=== PATIENT | female | born 1985 | race Caucasian/White ===

== ENCOUNTER → 2017-01-02 | Outpatient (REF) | payer OTHER ==
[~2017-01-02] MED LIST: IMIT5SPR; ROXI1TAB2 PO; XANA0.25 PO; birth control pill PO
== END ==
LOC: M LAB REF 11:30
PROVIDERS: ATTEND Physician Assistant Medical
DX: R50.9 Fever, unspecified (principal)

== ENCOUNTER 2017-01-04 12:40 | Emergency (ER) | payer OTHER ==
[2017-01-04] MEDS ORDERED: ONDANSETRON 4MG/2ML VIAL (J2405) As Ordered ONE (14:18)
[2017-01-04] MEDS ORDERED: KETOROLAC 30 MG/ML VIAL (J1885) As Ordered ONE (14:19)
[2017-01-04 14:34] LABS: EOS % 0.6 % (0.0-3.0); LARGE UNSTAINED CELL # 0.1 K/mm3 (0.0-0.4); LARGE UNSTAINED CELL % 3.7 % (0.0-4.0); LYMPH # 0.5 K/mm3 (1.5-4.5); LYMPH % 14.7 % (24.0-44.0); MEAN CORPUSCULAR HEMOGLOBIN 30.6 pg (27.0-33.0); MEAN CORPUSCULAR HGB CONC 34.2 g/dl (32.0-36.5); MEAN CORPUSCULAR VOLUME 89.4 fl (80.0-96.0); MONO # 0.4 K/mm3 (0.0-0.8); MONO % 12.1 % (0.0-5.0); NEUTROPHILS # 2.2 K/mm3 (1.8-7.7); NEUTROPHILS % 67.9 % (36.0-66.0); PLATELET COUNT, AUTOMATED 161 k/mm3 (150-450); RED CELL DISTRIBUTION WIDTH 12.7 % (11.5-14.5); WHITE BLOOD COUNT 3.2 K/mm3 (4.0-10.0)
[2017-01-04 14:37] LABS: ANION GAP 6 MEQ/L (8-16); BLOOD UREA NITROGEN 11 MG/DL (7-18); CALCIUM LEVEL 9.2 MG/DL (8.5-10.1); CARBON DIOXIDE LEVEL 27 MEQ/L (21-32); CHLORIDE LEVEL 105 MEQ/L (98-107); CREATININE FOR GFR 0.89 MG/DL (0.55-1.02); GLOMERULAR FILTRATION RATE > 60.0 (>60); GLUCOSE, FASTING 94 MG/DL (70-105); POTASSIUM SERUM 3.6 MEQ/L (3.5-5.1); SODIUM LEVEL 138 MEQ/L (136-145)
--- NOTE | 2017-01-04 15:12 | EDDOCDS ---
Nurse's Notes [facility] Name: Yaritza Zuniga Age: 31 yrs Sex: Female : 1985 Arrival Date: 01/04/2017 Time: 12:40 Bed I5 / M5 Private MD: Jorge Shelton FPA Diagnosis: Nausea and vomiting;Abdominal and pelvic pain-LLQ Presentation: 01/04 12:45 Presenting complaint: Patient states: that she thinks she has a kidney stone on her L ms18 side. Pt states that she has had kidney stones since she was 13 yrs old. The pain started Monday and pt reports vomiting. Acute neurological deficits are not present. Mechanism of Injury: No Mechanism of Injury. Adult Sepsis Screening: The patient does not have new or worsening altered mentation. Patient's respiratory rate is less than 22. Systolic blood pressure is greater than 100. Patient has a qSOFA score of 0- Negative Sepsis Screen. Suicide/Homicide risk assessment- the patient denies having any suicidal and/or homicidal ideations and does not present with any other emotional, behavioral or mental health complaints. Status: Patient is not a service writer advisor or dependent. Transition of care: patient was not received from another setting of care. 12:45 Acuity: NIDA Level 3 ms18 12:45 Method Of Arrival: Walkin/Carried/Asstd ms18 Triage Assessment: 12:48 General: Appears in no apparent distress, uncomfortable, Behavior is appropriate for ms18 age, cooperative. Pain: Location: left flank Pain currently is 8 out of 10 on a pain scale. HIV screening NA for this visit Offered previously. Neurological: No deficits noted. Respiratory: No deficits noted. : Denies burning with urination. Musculoskeletal: No deficits noted. CONSTRUCTION GRIP: 12:48 LMP 12/17/2016 ms18 Historical: - Allergies: Ceclor; PENICILLINS; - Home Meds: 1. none - PMHx: Anxiety; Hepatitis C; Kidney stones; - PSHx: Lithotripsy; Kidney Stent- Left; Kidney Stent- Right; Kidney stent removal, L and R side; - Social history: Smoking status: Patient states was never smoker of tobacco. No barriers to communication noted. - Family history: Not pertinent. - : The pt / caregiver states he / she is not on anticoagulants. Home medication list is obtained from the patient. - Exposure Risk Screening:: None identified. Screenin:06 Infection Control. gr2 14:52 Screening information is obtained from the patient. Fall risk: No risks identified. jmk Assistance ADL's: requires no assistance with activities of daily living. Abuse/DV Screen: The patient / caregiver reports he/she is:. Nutritional screening: No deficits noted. Advance Directives: Currently, there is no health care proxy. There is no active DNR order. There is no living will. There is no Power of Financial Market Dealer. home support is adequate. Assessment: 14:30 General: Appears uncomfortable. Indicates discomfort to left flank area without abd jmk pain. + nausea but no vomiting. 14:52 GI: Abdomen is flat, non- distended Bowel sounds present X 4 quads. Abd is soft and non jmk tender X 4 quads. 14:55 General: Appears pain resolved. k Vital Signs: 12:42 BP 120 / 69; Pulse 94; Resp 18 S; Temp 99.4(O); Pulse Ox 99% on R/A; Weight 61.23 kg gr2 (R); Height 5 ft. 4 in. (162.56 cm) (R); Pain 9/10; 15:10 BP 121 / 79; Pulse 72; Resp 16; Temp 97.8; jmk 12:42 Body Mass Index 23.17 (61.23 kg, 162.56 cm) gr2 Vitals: 12:42 Log In Time: January 04, 2017 at 12:42. gr2 ED Course: 12:41 Patient visited by Oscar Dean. gr2 12:41 Jorge Shelton is Private Physician. gr2 12:41 Patient moved to Waiting gr2 12:43 Patient visited by Oscar Dean. gr2 12:43 Patient moved to Pre RCE gr2 12:47 Triage Initiated ms18 13:04 Urine Culture Sent. ms18 13:04 Urinalysis Sent. ms18 13:13 Patient moved to Triage 1 mlb1 13:30 [facility] cc10 13:30 Chuck Hunter MD is Attending Physician. cc10 13:40 Patient visited by James Lemus PA-C. cc10 13:40 Patient visited by James Lemus PA-C. cc10 13:57 Patient moved to I5 / mlb1 14:23 Inserted saline lock: 20 gauge in left antecubital area. jmk 14:52 The patient / caregiver is instructed regarding the plan of care and ED course. jmk 14:55 Patient visited by Antonio Charles RN. jmk 15:03 Jorge Shelton is Referral Physician. cc10 15:11 No procedures done that require assistance. [facility] Administered Medications: 14:23 Drug: Ondansetron 4 mg Route: IVP; Site: left antecubital; [facility] 14:23 Drug: ketorolac 30 mg [ketorolac 30 mg/mL (1 mL) injection solution (1 mL)] Route: IVP; [facility] Site: left antecubital; 14:23 Drug: NS 0.9% 1000 ml Route: IV; Rate: bolus; Site: left antecubital; елена Point of Care Testing: Urine : 13:04 hCG Reading: Negative; Control Reading: Positive; ms18 Ranges: Order Results: Lab Order: Urinalysis; SPEC'M 01/04/17 12:59 Test: APPEARANCE, URINE; Value: CLOUDY; Range: CLEAR; Abnormal: Above high normal; Status: F Test: COLOR, URINE; Value: YELLOW; Range: YELLOW; Status: F Test: PH,URINE; Value: 6.0; Range: 5.0-9.0; Units: UNITS; Status: F Test: SPECIFIC GRAVITY URINE AUTO; Value: 1.019; Range: 1.002-1.035; Status: F Test: PROTEIN, URINE AUTO; Value: 2+; Range: NEGATIVE; Abnormal: Above high normal; Units: mg/dL; Status: F Test: GLUCOSE, URINE (UA) AUTO; Value: NEGATIVE; Range: NEGATIVE; Units: mg/dL; Status: F Test: KETONE, URINE AUTO; Value: TRACE; Range: NEGATIVE; Abnormal: Above high normal; Units: mg/dL; Status: F Test: UROBILINOGEN, URINE AUTO; Value: 0.2; Range: 0.0-2.0; Units: mg/dL; Status: F Test: BILIRUBIN, URINE AUTO; Value: NEGATIVE; Range: NEGATIVE; Status: F Test: NITRITE, URINE AUTO; Value: NEGATIVE; Range: NEGATIVE; Status: F Test: LEUKOCYTE ESTERASE, URINE AUTO; Value: TRACE; Range: NEGATIVE; Abnormal: Above high normal; Status: F Test: BLOOD, URINE BLOOD; Value: 3+; Range: NEGATIVE; Abnormal: Above high normal; Status: F Test: WBC, URINE AUTO; Value: 42; Range: 0-3; Abnormal: Above high normal; Units: /HPF; Status: F Test: RBC, URINE AUTO; Value: TNTC; Range: 0-3; Abnormal: Above high normal; Units: /HPF; Status: F Test: BACTERIA, URINE AUTO; Value: 1+; Range: NEGATIVE; Abnormal: Above high normal; Status: F Test: SQUAMOUS EPITHELIAL CELL UR AU; Value: 3; Range: 0-6; Units: /HPF; Status: F Test: MUCUS, URINE; Value: SMALL; Range: NEGATIVE; Status: F Test: HYALINE CAST, URINE AUTO; Value: 0; Range: 0-1; Units: /LPF; Status: F Lab Order: Basic Metabolic Profile; [facility] 01/04/17 14:15 Test: GLUCOSE, FASTING; Value: 94; Range: 70-105; Units: MG/DL; Status: F Test: BLOOD UREA NITROGEN; Value: 11; Range: 7-18; Units: MG/DL; Status: F Test: CREATININE FOR GFR; Value: 0.89; Range: 0.55-1.02; Units: MG/DL; Status: F Test: GLOMERULAR FILTRATION RATE; Value: > 60.0; Range: >60; Status: F Test: SODIUM LEVEL; Value: 138; Range: 136-145; Units: MEQ/L; Status: F Test: POTASSIUM SERUM; Value: 3.6; Range: 3.5-5.1; Units: MEQ/L; Status: F Test: CHLORIDE LEVEL; Value: 105; Range: 98-107; Units: MEQ/L; Status: F Test: CARBON DIOXIDE LEVEL; Value: 27; Range: 21-32; Units: MEQ/L; Status: F Test: ANION GAP; Value: 6; Range: 8-16; Abnormal: Below low normal; Units: MEQ/L; Status: F Test: CALCIUM LEVEL; Value: 9.2; Range: 8.5-10.1; Units: MG/DL; Status: F Test Note: ; Units are mL/min/1.73 m2 Chronic Kidney Disease Staging per NKF: Stage I & II GFR >=60 Normal to Mildly Decreased Stage III GFR 30-59 Moderately Decreased Stage IV GFR 15-29 Severely Decreased Stage V GFR <15 Very Little GFR Left ESRD GFR <15 on STABLEHAND Lab Order: CBC with Diff; [facility] 01/04/17 14:15 Test: WHITE BLOOD COUNT; Value: 3.2; Range: 4.0-10.0; Abnormal: Below low normal; Units: K/mm3; Status: F Test: RED BLOOD COUNT; Value: 4.75; Range: 4.00-5.40; Units: M/mm3; Status: F Test: HEMOGLOBIN; Value: 14.5; Range: 12.0-16.0; Units: g/dl; Status: F Test: HEMATOCRIT; Value: 42.4; Range: 36.0-47.0; Units: %; Status: F Test: MEAN CORPUSCULAR VOLUME; Value: 89.4; Range: 80.0-96.0; Units: fl; Status: F Test: MEAN CORPUSCULAR HEMOGLOBIN; Value: 30.6; Range: 27.0-33.0; Units: pg; Status: F Test: MEAN CORPUSCULAR HGB CONC; Value: 34.2; Range: 32.0-36.5; Units: g/dl; Status: F Test: RED CELL DISTRIBUTION WIDTH; Value: 12.7; Range: 11.5-14.5; Units: %; Status: F Test: PLATELET COUNT, AUTOMATED; Value: 161; Range: 150-450; Units: k/mm3; Status: F Test: NEUTROPHILS %; Value: 67.9; Range: 36.0-66.0; Abnormal: Above high normal; Units: %; Status: F Test: LYMPH %; Value: 14.7; Range: 24.0-44.0; Abnormal: Below low normal; Units: %; Status: F Test: MONO %; Value: 12.1; Range: 0.0-5.0; Abnormal: Above high normal; Units: %; Status: F Test: EOS %; Value: 0.6; Range: 0.0-3.0; Units: %; Status: F Test: BASO %; Value: 1.0; Range: 0.0-1.0; Units: %; Status: F Test: LARGE UNSTAINED CELL %; Value: 3.7; Range: 0.0-4.0; Units: %; Status: F Test: NEUTROPHILS #; Value: 2.2; Range: 1.8-7.7; Units: K/mm3; Status: F Test: LYMPH #; Value: 0.5; Range: 1.5-4.5; Abnormal: Below low normal; Units: K/mm3; Status: F Test: MONO #; Value: 0.4; Range: 0.0-0.8; Units: K/mm3; Status: F Test: EOS #; Value: 0.0; Range: 0.0-0.50; Units: K/mm3; Status: F Test: BASO #; Value: 0.0; Range: 0.0-0.2; Units: K/mm3; Status: F Test: LARGE UNSTAINED CELL #; Value: 0.1; Range: 0.0-0.4; Units: K/mm3; Status: F Outcome: 15:03 Discharge ordered by Provider. cc10 15:10 Discharge Assessment: Patient awake, alert and oriented x 3. No cognitive and/or jmk functional deficits noted. Patient verbalized understanding of disposition instructions. patient administered narcotics - no. The following High Risk Discharge criteria are identified: None. Discharged to home ambulatory. Condition: good. Discharge instructions given to patient, Instructed on discharge instructions, follow up and referral plans. Demonstrated understanding of instructions, medications, Pt was receptive of discharge instructions/ teaching. Prescriptions given X 2. No special radiology studies were completed. Property :Personal belongings accompany Pt. 15:11 Patient left the ED. tenk Signatures: Antonio Charles,RN RN Jorge Bowman RN RN mlb1 Oscar Dean gr2 James Lemus PA-C PA-C cc10 Jaqueline Cui RN RN ms18 Corrections: (The following items were deleted from the chart) 14:55 14:52 General: Appears uncomfortable. Indicates discomfort to left flank area without jmk abd pain. + nausea but no vomiting. jmk MTDD
--- NOTE | 2017-01-04 15:12 | EDDOCDS ---
Physician Documentation [facility] Name: Yaritza Zuniga Age: 31 yrs Sex: Female : 1985 Arrival Date: 01/04/2017 Time: 12:40 Bed I5 / M5 Private MD: Jorge Shelton FPA Disposition: 01/04/17 15:03 Discharged to Home/Self Care. Impression: Nausea and vomiting, Abdominal and pelvic pain - LLQ. - Condition is Stable. - Discharge Instructions: Kidney Stones. - Prescriptions for Flomax 0.4 mg Oral Capsule, Sust. Release 24 hr - take 1 capsule by ORAL route once daily 1/2 hour following the same meal each day; 30 capsule. ketorolac 10 mg Oral Tablet - take 1 tablet by ORAL route every 6 hours As needed MDD- 40mg. Up to 5 days total use.; 20 tablet. - Medication Reconciliation, Work Release Form - 1 day form. - Follow up: Emergency Department; When: As needed; Reason: Worsening of conditions. Follow up: Jorge Shelton; When: Call to arrange an appointment; Reason: Wound/Symptom Recheck, Recheck today's complaints, Worsening of conditions, Continuance of care. - Problem is an ongoing problem. - Symptoms have improved. Historical: - Allergies: Ceclor; PENICILLINS; - Home Meds: 1. none - PMHx: Anxiety; Hepatitis C; Kidney stones; - PSHx: Lithotripsy; Kidney Stent- Left; Kidney Stent- Right; Kidney stent removal, L and R side; - Social history: Smoking status: Patient states was never smoker of tobacco. No barriers to communication noted. - Family history: Not pertinent. - : The pt / caregiver states he / she is not on anticoagulants. Home medication list is obtained from the patient. - Exposure Risk Screening:: None identified. 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 4 in. (162.56 cm) (R); Pain 9/10; 15:10 BP 121 / 79; Pulse 72; Resp 16; Temp 97.8; jmk 12:42 Body Mass Index 23.17 (61.23 kg, 162.56 cm) gr2 MDM: 12:52 UCG by Nursing ordered. dt4 12:53 Urinalysis Ordered. EDMS 12:53 Urine Culture Ordered. EDMS 13:40 Urinalysis Reviewed. cc10 13:46 Ondansetron 4 mg IVP once ordered. cc10 13:46 ketorolac 30 mg IVP once ordered. cc10 13:46 IV Saline Lock ordered. cc10 13:46 NS 0.9% 1000 ml IV at bolus once ordered. cc10 13:48 Basic Metabolic Profile Ordered. EDMS 13:48 CBC with Diff Ordered. EDMS 14:28 Financial registration complete. mm15 14:53 Basic Metabolic Profile Reviewed. cc10 14:53 CBC with Diff Reviewed. cc10 Point of Care Testing: Urine : 13:04 hCG Reading: Negative; Control Reading: Positive; ms18 Ranges: Administered Medications: 14:23 Drug: Ondansetron 4 mg Route: IVP; Site: left antecubital; елена 14:23 Drug: ketorolac 30 mg [ketorolac 30 mg/mL (1 mL) injection solution (1 mL)] Route: IVP; anastacia Site: left antecubital; 14:23 Drug: NS 0.9% 1000 ml Route: IV; Rate: bolus; Site: left antecubital; [facility] Signatures: Dispatcher [employer] Antonio Terry,NAOMIE RN tenk Jackson Colby mm15 James Lemus PA-C PA-C cc10 Evelia Dao PA-C PA-C dt4 Jaqueline Cui RN RN ms18 MTDD
[2017-01-05] MEDS ORDERED: CIPROFLOXACIN/D5W 400 MG/200 ML BAG (J0744) As Ordered ONE (04:13)
[2017-01-05] MEDS ORDERED: TAMSULOSIN 0.4 MG CAP As Ordered ONE (04:13)
[2017-01-05] MEDS ORDERED: HYDROmorphone HCL 1 MG/ML SYRINGE (J1170) As Ordered ONE (06:04)
[2017-01-05] MEDS ORDERED: NORCO 5/325MG TABLET (BULK) As Ordered ONE (06:24)
--- NOTE | 2017-01-06 16:12 | EDDOCDS ---
Physician Documentation [facility] Name: Yaritza Zuniga Age: 31 yrs Sex: Female : 1985 Arrival Date: 01/04/2017 Time: 12:40 Bed I5 / M5 Private MD: Jorge Shelton FPA Disposition: 01/04/17 15:03 Discharged to Home/Self Care. Impression: Nausea and vomiting, Abdominal and pelvic pain - LLQ. - Condition is Stable. - Discharge Instructions: Kidney Stones. - Prescriptions for Flomax 0.4 mg Oral Capsule, Sust. Release 24 hr - take 1 capsule by ORAL route once daily 1/2 hour following the same meal each day; 30 capsule. ketorolac 10 mg Oral Tablet - take 1 tablet by ORAL route every 6 hours As needed MDD- 40mg. Up to 5 days total use.; 20 tablet. - Medication Reconciliation, Work Release Form - 1 day form. - Follow up: Emergency Department; When: As needed; Reason: Worsening of conditions. Follow up: Jorge Shelton; When: Call to arrange an appointment; Reason: Wound/Symptom Recheck, Recheck today's complaints, Worsening of conditions, Continuance of care. - Problem is an ongoing problem. - Symptoms have improved. Historical: - Allergies: Ceclor; PENICILLINS; - Home Meds: 1. none - PMHx: Anxiety; Hepatitis C; Kidney stones; - PSHx: Lithotripsy; Kidney Stent- Left; Kidney Stent- Right; Kidney stent removal, L and R side; - Social history: Smoking status: Patient states was never smoker of tobacco. No barriers to communication noted. - Family history: Not pertinent. - : The pt / caregiver states he / she is not on anticoagulants. Home medication list is obtained from the patient. - Exposure Risk Screening:: None identified. 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 4 in. (162.56 cm) (R); Pain 9/10; 15:10 BP 121 / 79; Pulse 72; Resp 16; Temp 97.8; jmk 12:42 Body Mass Index 23.17 (61.23 kg, 162.56 cm) gr2 MDM: 12:52 UCG by Nursing ordered. dt4 12:53 Urinalysis Ordered. EDMS 12:53 Urine Culture Ordered. EDMS 13:40 Urinalysis Reviewed. cc10 13:46 Ondansetron 4 mg IVP once ordered. cc10 13:46 ketorolac 30 mg IVP once ordered. cc10 13:46 IV Saline Lock ordered. cc10 13:46 NS 0.9% 1000 ml IV at bolus once ordered. cc10 13:48 Basic Metabolic Profile Ordered. EDMS 13:48 CBC with Diff Ordered. EDMS 14:28 Financial registration complete. mm15 14:53 Basic Metabolic Profile Reviewed. cc10 14:53 CBC with Diff Reviewed. cc10 15:12 [facility] Payment Agreement was scanned into [employer] and attached to record. [facility] 01/05 13:20 T-Sheet-- Draft Copy was scanned into [employer] and attached to record. gb 13:20 Radiology Report was scanned into [employer] and attached to record. Point of Care Testing: Urine : 01/04 13:04 hCG Reading: Negative; Control Reading: Positive; ms18 Ranges: Administered Medications: 14:23 Drug: Ondansetron 4 mg Route: IVP; Site: left antecubital; k 14:23 Drug: ketorolac 30 mg [ketorolac 30 mg/mL (1 mL) injection solution (1 mL)] Route: IVP; [facility] Site: left antecubital; 14:23 Drug: NS 0.9% 1000 ml Route: IV; Rate: bolus; Site: left antecubital; k Signatures: Dispatcher [employer] EDMS Antonio Charles,RN RN jmk Sherlyn Smallwood, Reg Reg gb Jackson Colby mm15 James Lemus PA-C PA-C cc10 Evelia Dao PA-C PA-C dt4 Jaqueline Cui RN RN ms18 The chart was reviewed and I authenticate all verbal orders and agree with the evaluation and treatment provided.Attachments: 15:12 [facility] Payment Agreement [facility] 01/05 13:20 T-Sheet-- Draft Copy gb Chart Complete MTDD
--- NOTE | 2017-01-06 16:12 | EDDOCDS ---
Physician Documentation [facility] Name: Yaritza Zuniga Age: 31 yrs Sex: Female : 1985 Arrival Date: 01/04/2017 Time: 12:40 Bed I5 / M5 Private MD: Jorge Shelton FPA Disposition: 01/04/17 15:03 Discharged to Home/Self Care. Impression: Nausea and vomiting, Abdominal and pelvic pain - LLQ. - Condition is Stable. - Discharge Instructions: Kidney Stones. - Prescriptions for Flomax 0.4 mg Oral Capsule, Sust. Release 24 hr - take 1 capsule by ORAL route once daily 1/2 hour following the same meal each day; 30 capsule. ketorolac 10 mg Oral Tablet - take 1 tablet by ORAL route every 6 hours As needed MDD- 40mg. Up to 5 days total use.; 20 tablet. - Medication Reconciliation, Work Release Form - 1 day form. - Follow up: Emergency Department; When: As needed; Reason: Worsening of conditions. Follow up: Jorge Shelton; When: Call to arrange an appointment; Reason: Wound/Symptom Recheck, Recheck today's complaints, Worsening of conditions, Continuance of care. - Problem is an ongoing problem. - Symptoms have improved. Historical: - Allergies: Ceclor; PENICILLINS; - Home Meds: 1. none - PMHx: Anxiety; Hepatitis C; Kidney stones; - PSHx: Lithotripsy; Kidney Stent- Left; Kidney Stent- Right; Kidney stent removal, L and R side; - Social history: Smoking status: Patient states was never smoker of tobacco. No barriers to communication noted. - Family history: Not pertinent. - : The pt / caregiver states he / she is not on anticoagulants. Home medication list is obtained from the patient. - Exposure Risk Screening:: None identified. 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 4 in. (162.56 cm) (R); Pain 9/10; 15:10 BP 121 / 79; Pulse 72; Resp 16; Temp 97.8; jmk 12:42 Body Mass Index 23.17 (61.23 kg, 162.56 cm) gr2 MDM: 12:52 UCG by Nursing ordered. dt4 12:53 Urinalysis Ordered. EDMS 12:53 Urine Culture Ordered. EDMS 13:40 Urinalysis Reviewed. cc10 13:46 Ondansetron 4 mg IVP once ordered. cc10 13:46 ketorolac 30 mg IVP once ordered. cc10 13:46 IV Saline Lock ordered. cc10 13:46 NS 0.9% 1000 ml IV at bolus once ordered. cc10 13:48 Basic Metabolic Profile Ordered. EDMS 13:48 CBC with Diff Ordered. EDMS 14:28 Financial registration complete. mm15 14:53 Basic Metabolic Profile Reviewed. cc10 14:53 CBC with Diff Reviewed. cc10 15:12 [facility] Payment Agreement was scanned into [employer] and attached to record. [facility] 01/05 13:20 T-Sheet-- Draft Copy was scanned into [employer] and attached to record. gb 13:20 Radiology Report was scanned into [employer] and attached to record. Point of Care Testing: Urine : 01/04 13:04 hCG Reading: Negative; Control Reading: Positive; ms18 Ranges: Administered Medications: 14:23 Drug: Ondansetron 4 mg Route: IVP; Site: left antecubital; k 14:23 Drug: ketorolac 30 mg [ketorolac 30 mg/mL (1 mL) injection solution (1 mL)] Route: IVP; [facility] Site: left antecubital; 14:23 Drug: NS 0.9% 1000 ml Route: IV; Rate: bolus; Site: left antecubital; k Signatures: Dispatcher [employer] EDMS Antonio Charles,RN RN jmk Sherlyn Smallwood, Reg Reg gb Jackson Colby mm15 James Lemus PA-C PA-C cc10 Evelia Dao PA-C PA-C dt4 Jaqueline Cui RN RN ms18 The chart was reviewed and I authenticate all verbal orders and agree with the evaluation and treatment provided.Attachments: 15:12 [facility] Payment Agreement [facility] 01/05 13:20 T-Sheet-- Draft Copy gb Chart Complete MTDD
--- NOTE | 2017-01-06 16:12 | EDDOCDS ---
Nurse's Notes [facility] Name: Yaritza Zuniga Age: 31 yrs Sex: Female : 1985 Arrival Date: 01/04/2017 Time: 12:40 Bed I5 / M5 Private MD: Jorge Shelton FPA Diagnosis: Nausea and vomiting;Abdominal and pelvic pain-LLQ Presentation: 01/04 12:45 Presenting complaint: Patient states: that she thinks she has a kidney stone on her L ms18 side. Pt states that she has had kidney stones since she was 13 yrs old. The pain started Monday and pt reports vomiting. Acute neurological deficits are not present. Mechanism of Injury: No Mechanism of Injury. Adult Sepsis Screening: The patient does not have new or worsening altered mentation. Patient's respiratory rate is less than 22. Systolic blood pressure is greater than 100. Patient has a qSOFA score of 0- Negative Sepsis Screen. Suicide/Homicide risk assessment- the patient denies having any suicidal and/or homicidal ideations and does not present with any other emotional, behavioral or mental health complaints. Status: Patient is not a medical customer service representative or dependent. Transition of care: patient was not received from another setting of care. 12:45 Acuity: NIDA Level 3 ms18 12:45 Method Of Arrival: Walkin/Carried/Asstd ms18 Triage Assessment: 12:48 General: Appears in no apparent distress, uncomfortable, Behavior is appropriate for ms18 age, cooperative. Pain: Location: left flank Pain currently is 8 out of 10 on a pain scale. HIV screening NA for this visit Offered previously. Neurological: No deficits noted. Respiratory: No deficits noted. : Denies burning with urination. Musculoskeletal: No deficits noted. DATA SUPPORT SPECIALIST: 12:48 LMP 12/17/2016 ms18 Historical: - Allergies: Ceclor; PENICILLINS; - Home Meds: 1. none - PMHx: Anxiety; Hepatitis C; Kidney stones; - PSHx: Lithotripsy; Kidney Stent- Left; Kidney Stent- Right; Kidney stent removal, L and R side; - Social history: Smoking status: Patient states was never smoker of tobacco. No barriers to communication noted. - Family history: Not pertinent. - : The pt / caregiver states he / she is not on anticoagulants. Home medication list is obtained from the patient. - Exposure Risk Screening:: None identified. Screenin:06 Infection Control. gr2 14:52 Screening information is obtained from the patient. Fall risk: No risks identified. jmk Assistance ADL's: requires no assistance with activities of daily living. Abuse/DV Screen: The patient / caregiver reports he/she is:. Nutritional screening: No deficits noted. Advance Directives: Currently, there is no health care proxy. There is no active DNR order. There is no living will. There is no Power of Terminal Computer Operator. home support is adequate. Assessment: 14:30 General: Appears uncomfortable. Indicates discomfort to left flank area without abd jmk pain. + nausea but no vomiting. 14:52 GI: Abdomen is flat, non- distended Bowel sounds present X 4 quads. Abd is soft and non jmk tender X 4 quads. 14:55 General: Appears pain resolved. k Vital Signs: 12:42 BP 120 / 69; Pulse 94; Resp 18 S; Temp 99.4(O); Pulse Ox 99% on R/A; Weight 61.23 kg gr2 (R); Height 5 ft. 4 in. (162.56 cm) (R); Pain 9/10; 15:10 BP 121 / 79; Pulse 72; Resp 16; Temp 97.8; jmk 12:42 Body Mass Index 23.17 (61.23 kg, 162.56 cm) gr2 Vitals: 12:42 Log In Time: January 04, 2017 at 12:42. gr2 ED Course: 12:41 Patient visited by Oscar Dean. gr2 12:41 Jorge Shelton is Private Physician. gr2 12:41 Patient moved to Waiting gr2 12:43 Patient visited by Oscar Dean. gr2 12:43 Patient moved to Pre RCE gr2 12:47 Triage Initiated ms18 13:04 Urine Culture Sent. ms18 13:04 Urinalysis Sent. ms18 13:13 Patient moved to Triage 1 mlb1 13:30 James Lemus [facility]-C [facility]. cc10 13:30 Chuck Hunter MD is Attending Physician. cc10 13:40 Patient visited by James Lemus PA-C. cc10 13:40 Patient visited by James Lemus PA-C. cc10 13:57 Patient moved to I5 / mlb1 14:23 Inserted saline lock: 20 gauge in left antecubital area. jmk 14:52 The patient / caregiver is instructed regarding the plan of care and ED course. jmk 14:55 Patient visited by Antonio Charles RN. jmk 15:03 Jorge Shelton is Referral Physician. cc10 15:11 No procedures done that require assistance. jmk 15:12 [facility] [place] was scanned into Gogo and attached to record. mm15 01/05 09:32 Patient name changed from Yaritza\S\S\S\Zuniga\S\ to Yaritza\S\Mariela\S\Zuniga. EDMS 13:20 T-Sheet-- Draft Copy was scanned into Gogo and attached to record. gb 13:20 Radiology Report was scanned into Gogo and attached to record. gb Administered Medications: 01/04 14:23 Drug: Ondansetron 4 mg Route: IVP; Site: left antecubital; [facility] 14:23 Drug: ketorolac 30 mg [ketorolac 30 mg/mL (1 mL) injection solution (1 mL)] Route: IVP; [facility] Site: left antecubital; 14:23 Drug: NS 0.9% 1000 ml Route: IV; Rate: bolus; Site: left antecubital; [facility] Point of Care Testing: Urine : 13:04 hCG Reading: Negative; Control Reading: Positive; ms18 Ranges: Order Results: Lab Order: Urinalysis; SPEC'M 01/04/17 12:59 Test: APPEARANCE, URINE; Value: CLOUDY; Range: CLEAR; Abnormal: Above high normal; Status: F Test: COLOR, URINE; Value: YELLOW; Range: YELLOW; Status: F Test: PH,URINE; Value: 6.0; Range: 5.0-9.0; Units: UNITS; Status: F Test: SPECIFIC GRAVITY URINE AUTO; Value: 1.019; Range: 1.002-1.035; Status: F Test: PROTEIN, URINE AUTO; Value: 2+; Range: NEGATIVE; Abnormal: Above high normal; Units: mg/dL; Status: F Test: GLUCOSE, URINE (UA) AUTO; Value: NEGATIVE; Range: NEGATIVE; Units: mg/dL; Status: F Test: KETONE, URINE AUTO; Value: TRACE; Range: NEGATIVE; Abnormal: Above high normal; Units: mg/dL; Status: F Test: UROBILINOGEN, URINE AUTO; Value: 0.2; Range: 0.0-2.0; Units: mg/dL; Status: F Test: BILIRUBIN, URINE AUTO; Value: NEGATIVE; Range: NEGATIVE; Status: F Test: NITRITE, URINE AUTO; Value: NEGATIVE; Range: NEGATIVE; Status: F Test: LEUKOCYTE ESTERASE, URINE AUTO; Value: TRACE; Range: NEGATIVE; Abnormal: Above high normal; Status: F Test: BLOOD, URINE BLOOD; Value: 3+; Range: NEGATIVE; Abnormal: Above high normal; Status: F Test: WBC, URINE AUTO; Value: 42; Range: 0-3; Abnormal: Above high normal; Units: /HPF; Status: F Test: RBC, URINE AUTO; Value: TNTC; Range: 0-3; Abnormal: Above high normal; Units: /HPF; Status: F Test: BACTERIA, URINE AUTO; Value: 1+; Range: NEGATIVE; Abnormal: Above high normal; Status: F Test: SQUAMOUS EPITHELIAL CELL UR AU; Value: 3; Range: 0-6; Units: /HPF; Status: F Test: MUCUS, URINE; Value: SMALL; Range: NEGATIVE; Status: F Test: HYALINE CAST, URINE AUTO; Value: 0; Range: 0-1; Units: /LPF; Status: F Lab Order: Urine Culture; SPEC'M 01/04/17 12:59 Test: URINE CULTURE; Value: <EXTERNAL COMMENT eCWMed> FULL REPORT IN LAB NOTES (eCW and Medent).; Status: F Test: URINE CULTURE; Value: URINE CULTURE RESULT NO GROWTH; Status: F Lab Order: Basic Metabolic Profile; SPEC'M 01/04/17 14:15 Test: GLUCOSE, FASTING; Value: 94; Range: 70-105; Units: MG/DL; Status: F Test: BLOOD UREA NITROGEN; Value: 11; Range: 7-18; Units: MG/DL; Status: F Test: CREATININE FOR GFR; Value: 0.89; Range: 0.55-1.02; Units: MG/DL; Status: F Test: GLOMERULAR FILTRATION RATE; Value: > 60.0; Range: >60; Status: F Test: SODIUM LEVEL; Value: 138; Range: 136-145; Units: MEQ/L; Status: F Test: POTASSIUM SERUM; Value: 3.6; Range: 3.5-5.1; Units: MEQ/L; Status: F Test: CHLORIDE LEVEL; Value: 105; Range: 98-107; Units: MEQ/L; Status: F Test: CARBON DIOXIDE LEVEL; Value: 27; Range: 21-32; Units: MEQ/L; Status: F Test: ANION GAP; Value: 6; Range: 8-16; Abnormal: Below low normal; Units: MEQ/L; Status: F Test: CALCIUM LEVEL; Value: 9.2; Range: 8.5-10.1; Units: MG/DL; Status: F Test Note: ; Units are mL/min/1.73 m2 Chronic Kidney Disease Staging per NKF: Stage I & II GFR >=60 Normal to Mildly Decreased Stage III GFR 30-59 Moderately Decreased Stage IV GFR 15-29 Severely Decreased Stage V GFR <15 Very Little GFR Left ESRD GFR <15 on TIE LAYER Lab Order: CBC with Diff; SPEC'M 01/04/17 14:15 Test: WHITE BLOOD COUNT; Value: 3.2; Range: 4.0-10.0; Abnormal: Below low normal; Units: K/mm3; Status: F Test: RED BLOOD COUNT; Value: 4.75; Range: 4.00-5.40; Units: M/mm3; Status: F Test: HEMOGLOBIN; Value: 14.5; Range: 12.0-16.0; Units: g/dl; Status: F Test: HEMATOCRIT; Value: 42.4; Range: 36.0-47.0; Units: %; Status: F Test: MEAN CORPUSCULAR VOLUME; Value: 89.4; Range: 80.0-96.0; Units: fl; Status: F Test: MEAN CORPUSCULAR HEMOGLOBIN; Value: 30.6; Range: 27.0-33.0; Units: pg; Status: F Test: MEAN CORPUSCULAR HGB CONC; Value: 34.2; Range: 32.0-36.5; Units: g/dl; Status: F Test: RED CELL DISTRIBUTION WIDTH; Value: 12.7; Range: 11.5-14.5; Units: %; Status: F Test: PLATELET COUNT, AUTOMATED; Value: 161; Range: 150-450; Units: k/mm3; Status: F Test: NEUTROPHILS %; Value: 67.9; Range: 36.0-66.0; Abnormal: Above high normal; Units: %; Status: F Test: LYMPH %; Value: 14.7; Range: 24.0-44.0; Abnormal: Below low normal; Units: %; Status: F Test: MONO %; Value: 12.1; Range: 0.0-5.0; Abnormal: Above high normal; Units: %; Status: F Test: EOS %; Value: 0.6; Range: 0.0-3.0; Units: %; Status: F Test: BASO %; Value: 1.0; Range: 0.0-1.0; Units: %; Status: F Test: LARGE UNSTAINED CELL %; Value: 3.7; Range: 0.0-4.0; Units: %; Status: F Test: NEUTROPHILS #; Value: 2.2; Range: 1.8-7.7; Units: K/mm3; Status: F Test: LYMPH #; Value: 0.5; Range: 1.5-4.5; Abnormal: Below low normal; Units: K/mm3; Status: F Test: MONO #; Value: 0.4; Range: 0.0-0.8; Units: K/mm3; Status: F Test: EOS #; Value: 0.0; Range: 0.0-0.50; Units: K/mm3; Status: F Test: BASO #; Value: 0.0; Range: 0.0-0.2; Units: K/mm3; Status: F Test: LARGE UNSTAINED CELL #; Value: 0.1; Range: 0.0-0.4; Units: K/mm3; Status: F Outcome: 15:03 Discharge ordered by Provider. cc10 15:10 Discharge Assessment: Patient awake, alert and oriented x 3. No cognitive and/or jmk functional deficits noted. Patient verbalized understanding of disposition instructions. patient administered narcotics - no. The following High Risk Discharge criteria are identified: None. Discharged to home ambulatory. Condition: good. Discharge instructions given to patient, Instructed on discharge instructions, follow up and referral plans. Demonstrated understanding of instructions, medications, Pt was receptive of discharge instructions/ teaching. Prescriptions given X 2. No special radiology studies were completed. Property :Personal belongings accompany Pt. 15:11 Patient left the ED. anastacia Signatures: Dispatcher [employer] EDAntonio Howell,RN RN Sherlyn Sykes, Reg Reg gb Jorge Cagle RN RN mlb1 Oscar Dean gr2 Jackson Colby mm15 James Lemus, PA-C PA-Kevin cc10 Jaqueline CuiRN RN ms18 Corrections: (The following items were deleted from the chart) 14:55 14:52 General: Appears uncomfortable. Indicates discomfort to left flank area without anastacia abd pain. + nausea but no vomiting. anastacia Chart Complete MTDD
== END 2017-01-04 15:11 | disposition home or self-care (01) ==
LOC: M ED 12:40
DX: R10.32 Left lower quadrant pain (principal); F41.9 Anxiety disorder, unspecified; Z86.19 Personal history of other infectious and parasitic diseases; Z87.442 Personal history of urinary calculi; Z88.0 Allergy status to penicillin

== ENCOUNTER 2017-01-05 01:48 | Emergency (ER) | payer OTHER ==
[2017-01-05] MEDS ORDERED: KETOROLAC 30 MG/ML VIAL (J1885) As Ordered ONE (02:13)
[2017-01-05] MEDS ORDERED: HYDROmorphone HCL 1 MG/ML SYRINGE (J1170) As Ordered ONE (02:28)
[2017-01-05 02:43] LABS: DIFF SLIDE NUMBER 146; MEAN CORPUSCULAR HEMOGLOBIN 30.5 pg (27.0-33.0); MEAN CORPUSCULAR VOLUME 89.8 fl (80.0-96.0); PLATELET COUNT, AUTOMATED 176 k/mm3 (150-450); RED CELL DISTRIBUTION WIDTH 12.9 % (11.5-14.5)
[2017-01-05 02:54] LABS: CONTROL LINE HCG INT CTR LINE PRESENT
[2017-01-05 03:03] LABS: ALBUMIN/GLOBULIN RATIO 1.18 (1.00-1.93); ALKALINE PHOSPHATASE 62 U/L (45-117); ALT/SGPT 19 U/L (12-78); AMYLASE 54 U/L (25-115); ANION GAP 9 MEQ/L (8-16); AST/SGOT 19 U/L (15-37); BILIRUBIN,DIRECT 0.1 MG/DL (0.0-0.2); BILIRUBIN,TOTAL 0.3 MG/DL (0.2-1.0); BLOOD UREA NITROGEN 14 MG/DL (7-18); CARBON DIOXIDE LEVEL 26 MEQ/L (21-32); CHLORIDE LEVEL 107 MEQ/L (98-107); CREATININE FOR GFR 0.95 MG/DL (0.55-1.02); GLOMERULAR FILTRATION RATE > 60.0 (>60); GLUCOSE, FASTING 91 MG/DL (70-105); POTASSIUM SERUM 3.9 MEQ/L (3.5-5.1); SODIUM LEVEL 142 MEQ/L (136-145); TOTAL PROTEIN 7.4 GM/DL (6.4-8.2)
[2017-01-05 03:14] LABS: BASOPHILS 1 % (0-4)
--- NOTE | 2017-01-05 03:50 | REPUSA ---
CLINICAL HISTORY: TECHNIQUE: Multiple axial and coronal CT images were obtained through the abdomen and pelvis without administration of oral or IV contrast material. COMMENTS: The liver is of uniform attenuation without mass or defect. There is no intra or extrahepatic biliary ductal dilatation. The spleen is normal. The gallbladder is within normal limits. The pancreas is of normal contour and attenuation characteristics. There is no evidence of adrenal mass. Bilateral renal stones ranging in size between 3 and 7 mm. 4.2 mm obstructing calculous of the left u reter at L3. Mild left hydroureteronephrosis. There is no evidence for appendicitis. There is no bowel wall thickening. No evidence for small or la rge bowel obstruction. There is no evidence of abdominal ascites or lymphadenopathy. There is no evidence of intrinsic or extrinsic bladder mass. There is no pelvic ascites or lymphadeno park. Images of the lung bases show no evidence of pleural or parenchymal mass. There are no pleural effusi ons. The bony structures are free of lytic or blastic lesions. IMPRESSION: Bilateral nephrolithiasis. Obstructing stone of the proximal left ureter. Thank you for your kind referral of this patient.
[2017-01-05] MEDS ORDERED: KETOROLAC 30 MG/ML VIAL (J1885) ONE (06:04)
[2017-01-05] MEDS ORDERED: ONDANSETRON 4MG/2ML VIAL (J2405) ONE (06:04)
[2017-01-05] MEDS ORDERED: HYDROmorphone HCL 1 MG/ML SYRINGE (J1170) ONE (06:04)
[2017-01-05] MEDS ORDERED: TAMSULOSIN 0.4 MG CAP ONE (06:04)
[2017-01-05] MEDS ORDERED: NORCO 5/325MG TABLET (BULK) ONE (06:25)
[2017-01-05] MEDS ORDERED: CIPROFLOXACIN/D5W 400 MG/200 ML BAG (J0744) ONE (06:25)
--- NOTE | 2017-01-05 06:46 | EDDOCDS ---
Physician Documentation [facility] Name: Yaritza Zuniga Age: 31 yrs Sex: Female : 1985 Arrival Date: 01/05/2017 Time: 01:48 Bed 6 Private MD: Jorge Shelton WAT Disposition: 01/05/17 06:09 Discharged to Home/Self Care. Impression: Calculus of kidney with calculus of ureter. - Condition is Stable. - Medication Reconciliation, Local Pharmacy Hours form. - Follow up: [facility] [place]; When: Today; Reason: Recheck today's complaints, To establish care. - Problem is chronic. - Symptoms have improved. - Notes: call Dr Mitchell office today. Historical: - Allergies: Ceclor; PENICILLINS; - Home Meds: 1. Xanax 0.25 mg Oral tab 1 tab 3 times per day as needed - PMHx: Anxiety; Hepatitis C; Kidney stones; - PSHx: Lithotripsy; Kidney Stent- Left; Kidney Stent- Right; Kidney stent removal, L and R side; - Social history: Smoking status: Patient states was never smoker of tobacco. No barriers to communication noted, The patient speaks fluent [place], Speaks appropriately for age. - Family history: Not pertinent. - : The pt / caregiver states he / she is not on anticoagulants. Home medication list is obtained from the patient. - Exposure Risk Screening:: None identified. 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 4 in. (162.56 cm) (R); Pain 10/10; 06:27 BP 103 / 71; Pulse 59; Resp 18; Temp 98.8(TE); Pulse Ox 99% on R/A; Pain 3/10; mdr 02:00 Body Mass Index 24.03 (63.50 kg, 162.56 cm) b MDM: 02:08 IV Saline Lock ordered. cs11 02:08 NS 0.9% 1000 ml IV at bolus once ordered. cs11 02:08 ketorolac 30 mg IVP once ordered. cs11 02:09 CBC with Diff Ordered. EDMS 02:09 MED Profile Ordered. EDMS 02:09 Urinalysis Ordered. EDMS 02:09 HCG,Serum Qualitative Ordered. EDMS 02:09 Liver Profile Ordered. EDMS 02:09 Amylase Ordered. EDMS 02:09 Lipase Ordered. EDMS 02:09 Urine Culture Ordered. EDMS 02:09 CT ABD & PELVIS: No Contrast Ordered. EDMS 02:29 Dilaudid - HYDROmorphone 0.5 mg IVP once ordered. cs11 02:36 Financial registration complete. hs2 02:37 [facility] Payment Agreement was scanned into [employer] and attached to record. hs2 02:45 DIFFERENTIAL NO CHARGE Ordered. EDMS 03:04 CBC with Diff Reviewed. cs11 03:04 HCG,Serum Qualitative Reviewed. cs11 03:54 CBC with Diff Reviewed. cs11 03:54 Urinalysis Reviewed. cs11 03:54 MED Profile Reviewed. cs11 03:54 HCG,Serum Qualitative Reviewed. cs11 03:54 Liver Profile Reviewed. cs11 03:54 Amylase Reviewed. cs11 03:54 Lipase Reviewed. cs11 03:54 PLATELET ESTIMATE Reviewed. cs11 03:55 NS 0.9% 1000 ml IV at bolus once ordered. cs11 03:58 Dilaudid - HYDROmorphone 0.5 mg IVP once ordered. cs11 04:03 Ciprofloxacin 400 mg IVPB at 200 mL/hr once over 60 mins ordered. cs11 04:04 Tamsulosin Extended Release 24 hour Capsule 0.4 mg PO once ordered. cs11 06:04 Dilaudid - HYDROmorphone 0.5 mg IVP once ordered. cs11 06:06 CT ABD & PELVIS: No Contrast Reviewed. cs11 06:10 HYDROcodone-acetaminophen 4 pack- 5 mg-325 mg 1 packets PO Per package directions; cs11 Dispense with patient. 1 po q4h prn for pain ordered. Administered Medications: Discontinued: NS 0.9% 1000 ml IV at bolus once Discontinued: NS 0.9% 1000 ml IV at bolus once Discontinued: Ciprofloxacin 400 mg IVPB at 200 mL/hr once over 60 mins 02:10 Drug: NS 0.9% 1000 ml [sodium chloride 0.9 % intravenous solution] Route: IV; Rate: cf2 bolus; Site: left antecubital; 06:42 Follow up: Response: No significant change. cf2 02:10 Drug: ketorolac 30 mg [ketorolac 30 mg/mL (1 mL) injection solution (1 mL)] Route: IVP; cf2 Site: left antecubital; 06:42 Follow up: Response: Pain is decreased cf2 02:33 Drug: Dilaudid - HYDROmorphone 0.5 mg [hydromorphone 1 mg/mL injection syringe (0.5 cf2 mL)] Route: IVP; Site: left antecubital; 06:41 Follow up: Response: No significant change. cf2 04:00 Drug: Dilaudid - HYDROmorphone 0.5 mg [hydromorphone 1 mg/mL injection syringe (0.5 cf2 mL)] Route: IVP; Site: left antecubital; 06:41 Follow up: Response: Pain is decreased cf2 04:20 Drug: NS 0.9% 1000 ml [sodium chloride 0.9 % intravenous solution] Route: IV; Rate: cf2 bolus; Site: left antecubital; 06:41 Follow up: Response: No significant change. cf2 04:20 Drug: Ciprofloxacin 400 mg [ciprofloxacin 400 mg/200 mL in 5 % dextrose intravenous cf2 piggyback] Route: IVPB; Rate: 200 mL/hr; Infused Over: 60 mins; Site: left antecubital; 06:41 Follow up: Response: No Adverse Reaction; No significant change. cf2 04:20 Drug: Tamsulosin 0.4 mg [tamsulosin 0.4 mg capsule (1 caps)] Route: PO; cf2 06:41 Follow up: Response: Pain is decreased cf2 06:04 Drug: Dilaudid - HYDROmorphone 0.5 mg [hydromorphone 1 mg/mL injection syringe (0.5 cf2 mL)] Route: IVP; Site: left antecubital; 06:40 Follow up: Response: Pt left department before re-evaluation is appropriate cf2 06:39 Drug: HYDROcodone-acetaminophen 4 pack- 1 packets [hydrocodone 5 mg-acetaminophen 325 cf2 mg tablet (1 tabs)] {Co-Signature: tm5 (Emelyn Chisholm RN).} Route: PO; 06:39 Follow up: Response: Pt left department before re-evaluation is appropriate cf2 Signatures: Dispatcher [employer] Jassi Eddy, DO cs11 Steh Hoskins,RN RN jmb Melodie Bates, Reg Reg hs2 Charlotte Dixon,NAOMIE RN cf2 Emelyn Chisholm RN tm5 The chart was reviewed and I authenticate all verbal orders and agree with the evaluation and treatment provided.Attachments: 02:37 [place] [place] hs2 MTDD
--- NOTE | 2017-01-05 06:46 | EDDOCDS ---
Nurse's Notes [facility] Name: Yaritza Zuniga Age: 31 yrs Sex: Female : 1985 Arrival Date: 01/05/2017 Time: 01:48 Bed 6 Private MD: Jorge Shelton WAT Diagnosis: Calculus of kidney with calculus of ureter Presentation: 01/05 01:59 Presenting complaint: Patient states: Patient reports that she has a kidney stone, seen b earlier. Acute neurological deficits are not present. Mechanism of Injury: No Mechanism of Injury. Adult Sepsis Screening: The patient does not have new or worsening altered mentation. Patient's respiratory rate is less than 22. Systolic blood pressure is greater than 100. Patient has a qSOFA score of 0- Negative Sepsis Screen. Suicide/Homicide risk assessment- the patient denies having any suicidal and/or homicidal ideations and does not present with any other emotional, behavioral or mental health complaints. 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 Transition of care: patient was not received from another setting of care. 01:59 Acuity: NIDA Level 3 [facility] 01:59 Method Of Arrival: Walkin/Carried/Asstd [facility] Triage Assessment: 02:00 General: Appears uncomfortable, Behavior is restless. Pain: Location: abdomen Pain [facility] currently is 10 out of 10 on a pain scale. HIV screening NA for this visit Offered previously. Neurological: Level of Consciousness is awake, alert, obeys commands, Oriented to person, place, time, Speech is normal, Facial symmetry appears normal, Facial symmetry: tongue is midline. Respiratory: Airway is patent Respiratory effort is even, unlabored, Respiratory pattern is regular, symmetrical. Musculoskeletal: Range of motion intact in all extremities. 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 Xanax 0.25 mg Oral tab 1 tab 3 times per day as needed - PMHx: Anxiety; Hepatitis C; Kidney stones; - PSHx: Lithotripsy; Kidney Stent- Left; Kidney Stent- Right; Kidney stent removal, L and R side; - Social history: Smoking status: Patient states was never smoker of tobacco. No barriers to communication noted, The patient speaks fluent Belarusian, Speaks appropriately for age. - Family history: Not pertinent. - : The pt / caregiver states he / she is not on anticoagulants. Home medication list is obtained from the patient. - Exposure Risk Screening:: None identified. Screenin:37 Screening information is obtained from the patient. Fall risk: No risks identified. cf2 Assistance ADL's: requires no assistance with activities of daily living. Abuse/DV Screen: The patient / caregiver reports he/she is: not in a situation that causes fear, pain or injury. Nutritional screening: No deficits noted. Advance Directives: Further advance directive information is declined. home support is adequate. Assessment: 02:37 Adult Sepsis Screening: The patient does not have new or worsening altered mentation. cf2 Patient's respiratory rate is less than 22. Systolic blood pressure is greater than 100. Patient has a qSOFA score of 0- Negative Sepsis Screen. General: Appears distressed, ill, Behavior is restless. Pain: Location: back Pain currently is 10 out of 10 on a pain scale. At worst was 10 out of 10 on a pain scale. Neurological: No deficits noted. EENT: No deficits noted. Cardiovascular: No deficits noted. Respiratory: No deficits noted. GI: No deficits noted. : No deficits noted. Derm: No deficits noted. Musculoskeletal: No deficits noted. Injury Description: No known injury. 04:31 Reassessment: Patient appears in no apparent distress at this time. Patient states cf2 feeling better. Patient states symptoms have improved. Vital Signs: 02:00 BP 120 / 85; Pulse 83; Resp 18; Temp 96.3; Pulse Ox 99% on R/A; Weight 63.5 kg (R); [facility] Height 5 ft. 4 in. (162.56 cm) (R); Pain 10/10; 06:27 BP 103 / 71; Pulse 59; Resp 18; Temp 98.8(TE); Pulse Ox 99% on R/A; Pain 3/10; mdr 02:00 Body Mass Index 24.03 (63.50 kg, 162.56 cm) [facility] Vitals: 02:00 Log In Time: January 05, 2017 at 01:48. [facility] ED Course: 01:49 Patient visited by Camacho Mathews, Reg. pm4 01:49 Jorge Shelton is Private Physician. pm4 01:49 Patient moved to Waiting pm4 02:00 Triage Initiated b 02:03 Patient moved to 6 jmb 02:05 Jassi Juarez DO is Attending Physician. cs11 02:05 Patient visited by Jassi Juarez DO. cs11 02:10 Charlotte Dixon,NAOMIE is Primary Nurse. cf2 02:10 Patient visited by Charlotte Dixon RN. cf2 02:37 Patient visited by Charlotte Dixon RN. cf2 02:37 [facility] Payment Agreement was scanned into [employer] and attached to record. hs2 02:37 The patient / caregiver is instructed regarding the plan of care and ED course. Patient cf2 has correct armband on for positive identification. Placed in gown. Bed in low position. Call light in reach. Side rails up X 1. Side rails up X2. Property :Personal belongings accompany Pt. Door closed. Noise minimized. Visitors limited. Lights dimmed. Moved to private room. Verbal reassurance given. Warm blanket given. Pillow given. Head of bed elevated. Diet: Patient is NPO. 02:37 Inserted saline lock: 20 gauge in left antecubital area and blood collected. The cf2 patient tolerated the procedure well. No procedures done that require assistance. 02:40 Patient name changed from Yaritza\S\S\S\Zuniga\S\ to Yaritza\S\Mariela\S\Zuniga. EDMS 03:00 Patient visited by Charlotte Dixon RN. cf2 03:08 Urine Culture Sent. cf2 03:08 Urinalysis Sent. cf2 03:49 Patient visited by Charlotte Dixon RN. cf2 04:17 CT ABD & PELVIS: No Contrast Returned. EDMS 04:21 Patient visited by Charlotte Dixon RN. cf2 04:31 Patient visited by Charlotte Dixon RN. cf2 04:32 DIFFERENTIAL NO CHARGE Sent. cf2 05:12 Patient visited by Charlotte Dixon RN. cf2 05:44 Patient visited by Charlotte Dixon RN. cf2 06:03 Patient visited by Charlotte Dixon RN. cf2 06:09 Umesh Vegas is Referral Physician. cs11 06:28 Patient visited by Richard Gaitan PCA. mdr 06:39 Patient visited by Charlotte Dixon RN. cf2 Administered Medications: Discontinued: NS 0.9% 1000 ml IV at bolus once Discontinued: NS 0.9% 1000 ml IV at bolus once Discontinued: Ciprofloxacin 400 mg IVPB at 200 mL/hr once over 60 mins 02:10 Drug: NS 0.9% 1000 ml [sodium chloride 0.9 % intravenous solution] Route: IV; Rate: cf2 bolus; Site: left antecubital; 06:42 Follow up: Response: No significant change. cf2 02:10 Drug: ketorolac 30 mg [ketorolac 30 mg/mL (1 mL) injection solution (1 mL)] Route: IVP; cf2 Site: left antecubital; 06:42 Follow up: Response: Pain is decreased cf2 02:33 Drug: Dilaudid - HYDROmorphone 0.5 mg [hydromorphone 1 mg/mL injection syringe (0.5 cf2 mL)] Route: IVP; Site: left antecubital; 06:41 Follow up: Response: No significant change. cf2 04:00 Drug: Dilaudid - HYDROmorphone 0.5 mg [hydromorphone 1 mg/mL injection syringe (0.5 cf2 mL)] Route: IVP; Site: left antecubital; 06:41 Follow up: Response: Pain is decreased cf2 04:20 Drug: NS 0.9% 1000 ml [sodium chloride 0.9 % intravenous solution] Route: IV; Rate: cf2 bolus; Site: left antecubital; 06:41 Follow up: Response: No significant change. cf2 04:20 Drug: Ciprofloxacin 400 mg [ciprofloxacin 400 mg/200 mL in 5 % dextrose intravenous cf2 piggyback] Route: IVPB; Rate: 200 mL/hr; Infused Over: 60 mins; Site: left antecubital; 06:41 Follow up: Response: No Adverse Reaction; No significant change. cf2 04:20 Drug: Tamsulosin 0.4 mg [tamsulosin 0.4 mg capsule (1 caps)] Route: PO; cf2 06:41 Follow up: Response: Pain is decreased cf2 06:04 Drug: Dilaudid - HYDROmorphone 0.5 mg [hydromorphone 1 mg/mL injection syringe (0.5 cf2 mL)] Route: IVP; Site: left antecubital; 06:40 Follow up: Response: Pt left department before re-evaluation is appropriate cf2 06:39 Drug: HYDROcodone-acetaminophen 4 pack- 1 packets [hydrocodone 5 mg-acetaminophen 325 cf2 mg tablet (1 tabs)] {Co-Signature: tm5 (Emelyn Chisholm RN).} Route: PO; 06:39 Follow up: Response: Pt left department before re-evaluation is appropriate cf2 Order Results: Lab Order: CBC with Diff; SPEC'M 01/05/17 02:23 Test: WHITE BLOOD COUNT; Value: 3.0; Range: 4.0-10.0; Abnormal: Below low normal; Units: K/mm3; Status: F Test: RED BLOOD COUNT; Value: 4.76; Range: 4.00-5.40; Units: M/mm3; Status: F Test: HEMOGLOBIN; Value: 14.5; Range: 12.0-16.0; Units: g/dl; Status: F Test: HEMATOCRIT; Value: 42.7; Range: 36.0-47.0; Units: %; Status: F Test: MEAN CORPUSCULAR VOLUME; Value: 89.8; Range: 80.0-96.0; Units: fl; Status: F Test: MEAN CORPUSCULAR HEMOGLOBIN; Value: 30.5; Range: 27.0-33.0; Units: pg; Status: F Test: MEAN CORPUSCULAR HGB CONC; Value: 34.0; Range: 32.0-36.5; Units: g/dl; Status: F Test: RED CELL DISTRIBUTION WIDTH; Value: 12.9; Range: 11.5-14.5; Units: %; Status: F Test: PLATELET COUNT, AUTOMATED; Value: 176; Range: 150-450; Units: k/mm3; Status: F Test: NEUTROPHILS; Value: 25; Range: 35-75; Abnormal: Below low normal; Units: %; Status: F Test: LYMPHOCYTES; Value: 57; Range: 16-52; Abnormal: Above high normal; Units: %; Status: F Test: MONOCYTES; Value: 11; Range: 0-8; Abnormal: Above high normal; Units: %; Status: F Test: BASOPHILS; Value: 1; Range: 0-4; Units: %; Status: F Test: ATYPICAL LYMPH; Value: 6; Range: 0-5; Abnormal: Above high normal; Units: %; Status: F Test: RBC MORPHOLOGY; Value: NORMAL; Status: F Lab Order: MED Profile; WENDY 01/05/17 02:23 Test: GLUCOSE, FASTING; Value: 91; Range: 70-105; Units: MG/DL; Status: F Test: BLOOD UREA NITROGEN; Value: 14; Range: 7-18; Units: MG/DL; Status: F Test: CREATININE FOR GFR; Value: 0.95; Range: 0.55-1.02; Units: MG/DL; Status: F Test: SODIUM LEVEL; Range: 136-145; Units: MEQ/L; Status: I Test: POTASSIUM SERUM; Range: 3.5-5.1; Units: MEQ/L; Status: I Test: CHLORIDE LEVEL; Range: 98-107; Units: MEQ/L; Status: I Test: CARBON DIOXIDE LEVEL; Range: 21-32; Units: MEQ/L; Status: I Test: ANION GAP; Range: 8-16; Units: MEQ/L; Status: I Test: CALCIUM LEVEL; Range: 8.5-10.1; Units: MG/DL; Status: I Test: GLOMERULAR FILTRATION RATE; Value: > 60.0; Range: >60; Status: F Test: SODIUM LEVEL; Value: 142; Range: 136-145; Units: MEQ/L; Status: F Test: POTASSIUM SERUM; Value: 3.9; Range: 3.5-5.1; Units: MEQ/L; Status: F Test: CHLORIDE LEVEL; Value: 107; Range: 98-107; Units: MEQ/L; Status: F Test: CARBON DIOXIDE LEVEL; Value: 26; Range: 21-32; Units: MEQ/L; Status: F Test: ANION GAP; Value: 9; Range: 8-16; Units: MEQ/L; Status: F Test: CALCIUM LEVEL; Value: 9.0; Range: 8.5-10.1; Units: MG/DL; Status: F Test Note: ; Units are mL/min/1.73 m2 Chronic Kidney Disease Staging per NKF: Stage I & II GFR >=60 Normal to Mildly Decreased Stage III GFR 30-59 Moderately Decreased Stage IV GFR 15-29 Severely Decreased Stage V GFR <15 Very Little GFR Left ESRD GFR <15 on PARTNER CCO Lab Order: Urinalysis; SPEC'M 01/05/17 02:23 Test: APPEARANCE, URINE; Value: CLOUDY; Range: CLEAR; Abnormal: Above high normal; Status: F Test: COLOR, URINE; Value: RICHARD; Range: YELLOW; Status: F Test: PH,URINE; Value: 6.0; Range: 5.0-9.0; Units: UNITS; Status: F Test: SPECIFIC GRAVITY URINE AUTO; Value: 1.024; Range: 1.002-1.035; Status: F Test: PROTEIN, URINE AUTO; Value: 2+; Range: NEGATIVE; Abnormal: Above high normal; Units: mg/dL; Status: F Test: GLUCOSE, URINE (UA) AUTO; Value: NEGATIVE; Range: NEGATIVE; Units: mg/dL; Status: F Test: KETONE, URINE AUTO; Value: TRACE; Range: NEGATIVE; Abnormal: Above high normal; Units: mg/dL; Status: F Test: UROBILINOGEN, URINE AUTO; Value: 0.2; Range: 0.0-2.0; Units: mg/dL; Status: F Test: BILIRUBIN, URINE AUTO; Value: NEGATIVE; Range: NEGATIVE; Status: F Test: NITRITE, URINE AUTO; Value: NEGATIVE; Range: NEGATIVE; Status: F Test: LEUKOCYTE ESTERASE, URINE AUTO; Value: 1+; Range: NEGATIVE; Abnormal: Above high normal; Status: F Test: BLOOD, URINE BLOOD; Value: 3+; Range: NEGATIVE; Abnormal: Above high normal; Status: F Test: WBC, URINE AUTO; Value: 36; Range: 0-3; Abnormal: Above high normal; Units: /HPF; Status: F Test: RBC, URINE AUTO; Value: TNTC; Range: 0-3; Abnormal: Above high normal; Units: /HPF; Status: F Test: BACTERIA, URINE AUTO; Value: 1+; Range: NEGATIVE; Abnormal: Above high normal; Status: F Test: SQUAMOUS EPITHELIAL CELL UR AU; Value: 49; Range: 0-6; Units: /HPF; Status: F Test: MUCUS, URINE; Value: LARGE; Range: NEGATIVE; Status: F Test: HYALINE CAST, URINE AUTO; Value: 0; Range: 0-1; Units: /LPF; Status: F Lab Order: HCG,Serum Qualitative; SPEC01/05/17 Test: HCG, SERUM QUALITATIVE; Value: NEGATIVE; Range: NEGATIVE; Status: F Lab Order: Liver Profile; [facility] 01/05/17 Test: AST/SGOT; Value: 19; Range: 15-37; Units: U/L; Status: F Test: ALT/SGPT; Value: 19; Range: 12-78; Units: U/L; Status: F Test: ALKALINE PHOSPHATASE; Value: 62; Range: 45-117; Units: U/L; Status: F Test: BILIRUBIN,TOTAL; Value: 0.3; Range: 0.2-1.0; Units: MG/DL; Status: F Test: BILIRUBIN,DIRECT; Value: 0.1; Range: 0.0-0.2; Units: MG/DL; Status: F Test: TOTAL PROTEIN; Value: 7.4; Range: 6.4-8.2; Units: GM/DL; Status: F Test: ALBUMIN; Value: 4.0; Range: 3.2-5.2; Units: GM/DL; Status: F Test: ALBUMIN/GLOBULIN RATIO; Value: 1.18; Range: 1.00-1.93; Status: F Lab Order: Amylase; [facility] 01/05/17 Test: AMYLASE; Value: 54; Range: 25-115; Units: U/L; Status: F Lab Order: Lipase; [facility] 01/05/17 Test: LIPASE; Value: 222; Range: 73-393; Units: U/L; Status: F Lab Order: PLATELET ESTIMATE; [facility]01/05/17 Test: PLATELET ESTIMATE; Value: NORMAL; Range: NORMAL; Status: F Radiology Order: CT ABD & PELVIS: No Contrast Test: CT ABD & PELVIS: No Contrast REASON FOR EXAMINATION: Renal colic; ; CLINICAL HISTORY:; TECHNIQUE: Multiple axial and coronal CT images were obtained through the abdomen and pelvis without; administration of oral or IV contrast material.; COMMENTS:; The liver is of uniform attenuation without mass or defect. There is no intra or extrahepatic biliary; ductal dilatation. The spleen is normal. The gallbladder is within normal limits. The pancreas is of; normal contour and attenuation characteristics. There is no evidence of adrenal mass.; Bilateral renal stones ranging in size between 3 and 7 mm. 4.2 mm obstructing calculous of the left u; reter at L3. Mild left hydroureteronephrosis.; There is no evidence for appendicitis. There is no bowel wall thickening. No evidence for small or la; rge bowel obstruction. There is no evidence of abdominal ascites or lymphadenopathy.; There is no evidence of intrinsic or extrinsic bladder mass. There is no pelvic ascites or lymphadeno; park.; Images of the lung bases show no evidence of pleural or parenchymal mass. There are no pleural effusi; ons.; The bony structures are free of lytic or blastic lesions.; IMPRESSION:; Bilateral nephrolithiasis.; Obstructing stone of the proximal left ureter.; Thank you for your kind referral of this patient.; ; Outcome: 02:37 CT Study completed. cf2 06:09 Discharge ordered by Provider. cs11 06:43 Discharge Assessment: Patient awake, alert and oriented x 3. No cognitive and/or cf2 functional deficits noted. Patient verbalized understanding of disposition instructions. Patient awake and alert. Oriented to person, place and time. patient administered narcotics - yes. Pt provided with safe discharge. The following High Risk Discharge criteria are identified: None. 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 Condition: good Condition: stable Condition: improved. Discharge instructions given to patient, Instructed on discharge instructions, follow up and referral plans. medication usage, no driving heavy equipment, Demonstrated understanding of instructions, medications, Pt was receptive of discharge instructions/ teaching. Other leaving to follow up today with urology. 06:45 Patient left the ED. cf2 Signatures: Dispatcher [employer] EDMS Jassi Juarez, DO cs11 Seth Hoskins,RN RN tenb Richard Gaitan, SENIOR PROCUREMENT SPECIALIST SENIOR PROCUREMENT SPECIALIST mdr Melodie Bates, Reg Reg hs2 Charlotte Dixon RN RN cf2 Camacho Mathews, Reg Reg pm4 Emelyn Chisholm RN tm5 MTDD
--- NOTE | 2017-01-07 07:46 | EDDOCDS ---
Physician Documentation [facility] Name: Yaritza Zuniga Age: 31 yrs Sex: Female : 1985 Arrival Date: 01/05/2017 Time: 01:48 Bed 6 Private MD: Jorge Shelton WAT Disposition: 01/05/17 06:09 Discharged to Home/Self Care. Impression: Calculus of kidney with calculus of ureter. - Condition is Stable. - Medication Reconciliation, Local Pharmacy Hours form. - Follow up: Umesh [place]; When: Today; Reason: Recheck today's complaints, To establish care. - Problem is chronic. - Symptoms have improved. - Notes: call Dr Mitchell office today. Historical: - Allergies: Ceclor; PENICILLINS; - Home Meds: 1. Xanax 0.25 mg Oral tab 1 tab 3 times per day as needed - PMHx: Anxiety; Hepatitis C; Kidney stones; - PSHx: Lithotripsy; Kidney Stent- Left; Kidney Stent- Right; Kidney stent removal, L and R side; - Social history: Smoking status: Patient states was never smoker of tobacco. No barriers to communication noted, The patient speaks fluent [place], Speaks appropriately for age. - Family history: Not pertinent. - : The pt / caregiver states he / she is not on anticoagulants. Home medication list is obtained from the patient. - Exposure Risk Screening:: None identified. GARNETTER: 01/05 02:00 LMP 12/17/2016 [facility] Vital Signs: 02:00 BP 120 / 85; Pulse 83; Resp 18; Temp 96.3; Pulse Ox 99% on R/A; Weight 63.5 kg / 139.99 jmb lbs (R); Height 5 ft. 4 in. (162.56 cm) (R); Pain 10/10; 06:27 BP 103 / 71; Pulse 59; Resp 18; Temp 98.8(TE); Pulse Ox 99% on R/A; Pain 3/10; mdr 02:00 Body Mass Index 24.03 (63.50 kg, 162.56 cm) b MDM: 02:08 IV Saline Lock ordered. cs11 02:08 NS 0.9% 1000 ml IV at bolus once ordered. cs11 02:08 ketorolac 30 mg IVP once ordered. cs11 02:09 CBC with Diff Ordered. EDMS 02:09 MED Profile Ordered. EDMS 02:09 Urinalysis Ordered. EDMS 02:09 HCG,Serum Qualitative Ordered. EDMS 02:09 Liver Profile Ordered. EDMS 02:09 Amylase Ordered. EDMS 02:09 Lipase Ordered. EDMS 02:09 Urine Culture Ordered. EDMS 02:09 CT ABD & PELVIS: No Contrast Ordered. EDMS 02:29 Dilaudid - HYDROmorphone 0.5 mg IVP once ordered. cs11 02:36 Financial registration complete. hs2 02:37 [facility] Payment Agreement was scanned into WigW[employer] and attached to record. hs2 02:45 DIFFERENTIAL NO CHARGE Ordered. EDMS 03:04 CBC with Diff Reviewed. cs11 03:04 HCG,Serum Qualitative Reviewed. cs11 03:54 CBC with Diff Reviewed. cs11 03:54 Urinalysis Reviewed. cs11 03:54 MED Profile Reviewed. cs11 03:54 HCG,Serum Qualitative Reviewed. cs11 03:54 Liver Profile Reviewed. cs11 03:54 Amylase Reviewed. cs11 03:54 Lipase Reviewed. cs11 03:54 PLATELET ESTIMATE Reviewed. cs11 03:55 NS 0.9% 1000 ml IV at bolus once ordered. cs11 03:58 Dilaudid - HYDROmorphone 0.5 mg IVP once ordered. cs11 04:03 Ciprofloxacin 400 mg IVPB at 200 mL/hr once over 60 mins ordered. cs11 04:04 Tamsulosin Extended Release 24 hour Capsule 0.4 mg PO once ordered. cs11 06:04 Dilaudid - HYDROmorphone 0.5 mg IVP once ordered. cs11 06:06 CT ABD & PELVIS: No Contrast Reviewed. cs11 06:10 HYDROcodone-acetaminophen 4 pack- 5 mg-325 mg 1 packets PO Per package directions; cs11 Dispense with patient. 1 po q4h prn for pain ordered. 14:03 T-Sheet-- Draft Copy was scanned into WigWag and attached to record. gb Administered Medications: Discontinued: NS 0.9% 1000 ml IV at bolus once Discontinued: NS 0.9% 1000 ml IV at bolus once Discontinued: Ciprofloxacin 400 mg IVPB at 200 mL/hr once over 60 mins 02:10 Drug: NS 0.9% 1000 ml [sodium chloride 0.9 % intravenous solution] Route: IV; Rate: cf2 bolus; Site: left antecubital; 06:42 Follow up: Response: No significant change. cf2 02:10 Drug: ketorolac 30 mg [ketorolac 30 mg/mL (1 mL) injection solution (1 mL)] Route: IVP; cf2 Site: left antecubital; 06:42 Follow up: Response: Pain is decreased cf2 02:33 Drug: Dilaudid - HYDROmorphone 0.5 mg [hydromorphone 1 mg/mL injection syringe (0.5 cf2 mL)] Route: IVP; Site: left antecubital; 06:41 Follow up: Response: No significant change. cf2 04:00 Drug: Dilaudid - HYDROmorphone 0.5 mg [hydromorphone 1 mg/mL injection syringe (0.5 cf2 mL)] Route: IVP; Site: left antecubital; 06:41 Follow up: Response: Pain is decreased cf2 04:20 Drug: NS 0.9% 1000 ml [sodium chloride 0.9 % intravenous solution] Route: IV; Rate: cf2 bolus; Site: left antecubital; 06:41 Follow up: Response: No significant change. cf2 04:20 Drug: Ciprofloxacin 400 mg [ciprofloxacin 400 mg/200 mL in 5 % dextrose intravenous cf2 piggyback] Route: IVPB; Rate: 200 mL/hr; Infused Over: 60 mins; Site: left antecubital; 06:41 Follow up: Response: No Adverse Reaction; No significant change. cf2 04:20 Drug: Tamsulosin 0.4 mg [tamsulosin 0.4 mg capsule (1 caps)] Route: PO; cf2 06:41 Follow up: Response: Pain is decreased cf2 06:04 Drug: Dilaudid - HYDROmorphone 0.5 mg [hydromorphone 1 mg/mL injection syringe (0.5 cf2 mL)] Route: IVP; Site: left antecubital; 06:40 Follow up: Response: Pt left department before re-evaluation is appropriate cf2 06:39 Drug: HYDROcodone-acetaminophen 4 pack- 1 packets [hydrocodone 5 mg-acetaminophen 325 cf2 mg tablet (1 tabs)] {Co-Signature: tm5 (Emelyn Chisholm RN).} Route: PO; 06:39 Follow up: Response: Pt left department before re-evaluation is appropriate cf2 Signatures: Dispatcher [employer] Sherlyn John, Reg Reg gb Jassi Juarez, DO cs11 Seth Hoskins,RN RN jmb Melodie Bates, Reg Reg hs2 Charlotte Dixon RN RN cf2 Emelyn Chisholm RN tm5 The chart was reviewed and I authenticate all verbal orders and agree with the evaluation and treatment provided.Attachments: 02:37 [facility] Payment Agreement hs2 14:03 T-Sheet-- Draft Copy gb Chart Complete MTDD
--- NOTE | 2017-01-07 07:46 | EDDOCDS ---
Physician Documentation [facility] Name: Yaritza Zuniga Age: 31 yrs Sex: Female : 1985 Arrival Date: 01/05/2017 Time: 01:48 Bed 6 Private MD: Jorge Shelton WAT Disposition: 01/05/17 06:09 Discharged to Home/Self Care. Impression: Calculus of kidney with calculus of ureter. - Condition is Stable. - Medication Reconciliation, Local Pharmacy Hours form. - Follow up: Umesh [place]; When: Today; Reason: Recheck today's complaints, To establish care. - Problem is chronic. - Symptoms have improved. - Notes: call Dr Mitchell office today. Historical: - Allergies: Ceclor; PENICILLINS; - Home Meds: 1. Xanax 0.25 mg Oral tab 1 tab 3 times per day as needed - PMHx: Anxiety; Hepatitis C; Kidney stones; - PSHx: Lithotripsy; Kidney Stent- Left; Kidney Stent- Right; Kidney stent removal, L and R side; - Social history: Smoking status: Patient states was never smoker of tobacco. No barriers to communication noted, The patient speaks fluent [place], Speaks appropriately for age. - Family history: Not pertinent. - : The pt / caregiver states he / she is not on anticoagulants. Home medication list is obtained from the patient. - Exposure Risk Screening:: None identified. BUCKRAM SEWER: 01/05 02:00 LMP 12/17/2016 [facility] Vital Signs: 02:00 BP 120 / 85; Pulse 83; Resp 18; Temp 96.3; Pulse Ox 99% on R/A; Weight 63.5 kg / 139.99 jmb lbs (R); Height 5 ft. 4 in. (162.56 cm) (R); Pain 10/10; 06:27 BP 103 / 71; Pulse 59; Resp 18; Temp 98.8(TE); Pulse Ox 99% on R/A; Pain 3/10; mdr 02:00 Body Mass Index 24.03 (63.50 kg, 162.56 cm) b MDM: 02:08 IV Saline Lock ordered. cs11 02:08 NS 0.9% 1000 ml IV at bolus once ordered. cs11 02:08 ketorolac 30 mg IVP once ordered. cs11 02:09 CBC with Diff Ordered. EDMS 02:09 MED Profile Ordered. EDMS 02:09 Urinalysis Ordered. EDMS 02:09 HCG,Serum Qualitative Ordered. EDMS 02:09 Liver Profile Ordered. EDMS 02:09 Amylase Ordered. EDMS 02:09 Lipase Ordered. EDMS 02:09 Urine Culture Ordered. EDMS 02:09 CT ABD & PELVIS: No Contrast Ordered. EDMS 02:29 Dilaudid - HYDROmorphone 0.5 mg IVP once ordered. cs11 02:36 Financial registration complete. hs2 02:37 [facility] Payment Agreement was scanned into Bloxr and attached to record. hs2 02:45 DIFFERENTIAL NO CHARGE Ordered. EDMS 03:04 CBC with Diff Reviewed. cs11 03:04 HCG,Serum Qualitative Reviewed. cs11 03:54 CBC with Diff Reviewed. cs11 03:54 Urinalysis Reviewed. cs11 03:54 MED Profile Reviewed. cs11 03:54 HCG,Serum Qualitative Reviewed. cs11 03:54 Liver Profile Reviewed. cs11 03:54 Amylase Reviewed. cs11 03:54 Lipase Reviewed. cs11 03:54 PLATELET ESTIMATE Reviewed. cs11 03:55 NS 0.9% 1000 ml IV at bolus once ordered. cs11 03:58 Dilaudid - HYDROmorphone 0.5 mg IVP once ordered. cs11 04:03 Ciprofloxacin 400 mg IVPB at 200 mL/hr once over 60 mins ordered. cs11 04:04 Tamsulosin Extended Release 24 hour Capsule 0.4 mg PO once ordered. cs11 06:04 Dilaudid - HYDROmorphone 0.5 mg IVP once ordered. cs11 06:06 CT ABD & PELVIS: No Contrast Reviewed. cs11 06:10 HYDROcodone-acetaminophen 4 pack- 5 mg-325 mg 1 packets PO Per package directions; cs11 Dispense with patient. 1 po q4h prn for pain ordered. 14:03 T-Sheet-- Draft Copy was scanned into Bloxr and attached to record. gb Administered Medications: Discontinued: NS 0.9% 1000 ml IV at bolus once Discontinued: NS 0.9% 1000 ml IV at bolus once Discontinued: Ciprofloxacin 400 mg IVPB at 200 mL/hr once over 60 mins 02:10 Drug: NS 0.9% 1000 ml [sodium chloride 0.9 % intravenous solution] Route: IV; Rate: cf2 bolus; Site: left antecubital; 06:42 Follow up: Response: No significant change. cf2 02:10 Drug: ketorolac 30 mg [ketorolac 30 mg/mL (1 mL) injection solution (1 mL)] Route: IVP; cf2 Site: left antecubital; 06:42 Follow up: Response: Pain is decreased cf2 02:33 Drug: Dilaudid - HYDROmorphone 0.5 mg [hydromorphone 1 mg/mL injection syringe (0.5 cf2 mL)] Route: IVP; Site: left antecubital; 06:41 Follow up: Response: No significant change. cf2 04:00 Drug: Dilaudid - HYDROmorphone 0.5 mg [hydromorphone 1 mg/mL injection syringe (0.5 cf2 mL)] Route: IVP; Site: left antecubital; 06:41 Follow up: Response: Pain is decreased cf2 04:20 Drug: NS 0.9% 1000 ml [sodium chloride 0.9 % intravenous solution] Route: IV; Rate: cf2 bolus; Site: left antecubital; 06:41 Follow up: Response: No significant change. cf2 04:20 Drug: Ciprofloxacin 400 mg [ciprofloxacin 400 mg/200 mL in 5 % dextrose intravenous cf2 piggyback] Route: IVPB; Rate: 200 mL/hr; Infused Over: 60 mins; Site: left antecubital; 06:41 Follow up: Response: No Adverse Reaction; No significant change. cf2 04:20 Drug: Tamsulosin 0.4 mg [tamsulosin 0.4 mg capsule (1 caps)] Route: PO; cf2 06:41 Follow up: Response: Pain is decreased cf2 06:04 Drug: Dilaudid - HYDROmorphone 0.5 mg [hydromorphone 1 mg/mL injection syringe (0.5 cf2 mL)] Route: IVP; Site: left antecubital; 06:40 Follow up: Response: Pt left department before re-evaluation is appropriate cf2 06:39 Drug: HYDROcodone-acetaminophen 4 pack- 1 packets [hydrocodone 5 mg-acetaminophen 325 cf2 mg tablet (1 tabs)] {Co-Signature: tm5 (Emelyn Chisholm RN).} Route: PO; 06:39 Follow up: Response: Pt left department before re-evaluation is appropriate cf2 Signatures: Dispatcher [employer] Sherlyn John, Reg Reg gb Jassi Juarez, DO cs11 Seth Hoskins,RN RN jmb Melodie Bates, Reg Reg hs2 Charlotte Dixon RN RN cf2 Emelyn Chisholm RN tm5 The chart was reviewed and I authenticate all verbal orders and agree with the evaluation and treatment provided.Attachments: 02:37 [facility] Payment Agreement hs2 14:03 T-Sheet-- Draft Copy gb Chart Complete MTDD
--- NOTE | 2017-01-07 07:46 | EDDOCDS ---
Nurse's Notes [facility] Name: Yaritza Zuniga Age: 31 yrs Sex: Female : 1985 Arrival Date: 01/05/2017 Time: 01:48 Bed 6 Private MD: Jorge Shelton WAT Diagnosis: Calculus of kidney with calculus of ureter Presentation: 01/05 01:59 Presenting complaint: Patient states: Patient reports that she has a kidney stone, seen b earlier. Acute neurological deficits are not present. Mechanism of Injury: No Mechanism of Injury. Adult Sepsis Screening: The patient does not have new or worsening altered mentation. Patient's respiratory rate is less than 22. Systolic blood pressure is greater than 100. Patient has a qSOFA score of 0- Negative Sepsis Screen. Suicide/Homicide risk assessment- the patient denies having any suicidal and/or homicidal ideations and does not present with any other emotional, behavioral or mental health complaints. 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 Transition of care: patient was not received from another setting of care. 01:59 Acuity: NIDA Level 3 [facility] 01:59 Method Of Arrival: Walkin/Carried/Asstd [facility] Triage Assessment: 02:00 General: Appears uncomfortable, Behavior is restless. Pain: Location: abdomen Pain [facility] currently is 10 out of 10 on a pain scale. HIV screening NA for this visit Offered previously. Neurological: Level of Consciousness is awake, alert, obeys commands, Oriented to person, place, time, Speech is normal, Facial symmetry appears normal, Facial symmetry: tongue is midline. Respiratory: Airway is patent Respiratory effort is even, unlabored, Respiratory pattern is regular, symmetrical. Musculoskeletal: Range of motion intact in all extremities. WINTERIZER: 02:00 LMP 12/17/2016 [facility] Historical: - Allergies: Ceclor; PENICILLINS; - Home Meds: 1. Xanax 0.25 mg Oral tab 1 tab 3 times per day as needed - PMHx: Anxiety; Hepatitis C; Kidney stones; - PSHx: Lithotripsy; Kidney Stent- Left; Kidney Stent- Right; Kidney stent removal, L and R side; - Social history: Smoking status: Patient states was never smoker of tobacco. No barriers to communication noted, The patient speaks fluent Hungarian, Speaks appropriately for age. - Family history: Not pertinent. - : The pt / caregiver states he / she is not on anticoagulants. Home medication list is obtained from the patient. - Exposure Risk Screening:: None identified. Screenin:37 Screening information is obtained from the patient. Fall risk: No risks identified. cf2 Assistance ADL's: requires no assistance with activities of daily living. Abuse/DV Screen: The patient / caregiver reports he/she is: not in a situation that causes fear, pain or injury. Nutritional screening: No deficits noted. Advance Directives: Further advance directive information is declined. home support is adequate. Assessment: 02:37 Adult Sepsis Screening: The patient does not have new or worsening altered mentation. cf2 Patient's respiratory rate is less than 22. Systolic blood pressure is greater than 100. Patient has a qSOFA score of 0- Negative Sepsis Screen. General: Appears distressed, ill, Behavior is restless. Pain: Location: back Pain currently is 10 out of 10 on a pain scale. At worst was 10 out of 10 on a pain scale. Neurological: No deficits noted. EENT: No deficits noted. Cardiovascular: No deficits noted. Respiratory: No deficits noted. GI: No deficits noted. : No deficits noted. Derm: No deficits noted. Musculoskeletal: No deficits noted. Injury Description: No known injury. 04:31 Reassessment: Patient appears in no apparent distress at this time. Patient states cf2 feeling better. Patient states symptoms have improved. Vital Signs: 02:00 BP 120 / 85; Pulse 83; Resp 18; Temp 96.3; Pulse Ox 99% on R/A; Weight 63.5 kg (R); [facility] Height 5 ft. 4 in. (162.56 cm) (R); Pain 10/10; 06:27 BP 103 / 71; Pulse 59; Resp 18; Temp 98.8(TE); Pulse Ox 99% on R/A; Pain 3/10; mdr 02:00 Body Mass Index 24.03 (63.50 kg, 162.56 cm) [facility] Vitals: 02:00 Log In Time: January 05, 2017 at 01:48. [facility] ED Course: 01:49 Patient visited by Camacho Mathews, Reg. pm4 01:49 Jorge Shelton is Private Physician. pm4 01:49 Patient moved to Waiting pm4 02:00 Triage Initiated b 02:03 Patient moved to 6 jmb 02:05 Jassi Juarez DO is Attending Physician. cs11 02:05 Patient visited by Jassi Juarez DO. cs11 02:10 Charlotte Dixon,NAOMIE is Primary Nurse. cf2 02:10 Patient visited by Charlotte Dixon RN. cf2 02:37 Patient visited by Charlotte Dixon RN. cf2 02:37 [facility] Payment Agreement was scanned into [employer] and attached to record. hs2 02:37 The patient / caregiver is instructed regarding the plan of care and ED course. Patient cf2 has correct armband on for positive identification. Placed in gown. Bed in low position. Call light in reach. Side rails up X 1. Side rails up X2. Property :Personal belongings accompany Pt. Door closed. Noise minimized. Visitors limited. Lights dimmed. Moved to private room. Verbal reassurance given. Warm blanket given. Pillow given. Head of bed elevated. Diet: Patient is NPO. 02:37 Inserted saline lock: 20 gauge in left antecubital area and blood collected. The cf2 patient tolerated the procedure well. No procedures done that require assistance. 02:40 Patient name changed from Yaritza\S\S\S\Zuniga\S\ to Yaritza\S\Mariela\S\Zuniga. EDMS 03:00 Patient visited by Charlotte Dixon RN. cf2 03:08 Urine Culture Sent. cf2 03:08 Urinalysis Sent. cf2 03:49 Patient visited by Charlotte Dixon RN. cf2 04:17 CT ABD & PELVIS: No Contrast Returned. EDMS 04:21 Patient visited by Charlotte Dixon RN. cf2 04:31 Patient visited by Charlotte Dixon RN. cf2 04:32 DIFFERENTIAL NO CHARGE Sent. cf2 05:12 Patient visited by Charlotte Dixon RN. cf2 05:44 Patient visited by Charlotte Dixon RN. cf2 06:03 Patient visited by Charlotte Dixon RN. cf2 06:09 Umesh Vegas is Referral Physician. cs11 06:28 Patient visited by Richard Gaitan PCA. mdr 06:39 Patient visited by Charlotte Dixon RN. cf2 14:03 T-Sheet-- Draft Copy was scanned into [employer] and attached to record. gb Administered Medications: Discontinued: NS 0.9% 1000 ml IV at bolus once Discontinued: NS 0.9% 1000 ml IV at bolus once Discontinued: Ciprofloxacin 400 mg IVPB at 200 mL/hr once over 60 mins 02:10 Drug: NS 0.9% 1000 ml [sodium chloride 0.9 % intravenous solution] Route: IV; Rate: cf2 bolus; Site: left antecubital; 06:42 Follow up: Response: No significant change. cf2 02:10 Drug: ketorolac 30 mg [ketorolac 30 mg/mL (1 mL) injection solution (1 mL)] Route: IVP; cf2 Site: left antecubital; 06:42 Follow up: Response: Pain is decreased cf2 02:33 Drug: Dilaudid - HYDROmorphone 0.5 mg [hydromorphone 1 mg/mL injection syringe (0.5 cf2 mL)] Route: IVP; Site: left antecubital; 06:41 Follow up: Response: No significant change. cf2 04:00 Drug: Dilaudid - HYDROmorphone 0.5 mg [hydromorphone 1 mg/mL injection syringe (0.5 cf2 mL)] Route: IVP; Site: left antecubital; 06:41 Follow up: Response: Pain is decreased cf2 04:20 Drug: NS 0.9% 1000 ml [sodium chloride 0.9 % intravenous solution] Route: IV; Rate: cf2 bolus; Site: left antecubital; 06:41 Follow up: Response: No significant change. cf2 04:20 Drug: Ciprofloxacin 400 mg [ciprofloxacin 400 mg/200 mL in 5 % dextrose intravenous cf2 piggyback] Route: IVPB; Rate: 200 mL/hr; Infused Over: 60 mins; Site: left antecubital; 06:41 Follow up: Response: No Adverse Reaction; No significant change. cf2 04:20 Drug: Tamsulosin 0.4 mg [tamsulosin 0.4 mg capsule (1 caps)] Route: PO; cf2 06:41 Follow up: Response: Pain is decreased cf2 06:04 Drug: Dilaudid - HYDROmorphone 0.5 mg [hydromorphone 1 mg/mL injection syringe (0.5 cf2 mL)] Route: IVP; Site: left antecubital; 06:40 Follow up: Response: Pt left department before re-evaluation is appropriate cf2 06:39 Drug: HYDROcodone-acetaminophen 4 pack- 1 packets [hydrocodone 5 mg-acetaminophen 325 cf2 mg tablet (1 tabs)] {Co-Signature: tm5 (Emelyn Chisholm RN).} Route: PO; 06:39 Follow up: Response: Pt left department before re-evaluation is appropriate cf2 Order Results: Lab Order: CBC with Diff; SPEC'M 01/05/17 02:23 Test: WHITE BLOOD COUNT; Value: 3.0; Range: 4.0-10.0; Abnormal: Below low normal; Units: K/mm3; Status: F Test: RED BLOOD COUNT; Value: 4.76; Range: 4.00-5.40; Units: M/mm3; Status: F Test: HEMOGLOBIN; Value: 14.5; Range: 12.0-16.0; Units: g/dl; Status: F Test: HEMATOCRIT; Value: 42.7; Range: 36.0-47.0; Units: %; Status: F Test: MEAN CORPUSCULAR VOLUME; Value: 89.8; Range: 80.0-96.0; Units: fl; Status: F Test: MEAN CORPUSCULAR HEMOGLOBIN; Value: 30.5; Range: 27.0-33.0; Units: pg; Status: F Test: MEAN CORPUSCULAR HGB CONC; Value: 34.0; Range: 32.0-36.5; Units: g/dl; Status: F Test: RED CELL DISTRIBUTION WIDTH; Value: 12.9; Range: 11.5-14.5; Units: %; Status: F Test: PLATELET COUNT, AUTOMATED; Value: 176; Range: 150-450; Units: k/mm3; Status: F Test: NEUTROPHILS; Value: 25; Range: 35-75; Abnormal: Below low normal; Units: %; Status: F Test: LYMPHOCYTES; Value: 57; Range: 16-52; Abnormal: Above high normal; Units: %; Status: F Test: MONOCYTES; Value: 11; Range: 0-8; Abnormal: Above high normal; Units: %; Status: F Test: BASOPHILS; Value: 1; Range: 0-4; Units: %; Status: F Test: ATYPICAL LYMPH; Value: 6; Range: 0-5; Abnormal: Above high normal; Units: %; Status: F Test: RBC MORPHOLOGY; Value: NORMAL; Status: F Lab Order: MED Profile; SPEC01/05/17 02:23 Test: GLUCOSE, FASTING; Value: 91; Range: 70-105; Units: MG/DL; Status: F Test: BLOOD UREA NITROGEN; Value: 14; Range: 7-18; Units: MG/DL; Status: F Test: CREATININE FOR GFR; Value: 0.95; Range: 0.55-1.02; Units: MG/DL; Status: F Test: SODIUM LEVEL; Range: 136-145; Units: MEQ/L; Status: I Test: POTASSIUM SERUM; Range: 3.5-5.1; Units: MEQ/L; Status: I Test: CHLORIDE LEVEL; Range: 98-107; Units: MEQ/L; Status: I Test: CARBON DIOXIDE LEVEL; Range: 21-32; Units: MEQ/L; Status: I Test: ANION GAP; Range: 8-16; Units: MEQ/L; Status: I Test: CALCIUM LEVEL; Range: 8.5-10.1; Units: MG/DL; Status: I Test: GLOMERULAR FILTRATION RATE; Value: > 60.0; Range: >60; Status: F Test: SODIUM LEVEL; Value: 142; Range: 136-145; Units: MEQ/L; Status: F Test: POTASSIUM SERUM; Value: 3.9; Range: 3.5-5.1; Units: MEQ/L; Status: F Test: CHLORIDE LEVEL; Value: 107; Range: 98-107; Units: MEQ/L; Status: F Test: CARBON DIOXIDE LEVEL; Value: 26; Range: 21-32; Units: MEQ/L; Status: F Test: ANION GAP; Value: 9; Range: 8-16; Units: MEQ/L; Status: F Test: CALCIUM LEVEL; Value: 9.0; Range: 8.5-10.1; Units: MG/DL; Status: F Test Note: ; Units are mL/min/1.73 m2 Chronic Kidney Disease Staging per NKF: Stage I & II GFR >=60 Normal to Mildly Decreased Stage III GFR 30-59 Moderately Decreased Stage IV GFR 15-29 Severely Decreased Stage V GFR <15 Very Little GFR Left ESRD GFR <[address] Lab Order: Urinalysis; WENDY 01/05/17 02:23 Test: APPEARANCE, URINE; Value: CLOUDY; Range: CLEAR; Abnormal: Above high normal; Status: F Test: COLOR, URINE; Value: RICHARD; Range: YELLOW; Status: F Test: PH,URINE; Value: 6.0; Range: 5.0-9.0; Units: UNITS; Status: F Test: SPECIFIC GRAVITY URINE AUTO; Value: 1.024; Range: 1.002-1.035; Status: F Test: PROTEIN, URINE AUTO; Value: 2+; Range: NEGATIVE; Abnormal: Above high normal; Units: mg/dL; Status: F Test: GLUCOSE, URINE (UA) AUTO; Value: NEGATIVE; Range: NEGATIVE; Units: mg/dL; Status: F Test: KETONE, URINE AUTO; Value: TRACE; Range: NEGATIVE; Abnormal: Above high normal; Units: mg/dL; Status: F Test: UROBILINOGEN, URINE AUTO; Value: 0.2; Range: 0.0-2.0; Units: mg/dL; Status: F Test: BILIRUBIN, URINE AUTO; Value: NEGATIVE; Range: NEGATIVE; Status: F Test: NITRITE, URINE AUTO; Value: NEGATIVE; Range: NEGATIVE; Status: F Test: LEUKOCYTE ESTERASE, URINE AUTO; Value: 1+; Range: NEGATIVE; Abnormal: Above high normal; Status: F Test: BLOOD, URINE BLOOD; Value: 3+; Range: NEGATIVE; Abnormal: Above high normal; Status: F Test: WBC, URINE AUTO; Value: 36; Range: 0-3; Abnormal: Above high normal; Units: /HPF; Status: F Test: RBC, URINE AUTO; Value: TNTC; Range: 0-3; Abnormal: Above high normal; Units: /HPF; Status: F Test: BACTERIA, URINE AUTO; Value: 1+; Range: NEGATIVE; Abnormal: Above high normal; Status: F Test: SQUAMOUS EPITHELIAL CELL UR AU; Value: 49; Range: 0-6; Units: /HPF; Status: F Test: MUCUS, URINE; Value: LARGE; Range: NEGATIVE; Status: F Test: HYALINE CAST, URINE AUTO; Value: 0; Range: 0-1; Units: /LPF; Status: F Lab Order: Urine Culture; 01/05/17 Test: URINE CULTURE; Value: <EXTERNAL COMMENT eCWMed> FULL REPORT IN LAB NOTES (eCW and Medent).; Status: F Test: URINE CULTURE; Value: URINE CULTURE RESULT NO GROWTH CLINICAL SIGNIFICANCE 1 ORGANISM; Status: F Lab Order: HCG,Serum Qualitative; 01/05/17 Test: HCG, SERUM QUALITATIVE; Value: NEGATIVE; Range: NEGATIVE; Status: F Lab Order: Liver Profile; 01/05/17 Test: AST/SGOT; Value: 19; Range: 15-37; Units: U/L; Status: F Test: ALT/SGPT; Value: 19; Range: 12-78; Units: U/L; Status: F Test: ALKALINE PHOSPHATASE; Value: 62; Range: 45-117; Units: U/L; Status: F Test: BILIRUBIN,TOTAL; Value: 0.3; Range: 0.2-1.0; Units: MG/DL; Status: F Test: BILIRUBIN,DIRECT; Value: 0.1; Range: 0.0-0.2; Units: MG/DL; Status: F Test: TOTAL PROTEIN; Value: 7.4; Range: 6.4-8.2; Units: GM/DL; Status: F Test: ALBUMIN; Value: 4.0; Range: 3.2-5.2; Units: GM/DL; Status: F Test: ALBUMIN/GLOBULIN RATIO; Value: 1.18; Range: 1.00-1.93; Status: F Lab Order: Amylase; SPEC'M 01/05/17 Test: AMYLASE; Value: 54; Range: 25-115; Units: U/L; Status: F Lab Order: Lipase; 01/05/17 Test: LIPASE; Value: 222; Range: 73-393; Units: U/L; Status: F Lab Order: PLATELET ESTIMATE; 01/05/17 Test: PLATELET ESTIMATE; Value: NORMAL; Range: NORMAL; Status: F Radiology Order: CT ABD & PELVIS: No Contrast Test: CT ABD & PELVIS: No Contrast REASON FOR EXAMINATION: Renal colic; ; CLINICAL HISTORY:; TECHNIQUE: Multiple axial and coronal CT images were obtained through the abdomen and pelvis without; administration of oral or IV contrast material.; COMMENTS:; The liver is of uniform attenuation without mass or defect. There is no intra or extrahepatic biliary; ductal dilatation. The spleen is normal. The gallbladder is within normal limits. The pancreas is of; normal contour and attenuation characteristics. There is no evidence of adrenal mass.; Bilateral renal stones ranging in size between 3 and 7 mm. 4.2 mm obstructing calculous of the left u; reter at L3. Mild left hydroureteronephrosis.; There is no evidence for appendicitis. There is no bowel wall thickening. No evidence for small or la; rge bowel obstruction. There is no evidence of abdominal ascites or lymphadenopathy.; There is no evidence of intrinsic or extrinsic bladder mass. There is no pelvic ascites or lymphadeno; park.; Images of the lung bases show no evidence of pleural or parenchymal mass. There are no pleural effusi; ons.; The bony structures are free of lytic or blastic lesions.; IMPRESSION:; Bilateral nephrolithiasis.; Obstructing stone of the proximal left ureter.; Thank you for your kind referral of this patient.; ; Outcome: 02:37 CT Study completed. cf2 06:09 Discharge ordered by Provider. cs11 06:43 Discharge Assessment: Patient awake, alert and oriented x 3. No cognitive and/or cf2 functional deficits noted. Patient verbalized understanding of disposition instructions. Patient awake and alert. Oriented to person, place and time. patient administered narcotics - yes. Pt provided with safe discharge. The following High Risk Discharge criteria are identified: None. Discharged to home ambulatory, Mother coming to belt picker patient. Condition: good Condition: stable Condition: improved. Discharge instructions given to patient, Instructed on discharge instructions, follow up and referral plans. medication usage, no driving heavy equipment, Demonstrated understanding of instructions, medications, Pt was receptive of discharge instructions/ teaching. Other leaving to follow up today with urology. 06:45 Patient left the ED. cf2 Signatures: Dispatcher [employer] EDSherlyn Prasad, Jassi Young, DO DO cs11 Seth Hoskins,RN RN jmb Richard Gaitan, DINKEY MOTOR OPERATOR DINKEY MOTOR OPERATOR mdr Melodie Bates, Reg Reg hs2 Charlotte Dixon,RN RN cf2 Camacho Mathews, Reg Reg pm4 Emelyn Chisholm RN tm5 Chart Complete MTDD
== END 2017-01-05 06:45 | disposition home or self-care (01) ==
LOC: M ED 01:48
DX: N20.1 Calculus of ureter (principal); F41.9 Anxiety disorder, unspecified; B19.20 Unspecified viral hepatitis C without hepatic coma; Z87.442 Personal history of urinary calculi; Z79.899 Other long term (current) drug therapy; Z88.0 Allergy status to penicillin; Z88.1 Allergy status to other antibiotic agents
CPT/HCPCS: 36415; 74176; 80048; 80076; 81001; 82150; 83690; 84703; 85025; 87086; 96374; 96375; 96376; 99284; J0744; J1170; J1885; J2405

== ENCOUNTER 2017-01-10 18:14 | Emergency (ER) | payer OTHER ==
[2017-01-10] MEDS ORDERED: KETOROLAC 30 MG/ML VIAL (J1885) As Ordered ONE (18:59)
[2017-01-10] MEDS ORDERED: ONDANSETRON 4MG/2ML VIAL (J2405) As Ordered ONE (19:00)
[2017-01-10 19:06] LABS: BASO % 0.6 % (0.0-1.0); EOS # 0.1 K/mm3 (0.0-0.50); LARGE UNSTAINED CELL # 0.1 K/mm3 (0.0-0.4); LARGE UNSTAINED CELL % 1.8 % (0.0-4.0); LYMPH # 2.2 K/mm3 (1.5-4.5); LYMPH % 29.3 % (24.0-44.0); MEAN CORPUSCULAR HEMOGLOBIN 30.9 pg (27.0-33.0); MEAN CORPUSCULAR HGB CONC 34.6 g/dl (32.0-36.5); MEAN CORPUSCULAR VOLUME 89.3 fl (80.0-96.0); MONO # 0.5 K/mm3 (0.0-0.8); MONO % 7.2 % (0.0-5.0); NEUTROPHILS # 4.2 K/mm3 (1.8-7.7); NEUTROPHILS % 59.2 % (36.0-66.0); PLATELET COUNT, AUTOMATED 292 k/mm3 (150-450); RED CELL DISTRIBUTION WIDTH 12.8 % (11.5-14.5)
[2017-01-10] MEDS ORDERED: HYDROmorphone HCL 1 MG/ML SYRINGE (J1170) As Ordered ONE (19:24)
[2017-01-10 19:30] LABS: ALBUMIN/GLOBULIN RATIO 1.18 (1.00-1.93); ALKALINE PHOSPHATASE 67 U/L (45-117); ALT/SGPT 16 U/L (12-78); ANION GAP 11 MEQ/L (8-16); AST/SGOT 11 U/L (15-37); BILIRUBIN,DIRECT < 0.1 MG/DL (0.0-0.2); BILIRUBIN,TOTAL 0.4 MG/DL (0.2-1.0); BLOOD UREA NITROGEN 12 MG/DL (7-18); CARBON DIOXIDE LEVEL 25 MEQ/L (21-32); CHLORIDE LEVEL 107 MEQ/L (98-107); CREATININE FOR GFR 0.93 MG/DL (0.55-1.02); GLOMERULAR FILTRATION RATE > 60.0 (>60); GLUCOSE, FASTING 84 MG/DL (70-105); POTASSIUM SERUM 3.2 MEQ/L (3.5-5.1); SODIUM LEVEL 143 MEQ/L (136-145); TOTAL PROTEIN 7.4 GM/DL (6.4-8.2)
--- NOTE | 2017-01-10 20:19 | REP ---
Clinical: Left flank pain. Comparison: 01/05/2017. Findings: Mild left-sided obstructive uropathy is secondary to 4.5 mm calculus now identified at the left ureterovesical junction (images 108 - 109). Bilateral nephrolithiasis is again noted with calculi in the bilateral kidneys measuring up to 9 mm. Liver, spleen, pancreas, gallbladder, and bilateral adrenal glands are normal for noncontrast examination. The enteric system is without obstruction or acute inflammatory process. Pelvis demonstrates normal bladder and age-appropriate uterus/adnexa. No ascites. No free air. Musculoskeletal structures are intact. Impression: Mild left-sided obstructive uropathy with the previously noted 4.5 mm calculus now at the left ureterovesicle junction. Bilateral nonobstructing calculi up to 9 mm. Signed by Сергей Gilbert MD 01/10/2017 08:10 P
[2017-01-10] MEDS ORDERED: BACTRIM 160MG/800MG DS TAB As Ordered ONE (20:56)
[2017-01-10] MEDS ORDERED: TAMSULOSIN 0.4 MG CAP As Ordered ONE (20:56)
[2017-01-10] MEDS ORDERED: NORCO 5/325MG TABLET (BULK) As Ordered ONE (20:57)
--- NOTE | 2017-01-10 21:21 | EDDOCDS ---
Physician Documentation [facility] Name: Yaritza Zuniga Age: 31 yrs Sex: Female : 1985 Arrival Date: 01/10/2017 Time: 18:14 Bed I5 / M5 Private MD: Jorge Shelton FPA Disposition: 01/10/17 20:54 Discharged to Home/Self Care. Impression: Calculus of kidney with calculus of ureter - left UVJ, 4.5mm . - Condition is Stable. - Discharge Instructions: Kidney Stones, Kidney Stones, [id number]. - Prescriptions for [place] 5- 325 mg Oral Tablet - take 1 tablet by ORAL route every 6 hours As needed MDD: 4 tabs; 20 tablet. Flomax 0.4 mg Oral Capsule, Sust. Release 24 hr - take 1 capsule by ORAL route once daily 1/2 hour following the same meal each day; 30 capsule. Bactrim DS 800- 160 mg Oral Tablet - take 1 tablet by ORAL route every 12 hours for 10 days; 20 tablet. ZOFRAN ODT 4 mg - dissolve 1 tablet by ORAL route 4 times per day As needed do not chew, do not swallow whole; 10 tablet. - Medication Reconciliation, Local Pharmacy Hours, Work Release Form - 2 day form. - Follow up: Jorge Shelton; When: Call to arrange an appointment; Reason: Recheck today's complaints, Continuance of care. Follow up: Umesh Vegas; When: Call to arrange an appointment; Reason: Recheck today's complaints, Continuance of care. - Problem is new. - Symptoms are unchanged. Historical: - Allergies: Ceclor; PENICILLINS; - Home Meds: 1. Toradol 10 mg Oral tab 1 tab every 4-6 hours none today - PMHx: Anxiety; Hepatitis C; Kidney stones; - PSHx: Lithotripsy; Kidney Stent- Left; Kidney Stent- Right; - Social history: Smoking status: Patient states was never smoker of tobacco. No barriers to communication noted, The patient speaks fluent Niuean. - Family history: Not pertinent. - : The pt / caregiver states he / she is not on anticoagulants. Home medication list is obtained from the patient. - Exposure Risk Screening:: None identified. PROCESS EXPERT: 01/10 18:19 LMP 01/10/2017 kcs Vital Signs: 18:15 BP 158 / 101; Pulse 97; Resp 20 S; Temp 96.6(O); Pulse Ox 98% on R/A; Weight 63.5 kg / gr2 139.99 lbs (R); Height 5 ft. 4 in. (162.56 cm) (R); Pain 10/10; 19:49 BP 148 / 89; Pulse 89; Resp 18; Pulse Ox 99% on R/A; Pain 2/10; kas2 21:10 BP 127 / 81; Pulse 66; Resp 18; Temp 97.2(O); Pulse Ox 98% on R/A; Pain 4/10; kc3 18:15 Body Mass Index 24.03 (63.50 kg, 162.56 cm) gr2 MDM: 18:45 IV Saline Lock ordered. mo1 18:45 NS 0.9% 1000 ml IV at bolus once ordered. mo1 18:46 CBC with Diff Ordered. EDMS 18:46 BMP Ordered. EDMS 18:46 UA Ordered. EDMS 18:46 Liver Profile Ordered. EDMS 18:46 Urine Culture Ordered. EDMS 18:54 ketorolac 30 mg IVP once ordered. mo1 18:54 Ondansetron 4 mg IVP once ordered. mo1 18:55 CT ABD & PELVIS: No Contrast Ordered. EDMS 19:22 Dilaudid - HYDROmorphone 1 mg IVP once ordered. mo1 19:23 CBC with Diff Reviewed. mo1 19:57 Liver Profile Reviewed. mo1 19:57 BMP Reviewed. mo1 20:50 UA Reviewed. mo1 20:53 HYDROcodone-acetaminophen 4 pack- 5 mg-325 mg 1 packets PO Per package directions; mo1 Dispense with patient. 1 po q4h prn for pain ordered. 20:53 Tamsulosin Extended Release 24 hour Capsule 0.4 mg PO once ordered. mo1 20:55 Trimethoprim-Sulfamethoxazole 160 mg-800 mg (DS) 1 tabs PO once ordered. mo1 Administered Medications: 19:05 Drug: Ondansetron 4 mg Route: IVP; Site: right antecubital; kas2 19:06 Drug: NS 0.9% 1000 ml [sodium chloride 0.9 % intravenous solution] Route: IV; Rate: kas2 bolus; Site: right antecubital; 19:06 Drug: ketorolac 30 mg [ketorolac 30 mg/mL (1 mL) injection solution (1 mL)] Route: IVP; kas2 Site: right antecubital; 19:26 Drug: Dilaudid - HYDROmorphone 1 mg [hydromorphone 1 mg/mL injection syringe (1 mL)] kas2 Route: IVP; Site: right antecubital; 21:15 Drug: Trimethoprim-Sulfamethoxazole 1 tabs [sulfamethoxazole 800 mg-trimethoprim 160 mg kc3 tablet (1 tabs)] Route: PO; 21:16 Drug: HYDROcodone-acetaminophen 4 pack- 1 packets [hydrocodone 5 mg-acetaminophen 325 kc3 mg tablet (1 tabs)] {Co-Signature: kas2 (Blanca Cui RN).} Route: PO; 21:20 Drug: Tamsulosin 0.4 mg [tamsulosin 0.4 mg capsule (1 caps)] Route: PO; kc3 Signatures: Dispatcher [employer] Soraya Dickens RN RN kcs Jorge Temple PA PA mo1 Shaunna Kc RN RN mk4 Rachael Sykes RN RN kc3 Blanca Cui RN2 Blanca Cui RN kas2 MTDD
--- NOTE | 2017-01-10 21:21 | EDDOCDS ---
Nurse's Notes [facility] Name: Yaritza Zuniga Age: 31 yrs Sex: Female : 1985 Arrival Date: 01/10/2017 Time: 18:14 Bed I5 / M5 Private MD: Jorge Shelton FPA Diagnosis: Calculus of kidney with calculus of ureter-left UVJ, 4.5mm Presentation: 01/10 18:17 Presenting complaint: Patient states: she has had left flank pain for 1 week - history kcs of kidney stones. Mechanism of Injury: No Mechanism of Injury. Adult Sepsis Screening: The patient does not have new or worsening altered mentation. Patient's respiratory rate is less than 22. Systolic blood pressure is greater than 100. Patient has a qSOFA score of 0- Negative Sepsis Screen. Suicide/Homicide risk assessment- the patient denies having any suicidal and/or homicidal ideations and does not present with any other emotional, behavioral or mental health complaints. Status: Patient is not a customer service sales associate or dependent. Transition of care: patient was not received from another setting of care. 18:17 Acuity: NIDA Level 3 kcs 18:17 Method Of Arrival: Walkin/Carried/Asstd kcs 21:18 Acute neurological deficits are not present. kc3 Triage Assessment: 18:19 General: Appears distressed, uncomfortable, well developed, well nourished, Behavior is kcs agitated, anxious, restless. Pain: Location: right flank Pain currently is 10 out of 10 on a pain scale. HIV screening NA for this visit Offered previously. Neurological: Level of Consciousness is awake, alert. Respiratory: Airway is patent Respiratory effort is even, unlabored, Respiratory pattern is regular, symmetrical. Derm: Skin is intact, is healthy with good turgor, Skin is dry, Skin is normal. 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 Toradol 10 mg Oral tab 1 tab every 4-6 hours none today - PMHx: Anxiety; Hepatitis C; Kidney stones; - PSHx: Lithotripsy; Kidney Stent- Left; Kidney Stent- Right; - Social history: Smoking status: Patient states was never smoker of tobacco. No barriers to communication noted, The patient speaks fluent Yi. - Family history: Not pertinent. - : The pt / caregiver states he / she is not on anticoagulants. Home medication list is obtained from the patient. - Exposure Risk Screening:: None identified. Screenin:07 Screening information is obtained from the patient. Fall risk: No risks identified. mk4 Assistance ADL's: requires no assistance with activities of daily living. Abuse/DV Screen: The patient / caregiver reports he/she is: not in a situation that causes fear, pain or injury. Nutritional screening: No deficits noted. Advance Directives: There is no active DNR order. home support is adequate. 19:08 Infection Control. gr2 Assessment: 19:07 General: Appears distressed, uncomfortable, Behavior is restless. Pain: Location: left mk4 flank Pain currently is 10 out of 10 on a pain scale. Respiratory: Airway is patent Respiratory effort is even, unlabored. 19:26 General: Appears distressed, uncomfortable, Behavior is appropriate for age, kas2 cooperative, restless. Pain: Location: back pain Pain currently is 10 out of 10 on a pain scale. Cardiovascular: Rhythm is regular. Respiratory: Airway is patent Respiratory effort is even, unlabored, Respiratory pattern is regular, symmetrical. Derm: Skin is intact, Skin is clammy, Skin is pink, warm & dry. Skin temperature is warm. Musculoskeletal: No deficits noted. 20:18 General: Appears in no apparent distress, comfortable, Behavior is appropriate for age, kas2 cooperative. Pain: Denies pain. Cardiovascular: Rhythm is regular. Respiratory: Airway is patent Respiratory effort is even, unlabored, Respiratory pattern is regular, symmetrical. Derm: Skin is intact, Skin is dry, Skin is pink, warm & dry. Skin temperature is warm. 21:09 General: Appears in no apparent distress, comfortable, Behavior is appropriate for age, kc3 cooperative. Pain: Pain currently is 4 out of 10 on a pain scale. Neurological: Level of Consciousness is awake, alert, obeys commands. Respiratory: Respiratory effort is even, unlabored. Derm: Skin is pink, warm & dry. Vital Signs: 18:15 BP 158 / 101; Pulse 97; Resp 20 S; Temp 96.6(O); Pulse Ox 98% on R/A; Weight 63.5 kg gr2 (R); Height 5 ft. 4 in. (162.56 cm) (R); Pain 10/10; 19:49 BP 148 / 89; Pulse 89; Resp 18; Pulse Ox 99% on R/A; Pain 2/10; kas2 21:10 BP 127 / 81; Pulse 66; Resp 18; Temp 97.2(O); Pulse Ox 98% on R/A; Pain 4/10; kc3 18:15 Body Mass Index 24.03 (63.50 kg, 162.56 cm) gr2 Vitals: 18:15 Log In Time: January 10, 2017 at 18:15. gr2 ED Course: 18:15 Patient visited by Oscar Dean. gr2 18:15 Jorge Shelton is Private Physician. gr2 18:15 Patient moved to Waiting gr2 18:16 Patient visited by Oscar Dean. gr2 18:16 Patient moved to Pre RCE gr2 18:18 Triage Initiated kcs 18:40 Megan Greer RN is Primary Nurse. lr2 18:40 Patient moved to I5 / M5 lr2 18:42 Jorge Temple PA is PHCP. mo1 18:42 Marycarmen Olguin MD is Attending Physician. mo1 18:54 Patient visited by Jorge Temple PA. mo1 18:54 Patient visited by Shaunna Kc RN. mk4 18:54 Liver Profile Sent. mk4 18:54 BMP Sent. mk4 18:54 CBC with Diff Sent. mk4 19:03 Patient visited by Blanca Cui RN. kas2 19:07 The patient / caregiver is instructed regarding the plan of care and ED course. mk4 19:07 Inserted saline lock: 20 gauge in right antecubital area and blood collected. mk4 19:25 Primary Nurse role handed off by Megan Greer RN mcp 19:27 Patient visited by Blanca Cui RN. kas2 19:49 Patient visited by Blanca Cui RN. kas2 20:17 Urine Culture Sent. kas2 20:17 UA Sent. kas2 20:18 Patient visited by Blanca Cui RN. kas2 20:54 Jorge Shelton is Referral Physician. mo1 20:54 Umesh Vegas is Referral Physician. mo1 21:08 CT ABD & PELVIS: No Contrast Returned. EDMS 21:13 No procedures done that require assistance. kc3 Administered Medications: 19:05 Drug: Ondansetron 4 mg Route: IVP; Site: right antecubital; kas2 19:06 Drug: NS 0.9% 1000 ml [sodium chloride 0.9 % intravenous solution] Route: IV; Rate: kas2 bolus; Site: right antecubital; 19:06 Drug: ketorolac 30 mg [ketorolac 30 mg/mL (1 mL) injection solution (1 mL)] Route: IVP; kas2 Site: right antecubital; 19:26 Drug: Dilaudid - HYDROmorphone 1 mg [hydromorphone 1 mg/mL injection syringe (1 mL)] kas2 Route: IVP; Site: right antecubital; 21:15 Drug: Trimethoprim-Sulfamethoxazole 1 tabs [sulfamethoxazole 800 mg-trimethoprim 160 mg kc3 tablet (1 tabs)] Route: PO; 21:16 Drug: HYDROcodone-acetaminophen 4 pack- 1 packets [hydrocodone 5 mg-acetaminophen 325 kc3 mg tablet (1 tabs)] {Co-Signature: kas2 (Blanca Cui RN).} Route: PO; 21:20 Drug: Tamsulosin 0.4 mg [tamsulosin 0.4 mg capsule (1 caps)] Route: PO; kc3 Order Results: Lab Order: CBC with Diff; SPEC'M 01/10/17 18:52 Test: WHITE BLOOD COUNT; Value: 7.0; Range: 4.0-10.0; Units: K/mm3; Status: F Test: RED BLOOD COUNT; Value: 4.32; Range: 4.00-5.40; Units: M/mm3; Status: F Test: HEMOGLOBIN; Value: 13.3; Range: 12.0-16.0; Units: g/dl; Status: F Test: HEMATOCRIT; Value: 38.6; Range: 36.0-47.0; Units: %; Status: F Test: MEAN CORPUSCULAR VOLUME; Value: 89.3; Range: 80.0-96.0; Units: fl; Status: F Test: MEAN CORPUSCULAR HEMOGLOBIN; Value: 30.9; Range: 27.0-33.0; Units: pg; Status: F Test: MEAN CORPUSCULAR HGB CONC; Value: 34.6; Range: 32.0-36.5; Units: g/dl; Status: F Test: RED CELL DISTRIBUTION WIDTH; Value: 12.8; Range: 11.5-14.5; Units: %; Status: F Test: PLATELET COUNT, AUTOMATED; Value: 292; Range: 150-450; Units: k/mm3; Status: F Test: NEUTROPHILS %; Value: 59.2; Range: 36.0-66.0; Units: %; Status: F Test: LYMPH %; Value: 29.3; Range: 24.0-44.0; Units: %; Status: F Test: MONO %; Value: 7.2; Range: 0.0-5.0; Abnormal: Above high normal; Units: %; Status: F Test: EOS %; Value: 2.0; Range: 0.0-3.0; Units: %; Status: F Test: BASO %; Value: 0.6; Range: 0.0-1.0; Units: %; Status: F Test: LARGE UNSTAINED CELL %; Value: 1.8; Range: 0.0-4.0; Units: %; Status: F Test: NEUTROPHILS #; Value: 4.2; Range: 1.8-7.7; Units: K/mm3; Status: F Test: LYMPH #; Value: 2.2; Range: 1.5-4.5; Units: K/mm3; Status: F Test: MONO #; Value: 0.5; Range: 0.0-0.8; Units: K/mm3; Status: F Test: EOS #; Value: 0.1; Range: 0.0-0.50; Units: K/mm3; Status: F Test: BASO #; Value: 0.0; Range: 0.0-0.2; Units: K/mm3; Status: F Test: LARGE UNSTAINED CELL #; Value: 0.1; Range: 0.0-0.4; Units: K/mm3; Status: F Lab Order: [facility]; SPEC'M 01/10/17 18:52 Test: GLUCOSE, FASTING; Value: 84; Range: 70-105; Units: MG/DL; Status: F Test: BLOOD UREA NITROGEN; Value: 12; Range: 7-18; Units: MG/DL; Status: F Test: CREATININE FOR GFR; Value: 0.93; Range: 0.55-1.02; Units: MG/DL; Status: F Test: GLOMERULAR FILTRATION RATE; Value: > 60.0; Range: >60; Status: F Test: SODIUM LEVEL; Value: 143; Range: 136-145; Units: MEQ/L; Status: F Test: POTASSIUM SERUM; Value: 3.2; Range: 3.5-5.1; Abnormal: Below low normal; Units: MEQ/L; Status: F Test: CHLORIDE LEVEL; Value: 107; Range: 98-107; Units: MEQ/L; Status: F Test: CARBON DIOXIDE LEVEL; Value: 25; Range: 21-32; Units: MEQ/L; Status: F Test: ANION GAP; Value: 11; Range: 8-16; Units: MEQ/L; Status: F Test: CALCIUM LEVEL; Value: 9.0; Range: 8.5-10.1; Units: MG/DL; Status: F Test Note: ; Units are mL/min/1.73 m2 Chronic Kidney Disease Staging per NKF: Stage I & II GFR >=60 Normal to Mildly Decreased Stage III GFR 30-59 Moderately Decreased Stage IV GFR 15-29 Severely Decreased Stage V GFR <15 Very Little GFR Left ESRD GFR <15 on SOFTBALL WINDER Lab Order: UA; SPEC'M 01/10/17 20:15 Test: APPEARANCE, URINE; Value: HAZY; Range: CLEAR; Status: F Test: COLOR, URINE; Value: YELLOW; Range: YELLOW; Status: F Test: PH,URINE; Value: 7.0; Range: 5.0-9.0; Units: UNITS; Status: F Test: SPECIFIC GRAVITY URINE AUTO; Value: 1.016; Range: 1.002-1.035; Status: F Test: PROTEIN, URINE AUTO; Value: 1+; Range: NEGATIVE; Abnormal: Above high normal; Units: mg/dL; Status: F Test: GLUCOSE, URINE (UA) AUTO; Value: NEGATIVE; Range: NEGATIVE; Units: mg/dL; Status: F Test: KETONE, URINE AUTO; Value: TRACE; Range: NEGATIVE; Abnormal: Above high normal; Units: mg/dL; Status: F Test: UROBILINOGEN, URINE AUTO; Value: 0.2; Range: 0.0-2.0; Units: mg/dL; Status: F Test: BILIRUBIN, URINE AUTO; Value: NEGATIVE; Range: NEGATIVE; Status: F Test: NITRITE, URINE AUTO; Value: NEGATIVE; Range: NEGATIVE; Status: F Test: LEUKOCYTE ESTERASE, URINE AUTO; Value: TRACE; Range: NEGATIVE; Abnormal: Above high normal; Status: F Test: BLOOD, URINE BLOOD; Value: 3+; Range: NEGATIVE; Abnormal: Above high normal; Status: F Test: WBC, URINE AUTO; Value: 7; Range: 0-3; Abnormal: Above high normal; Units: /HPF; Status: F Test: RBC, URINE AUTO; Value: TNTC; Range: 0-3; Abnormal: Above high normal; Units: /HPF; Status: F Test: BACTERIA, URINE AUTO; Value: 1+; Range: NEGATIVE; Abnormal: Above high normal; Status: F Test: SQUAMOUS EPITHELIAL CELL UR AU; Value: 1; Range: 0-6; Units: /HPF; Status: F Test: MUCUS, URINE; Value: SMALL; Range: NEGATIVE; Status: F Test: HYALINE CAST, URINE AUTO; Value: 0; Range: 0-1; Units: /LPF; Status: F Lab Order: Liver Profile; SPEC'M 01/10/17 18:52 Test: AST/SGOT; Value: 11; Range: 15-37; Abnormal: Below low normal; Units: U/L; Status: F Test: ALT/SGPT; Value: 16; Range: 12-78; Units: U/L; Status: F Test: ALKALINE PHOSPHATASE; Value: 67; Range: 45-117; Units: U/L; Status: F Test: BILIRUBIN,TOTAL; Value: 0.4; Range: 0.2-1.0; Units: MG/DL; Status: F Test: BILIRUBIN,DIRECT; Value: < 0.1; Range: 0.0-0.2; Units: MG/DL; Status: F Test: TOTAL PROTEIN; Value: 7.4; Range: 6.4-8.2; Units: GM/DL; Status: F Test: ALBUMIN; Value: 4.0; Range: 3.2-5.2; Units: GM/DL; Status: F Test: ALBUMIN/GLOBULIN RATIO; Value: 1.18; Range: 1.00-1.93; Status: F Radiology Order: CT ABD & PELVIS: No Contrast Test: CT ABD & PELVIS: No Contrast REASON FOR EXAMINATION: left kidney stone; Clinical: Left flank pain.; ; Comparison: 01/05/2017.; ; Findings:; Mild left-sided obstructive uropathy is secondary to 4.5 mm calculus now; identified at the left ureterovesical junction (images 108 - 109). Bilateral; nephrolithiasis is again noted with calculi in the bilateral kidneys measuring up; to 9 mm.; ; Liver, spleen, pancreas, gallbladder, and bilateral adrenal glands are normal for; noncontrast examination. The enteric system is without obstruction or acute; inflammatory process. Pelvis demonstrates normal bladder and age-appropriate; uterus/adnexa. No ascites. No free air. Musculoskeletal structures are; intact.; ; Impression:; Mild left-sided obstructive uropathy with the previously noted 4.5 mm calculus; now at the left ureterovesicle junction. Bilateral nonobstructing calculi up to; 9 mm.; ; ; Signed by; Сергей Gilbert MD 01/10/2017 08:10 P; Outcome: 20:54 Discharge ordered by Provider. mo1 21:11 Discharge Assessment: Patient awake, alert and oriented x 3. No cognitive and/or kc3 functional deficits noted. Patient verbalized understanding of disposition instructions. patient administered narcotics - yes. Pt provided with safe discharge. The following High Risk Discharge criteria are identified: None. Discharged to home ambulatory. Condition: stable. Discharge instructions given to patient, Instructed on discharge instructions, follow up and referral plans. medication usage, Demonstrated understanding of instructions, medications, Pt was receptive of discharge instructions/ teaching. CT Study completed. Property :Personal belongings accompany Pt. 21:21 Patient left the ED. kc3 Signatures: Dispatcher [employer] EDMS Soraya Woodard RN RN Nga Porras RN Oscar Ponce mcp, Michael, PA PA mo1 Shaunna Kc RN RN mk4 Rachael Sykes RN RN kc3 Blanca Cui RN RN kas2 Lorna Camejo2 Blanca villaseñor2 MTDD
--- NOTE | 2017-01-12 22:21 | EDDOCDS ---
Physician Documentation [facility] Name: Yaritza Zuniga Age: 31 yrs Sex: Female : 1985 Arrival Date: 01/10/2017 Time: 18:14 Bed I5 / M5 Private MD: Jorge Shelton FPA Disposition: 01/10/17 20:54 Discharged to Home/Self Care. Impression: Calculus of kidney with calculus of ureter - left UVJ, 4.5mm . - Condition is Stable. - Discharge Instructions: Kidney Stones, Kidney Stones, [id number]. - Prescriptions for [place] 5- 325 mg Oral Tablet - take 1 tablet by ORAL route every 6 hours As needed MDD: 4 tabs; 20 tablet. Flomax 0.4 mg Oral Capsule, Sust. Release 24 hr - take 1 capsule by ORAL route once daily 1/2 hour following the same meal each day; 30 capsule. Bactrim DS 800- 160 mg Oral Tablet - take 1 tablet by ORAL route every 12 hours for 10 days; 20 tablet. ZOFRAN ODT 4 mg - dissolve 1 tablet by ORAL route 4 times per day As needed do not chew, do not swallow whole; 10 tablet. - Medication Reconciliation, Local Pharmacy Hours, Work Release Form - 2 day form. - Follow up: Jorge Shelton; When: Call to arrange an appointment; Reason: Recheck today's complaints, Continuance of care. Follow up: Umesh Vegas; When: Call to arrange an appointment; Reason: Recheck today's complaints, Continuance of care. - Problem is new. - Symptoms are unchanged. Historical: - Allergies: Ceclor; PENICILLINS; - Home Meds: 1. Toradol 10 mg Oral tab 1 tab every 4-6 hours none today - PMHx: Anxiety; Hepatitis C; Kidney stones; - PSHx: Lithotripsy; Kidney Stent- Left; Kidney Stent- Right; - Social history: Smoking status: Patient states was never smoker of tobacco. No barriers to communication noted, The patient speaks fluent [place]. - Family history: Not pertinent. - : The pt / caregiver states he / she is not on anticoagulants. Home medication list is obtained from the patient. - Exposure Risk Screening:: None identified. DELI CLERK: 01/10 18:19 LMP 01/10/2017 kcs Vital Signs: 18:15 BP 158 / 101; Pulse 97; Resp 20 S; Temp 96.6(O); Pulse Ox 98% on R/A; Weight 63.5 kg / gr2 139.99 lbs (R); Height 5 ft. 4 in. (162.56 cm) (R); Pain 10/10; 19:49 BP 148 / 89; Pulse 89; Resp 18; Pulse Ox 99% on R/A; Pain 2/10; kas2 21:10 BP 127 / 81; Pulse 66; Resp 18; Temp 97.2(O); Pulse Ox 98% on R/A; Pain 4/10; kc3 18:15 Body Mass Index 24.03 (63.50 kg, 162.56 cm) gr2 MDM: 18:45 IV Saline Lock ordered. mo1 18:45 NS 0.9% 1000 ml IV at bolus once ordered. mo1 18:46 CBC with Diff Ordered. EDMS 18:46 BMP Ordered. EDMS 18:46 UA Ordered. EDMS 18:46 Liver Profile Ordered. EDMS 18:46 Urine Culture Ordered. EDMS 18:54 ketorolac 30 mg IVP once ordered. mo1 18:54 Ondansetron 4 mg IVP once ordered. mo1 18:55 CT ABD & PELVIS: No Contrast Ordered. EDMS 19:22 Dilaudid - HYDROmorphone 1 mg IVP once ordered. mo1 19:23 CBC with Diff Reviewed. mo1 19:57 Liver Profile Reviewed. mo1 19:57 BMP Reviewed. mo1 20:50 UA Reviewed. mo1 20:53 HYDROcodone-acetaminophen 4 pack- 5 mg-325 mg 1 packets PO Per package directions; mo1 Dispense with patient. 1 po q4h prn for pain ordered. 20:53 Tamsulosin Extended Release 24 hour Capsule 0.4 mg PO once ordered. mo1 20:55 Trimethoprim-Sulfamethoxazole 160 mg-800 mg (DS) 1 tabs PO once ordered. mo1 01/11 13:57 T-Sheet-- Draft Copy was scanned into [employer] and attached to record. gb 13:57 Radiology Report was scanned into [employer] and attached to record. gb Administered Medications: 01/10 19:05 Drug: Ondansetron 4 mg Route: IVP; Site: right antecubital; kas2 19:06 Drug: NS 0.9% 1000 ml [sodium chloride 0.9 % intravenous solution] Route: IV; Rate: kas2 bolus; Site: right antecubital; 19:06 Drug: ketorolac 30 mg [ketorolac 30 mg/mL (1 mL) injection solution (1 mL)] Route: IVP; kas2 Site: right antecubital; 19:26 Drug: Dilaudid - HYDROmorphone 1 mg [hydromorphone 1 mg/mL injection syringe (1 mL)] kas2 Route: IVP; Site: right antecubital; 21:15 Drug: Trimethoprim-Sulfamethoxazole 1 tabs [sulfamethoxazole 800 mg-trimethoprim 160 mg kc3 tablet (1 tabs)] Route: PO; 21:16 Drug: HYDROcodone-acetaminophen 4 pack- 1 packets [hydrocodone 5 mg-acetaminophen 325 kc3 mg tablet (1 tabs)] {Co-Signature: kas2 (Blanca Cui RN).} Route: PO; 21:20 Drug: Tamsulosin 0.4 mg [tamsulosin 0.4 mg capsule (1 caps)] Route: PO; kc3 Signatures: Dispatcher [employer] EDSoraya Calderón RN RN kcs Sherlyn Smallwood, Reg Reg gb Jorge Temple PA PA mo1 Shaunna Kc RN RN mk4 Rachael Sykes RN RN kc3 Blanca Cui RN2 Blanca Cui RN kas2 The chart was reviewed and I authenticate all verbal orders and agree with the evaluation and treatment provided.Attachments: 01/11 13:57 T-Sheet-- Draft Copy gb Chart Complete MTDD
--- NOTE | 2017-01-12 22:21 | EDDOCDS ---
Nurse's Notes [facility] Name: Yaritza Zuniga Age: 31 yrs Sex: Female : 1985 Arrival Date: 01/10/2017 Time: 18:14 Bed I5 / M5 Private MD: Jorge Shelton FPA Diagnosis: Calculus of kidney with calculus of ureter-left UVJ, 4.5mm Presentation: 01/10 18:17 Presenting complaint: Patient states: she has had left flank pain for 1 week - history kcs of kidney stones. Mechanism of Injury: No Mechanism of Injury. Adult Sepsis Screening: The patient does not have new or worsening altered mentation. Patient's respiratory rate is less than 22. Systolic blood pressure is greater than 100. Patient has a qSOFA score of 0- Negative Sepsis Screen. Suicide/Homicide risk assessment- the patient denies having any suicidal and/or homicidal ideations and does not present with any other emotional, behavioral or mental health complaints. Status: Patient is not a servicer coin machines or dependent. Transition of care: patient was not received from another setting of care. 18:17 Acuity: NIDA Level 3 kcs 18:17 Method Of Arrival: Walkin/Carried/Asstd kcs 21:18 Acute neurological deficits are not present. kc3 Triage Assessment: 18:19 General: Appears distressed, uncomfortable, well developed, well nourished, Behavior is kcs agitated, anxious, restless. Pain: Location: right flank Pain currently is 10 out of 10 on a pain scale. HIV screening NA for this visit Offered previously. Neurological: Level of Consciousness is awake, alert. Respiratory: Airway is patent Respiratory effort is even, unlabored, Respiratory pattern is regular, symmetrical. Derm: Skin is intact, is healthy with good turgor, Skin is dry, Skin is normal. 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 Toradol 10 mg Oral tab 1 tab every 4-6 hours none today - PMHx: Anxiety; Hepatitis C; Kidney stones; - PSHx: Lithotripsy; Kidney Stent- Left; Kidney Stent- Right; - Social history: Smoking status: Patient states was never smoker of tobacco. No barriers to communication noted, The patient speaks fluent Maltese. - Family history: Not pertinent. - : The pt / caregiver states he / she is not on anticoagulants. Home medication list is obtained from the patient. - Exposure Risk Screening:: None identified. Screenin:07 Screening information is obtained from the patient. Fall risk: No risks identified. mk4 Assistance ADL's: requires no assistance with activities of daily living. Abuse/DV Screen: The patient / caregiver reports he/she is: not in a situation that causes fear, pain or injury. Nutritional screening: No deficits noted. Advance Directives: There is no active DNR order. home support is adequate. 19:08 Infection Control. gr2 Assessment: 19:07 General: Appears distressed, uncomfortable, Behavior is restless. Pain: Location: left mk4 flank Pain currently is 10 out of 10 on a pain scale. Respiratory: Airway is patent Respiratory effort is even, unlabored. 19:26 General: Appears distressed, uncomfortable, Behavior is appropriate for age, kas2 cooperative, restless. Pain: Location: back pain Pain currently is 10 out of 10 on a pain scale. Cardiovascular: Rhythm is regular. Respiratory: Airway is patent Respiratory effort is even, unlabored, Respiratory pattern is regular, symmetrical. Derm: Skin is intact, Skin is clammy, Skin is pink, warm & dry. Skin temperature is warm. Musculoskeletal: No deficits noted. 20:18 General: Appears in no apparent distress, comfortable, Behavior is appropriate for age, kas2 cooperative. Pain: Denies pain. Cardiovascular: Rhythm is regular. Respiratory: Airway is patent Respiratory effort is even, unlabored, Respiratory pattern is regular, symmetrical. Derm: Skin is intact, Skin is dry, Skin is pink, warm & dry. Skin temperature is warm. 21:09 General: Appears in no apparent distress, comfortable, Behavior is appropriate for age, kc3 cooperative. Pain: Pain currently is 4 out of 10 on a pain scale. Neurological: Level of Consciousness is awake, alert, obeys commands. Respiratory: Respiratory effort is even, unlabored. Derm: Skin is pink, warm & dry. Vital Signs: 18:15 BP 158 / 101; Pulse 97; Resp 20 S; Temp 96.6(O); Pulse Ox 98% on R/A; Weight 63.5 kg gr2 (R); Height 5 ft. 4 in. (162.56 cm) (R); Pain 10/10; 19:49 BP 148 / 89; Pulse 89; Resp 18; Pulse Ox 99% on R/A; Pain 2/10; kas2 21:10 BP 127 / 81; Pulse 66; Resp 18; Temp 97.2(O); Pulse Ox 98% on R/A; Pain 4/10; kc3 18:15 Body Mass Index 24.03 (63.50 kg, 162.56 cm) gr2 Vitals: 18:15 Log In Time: January 10, 2017 at 18:15. gr2 ED Course: 18:15 Patient visited by Oscar Dean. gr2 18:15 Jorge Shelton is Private Physician. gr2 18:15 Patient moved to Waiting gr2 18:16 Patient visited by Oscar Dean. gr2 18:16 Patient moved to Pre RCE gr2 18:18 Triage Initiated kcs 18:40 Megan Greer RN is Primary Nurse. lr2 18:40 Patient moved to I5 / M5 lr2 18:42 Jorge Temple PA is PHCP. mo1 18:42 Marycarmen Olguin MD is Attending Physician. mo1 18:54 Patient visited by Jorge Temple PA. mo1 18:54 Patient visited by Shaunna Kc RN. mk4 18:54 Liver Profile Sent. mk4 18:54 BMP Sent. mk4 18:54 CBC with Diff Sent. mk4 19:03 Patient visited by Blanca Cui RN. kas2 19:07 The patient / caregiver is instructed regarding the plan of care and ED course. mk4 19:07 Inserted saline lock: 20 gauge in right antecubital area and blood collected. mk4 19:25 Primary Nurse role handed off by Megan Greer RN mcp 19:27 Patient visited by Blanca Cui RN. kas2 19:49 Patient visited by Blanca Cui RN. kas2 20:17 Urine Culture Sent. kas2 20:17 UA Sent. kas2 20:18 Patient visited by Blanca Cui RN. kas2 20:54 Jorge Shelton is Referral Physician. mo1 20:54 Umesh Vegas is Referral Physician. mo1 21:08 CT ABD & PELVIS: No Contrast Returned. EDMS 21:13 No procedures done that require assistance. kc3 01/11 13:57 T-Sheet-- Draft Copy was scanned into [employer] and attached to record. gb 13:57 Radiology Report was scanned into [employer] and attached to record. gb Administered Medications: 01/10 19:05 Drug: Ondansetron 4 mg Route: IVP; Site: right antecubital; kas2 19:06 Drug: NS 0.9% 1000 ml [sodium chloride 0.9 % intravenous solution] Route: IV; Rate: kas2 bolus; Site: right antecubital; 19:06 Drug: ketorolac 30 mg [ketorolac 30 mg/mL (1 mL) injection solution (1 mL)] Route: IVP; kas2 Site: right antecubital; 19:26 Drug: Dilaudid - HYDROmorphone 1 mg [hydromorphone 1 mg/mL injection syringe (1 mL)] kas2 Route: IVP; Site: right antecubital; 21:15 Drug: Trimethoprim-Sulfamethoxazole 1 tabs [sulfamethoxazole 800 mg-trimethoprim 160 mg kc3 tablet (1 tabs)] Route: PO; 21:16 Drug: HYDROcodone-acetaminophen 4 pack- 1 packets [hydrocodone 5 mg-acetaminophen 325 kc3 mg tablet (1 tabs)] {Co-Signature: kas2 (Blanca Cui RN).} Route: PO; 21:20 Drug: Tamsulosin 0.4 mg [tamsulosin 0.4 mg capsule (1 caps)] Route: PO; kc3 Order Results: Lab Order: CBC with Diff; SPEC'M 01/10/17 18:52 Test: WHITE BLOOD COUNT; Value: 7.0; Range: 4.0-10.0; Units: K/mm3; Status: F Test: RED BLOOD COUNT; Value: 4.32; Range: 4.00-5.40; Units: M/mm3; Status: F Test: HEMOGLOBIN; Value: 13.3; Range: 12.0-16.0; Units: g/dl; Status: F Test: HEMATOCRIT; Value: 38.6; Range: 36.0-47.0; Units: %; Status: F Test: MEAN CORPUSCULAR VOLUME; Value: 89.3; Range: 80.0-96.0; Units: fl; Status: F Test: MEAN CORPUSCULAR HEMOGLOBIN; Value: 30.9; Range: 27.0-33.0; Units: pg; Status: F Test: MEAN CORPUSCULAR HGB CONC; Value: 34.6; Range: 32.0-36.5; Units: g/dl; Status: F Test: RED CELL DISTRIBUTION WIDTH; Value: 12.8; Range: 11.5-14.5; Units: %; Status: F Test: PLATELET COUNT, AUTOMATED; Value: 292; Range: 150-450; Units: k/mm3; Status: F Test: NEUTROPHILS %; Value: 59.2; Range: 36.0-66.0; Units: %; Status: F Test: LYMPH %; Value: 29.3; Range: 24.0-44.0; Units: %; Status: F Test: MONO %; Value: 7.2; Range: 0.0-5.0; Abnormal: Above high normal; Units: %; Status: F Test: EOS %; Value: 2.0; Range: 0.0-3.0; Units: %; Status: F Test: BASO %; Value: 0.6; Range: 0.0-1.0; Units: %; Status: F Test: LARGE UNSTAINED CELL %; Value: 1.8; Range: 0.0-4.0; Units: %; Status: F Test: NEUTROPHILS #; Value: 4.2; Range: 1.8-7.7; Units: K/mm3; Status: F Test: LYMPH #; Value: 2.2; Range: 1.5-4.5; Units: K/mm3; Status: F Test: MONO #; Value: 0.5; Range: 0.0-0.8; Units: K/mm3; Status: F Test: EOS #; Value: 0.1; Range: 0.0-0.50; Units: K/mm3; Status: F Test: BASO #; Value: 0.0; Range: 0.0-0.2; Units: K/mm3; Status: F Test: LARGE UNSTAINED CELL #; Value: 0.1; Range: 0.0-0.4; Units: K/mm3; Status: F Lab Order: [facility]; SPEC'M 01/10/17 18:52 Test: GLUCOSE, FASTING; Value: 84; Range: 70-105; Units: MG/DL; Status: F Test: BLOOD UREA NITROGEN; Value: 12; Range: 7-18; Units: MG/DL; Status: F Test: CREATININE FOR GFR; Value: 0.93; Range: 0.55-1.02; Units: MG/DL; Status: F Test: GLOMERULAR FILTRATION RATE; Value: > 60.0; Range: >60; Status: F Test: SODIUM LEVEL; Value: 143; Range: 136-145; Units: MEQ/L; Status: F Test: POTASSIUM SERUM; Value: 3.2; Range: 3.5-5.1; Abnormal: Below low normal; Units: MEQ/L; Status: F Test: CHLORIDE LEVEL; Value: 107; Range: 98-107; Units: MEQ/L; Status: F Test: CARBON DIOXIDE LEVEL; Value: 25; Range: 21-32; Units: MEQ/L; Status: F Test: ANION GAP; Value: 11; Range: 8-16; Units: MEQ/L; Status: F Test: CALCIUM LEVEL; Value: 9.0; Range: 8.5-10.1; Units: MG/DL; Status: F Test Note: ; Units are mL/min/1.73 m2 Chronic Kidney Disease Staging per NKF: Stage I & II GFR >=60 Normal to Mildly Decreased Stage III GFR 30-59 Moderately Decreased Stage IV GFR 15-29 Severely Decreased Stage V GFR <15 Very Little GFR Left ESRD GFR <15 on SUPPLIER QUALITY Lab Order: UA; SPEC'M 01/10/17 20:15 Test: APPEARANCE, URINE; Value: HAZY; Range: CLEAR; Status: F Test: COLOR, URINE; Value: YELLOW; Range: YELLOW; Status: F Test: PH,URINE; Value: 7.0; Range: 5.0-9.0; Units: UNITS; Status: F Test: SPECIFIC GRAVITY URINE AUTO; Value: 1.016; Range: 1.002-1.035; Status: F Test: PROTEIN, URINE AUTO; Value: 1+; Range: NEGATIVE; Abnormal: Above high normal; Units: mg/dL; Status: F Test: GLUCOSE, URINE (UA) AUTO; Value: NEGATIVE; Range: NEGATIVE; Units: mg/dL; Status: F Test: KETONE, URINE AUTO; Value: TRACE; Range: NEGATIVE; Abnormal: Above high normal; Units: mg/dL; Status: F Test: UROBILINOGEN, URINE AUTO; Value: 0.2; Range: 0.0-2.0; Units: mg/dL; Status: F Test: BILIRUBIN, URINE AUTO; Value: NEGATIVE; Range: NEGATIVE; Status: F Test: NITRITE, URINE AUTO; Value: NEGATIVE; Range: NEGATIVE; Status: F Test: LEUKOCYTE ESTERASE, URINE AUTO; Value: TRACE; Range: NEGATIVE; Abnormal: Above high normal; Status: F Test: BLOOD, URINE BLOOD; Value: 3+; Range: NEGATIVE; Abnormal: Above high normal; Status: F Test: WBC, URINE AUTO; Value: 7; Range: 0-3; Abnormal: Above high normal; Units: /HPF; Status: F Test: RBC, URINE AUTO; Value: TNTC; Range: 0-3; Abnormal: Above high normal; Units: /HPF; Status: F Test: BACTERIA, URINE AUTO; Value: 1+; Range: NEGATIVE; Abnormal: Above high normal; Status: F Test: SQUAMOUS EPITHELIAL CELL UR AU; Value: 1; Range: 0-6; Units: /HPF; Status: F Test: MUCUS, URINE; Value: SMALL; Range: NEGATIVE; Status: F Test: HYALINE CAST, URINE AUTO; Value: 0; Range: 0-1; Units: /LPF; Status: F Lab Order: Urine Culture; SPEC'M 01/10/17 20:15 Test: URINE CULTURE; Value: <EXTERNAL COMMENT eCWMed> FULL REPORT IN LAB NOTES (eCW and Medent).; Status: F Test: URINE CULTURE; Value: URINE CULTURE RESULT NO GROWTH; Status: F Lab Order: Liver Profile; SPEC'M 01/10/17 18:52 Test: AST/SGOT; Value: 11; Range: 15-37; Abnormal: Below low normal; Units: U/L; Status: F Test: ALT/SGPT; Value: 16; Range: 12-78; Units: U/L; Status: F Test: ALKALINE PHOSPHATASE; Value: 67; Range: 45-117; Units: U/L; Status: F Test: BILIRUBIN,TOTAL; Value: 0.4; Range: 0.2-1.0; Units: MG/DL; Status: F Test: BILIRUBIN,DIRECT; Value: < 0.1; Range: 0.0-0.2; Units: MG/DL; Status: F Test: TOTAL PROTEIN; Value: 7.4; Range: 6.4-8.2; Units: GM/DL; Status: F Test: ALBUMIN; Value: 4.0; Range: 3.2-5.2; Units: GM/DL; Status: F Test: ALBUMIN/GLOBULIN RATIO; Value: 1.18; Range: 1.00-1.93; Status: F Radiology Order: CT ABD & PELVIS: No Contrast Test: CT ABD & PELVIS: No Contrast REASON FOR EXAMINATION: left kidney stone; Clinical: Left flank pain.; ; Comparison: 01/05/2017.; ; Findings:; Mild left-sided obstructive uropathy is secondary to 4.5 mm calculus now; identified at the left ureterovesical junction (images 108 - 109). Bilateral; nephrolithiasis is again noted with calculi in the bilateral kidneys measuring up; to 9 mm.; ; Liver, spleen, pancreas, gallbladder, and bilateral adrenal glands are normal for; noncontrast examination. The enteric system is without obstruction or acute; inflammatory process. Pelvis demonstrates normal bladder and age-appropriate; uterus/adnexa. No ascites. No free air. Musculoskeletal structures are; intact.; ; Impression:; Mild left-sided obstructive uropathy with the previously noted 4.5 mm calculus; now at the left ureterovesicle junction. Bilateral nonobstructing calculi up to; 9 mm.; ; ; Signed by; Сергей Gilbert MD 01/10/2017 08:10 P; Outcome: 20:54 Discharge ordered by Provider. mo1 21:11 Discharge Assessment: Patient awake, alert and oriented x 3. No cognitive and/or kc3 functional deficits noted. Patient verbalized understanding of disposition instructions. patient administered narcotics - yes. Pt provided with safe discharge. The following High Risk Discharge criteria are identified: None. Discharged to home ambulatory. Condition: stable. Discharge instructions given to patient, Instructed on discharge instructions, follow up and referral plans. medication usage, Demonstrated understanding of instructions, medications, Pt was receptive of discharge instructions/ teaching. CT Study completed. Property :Personal belongings accompany Pt. 21:21 Patient left the ED. kc3 Signatures: Dispatcher [employer] Soraya Dickens, RN RN kcs Hardin, Nga, RN RN [facility] Sherlyn Smallwood, Reg Reg gb Oscar Dean gr2 Jorge Temple PA PA mo1 Shaunna Kc, RN RN mk4 Rachael SykesRN RN kc3 Blanca Cui RN RN kas2 Lorna Camejo2 Blanca Cui RN kas2 Chart Complete MTDD
--- NOTE | 2017-01-12 22:21 | EDDOCDS ---
Physician Documentation [facility] Name: Yaritza Zuniga Age: 31 yrs Sex: Female : 1985 Arrival Date: 01/10/2017 Time: 18:14 Bed I5 / M5 Private MD: Jorge Shelton FPA Disposition: 01/10/17 20:54 Discharged to Home/Self Care. Impression: Calculus of kidney with calculus of ureter - left UVJ, 4.5mm . - Condition is Stable. - Discharge Instructions: Kidney Stones, Kidney Stones, [id number]. - Prescriptions for Edgar 5- 325 mg Oral Tablet - take 1 tablet by ORAL route every 6 hours As needed MDD: 4 tabs; 20 tablet. Flomax 0.4 mg Oral Capsule, Sust. Release 24 hr - take 1 capsule by ORAL route once daily 1/2 hour following the same meal each day; 30 capsule. Bactrim DS 800- 160 mg Oral Tablet - take 1 tablet by ORAL route every 12 hours for 10 days; 20 tablet. ZOFRAN ODT 4 mg - dissolve 1 tablet by ORAL route 4 times per day As needed do not chew, do not swallow whole; 10 tablet. - Medication Reconciliation, Local Pharmacy Hours, Work Release Form - 2 day form. - Follow up: Jorge Shelton; When: Call to arrange an appointment; Reason: Recheck today's complaints, Continuance of care. Follow up: Umesh Vegas; When: Call to arrange an appointment; Reason: Recheck today's complaints, Continuance of care. - Problem is new. - Symptoms are unchanged. Historical: - Allergies: Ceclor; PENICILLINS; - Home Meds: 1. Toradol 10 mg Oral tab 1 tab every 4-6 hours none today - PMHx: Anxiety; Hepatitis C; Kidney stones; - PSHx: Lithotripsy; Kidney Stent- Left; Kidney Stent- Right; - Social history: Smoking status: Patient states was never smoker of tobacco. No barriers to communication noted, The patient speaks fluent Wallisian. - Family history: Not pertinent. - : The pt / caregiver states he / she is not on anticoagulants. Home medication list is obtained from the patient. - Exposure Risk Screening:: None identified. 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 4 in. (162.56 cm) (R); Pain 10/10; 19:49 BP 148 / 89; Pulse 89; Resp 18; Pulse Ox 99% on R/A; Pain 2/10; kas2 21:10 BP 127 / 81; Pulse 66; Resp 18; Temp 97.2(O); Pulse Ox 98% on R/A; Pain 4/10; kc3 18:15 Body Mass Index 24.03 (63.50 kg, 162.56 cm) gr2 MDM: 18:45 IV Saline Lock ordered. mo1 18:45 NS 0.9% 1000 ml IV at bolus once ordered. mo1 18:46 CBC with Diff Ordered. EDMS 18:46 BMP Ordered. EDMS 18:46 UA Ordered. EDMS 18:46 Liver Profile Ordered. EDMS 18:46 Urine Culture Ordered. EDMS 18:54 ketorolac 30 mg IVP once ordered. mo1 18:54 Ondansetron 4 mg IVP once ordered. mo1 18:55 CT ABD & PELVIS: No Contrast Ordered. EDMS 19:22 Dilaudid - HYDROmorphone 1 mg IVP once ordered. mo1 19:23 CBC with Diff Reviewed. mo1 19:57 Liver Profile Reviewed. mo1 19:57 BMP Reviewed. mo1 20:50 UA Reviewed. mo1 20:53 HYDROcodone-acetaminophen 4 pack- 5 mg-325 mg 1 packets PO Per package directions; mo1 Dispense with patient. 1 po q4h prn for pain ordered. 20:53 Tamsulosin Extended Release 24 hour Capsule 0.4 mg PO once ordered. mo1 20:55 Trimethoprim-Sulfamethoxazole 160 mg-800 mg (DS) 1 tabs PO once ordered. mo1 01/11 13:57 T-Sheet-- Draft Copy was scanned into [employer] and attached to record. gb 13:57 Radiology Report was scanned into [employer] and attached to record. gb Administered Medications: 01/10 19:05 Drug: Ondansetron 4 mg Route: IVP; Site: right antecubital; kas2 19:06 Drug: NS 0.9% 1000 ml [sodium chloride 0.9 % intravenous solution] Route: IV; Rate: kas2 bolus; Site: right antecubital; 19:06 Drug: ketorolac 30 mg [ketorolac 30 mg/mL (1 mL) injection solution (1 mL)] Route: IVP; kas2 Site: right antecubital; 19:26 Drug: Dilaudid - HYDROmorphone 1 mg [hydromorphone 1 mg/mL injection syringe (1 mL)] kas2 Route: IVP; Site: right antecubital; 21:15 Drug: Trimethoprim-Sulfamethoxazole 1 tabs [sulfamethoxazole 800 mg-trimethoprim 160 mg kc3 tablet (1 tabs)] Route: PO; 21:16 Drug: HYDROcodone-acetaminophen 4 pack- 1 packets [hydrocodone 5 mg-acetaminophen 325 kc3 mg tablet (1 tabs)] {Co-Signature: kas2 (Blanca Cui RN).} Route: PO; 21:20 Drug: Tamsulosin 0.4 mg [tamsulosin 0.4 mg capsule (1 caps)] Route: PO; kc3 Signatures: Dispatcher [employer] EDSoraya Calderón RN RN kcs Sherlyn Smallwood, Reg Reg gb Jorge Temple PA PA mo1 Shaunna Kc RN RN mk4 Rachael Sykes RN RN kc3 Blanca Cui RN2 Blanca Cui RN kas2 The chart was reviewed and I authenticate all verbal orders and agree with the evaluation and treatment provided.Attachments: 01/11 13:57 T-Sheet-- Draft Copy gb Chart Complete MTDD
== END 2017-01-10 21:21 | disposition home or self-care (01) ==
LOC: M ED 18:14
DX: N20.1 Calculus of ureter (principal); N13.9 Obstructive and reflux uropathy, unspecified; E86.0 Dehydration; R11.10 Vomiting, unspecified; F41.9 Anxiety disorder, unspecified; B19.20 Unspecified viral hepatitis C without hepatic coma; Z87.442 Personal history of urinary calculi; Z88.0 Allergy status to penicillin; Z88.1 Allergy status to other antibiotic agents
CPT/HCPCS: 36415; 74176; 80048; 80076; 81001; 85025; 87086; 96374; 96375; 99284; J1170; J1885; J2405

== ENCOUNTER 2017-01-11 06:13 | Emergency (ER) | payer OTHER | END 2017-01-11 06:37 | disposition left against medical advice (07) | LOC: M ED 06:13 | DX: N20.0 Calculus of kidney (principal); F41.9 Anxiety disorder, unspecified; B19.20 Unspecified viral hepatitis C without hepatic coma; Z79.899 Other long term (current) drug therapy; Z88.0 Allergy status to penicillin; Z53.29 Procedure and treatment not carried out because of patient's decision for other reasons ==

== ENCOUNTER → 2017-10-30 | Outpatient (REF) | payer OTHER | LOC: M LAB REF 14:41 | PROVIDERS: ATTEND Physician Assistant Medical | DX: R82.99 Other abnormal findings in urine (principal); Z32.01 Encounter for pregnancy test, result positive ==

== ENCOUNTER → 2017-11-03 | Outpatient (REF) | payer OTHER | LOC: M LAB REF 13:06 | PROVIDERS: ATTEND Physician Assistant Medical | DX: R30.0 Dysuria (principal) ==

== ENCOUNTER → 2017-11-27 | Outpatient (CLI) | payer OTHER ==
[2017-11-27 14:33] LABS: HCG, SERUM QUANTITATIVE 24813 MIU/ML
== END ==
LOC: M SMT 12:05
DX: R10.31 Right lower quadrant pain (principal)
CPT/HCPCS: 84702

== ENCOUNTER → 2017-11-29 | Outpatient (CLI) | payer OTHER ==
[2017-11-29 20:10] LABS: HCG, SERUM QUANTITATIVE 24379 MIU/ML
== END ==
LOC: M SMT 13:35
DX: R10.31 Right lower quadrant pain (principal)
CPT/HCPCS: 84702

== ENCOUNTER → 2017-12-01 | Outpatient (CLI) | payer OTHER | LOC: M RAD 12:56 | DX: N20.0 Calculus of kidney (principal) | CPT/HCPCS: 76775 ==

== ENCOUNTER 2017-12-06 07:28 | Day surgery (SDC) | payer OTHER ==
[~2017-12-06 07:28] MED LIST changes: -IMIT5SPR; +KETOROLAC 60 MG/2 ML VIAL (J1885) As Ordered; +LIDOCAINE 2% INJ 100 MG/5 ML SDV (FOR ANES.) As Ordered; +MIDAZOLAM INJ 2 MG/2 ML VIAL (J2250) As Ordered; +ONDANSETRON 4MG/2ML VIAL (J2405) As Ordered; +PROPOFOL 200 MG/20 ML VIAL As Ordered; -ROXI1TAB2 PO; -XANA0.25 PO; -birth control pill PO; +dexameTHASONE 4 MG/ML 1ML VIAL (J1100) As Ordered; +fentaNYL 250 MCG/5 ML INJECTION (J3010) As Ordered
[2017-12-06 09:39] LABS: HEMOGLOBIN 12.4 g/dl (12.0-16.0); MEAN CORPUSCULAR HEMOGLOBIN 30.1 pg (27.0-33.0); MEAN CORPUSCULAR HGB CONC 33.5 g/dl (32.0-36.5); MEAN CORPUSCULAR VOLUME 89.8 fl (80.0-96.0); PLATELET COUNT, AUTOMATED 211 10^3/uL (150-450); RED BLOOD COUNT 4.12 10^6/uL (4.00-5.40); RED CELL DISTRIBUTION WIDTH 13.2 % (11.5-14.5); WHITE BLOOD COUNT 6.2 10^3/uL (4.0-10.0)
[2017-12-06] MEDS: LIDOCAINE 1% SDV INJ 30 ML VIAL As Ordered (09:40)
[2017-12-06] MEDS ORDERED: MIDAZOLAM INJ 2 MG/2 ML VIAL (J2250) As Ordered (10:18)
[2017-12-06] MEDS ORDERED: fentaNYL 100 MCG/2 ML INJECTION (J3010) IV (10:45)
[2017-12-06] MEDS ORDERED: LR 1,000 ML IV (10:45)
[2017-12-06] MEDS ORDERED: PERCOCET 5MG/325MG TAB PO (10:45)
[2017-12-06] MEDS ORDERED: ONDANSETRON 4MG/2ML VIAL (J2405) IV (10:45)
[2017-12-06] MEDS ORDERED: PERCOCET 5MG/325MG TAB As Ordered (10:49)
[2017-12-06] MEDS: PERCOCET 5MG/325MG TAB PO (10:55)
[2017-12-06] MEDS ORDERED: KETOROLAC 30 MG/ML VIAL (J1885) IV (16:00)
== END 2017-12-06 11:55 | disposition home or self-care (01) ==
LOC: M SDC 07:28
DX: O02.1 Missed abortion (principal); Z88.0 Allergy status to penicillin; Z88.1 Allergy status to other antibiotic agents; Z87.442 Personal history of urinary calculi
CPT/HCPCS: 59820

== ENCOUNTER 2017-12-11 07:43 | Day surgery (SDC) | payer OTHER ==
[2017-12-11] MEDS: MORPHINE 4 MG/ML 1ML SYRINGE IV ×4 (08:15→11:15)
[2017-12-11] MEDS: NS 1,000 ML IV ×2 (08:15)
[2017-12-11] MEDS: ONDANSETRON 4MG/2ML VIAL (J2405) IV ×2 (08:15)
[2017-12-11 08:17] LABS: BASO # 0.1 10^3/uL (0.0-0.2); BASO % 1.1 % (0.0-1.0); EOS # 0.2 10^3/uL (0.0-0.50); EOS % 4.4 % (0.0-3.0); HEMATOCRIT 36.4 % (36.0-47.0); HEMOGLOBIN 12.4 g/dl (12.0-16.0); IMMATURE GRANULOCYTE % 0.2 % (0-0); LYMPH # 1.4 10^3/uL (1.5-4.5); LYMPH % 26.1 % (24.0-44.0); MEAN CORPUSCULAR HEMOGLOBIN 30.7 pg (27.0-33.0); MEAN CORPUSCULAR HGB CONC 34.1 g/dl (32.0-36.5); MEAN CORPUSCULAR VOLUME 90.1 fl (80.0-96.0); MONO # 0.5 10^3/uL (0.0-0.8); MONO % 9.2 % (0.0-5.0); NEUTROPHILS # 3.2 10^3/uL (1.8-7.7); PLATELET COUNT, AUTOMATED 246 10^3/uL (150-450); RED BLOOD COUNT 4.04 10^6/uL (4.00-5.40); RED CELL DISTRIBUTION WIDTH 13.2 % (11.5-14.5); WHITE BLOOD COUNT 5.5 10^3/uL (4.0-10.0)
[2017-12-11 08:54] LABS: ALBUMIN 4.1 GM/DL (3.2-5.2); ALBUMIN/GLOBULIN RATIO 1.24 (1.00-1.93); ALKALINE PHOSPHATASE 61 U/L (45-117); ALT/SGPT 18 U/L (12-78); ANION GAP 6 MEQ/L (8-16); AST/SGOT 14 U/L (7-37); BILIRUBIN,DIRECT 0.1 MG/DL (0.0-0.2); BILIRUBIN,TOTAL 0.3 MG/DL (0.2-1.0); BLOOD UREA NITROGEN 15 MG/DL (7-18); CARBON DIOXIDE LEVEL 28 MEQ/L (21-32); CHLORIDE LEVEL 108 MEQ/L (98-107); CREATININE FOR GFR 0.85 MG/DL (0.55-1.02); GLOMERULAR FILTRATION RATE > 60.0 (>60); GLUCOSE, FASTING 104 MG/DL (70-105); POTASSIUM SERUM 4.2 MEQ/L (3.5-5.1); SODIUM LEVEL 142 MEQ/L (136-145); TOTAL PROTEIN 7.4 GM/DL (6.4-8.2)
[2017-12-11 08:55] LABS: INR 0.91; PROTHROMBIN TIME 12.3 SECONDS (12.4-14.5)
[2017-12-11 08:56] LABS: PARTIAL THROMBOPLASTIN TIME 29.5 SECONDS (26.8-37.9)
[2017-12-11 09:04] LABS: LACTIC ACID SEPSIS PROTOCOL 0.6 MMOL/L (0.4-2.0)
[2017-12-11] MEDS: KETOROLAC 30 MG/ML VIAL (J1885) IV ×4 (10:18→19:04)
[2017-12-11 10:22] LABS: KETONE, URINE AUTO RFX NEGATIVE (NEGATIVE); MUCUS, URINE RFX SMALL (NEGATIVE); NITRITE, URINE AUTO RFX NEGATIVE (NEGATIVE); RBC, URINE AUTO RFX 50 /HPF (0-3); SPECIFIC GRAVITY UR AUTO RFX 1.013 (1.002-1.035); SQUAM EPITHELIAL CELL UR AURFX 3 /HPF (0-6)
[2017-12-11 10:44] LABS: LEUKOCYTE ESTERASE UR AUTO RFX TRACE (NEGATIVE); WBC, URINE AUTO RFX 17 /HPF (0-3)
[2017-12-11] MEDS ORDERED: MIDAZOLAM INJ 2 MG/2 ML VIAL (J2250) As Ordered ×2 (16:09)
[2017-12-11] MEDS: TRIMETHOPRIM/SULFAMETHOXAZOLE 80 MG in D5W 100 ML IV (16:30)
[2017-12-11] MEDS ORDERED: fentaNYL 100 MCG/2 ML INJECTION (J3010) As Ordered ×2 (16:41)
[2017-12-11] MEDS ORDERED: LIDOCAINE 2% INJ 100 MG/5 ML SDV (FOR ANES.) As Ordered ×2 (16:42)
[2017-12-11] MEDS ORDERED: PROPOFOL 200 MG/20 ML VIAL As Ordered ×4 (16:42)
[2017-12-11] MEDS ORDERED: DOPamine 400 MG/500 ML BAG IN D5W (800MCG/ML) (J1265) As Ordered (16:42)
[2017-12-11] MEDS ORDERED: PHENYLephrine HCL 500 MCG/5 ML (100MCG/ML) SYRINGE (J2370) As Ordered ×2 (16:43)
[2017-12-11] MEDS ORDERED: ONDANSETRON 4MG/2ML VIAL (J2405) As Ordered ×2 (16:49)
[2017-12-11] MEDS ORDERED: dexameTHASONE 4 MG/ML 1ML VIAL (J1100) As Ordered ×2 (16:49)
[2017-12-11] MEDS: CONRAY-60 60% 50ML VIAL (Q9961) As Ordered ×2 (16:51)
[2017-12-11] MEDS: fentaNYL 100 MCG/2 ML INJECTION (J3010) IV ×8 (17:35→17:50)
[2017-12-11] MEDS ORDERED: MORPHINE 10 MG/ML 1ML VIAL IV ×2 (17:45)
[2017-12-11] MEDS ORDERED: LR 1,000 ML IV ×2 (17:45)
[2017-12-11] MEDS ORDERED: ONDANSETRON 4MG/2ML VIAL (J2405) IV ×2 (17:45)
[2017-12-11] MEDS ORDERED: METOCLOPRAMIDE INJ 10MG/2ML VIAL (J2765) IV ×2 (17:45)
[2017-12-11] MEDS: PERCOCET 5MG/325MG TAB PO ×4 (18:00→19:12)
[2017-12-11] MEDS ORDERED: PERCOCET 5MG/325MG TAB As Ordered ×2 (18:48)
== END 2017-12-11 20:05 | disposition home or self-care (01) ==
LOC: M SDC 20:05 → M ED 07:43 → M SDC 16:24
DX: N13.2 Hydronephrosis with renal and ureteral calculous obstruction (principal); Z88.0 Allergy status to penicillin; Z88.1 Allergy status to other antibiotic agents; Z87.891 Personal history of nicotine dependence
CPT/HCPCS: 52332

== ENCOUNTER 2017-12-12 02:28 | Observation (INO) | payer OTHER ==
[2017-12-12] MEDS: NS 1,000 ML IV ×2 (03:30→22:45)
[2017-12-12] MEDS: ONDANSETRON 4MG/2ML VIAL (J2405) IV (03:30)
[2017-12-12] MEDS: MORPHINE 4 MG/ML 1ML SYRINGE IV ×2 (03:45→06:11)
[2017-12-12 03:52] LABS: BASO % 0.2 % (0.0-1.0); HEMATOCRIT 35.3 % (36.0-47.0); HEMOGLOBIN 12.3 g/dl (12.0-16.0); IMMATURE GRANULOCYTE % 0.4 % (0-0); LYMPH # 0.5 10^3/uL (1.5-4.5); LYMPH % 10.8 % (24.0-44.0); MEAN CORPUSCULAR HEMOGLOBIN 30.6 pg (27.0-33.0); MEAN CORPUSCULAR HGB CONC 34.8 g/dl (32.0-36.5); MEAN CORPUSCULAR VOLUME 87.8 fl (80.0-96.0); MONO # 0.2 10^3/uL (0.0-0.8); MONO % 4.9 % (0.0-5.0); NEUTROPHILS # 4.1 10^3/uL (1.8-7.7); NEUTROPHILS % 83.7 % (36.0-66.0); PLATELET COUNT, AUTOMATED 249 10^3/uL (150-450); RED BLOOD COUNT 4.02 10^6/uL (4.00-5.40); WHITE BLOOD COUNT 4.9 10^3/uL (4.0-10.0)
[2017-12-12 03:58] LABS: KETONE, URINE AUTO RFX TRACE mg/dL (NEGATIVE); LEUKOCYTE ESTERASE UR AUTO RFX 2+ (NEGATIVE); MUCUS, URINE RFX SMALL (NEGATIVE); NITRITE, URINE AUTO RFX NEGATIVE (NEGATIVE); RBC, URINE AUTO RFX TNTC /HPF (0-3); SPECIFIC GRAVITY UR AUTO RFX 1.008 (1.002-1.035); SQUAM EPITHELIAL CELL UR AURFX 5 /HPF (0-6); WBC, URINE AUTO RFX 63 /HPF (0-3)
[2017-12-12] MEDS ORDERED: HYDROmorphone HCL 1 MG/ML SYRINGE (J1170) As Ordered (04:04)
[2017-12-12] MEDS: HYDROmorphone HCL 1 MG/ML SYRINGE (J1170) IV ×3 (04:14→22:45)
[2017-12-12 04:16] LABS: ALBUMIN 4.1 GM/DL (3.2-5.2); ALBUMIN/GLOBULIN RATIO 1.14 (1.00-1.93); ALKALINE PHOSPHATASE 63 U/L (45-117); ALT/SGPT 21 U/L (12-78); ANION GAP 9 MEQ/L (8-16); AST/SGOT 13 U/L (7-37); BILIRUBIN,DIRECT < 0.1 MG/DL (0.0-0.2); BILIRUBIN,TOTAL 0.5 MG/DL (0.2-1.0); BLOOD UREA NITROGEN 11 MG/DL (7-18); CALCIUM LEVEL 9.4 MG/DL (8.5-10.1); CARBON DIOXIDE LEVEL 24 MEQ/L (21-32); CHLORIDE LEVEL 105 MEQ/L (98-107); CREATININE FOR GFR 0.98 MG/DL (0.55-1.02); GLOMERULAR FILTRATION RATE > 60.0 (>60); GLUCOSE, FASTING 122 MG/DL (70-100); LIPASE 227 U/L (73-393); POTASSIUM SERUM 4.2 MEQ/L (3.5-5.1); SODIUM LEVEL 138 MEQ/L (136-145); TOTAL PROTEIN 7.7 GM/DL (6.4-8.2)
[2017-12-12] MEDS: KETOROLAC 30 MG/ML VIAL (J1885) IV ×4 (04:51→21:16)
[2017-12-12] MEDS: D5W/0.45% SODIUM CHLORIDE 1,000 ML IV ×2 (06:20→15:34)
[2017-12-12] MEDS ORDERED: BISACODYL 5 MG TAB PO (07:45)
[2017-12-12] MEDS: MORPHINE 2 MG/ML 1ML SYRINGE IV ×3 (08:32→18:54)
[2017-12-12] MEDS: LORazepam 0.5 MG TAB PO ×3 (08:33→17:59)
[2017-12-12] MEDS: NITROFURANTOIN (MACROBID) 100 MG CAP PO ×2 (09:37→20:15)
[2017-12-12] MEDS: PHENAZOPYRIDINE 100 MG TAB PO ×3 (09:37→20:15)
[2017-12-12] MEDS: PERCOCET 5MG/325MG TAB PO ×2 (11:20→17:59)
[2017-12-12] MEDS: BELLADONNA ALKALOIDS/OPIUM SUPP PR ×2 (15:55→20:15)
[2017-12-12] MEDS ORDERED: ANEXSIA, NORCO 7.5MG/325MG TABLET(HYDROCODONE/APAP) PO (21:15)
[2017-12-12] MEDS: ANEXSIA, NORCO 7.5MG/325MG TABLET(HYDROCODONE/APAP) PO (21:17)
[2017-12-12] MEDS ORDERED: NALOXONE INJ 0.4 MG/1 ML VIAL (J2310) IV (22:00)
[2017-12-13] MEDS: LORazepam 0.5 MG TAB PO ×2 (00:25→07:11)
[2017-12-13] MEDS: oxyBUTYnin 5 MG TAB PO (00:25)
[2017-12-13] MEDS: HYDROmorphone HCL 1 MG/ML SYRINGE (J1170) IV ×2 (02:02→10:49)
[2017-12-13] MEDS: HYDROmorphone HCL 2 MG/ML 1ML VIAL (J1170) IV ×2 (02:16→06:17)
[2017-12-13] MEDS: KETOROLAC 30 MG/ML VIAL (J1885) IV ×3 (02:59→17:20)
[2017-12-13] MEDS ORDERED: KETOROLAC 30 MG/ML VIAL (J1885) IV (03:15)
[2017-12-13] MEDS ORDERED: HYDROmorphone HCL 1 MG/ML SYRINGE (J1170) IV (03:15)
[2017-12-13 03:34] LABS: BASO % 0.5 % (0.0-1.0); EOS # 0.2 10^3/uL (0.0-0.50); EOS % 2.6 % (0.0-3.0); HEMATOCRIT 31.8 % (36.0-47.0); HEMOGLOBIN 10.5 g/dl (12.0-16.0); IMMATURE GRANULOCYTE % 0.1 % (0-0); LYMPH # 2.3 10^3/uL (1.5-4.5); LYMPH % 29.1 % (24.0-44.0); MEAN CORPUSCULAR HEMOGLOBIN 30.6 pg (27.0-33.0); MEAN CORPUSCULAR VOLUME 92.7 fl (80.0-96.0); MONO # 0.6 10^3/uL (0.0-0.8); MONO % 7.3 % (0.0-5.0); NEUTROPHILS # 4.8 10^3/uL (1.8-7.7); NEUTROPHILS % 60.4 % (36.0-66.0); PLATELET COUNT, AUTOMATED 199 10^3/uL (150-450); RED BLOOD COUNT 3.43 10^6/uL (4.00-5.40); RED CELL DISTRIBUTION WIDTH 13.3 % (11.5-14.5); WHITE BLOOD COUNT 7.9 10^3/uL (4.0-10.0)
[2017-12-13] MEDS: NS 1,000 ML IV (03:40)
[2017-12-13] MEDS: CIPROFLOXACIN 500 MG TAB PO (03:40)
[2017-12-13 03:59] LABS: LACTIC ACID SEPSIS PROTOCOL 0.8 MMOL/L (0.4-2.0)
[2017-12-13 03:59] LABS: ALBUMIN 3.5 GM/DL (3.2-5.2); ALBUMIN/GLOBULIN RATIO 1.21 (1.00-1.93); ALKALINE PHOSPHATASE 49 U/L (45-117); ALT/SGPT 17 U/L (12-78); ANION GAP 5 MEQ/L (8-16); AST/SGOT 11 U/L (7-37); BILIRUBIN,TOTAL 0.3 MG/DL (0.2-1.0); BLOOD UREA NITROGEN 11 MG/DL (7-18); C REACTIVE PROTEIN QUANTITATIV < 0.30 MG/DL (0.00-0.30); CALCIUM LEVEL 8.2 MG/DL (8.5-10.1); CARBON DIOXIDE LEVEL 26 MEQ/L (21-32); CHLORIDE LEVEL 111 MEQ/L (98-107); CREATININE FOR GFR 1.08 MG/DL (0.55-1.02); GLOMERULAR FILTRATION RATE > 60.0 (>60); GLUCOSE, FASTING 98 MG/DL (70-100); SODIUM LEVEL 142 MEQ/L (136-145); TOTAL PROTEIN 6.4 GM/DL (6.4-8.2)
[2017-12-13] MEDS: ONDANSETRON 4MG/2ML VIAL (J2405) IV ×2 (04:00→06:16)
[2017-12-13 04:44] LABS: ERYTHROCYTE SEDIMENTATION RATE 11 mm/hr (0-20)
[2017-12-13] MEDS: BELLADONNA ALKALOIDS/OPIUM SUPP PR ×2 (08:17→14:52)
[2017-12-13] MEDS: NITROFURANTOIN (MACROBID) 100 MG CAP PO (08:17)
[2017-12-13] MEDS: PHENAZOPYRIDINE 100 MG TAB PO ×2 (08:17→16:00)
[2017-12-13] MEDS ORDERED: CIPROFLOXACIN/D5W 400 MG/200 ML BAG (J0744) As Ordered (12:00)
[2017-12-13] MEDS: CIPROFLOXACIN 400 MG in APPROPRIATE DILUENT 1 EA IV (12:20)
[2017-12-13] MEDS ORDERED: fentaNYL 100 MCG/2 ML INJECTION (J3010) As Ordered (12:24)
[2017-12-13] MEDS ORDERED: LIDOCAINE 2% INJ 100 MG/5 ML SDV (FOR ANES.) As Ordered (12:24)
[2017-12-13] MEDS ORDERED: MIDAZOLAM INJ 2 MG/2 ML VIAL (J2250) As Ordered (12:24)
[2017-12-13] MEDS ORDERED: PROPOFOL 200 MG/20 ML VIAL As Ordered (12:24)
[2017-12-13] MEDS ORDERED: dexameTHASONE 4 MG/ML 1ML VIAL (J1100) As Ordered ×2 (12:28)
[2017-12-13] MEDS ORDERED: ONDANSETRON 4MG/2ML VIAL (J2405) As Ordered (12:28)
[2017-12-13] MEDS ORDERED: ePHEDrine INJ 50 MG/ML VIAL As Ordered (12:31)
[2017-12-13] MEDS: CONRAY-60 60% 50ML VIAL (Q9961) As Ordered (12:34)
[2017-12-13] MEDS ORDERED: ONDANSETRON 4MG/2ML VIAL (J2405) IV (14:00)
[2017-12-13] MEDS: LR 1,000 ML IV (14:00)
[2017-12-13] MEDS ORDERED: fentaNYL 100 MCG/2 ML INJECTION (J3010) IV (14:00)
[2017-12-13] MEDS ORDERED: CIPROFLOXACIN 500 MG TAB PO (18:00)
== END 2017-12-13 17:40 | disposition home or self-care (01) ==
LOC: M ED 02:28 → M ED INP 02:29 → M PED 07:00 → M ED INP 14:28 → M PED 14:37 → M ED INP 14:56 → M PED 14:59
DX: N23 Unspecified renal colic (principal); N20.0 Calculus of kidney
CPT/HCPCS: 52332

== ENCOUNTER 2017-12-13 22:53 | Emergency (ER) | payer OTHER ==
[2017-12-13] MEDS: LORazepam 2 MG/ML VIAL (J2060) IV (23:34)
[2017-12-13 23:43] LABS: BASO % 0.3 % (0.0-1.0); HEMATOCRIT 35.7 % (36.0-47.0); HEMOGLOBIN 12.1 g/dl (12.0-16.0); IMMATURE GRANULOCYTE % 0.3 % (0-0); LYMPH # 0.4 10^3/uL (1.5-4.5); LYMPH % 9.7 % (24.0-44.0); MEAN CORPUSCULAR HEMOGLOBIN 30.3 pg (27.0-33.0); MEAN CORPUSCULAR HGB CONC 33.9 g/dl (32.0-36.5); MEAN CORPUSCULAR VOLUME 89.5 fl (80.0-96.0); MONO # 0.1 10^3/uL (0.0-0.8); MONO % 3.4 % (0.0-5.0); NEUTROPHILS # 3.3 10^3/uL (1.8-7.7); NEUTROPHILS % 86.3 % (36.0-66.0); PLATELET COUNT, AUTOMATED 275 10^3/uL (150-450); RED BLOOD COUNT 3.99 10^6/uL (4.00-5.40); RED CELL DISTRIBUTION WIDTH 13.1 % (11.5-14.5); WHITE BLOOD COUNT 3.8 10^3/uL (4.0-10.0)
[2017-12-13] MEDS: KETOROLAC 30 MG/ML VIAL (J1885) IV (23:45)
[2017-12-13 23:52] LABS: ANION GAP 6 MEQ/L (8-16); BLOOD UREA NITROGEN 11 MG/DL (7-18); CALCIUM LEVEL 9.6 MG/DL (8.5-10.1); CARBON DIOXIDE LEVEL 27 MEQ/L (21-32); CHLORIDE LEVEL 106 MEQ/L (98-107); CREATININE FOR GFR 0.99 MG/DL (0.55-1.02); GLOMERULAR FILTRATION RATE > 60.0 (>60); GLUCOSE, FASTING 140 MG/DL (70-100); POTASSIUM SERUM 4.2 MEQ/L (3.5-5.1); SODIUM LEVEL 139 MEQ/L (136-145)
[2017-12-14] MEDS: MORPHINE 4 MG/ML 1ML SYRINGE IV
[2017-12-14] MEDS: PERCOCET 5MG/325MG TAB PO (02:00)
[2017-12-14] MEDS ORDERED: MORPHINE 1MG/ML IN 0.9% NACL 100ML IV BAG IV (04:30)
[2017-12-14] MEDS ORDERED: oxyBUTYnin 5 MG TAB PO (04:30)
[2017-12-14] MEDS: NS 1,000 ML IV (04:30)
[2017-12-14] MEDS ORDERED: NALBUPHINE HCL 10 MG/ML AMP (J2300) IV (04:30)
[2017-12-14] MEDS ORDERED: NALOXONE INJ 0.4 MG/1 ML VIAL (J2310) IV (04:30)
[2017-12-14] MEDS ORDERED: EPIDURAL/PCA KEYS XX (04:30)
[2017-12-14] MEDS ORDERED: ONDANSETRON 4MG/2ML VIAL (J2405) IV (04:30)
[2017-12-14] MEDS ORDERED: ACETAMINOPHEN TAB 650MG DOSE (2X325MG) PO (04:30)
[2017-12-14] MEDS ORDERED: diphenhydrAMINE INJ 50MG/ML VIAL (J1200) IV (04:30)
[2017-12-14] MEDS: PHENAZOPYRIDINE 100 MG TAB PO (05:18)
[2017-12-14] MEDS: BELLADONNA ALKALOIDS/OPIUM SUPP PR (05:19)
[2017-12-14] MEDS: KETOROLAC 30 MG/ML VIAL (J1885) IV (05:19)
[2017-12-14] MEDS ORDERED: CIPROFLOXACIN 500 MG TAB PO (09:00)
[2017-12-14] MEDS ORDERED: DOCUSATE SODIUM 100 MG CAP PO (09:00)
== END 2017-12-14 05:40 | disposition home or self-care (01) ==
LOC: M ED 22:53 → M ED INP 22:54 → M ED 12-14 05:40
DX: T83.84XA Pain due to genitourinary prosthetic devices, implants and grafts, initial encounter (principal); Y92.9 Unspecified place or not applicable; Y93.9 Activity, unspecified; Z87.442 Personal history of urinary calculi; Z88.1 Allergy status to other antibiotic agents; Z88.0 Allergy status to penicillin
CPT/HCPCS: J1885

== ENCOUNTER → 2017-12-27 | Outpatient (CLI) | payer OTHER ==
[2017-12-27 09:21] LABS: HEMATOCRIT 39.2 % (36.0-47.0); HEMOGLOBIN 13.2 g/dl (12.0-16.0); MEAN CORPUSCULAR HEMOGLOBIN 30.6 pg (27.0-33.0); MEAN CORPUSCULAR HGB CONC 33.7 g/dl (32.0-36.5); MEAN CORPUSCULAR VOLUME 90.7 fl (80.0-96.0); PLATELET COUNT, AUTOMATED 270 10^3/uL (150-450); RED BLOOD COUNT 4.32 10^6/uL (4.00-5.40); RED CELL DISTRIBUTION WIDTH 12.7 % (11.5-14.5); WHITE BLOOD COUNT 5.6 10^3/uL (4.0-10.0)
[2017-12-27 09:36] LABS: INR 0.92; PROTHROMBIN TIME 12.5 SECONDS (12.4-14.5)
[2017-12-27 10:16] LABS: ANION GAP 7 MEQ/L (8-16); BLOOD UREA NITROGEN 14 MG/DL (7-18); CALCIUM LEVEL 9.1 MG/DL (8.5-10.1); CARBON DIOXIDE LEVEL 28 MEQ/L (21-32); CHLORIDE LEVEL 108 MEQ/L (98-107); CREATININE FOR GFR 0.79 MG/DL (0.55-1.30); GLOMERULAR FILTRATION RATE > 60.0 (>60); GLUCOSE, FASTING 107 MG/DL (70-100); HCG, SERUM QUANTITATIVE 4 MIU/ML; POTASSIUM SERUM 4.7 MEQ/L (3.5-5.1); SODIUM LEVEL 143 MEQ/L (136-145)
== END ==
LOC: M LAB 08:52
DX: Z01.812 Encounter for preprocedural laboratory examination (principal); N20.0 Calculus of kidney
CPT/HCPCS: 84702

== ENCOUNTER 2019-03-09 11:47 | Emergency (ER) | payer OTHER ==
[~2019-03-09] VITALS: Ht 162.6 cm; Wt 74.1 kg
[~2019-03-09 11:47] MED LIST changes: +CIPR500T3 PO; +CIPR5SUS PO; +DITR5TAB PO; +IBUP-1114 PO; +IBUPOTC PO; +IMIT5SPR; -KETOROLAC 60 MG/2 ML VIAL (J1885) As Ordered; -LIDOCAINE 2% INJ 100 MG/5 ML SDV (FOR ANES.) As Ordered; -MIDAZOLAM INJ 2 MG/2 ML VIAL (J2250) As Ordered; -ONDANSETRON 4MG/2ML VIAL (J2405) As Ordered; +OXYB5TAB10 PO; +OXYC1TAB23 PO; +PERC5TAB12 PO; -PROPOFOL 200 MG/20 ML VIAL As Ordered; +ROXI1TAB2 PO; +XANA0.25 PO; +birth control pill PO; -dexameTHASONE 4 MG/ML 1ML VIAL (J1100) As Ordered; -fentaNYL 250 MCG/5 ML INJECTION (J3010) As Ordered
[2019-03-09] MEDS ORDERED: NS 1,000 ML IV ONE (12:00)
[2019-03-09] MEDS ORDERED: KETOROLAC 30 MG/ML VIAL (J1885) IV ONE (12:00)
[2019-03-09 12:17] LABS: BASO # 0.1 10^3/uL (0.0-0.2); BASO % 0.5 % (0.0-1.0); EOS # 0.1 10^3/uL (0.0-0.50); EOS % 0.9 % (0.0-3.0); HEMATOCRIT 42.6 % (36.0-47.0); HEMOGLOBIN 14.4 g/dl (12.0-15.5); LYMPH # 2.1 10^3/uL (1.5-4.5); LYMPH % 18.8 % (24.0-44.0); MEAN CORPUSCULAR HEMOGLOBIN 30.9 pg (27.0-33.0); MEAN CORPUSCULAR HGB CONC 33.8 g/dl (32.0-36.5); MEAN CORPUSCULAR VOLUME 91.4 fl (80.0-96.0); MONO # 0.9 10^3/uL (0.0-0.8); MONO % 8.2 % (0.0-5.0); NEUTROPHILS # 7.8 10^3/uL (1.8-7.7); NEUTROPHILS % 71.1 % (36.0-66.0); PLATELET COUNT, AUTOMATED 296 10^3/uL (150-450); RED BLOOD COUNT 4.66 10^6/uL (4.00-5.40); WHITE BLOOD COUNT 10.9 10^3/uL (4.0-10.0)
[2019-03-09 12:40] LABS: ALBUMIN 4.5 GM/DL (3.2-5.2); ALT/SGPT 22 U/L (12-78); AMYLASE 40 U/L (25-115); BILIRUBIN,DIRECT 0.2 MG/DL (0.0-0.2); BILIRUBIN,TOTAL 0.5 MG/DL (0.2-1.0); BLOOD UREA NITROGEN 11 MG/DL (7-18); CALCIUM LEVEL 8.9 MG/DL (8.5-10.1); CARBON DIOXIDE LEVEL 27 MEQ/L (21-32); CHLORIDE LEVEL 108 MEQ/L (98-107); CREATININE FOR GFR 0.84 MG/DL (0.55-1.30); GLOMERULAR FILTRATION RATE > 60.0 (>60); GLUCOSE, FASTING 89 MG/DL (70-100); LIPASE 108 U/L (73-393); POTASSIUM SERUM 4.1 MEQ/L (3.5-5.1); SODIUM LEVEL 142 MEQ/L (136-145); TOTAL PROTEIN 7.9 GM/DL (6.4-8.2)
[2019-03-09 12:54] VITALS: BP 116/66
--- NOTE | 2019-03-10 09:14 | REP ---
CT abdomen pelvis without IV and oral contrast for left flank pain: Comparison is 12/12/2017. There are multiple left renal calculi and there are multiple right renal calculi. This is unchanged. The previous bilateral ureteral stents have been removed. There is no hydronephrosis or hydroureter on the right or the left. otherwise unremarkable. The visualized lung pearson are unremarkable. The unenhanced hepatic parenchyma, gallbladder, pancreas, spleen, adrenals, aorta, bowel and mesentery are unremarkable. Pelvis: There is a phlebolith in the pelvis on the right. This is unchanged. In addition, there is another calcification on the right, not present previously which I believe is in the bladder. The bladder is The pelvic bowel loops are unremarkable. There is no ascites or adenopathy. The uterus and adnexa are unremarkable. Impression: The previous bilateral ureteral stents have been removed. I suspect there is a bladder calculus on the right as an interval change. There are multiple bilateral renal calculi, unchanged. There is no hydronephrosis or hydroureter on the right on the left. Electronically Signed by Tj Abreu MD 03/09/2019 12:42 P
== END 2019-03-09 13:14 | disposition home or self-care (01) ==
LOC: M ED 11:47
DX: N20.0 Calculus of kidney (principal); Z86.59 Personal history of other mental and behavioral disorders; Z87.442 Personal history of urinary calculi; Z88.0 Allergy status to penicillin; Z88.1 Allergy status to other antibiotic agents
CPT/HCPCS: 74176; 80048; 80076; 81001; 81025; 82150; 83690; 85025; 96361; 96374; 99284; J1885

== ENCOUNTER 2019-10-11 06:21 | Emergency (ER) | payer OTHER ==
[~2019-10-11] VITALS: Ht 165.1 cm; Wt 64.5 kg
[2019-10-11 06:21] VITALS: BP 129/85
[2019-10-11] MEDS ORDERED: METOCLOPRAMIDE INJ 10MG/2ML VIAL (J2765) As Ordered ONE (06:42)
[2019-10-11] MEDS ORDERED: NS 1,000 ML IV ONE (07:00)
[2019-10-11] MEDS ORDERED: METOCLOPRAMIDE INJ 10MG/2ML VIAL (J2765) IV ONE (07:00)
[2019-10-11 07:12] LABS: BASO # 0.1 10^3/uL (0.0-0.2); BASO % 0.8 % (0.0-1.0); EOS # 0.3 10^3/uL (0.0-0.5); EOS % 2.7 % (0.0-3.0); HEMATOCRIT 41.8 % (36.0-47.0); HEMOGLOBIN 13.7 g/dl (12.0-15.5); LYMPH # 2.9 10^3/uL (1.5-5.0); LYMPH % 31.7 % (24.0-44.0); MEAN CORPUSCULAR HEMOGLOBIN 30.3 pg (27.0-33.0); MEAN CORPUSCULAR HGB CONC 32.8 g/dl (32.0-36.5); MEAN CORPUSCULAR VOLUME 92.5 fl (80.0-96.0); MONO # 0.9 10^3/uL (0.0-0.8); MONO % 9.4 % (0.0-5.0); NEUTROPHILS % 55.1 % (36.0-66.0); PLATELET COUNT, AUTOMATED 286 10^3/uL (150-450); RED BLOOD COUNT 4.52 10^6/uL (4.00-5.40); WHITE BLOOD COUNT 9.2 10^3/uL (4.0-10.0)
--- NOTE | 2019-10-11 07:15 | REPVR ---
PROCEDURE INFORMATION: Exam: CT Head Without Contrast Exam date and time: 10/11/2019 6:59 AM Age: 34 years old Clinical history: Pain; Headache; Migraine; Additional info: ODEN TECHNIQUE: Imaging protocol: Computed tomography of the head without contrast. Radiation optimization: All CT scans at this facility use at least one of these dose optimization techniques: automated exposure control; mA and/or kV adjustment per patient size (includes targeted exams where dose is matched to clinical indication); or iterative reconstruction. COMPARISON: CT Head without contrast 08/24/2014 10:49 AM FINDINGS: Brain: The cortical/white matter interfaces are preserved throughout the brain. There is no evidence of intracranial hemorrhage. Ventricles: The ventricular system is normal in size and configuration. Bones/joints: No acute fractures of the skull are identified. Sinuses: There is minimal mucoperiosteal thickening in the visualized paranasal sinuses. No fluid levels. Mastoid air cells: The visualized mastoid air cells are clear. Soft tissues: The soft tissues appear unremarkable. IMPRESSION: Normal appearance of the brain. Electronically signed by: Irasema Rios On 10/11/2019 07:15:12 AM
[2019-10-11 07:20] LABS: ALBUMIN 3.9 GM/DL (3.2-5.2); ALT/SGPT 24 U/L (12-78); BILIRUBIN,TOTAL 0.2 MG/DL (0.2-1.0); BLOOD UREA NITROGEN 14 MG/DL (7-18); CALCIUM LEVEL 9.8 MG/DL (8.5-10.1); CARBON DIOXIDE LEVEL 30 MEQ/L (21-32); CHLORIDE LEVEL 109 MEQ/L (98-107); CREATININE FOR GFR 1.01 MG/DL (0.55-1.30); GLOMERULAR FILTRATION RATE > 60.0 (>60); GLUCOSE, FASTING 98 MG/DL (70-100); POTASSIUM SERUM 3.2 MEQ/L (3.5-5.1); SODIUM LEVEL 145 MEQ/L (136-145); TOTAL PROTEIN 7.8 GM/DL (6.4-8.2)
[2019-10-11] MEDS ORDERED: KETOROLAC 30 MG/ML VIAL (J1885) IV ONE (07:45)
--- NOTE | 2019-10-11 07:45 | ED PDOC ---
Post-Departure Follow-Up Pt. had testing and medications ordered at triage and after CT results. Pt. left ED while I was evaluating a febrile infant and was never seen by this provider. She LWBS. Omar Vaz M.D. Oct 11, 2019 07:45
== END 2019-10-11 08:11 | disposition left against medical advice (07) ==
LOC: M ED 06:21
DX: Z53.21 Procedure and treatment not carried out due to patient leaving prior to being seen by health care provider (principal)

== ENCOUNTER 2020-02-07 21:40 | Emergency (ER) | payer OTHER ==
[~2020-02-07] VITALS: Ht 162.6 cm; Wt 72.9 kg
[2020-02-07] MEDS ORDERED: TAMSULOSIN 0.4 MG CAP PO ONE (22:00)
[2020-02-07] MEDS ORDERED: NS 1,000 ML IV ONE (22:00)
[2020-02-07] MEDS ORDERED: KETOROLAC 30 MG/ML VIAL (J1885) IV ONE (22:00)
[2020-02-07] MEDS ORDERED: ONDANSETRON 4MG/2ML VIAL (J2405) IV ONE (22:00)
[2020-02-07 22:16] LABS: BASO # 0.1 10^3/uL (0.0-0.2); BASO % 0.8 % (0.0-1.0); EOS # 0.4 10^3/uL (0.0-0.5); EOS % 3.7 % (0.0-3.0); HEMATOCRIT 43.4 % (36.0-47.0); HEMOGLOBIN 14.6 g/dl (12.0-15.5); LYMPH # 3.7 10^3/uL (1.5-5.0); LYMPH % 38.6 % (24.0-44.0); MEAN CORPUSCULAR HEMOGLOBIN 30.9 pg (27.0-33.0); MEAN CORPUSCULAR HGB CONC 33.6 g/dl (32.0-36.5); MEAN CORPUSCULAR VOLUME 91.9 fl (80.0-96.0); MONO # 0.9 10^3/uL (0.0-0.8); MONO % 9.2 % (0.0-5.0); NEUTROPHILS # 4.5 10^3/uL (1.5-8.5); NEUTROPHILS % 47.4 % (36.0-66.0); PLATELET COUNT, AUTOMATED 261 10^3/uL (150-450); RED BLOOD COUNT 4.72 10^6/uL (4.00-5.40); WHITE BLOOD COUNT 9.5 10^3/uL (4.0-10.0)
--- NOTE | 2020-02-07 22:44 | REPVR ---
PROCEDURE INFORMATION: Exam: CT Abdomen And Pelvis Without Contrast Exam date and time: 02/07/2020 10:23 PM Age: 34 years old Clinical indication: Abdominal pain; Flank; Left; Additional info: Left flank pain, HX stone TECHNIQUE: Imaging protocol: Computed tomography of the abdomen and pelvis without contrast. Radiation optimization: All CT scans at this facility use at least one of these dose optimization techniques: automated exposure control; mA and/or kV adjustment per patient size (includes targeted exams where dose is matched to clinical indication); or iterative reconstruction. COMPARISON: CT ABD PELVIS W/O CONTRAST 03/09/2019 12:01 PM FINDINGS: Limited evaluation without enteric or IV contrast. Lungs: No suspicious mass or airspace process in the visualized lung bases. Liver: Noncontrast liver shows no obvious lesion. Gallbladder and bile ducts: Gallbladder is present and shows no evidence of gallstone. Pancreas: Noncontrast pancreas shows no obvious mass or adjacent fluid. Spleen: Noncontrast spleen shows no obvious focal deformity. Adrenals: Adrenal glands are normal in appearance. Kidneys and ureters: Kidneys demonstrate nonobstructive calculi bilateral. In addition, there is mild to moderate left hydroureteronephrosis secondary to a 3 x 3 mm left UVJ stone, and an adjacent 1 x 1 mm stone (axial image [id number] and coronal image 54). Stomach and bowel: No evidence of small bowel obstruction. Moderate pattern of colonic stool is present. No evidence of acute diverticulitis. Appendix: Normal caliber appendix is identified, with no adjacent inflammation. Intraperitoneal space: No pneumoperitoneum. Vasculature: No aortic aneurysm. Lymph nodes: No enlarged lymph nodes. Bladder: Urinary bladder appears normal. Reproductive: No overt enlargement of the uterus or ovaries. Bones/joints: Bony structures show no acute fracture or destructive process. IMPRESSION: 1. Mild left hydroureteronephrosis secondary to 2 adjacent stones at the left UVJ level measuring 1 by 1 and 3 x 3 mm. 2. Nonobstructive bilateral renal calculi Electronically signed by: Ant Gates On 02/07/2020 22:44:01 PM
[2020-02-07 22:48] LABS: ALBUMIN 4.3 GM/DL (3.2-5.2); ALT/SGPT 36 U/L (12-78); BILIRUBIN,DIRECT < 0.1 MG/DL (0.0-0.2); BILIRUBIN,TOTAL 0.2 MG/DL (0.2-1.0); LIPASE 175 U/L (73-393)
[2020-02-07] MEDS ORDERED: FLOM0.4C39 PO (23:04)
[2020-02-07 23:08] VITALS: BP 109/77
== END 2020-02-07 23:15 | disposition home or self-care (01) ==
LOC: M ED 21:40
DX: N20.2 Calculus of kidney with calculus of ureter (principal); Z88.0 Allergy status to penicillin; Z88.1 Allergy status to other antibiotic agents
CPT/HCPCS: 74176; 80047; 80076; 81001; 83690; 84702; 85025; 87086; 96361; 96374; 96375; 99284; J1885; J2405

== ENCOUNTER 2020-07-04 07:45 | Emergency (ER) | payer OTHER ==
[~2020-07-04 07:45] MED LIST changes: +FLOM0.4C39 PO
== END 2020-07-04 09:21 | disposition home or self-care (01) ==
LOC: M ED 07:45
DX: T63.441A Toxic effect of venom of bees, accidental (unintentional), initial encounter (principal); R22.0 Localized swelling, mass and lump, head; Z88.0 Allergy status to penicillin; Z88.1 Allergy status to other antibiotic agents

== ENCOUNTER 2020-08-03 22:13 | Emergency (ER) | payer OTHER ==
[~2020-08-03] VITALS: Ht 162.6 cm; Wt 76.0 kg
[2020-08-03] MEDS ORDERED: KETOROLAC 30 MG/ML 1ML VIAL IV ONE (22:30)
[2020-08-03] MEDS ORDERED: MORPHINE 2 MG/ML 1ML VIAL (J2270) IV ONE (22:30)
[2020-08-03] MEDS ORDERED: ONDANSETRON 4MG/2ML VIAL IV ONE (22:30)
[2020-08-03 22:56] LABS: BASO # 0.1 10^3/uL (0.0-0.2); BASO % 0.9 % (0.0-1.0); EOS # 0.2 10^3/uL (0.0-0.5); EOS % 2.3 % (0.0-3.0); HEMATOCRIT 39.8 % (36.0-47.0); HEMOGLOBIN 13.6 g/dl (12.0-15.5); LYMPH # 3.1 10^3/uL (1.5-5.0); LYMPH % 33.9 % (24.0-44.0); MEAN CORPUSCULAR HEMOGLOBIN 31.1 pg (27.0-33.0); MEAN CORPUSCULAR HGB CONC 34.2 g/dl (32.0-36.5); MEAN CORPUSCULAR VOLUME 90.9 fl (80.0-96.0); MONO # 0.8 10^3/uL (0.0-0.8); MONO % 9.3 % (0.0-5.0); NEUTROPHILS # 4.8 10^3/uL (1.5-8.5); NEUTROPHILS % 53.2 % (36.0-66.0); PLATELET COUNT, AUTOMATED 292 10^3/uL (150-450); RED BLOOD COUNT 4.38 10^6/uL (4.00-5.40); WHITE BLOOD COUNT 9.1 10^3/uL (4.0-10.0)
[2020-08-03 23:28] LABS: ALT/SGPT 25 U/L (12-78); BILIRUBIN,DIRECT < 0.1 MG/DL (0.0-0.2); BILIRUBIN,TOTAL 0.3 MG/DL (0.2-1.0); BLOOD UREA NITROGEN 15 MG/DL (7-18); CALCIUM LEVEL 9.6 MG/DL (8.5-10.1); CARBON DIOXIDE LEVEL 26 MEQ/L (21-32); CHLORIDE LEVEL 109 MEQ/L (98-107); CREATININE FOR GFR 1.17 MG/DL (0.55-1.30); GLOMERULAR FILTRATION RATE 55.7 (>60); GLUCOSE, FASTING 102 MG/DL (70-100); LIPASE 176 U/L (73-393); POTASSIUM SERUM 4.1 MEQ/L (3.5-5.1); SODIUM LEVEL 144 MEQ/L (136-145); TOTAL PROTEIN 7.5 GM/DL (6.4-8.2)
--- NOTE | 2020-08-03 23:30 | REPVR ---
PROCEDURE INFORMATION: Exam: CT Abdomen And Pelvis Without Contrast Exam date and time: 08/03/2020 10:55 PM Age: 35 years old Clinical indication: Abdominal pain; Flank; Left; Additional info: Left renal colic TECHNIQUE: Imaging protocol: Computed tomography of the abdomen and pelvis without contrast. Axial, coronal and sagittal reformatted images were created and reviewed. Radiation optimization: All CT scans at this facility use at least one of these dose optimization techniques: automated exposure control; mA and/or kV adjustment per patient size (includes targeted exams where dose is matched to clinical indication); or iterative reconstruction. COMPARISON: CT ABD PELVIS W/O CONTRAST 02/07/2020 10:32 PM FINDINGS: Liver: Unremarkable. Gallbladder and bile ducts: No radiodense gallstones. No biliary ductal dilatation. Pancreas: Unremarkable. Spleen: Unremarkable. Adrenals: Unremarkable. Kidneys and ureters: Mild left-sided hydronephrosis, secondary to a 6 mm calculus in the region of the UPJ (axial image 44 and coronal image 47). Nonobstructing bilateral renal calculi. Stomach and bowel: No bowel wall thickening. No obstruction. No pneumatosis. Appendix: Normal. Intraperitoneal space: No free fluid. No organized fluid collection. No free air. Vasculature: Unremarkable. No aneurysm. Lymph nodes: No pathologically enlarged lymph nodes. Bladder: Unremarkable. Reproductive: Unremarkable. Bones/joints: No acute osseous abnormality. Soft tissues: Unremarkable. IMPRESSION: 1. Mild left-sided hydronephrosis, secondary to a 6 mm calculus in the region of the UPJ. 2. Additional findings, as above. Electronically signed by: Jorge Moe On 08/03/2020 23:30:02 PM
[2020-08-03] MEDS ORDERED: OXYCODONE/APAP 5MG/325MG(BULK FOR ED) 1 TABLET PO ONE (23:45)
[2020-08-03] MEDS ORDERED: PERC5TAB12 PO ×2 (23:46→23:51)
[2020-08-03] MEDS ORDERED: ZOFR4TAB16 PO (23:46)
[2020-08-04 00:39] VITALS: BP 121/71
== END 2020-08-04 00:39 | disposition home or self-care (01) ==
LOC: M ED 22:13
DX: N13.2 Hydronephrosis with renal and ureteral calculous obstruction (principal); Z88.0 Allergy status to penicillin; Z88.8 Allergy status to other drugs, medicaments and biological substances
CPT/HCPCS: 74176; 80048; 80076; 81001; 83690; 85025; 96374; 99284; J1885; J2270; J2405

== ENCOUNTER 2020-08-16 11:25 | Emergency (ER) | payer BC, MEDICAID, OTHER ==
[~2020-08-16] VITALS: Ht 162.6 cm; Wt 78.9 kg
[~2020-08-16 11:25] MED LIST changes: +ZOFR4TAB16 PO
[2020-08-16] MEDS ORDERED: NYST50SS PO (11:40)
[2020-08-16] MEDS ORDERED: KETO10TAB PO (11:40)
[2020-08-16] MEDS ORDERED: TAMS1CAP17 PO (11:40)
[2020-08-16] MEDS ORDERED: IBUP200T45 PO (11:40)
[2020-08-16 11:56] LABS: BASO # 0.1 10^3/uL (0.0-0.2); BASO % 0.9 % (0.0-1.0); EOS # 0.1 10^3/uL (0.0-0.5); EOS % 1.5 % (0.0-3.0); HEMATOCRIT 39.5 % (36.0-47.0); HEMOGLOBIN 13.2 g/dl (12.0-15.5); LYMPH % 24.8 % (24.0-44.0); MEAN CORPUSCULAR HGB CONC 33.4 g/dl (32.0-36.5); MEAN CORPUSCULAR VOLUME 92.7 fl (80.0-96.0); MONO # 0.8 10^3/uL (0.0-0.8); MONO % 9.2 % (0.0-5.0); NEUTROPHILS # 5.1 10^3/uL (1.5-8.5); NEUTROPHILS % 63.2 % (36.0-66.0); PLATELET COUNT, AUTOMATED 256 10^3/uL (150-450); RED BLOOD COUNT 4.26 10^6/uL (4.00-5.40); WHITE BLOOD COUNT 8.1 10^3/uL (4.0-10.0)
[2020-08-16] MEDS ORDERED: NS 1,000 ML IV ONE (12:00)
[2020-08-16] MEDS ORDERED: ONDANSETRON 4MG/2ML VIAL IV ONE (12:00)
[2020-08-16] MEDS ORDERED: MORPHINE 4 MG/ML 1ML VIAL/SYRINGE (J2270) IV ONE (12:00)
[2020-08-16 12:21] LABS: ALBUMIN 3.9 GM/DL (3.2-5.2); BILIRUBIN,DIRECT 0.1 MG/DL (0.0-0.2); BILIRUBIN,TOTAL 0.5 MG/DL (0.2-1.0)
--- NOTE | 2020-08-16 12:26 | REPVR ---
PROCEDURE INFORMATION: Exam: XR Abdomen, 1 View Exam date and time: 08/16/2020 12:11 PM Age: 35 years old Clinical indication: Other: Left flank pain, renal colic TECHNIQUE: Imaging protocol: XR of the abdomen. Views: Frontal supine view of the abdomen. 1 View. COMPARISON: CT ABD PELVIS W/O CONTRAST 08/03/2020 10:51 PM FINDINGS: Gastrointestinal tract: The small bowel is not significantly air-distended. Air and stool are present within large bowel. Vasculature: Some calcifications overlying the left renal shadow centrally appear to correspond to stones on the CT. Small calcific densities overlie the pelvis, and could represent phleboliths, although a 6 mm calcification over the left pelvis does not appear to have been present previously, and could represent a ureteral stone. Bones/joints: Unremarkable. Other findings: A tampon is noted in the vagina. IMPRESSION: Findings suggesting left nephrolithiasis, as on CT of 08/03/20. Question 6 mm left ureteral stone in the pelvis. CT would be more definitive. Electronically signed by: Jorge Mckoy On 08/16/2020 12:26:24 PM
--- NOTE | 2020-08-16 12:45 | REPVR ---
PROCEDURE INFORMATION: Exam: US Retroperitoneal Limited, Kidneys Exam date and time: 08/16/2020 12:11 PM Age: 35 years old Clinical indication: Abdominal pain; Flank; Left; Additional info: Left flank pain, renal colic TECHNIQUE: Imaging protocol: Real-time ultrasound of the retroperitoneum with image documentation. Examination was focused on the kidneys. COMPARISON: RENAL US 12/01/2017 1:07 PM FINDINGS: Right kidney: The right kidney measures 10.2 x 2.9 x 4.0 cm. It contains echogenic foci with shadowing compatible with stones measuring 8 x 5 x 5 mm in the interpolar region and 5 x 3 x 6 mm in the lower pole. No hydronephrosis or demonstrated cyst or mass. Left kidney: The left kidney measures 10.2 x 6.4 x 5.2 cm. The central sinus fat appears echogenic. It contains shadowing echogenic foci compatible with stones measuring 10 x 6 x 9 mm in the upper pole and 7 x 6 x 9 mm in the lower pole. The upper pole calices are dilated, without shruthi hydronephrosis. No demonstrated cyst or mass. Bladder: The urinary bladder measures 6.2 x 3.1 x 1.8 cm and appears unremarkable. IMPRESSION: 1. Nonobstructing bilateral nephrolithiasis. 2. Dilatation of the upper pole calyces of the left kidney without shruthi hydronephrosis. Electronically signed by: Jorge Mckoy On 08/16/2020 12:44:39 PM
[2020-08-16] MEDS ORDERED: KETOROLAC 30 MG/ML 1ML VIAL IV ONE (14:00)
[2020-08-16] MEDS ORDERED: PERCOCET 5MG/325MG TAB PO ONE (14:45)
[2020-08-16] MEDS ORDERED: METOCLOPRAMIDE INJ 10MG/2ML VIAL (J2765 PER 1) IV ONE (14:45)
[2020-08-16] MEDS ORDERED: OXYC1TAB23 PO (15:22)
[2020-08-16] MEDS ORDERED: MIRA3350 PO (15:22)
[2020-08-16 15:23] VITALS: BP 116/82
== END 2020-08-16 15:33 | disposition home or self-care (01) ==
LOC: M ED 11:25
DX: N20.1 Calculus of ureter (principal); N23 Unspecified renal colic; F17.200 Nicotine dependence, unspecified, uncomplicated; Z79.891 Long term (current) use of opiate analgesic; Z79.899 Other long term (current) drug therapy; Z88.0 Allergy status to penicillin; Z88.6 Allergy status to analgesic agent
CPT/HCPCS: 74018; 76775; 80047; 80076; 81001; 83690; 84702; 85025; 96361; 96374; 96375; 99284; J1885; J2270; J2405; J2765

== ENCOUNTER 2020-08-18 04:16 | Emergency (ER) | payer OTHER ==
[~2020-08-18] VITALS: Ht 162.6 cm; Wt 78.0 kg
[~2020-08-18 04:16] MED LIST changes: +IBUP200T45 PO; +KETO10TAB PO; +MIRA3350 PO; +NYST50SS PO; +TAMS1CAP17 PO
[2020-08-18 04:54] LABS: BASO # 0.1 10^3/uL (0.0-0.2); BASO % 0.8 % (0.0-1.0); EOS # 0.2 10^3/uL (0.0-0.5); HEMATOCRIT 34.3 % (36.0-47.0); HEMOGLOBIN 11.7 g/dl (12.0-15.5); LYMPH # 2.2 10^3/uL (1.5-5.0); LYMPH % 36.6 % (24.0-44.0); MEAN CORPUSCULAR HGB CONC 34.1 g/dl (32.0-36.5); MONO # 0.6 10^3/uL (0.0-0.8); MONO % 9.3 % (0.0-5.0); NEUTROPHILS # 2.9 10^3/uL (1.5-8.5); NEUTROPHILS % 49.3 % (36.0-66.0); PLATELET COUNT, AUTOMATED 228 10^3/uL (150-450); RED BLOOD COUNT 3.77 10^6/uL (4.00-5.40); WHITE BLOOD COUNT 5.9 10^3/uL (4.0-10.0)
[2020-08-18] MEDS ORDERED: ONDANSETRON 4MG/2ML VIAL IV ONE (05:00)
[2020-08-18] MEDS: HYDROMORPHONE HCL 0.5 MG/ 0.5 ML SYRINGE (J1170 PER 1) IV PRN ×4 (05:07→08:30)
[2020-08-18 05:09] LABS: HCG, SERUM QUALITATIVE NEGATIVE (NEGATIVE)
[2020-08-18 05:22] LABS: ALBUMIN 3.2 GM/DL (3.2-5.2); ALT/SGPT 16 U/L (12-78); BILIRUBIN,DIRECT < 0.1 MG/DL (0.0-0.2); BILIRUBIN,TOTAL 0.3 MG/DL (0.2-1.0); LIPASE 130 U/L (73-393); TOTAL PROTEIN 6.1 GM/DL (6.4-8.2)
[2020-08-18] MEDS ORDERED: TAMSULOSIN 0.4 MG CAP PO ONE (06:30)
[2020-08-18] MEDS ORDERED: NS 1,000 ML IV ONE (06:30)
--- NOTE | 2020-08-18 07:10 | REPVR ---
PROCEDURE INFORMATION: Exam: CT Abdomen And Pelvis Without Contrast Exam date and time: 08/18/2020 5:53 AM Age: 35 years old Clinical indication: Abdominal pain; Flank; Left; Additional info: Left flank pain TECHNIQUE: Imaging protocol: Computed tomography of the abdomen and pelvis without contrast. Radiation optimization: All CT scans at this facility use at least one of these dose optimization techniques: automated exposure control; mA and/or kV adjustment per patient size (includes targeted exams where dose is matched to clinical indication); or iterative reconstruction. COMPARISON: CT ABD PELVIS W/O CONTRAST 08/03/2020 10:51 PM FINDINGS: Detailed evaluation of the abdominal and pelvic viscera is somewhat limited in the absence of intravenous contrast. Lungs: Mild parenchymal stranding in the left lower lobe. Liver: No focal hepatic mass. New Gallbladder and bile ducts: No cholelithiasis or biliary ductal dilatation. Pancreas: No pancreatic mass or ductal dilatation. Spleen: No splenomegaly. Adrenals: Unremarkable adrenals. Kidneys and ureters: Nonobstructing bilateral renal calculi, including 15 mm left renal calculus . Moderate left hydronephrosis in association with a 6 mm left UVJ calculus. On the prior study, the 6 mm calculus was localized at the left UPJ. Stomach and bowel: Prominent stool. Diverticula, without pericolonic inflammation. Appendix: No acute appendicitis. Intraperitoneal space: No significant free fluid. Vasculature: Normal caliber of the abdominal aorta. Lymph nodes: Subcentimeter lymph nodes. Urinary bladder: Unremarkable bladder. Reproductive: Indwelling tampon. Bones/joints: No acute osseous pathology. IMPRESSION: 1. Moderate left hydronephrosis in association with a 6 mm left UVJ calculus. 2. Nonobstructing bilateral renal calculi, including 15 mm left renal calculus 3. Additional findings as described above. Electronically signed by: Daniel Caballero On 08/18/2020 07:09:59 AM
[2020-08-18] MEDS ORDERED: ONDA-83 PO (07:12)
[2020-08-18] MEDS ORDERED: PERC5TAB12 PO (07:12)
[2020-08-18] MEDS ORDERED: MIRA3350 PO (07:12)
[2020-08-18] MEDS ORDERED: IBUP200T45 PO (07:12)
[2020-08-18 09:52] VITALS: BP 132/91
== END 2020-08-18 09:54 | disposition home or self-care (01) ==
LOC: M ED 04:16
DX: N13.1 Hydronephrosis with ureteral stricture, not elsewhere classified (principal); N20.0 Calculus of kidney; F17.200 Nicotine dependence, unspecified, uncomplicated; Z88.0 Allergy status to penicillin; Z88.1 Allergy status to other antibiotic agents; Z79.899 Other long term (current) drug therapy

== ENCOUNTER 2020-10-15 05:21 | Emergency (ER) | payer OTHER ==
[~2020-10-15] VITALS: Ht 162.6 cm; Wt 75.0 kg
[~2020-10-15 05:21] MED LIST changes: +ONDA-83 PO
[2020-10-15 06:25] LABS: BASO # 0.1 10^3/uL (0.0-0.2); BASO % 0.8 % (0.0-1.0); EOS % 0.2 % (0.0-3.0); HEMATOCRIT 42.6 % (36.0-47.0); HEMOGLOBIN 14.2 g/dl (12.0-15.5); LYMPH # 1.7 10^3/uL (1.5-5.0); LYMPH % 24.9 % (24.0-44.0); MEAN CORPUSCULAR HGB CONC 33.3 g/dl (32.0-36.5); MEAN CORPUSCULAR VOLUME 89.9 fl (80.0-96.0); MONO # 0.5 10^3/uL (0.0-0.8); MONO % 6.9 % (0.0-5.0); NEUTROPHILS # 4.5 10^3/uL (1.5-8.5); NEUTROPHILS % 66.7 % (36.0-66.0); PLATELET COUNT, AUTOMATED 319 10^3/uL (150-450); RED BLOOD COUNT 4.74 10^6/uL (4.00-5.40); WHITE BLOOD COUNT 6.7 10^3/uL (4.0-10.0)
[2020-10-15] MEDS ORDERED: diphenhydrAMINE 50MG/ML VIAL (J1200) IV ONE (06:30)
[2020-10-15] MEDS ORDERED: METOCLOPRAMIDE INJ 10MG/2ML VIAL (J2765 PER 1) IV ONE (06:30)
[2020-10-15] MEDS ORDERED: ACETAMINOPHEN 500 MG TAB PO ONE (06:30)
[2020-10-15] MEDS ORDERED: NS 1,000 ML IV ONE (06:30)
[2020-10-15 06:39] LABS: BLOOD UREA NITROGEN 12 MG/DL (7-18); CARBON DIOXIDE LEVEL 23 MEQ/L (21-32); CHLORIDE LEVEL 110 MEQ/L (98-107); CK-MB VALUE MASS < 1.0 NG/ML (<3.6); CPK CREATINE PHOSPHOKINASE 108 U/L (26-192); CREATININE FOR GFR 0.92 MG/DL (0.55-1.30); GLOMERULAR FILTRATION RATE > 60.0 (>60); GLUCOSE, FASTING 113 MG/DL (70-100); MB/CK RELATIVE INDEX 0.93 (< OR =4); POTASSIUM SERUM 3.8 MEQ/L (3.5-5.1); SODIUM LEVEL 143 MEQ/L (136-145); TROPONIN I < 0.02 NG/ML (< 0.10)
[2020-10-15 07:09] LABS: HCG, SERUM QUALITATIVE NEGATIVE (NEGATIVE)
--- NOTE | 2020-10-15 07:41 | ECGEPIP ---
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
[2020-10-15] MEDS ORDERED: KETOROLAC 30 MG/ML 1ML VIAL IV ONE (07:45)
[2020-10-15 08:34] VITALS: BP 116/71
== END 2020-10-15 08:41 | disposition home or self-care (01) ==
LOC: M ED 05:21
DX: G44.209 Tension-type headache, unspecified, not intractable (principal); R94.31 Abnormal electrocardiogram [ECG] [EKG]; F17.200 Nicotine dependence, unspecified, uncomplicated; Z88.0 Allergy status to penicillin; Z88.1 Allergy status to other antibiotic agents; Z86.69 Personal history of other diseases of the nervous system and sense organs
CPT/HCPCS: 80048; 82550; 82553; 84703; 85025; 93005; 94760; 96374; 96375; 99284; J1200; J1885; J2765

== ENCOUNTER 2020-10-25 20:25 | Emergency (ER) | payer OTHER ==
[~2020-10-25] VITALS: Ht 162.6 cm; Wt 76.1 kg
[2020-10-25 20:26] VITALS: BP 140/85
[2020-10-25 21:13] LABS: BASO # 0.1 10^3/uL (0.0-0.2); EOS # 0.1 10^3/uL (0.0-0.5); EOS % 1.8 % (0.0-3.0); HEMATOCRIT 40.6 % (36.0-47.0); HEMOGLOBIN 13.3 g/dl (12.0-15.5); LYMPH # 2.1 10^3/uL (1.5-5.0); LYMPH % 29.3 % (24.0-44.0); MEAN CORPUSCULAR HEMOGLOBIN 30.2 pg (27.0-33.0); MEAN CORPUSCULAR HGB CONC 32.8 g/dl (32.0-36.5); MEAN CORPUSCULAR VOLUME 92.3 fl (80.0-96.0); MONO # 0.6 10^3/uL (0.0-0.8); MONO % 7.8 % (0.0-5.0); NEUTROPHILS # 4.2 10^3/uL (1.5-8.5); NEUTROPHILS % 59.8 % (36.0-66.0); PLATELET COUNT, AUTOMATED 281 10^3/uL (150-450); WHITE BLOOD COUNT 7.1 10^3/uL (4.0-10.0)
[2020-10-25 21:40] LABS: HCG, SERUM QUALITATIVE NEGATIVE (NEGATIVE)
[2020-10-25 21:41] LABS: ALBUMIN 3.9 GM/DL (3.2-5.2); ALT/SGPT 21 U/L (12-78); BILIRUBIN,DIRECT < 0.1 MG/DL (0.0-0.2); BILIRUBIN,TOTAL 0.1 MG/DL (0.2-1.0); BLOOD UREA NITROGEN 12 MG/DL (7-18); CARBON DIOXIDE LEVEL 27 MEQ/L (21-32); CHLORIDE LEVEL 109 MEQ/L (98-107); CREATININE FOR GFR 0.96 MG/DL (0.55-1.30); GLOMERULAR FILTRATION RATE > 60.0 (>60); GLUCOSE, FASTING 101 MG/DL (70-100); LIPASE 203 U/L (73-393); SODIUM LEVEL 141 MEQ/L (136-145); TOTAL PROTEIN 7.1 GM/DL (6.4-8.2)
== END 2020-10-25 22:53 | disposition left against medical advice (07) ==
LOC: M ED 20:25
DX: Z53.21 Procedure and treatment not carried out due to patient leaving prior to being seen by health care provider (principal)

== ENCOUNTER → 2021-01-31 | Outpatient (REF) | payer OTHER | LOC: M LAB REF 18:55 | PROVIDERS: ATTEND Physician Assistant | DX: J02.9 Acute pharyngitis, unspecified (principal) ==

== ENCOUNTER → 2021-04-12 | Outpatient (REF) | payer OTHER ==
[~2021-04-12] MED LIST changes: +LEVO750T13 PO; +ONDA8TAB8 PO
== END ==
LOC: M WUC 16:00
PROVIDERS: ATTEND Physician Assistant
DX: R11.2 Nausea with vomiting, unspecified (principal)

== ENCOUNTER 2021-04-13 07:31 | Emergency (ER) | payer OTHER ==
[~2021-04-13] VITALS: Ht 162.6 cm; Wt 77.3 kg
[~2021-04-13 07:31] MED LIST changes: -LEVO750T13 PO; -ONDA8TAB8 PO
[2021-04-13] MEDS ORDERED: ONDA8TAB8 PO (08:02)
[2021-04-13] MEDS ORDERED: LEVO750T13 PO (08:02)
[2021-04-13 08:42] LABS: HEMOGLOBIN 14.3 g/dl (12.0-15.5); MEAN CORPUSCULAR HEMOGLOBIN 30.2 pg (27.0-33.0); MEAN CORPUSCULAR HGB CONC 33.3 g/dl (32.0-36.5); MEAN CORPUSCULAR VOLUME 90.9 fl (80.0-96.0); PLATELET COUNT, AUTOMATED 175 10^3/uL (150-450); RED BLOOD COUNT 4.73 10^6/uL (4.00-5.40)
[2021-04-13 08:43] LABS: WHITE BLOOD COUNT 12.1 10^3/uL (4.0-10.0)
[2021-04-13 09:11] LABS: ATYPICAL LYMPH 1 % (0-5); LYMPHOCYTES 7 % (16-44); MONOCYTES 12 % (0-5); NEUTROPHILS 80 % (28-66); PLATELET ESTIMATE NORMAL (NORMAL)
[2021-04-13 09:12] LABS: ALBUMIN 3.3 GM/DL (3.2-5.2); ALT/SGPT 26 U/L (12-78); BILIRUBIN,DIRECT 0.2 MG/DL (0.0-0.2); BILIRUBIN,TOTAL 0.4 MG/DL (0.2-1.0); BLOOD UREA NITROGEN 13 MG/DL (7-18); CALCIUM LEVEL 9.6 MG/DL (8.5-10.1); CARBON DIOXIDE LEVEL 25 MEQ/L (21-32); CHLORIDE LEVEL 108 MEQ/L (98-107); CREATININE FOR GFR 0.96 MG/DL (0.55-1.30); GLOMERULAR FILTRATION RATE > 60.0 (>60); GLUCOSE, FASTING 102 MG/DL (70-100); POTASSIUM SERUM 3.6 MEQ/L (3.5-5.1); SODIUM LEVEL 141 MEQ/L (136-145); TOTAL PROTEIN 7.2 GM/DL (6.4-8.2)
[2021-04-13] MEDS ORDERED: KETOROLAC 30 MG/ML 1ML VIAL IV ONE (10:10)
--- NOTE | 2021-04-13 10:48 | REP ---
INDICATION: fever COMPARISON: 06/01/2016 TECHNIQUE: PA and lateral. FINDINGS: The mediastinum and cardiac silhouette are normal. The lung pearson are clear and without acute consolidation, effusion, or pneumothorax. The skeletal structures are intact and normal. IMPRESSION: No acute cardiopulmonary process. <Electronically signed by Сергей Gilbert > 04/13/21 1045
[2021-04-13 11:42] VITALS: BP 132/84
--- NOTE | 2021-04-13 21:34 | ECGEPIP ---
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
== END 2021-04-13 11:48 | disposition home or self-care (01) ==
LOC: M ED 07:31
DX: B34.9 Viral infection, unspecified (principal); Z88.0 Allergy status to penicillin; Z88.6 Allergy status to analgesic agent
CPT/HCPCS: 36415; 71046; 80048; 80076; 81001; 85025; 87086; 87798; 93005; 96374; 99284; J1885

== ENCOUNTER → 2021-05-20 | Outpatient (CLI) | payer OTHER ==
[~2021-05-20] MED LIST changes: +LEVO750T13 PO; +ONDA8TAB8 PO
--- NOTE | 2021-05-20 09:56 | REP ---
INDICATION: CALCULUS OF KIDNEY COMPARISON: 08/18/2020 TECHNIQUE: Axial noncontrast images from the lung bases to the pubic symphysis with coronal and sagittal reformations. This CT examination was performed using the following dose reduction techniques: Automated exposure control, adjustment of mA and/or kv according to the patient's size, and use of iterative reconstruction technique. FINDINGS: Right kidney includes 12 mm calculus in the renal pelvis and smaller scattered calculi in the calices up to roughly 3 mm. The left kidney includes a 2 cm calculus in the renal pelvis likely causing partial/intermittent obstruction with associated upper pole hydronephrosis as well as scattered intrarenal calculi including 10 mm calculus in a dependent portion of a dilated upper pole calyx. The bilateral ureters and bladder appear normal. Liver, spleen, pancreas, gallbladder, and bilateral adrenal glands are normal. The enteric system is without obstruction or acute inflammatory process. Normal appendix identified in the right lower quadrant. Scattered sigmoid diverticula noted without acute diverticulitis. Pelvis demonstrates normal bladder and age-appropriate uterus/adnexa. No pelvic fluid or ascites. No free air. No obvious adenopathy. Abdominal aorta without aneurysm. Musculoskeletal structures are intact. Lung bases clear. IMPRESSION: 1. Significant bilateral nephrolithiasis (left greater than right) including findings to suggest intermittent obstruction to the left kidney. <Electronically signed by Сергей Gilbert > 05/20/21 0986
== END ==
LOC: M RAD 09:18
PROVIDERS: ATTEND Nurse Practitioner Family
DX: N20.0 Calculus of kidney (principal)

== ENCOUNTER 2021-05-28 10:19 | Inpatient (IN) | payer OTHER ==
[~2021-05-28] VITALS: Ht 162.6 cm; Wt 74.5 kg
[2021-05-28] MEDS ORDERED: TAMS1CAP17 PO (10:25)
[2021-05-28] MEDS ORDERED: KETO10TAB PO (10:25)
[2021-05-28] MEDS ORDERED: ONDANSETRON 4MG/2ML VIAL IV ONE (11:05)
[2021-05-28] MEDS ORDERED: MORPHINE 4 MG/ML 1ML VIAL/SYRINGE (J2270) IV ONE (11:05)
[2021-05-28] MEDS ORDERED: NS 1,000 ML IV ONE (11:15)
[2021-05-28 11:33] LABS: BASO # 0.1 10^3/uL (0.0-0.2); EOS # 0.1 10^3/uL (0.0-0.5); EOS % 1.5 % (0.0-3.0); HEMATOCRIT 43.8 % (36.0-47.0); HEMOGLOBIN 14.7 g/dl (12.0-15.5); LYMPH # 2.5 10^3/uL (1.5-5.0); LYMPH % 26.7 % (24.0-44.0); MEAN CORPUSCULAR HEMOGLOBIN 30.5 pg (27.0-33.0); MEAN CORPUSCULAR HGB CONC 33.6 g/dl (32.0-36.5); MEAN CORPUSCULAR VOLUME 90.9 fl (80.0-96.0); MONO # 0.7 10^3/uL (0.0-0.8); MONO % 7.5 % (2.0-8.0); NEUTROPHILS % 62.9 % (36.0-66.0); PLATELET COUNT, AUTOMATED 312 10^3/uL (150-450); RED BLOOD COUNT 4.82 10^6/uL (4.00-5.40); WHITE BLOOD COUNT 9.5 10^3/uL (4.0-10.0)
[2021-05-28] MEDS ORDERED: HYDROMORPHONE HCL 0.5 MG/ 0.5 ML SYRINGE (J1170 PER 1) IV ONE ×2 (11:55→16:45)
[2021-05-28 12:03] LABS: ALBUMIN 4.2 GM/DL (3.2-5.2); BILIRUBIN,DIRECT 0.1 MG/DL (0.0-0.2); BILIRUBIN,TOTAL 0.5 MG/DL (0.2-1.0); TOTAL PROTEIN 7.6 GM/DL (6.4-8.2)
--- NOTE | 2021-05-28 12:24 | REP ---
INDICATION: flank pain/hx kideny stones COMPARISON: 05/20/2021 TECHNIQUE: Axial noncontrast images from the lung bases to the pubic symphysis with coronal and sagittal reformations. This CT examination was performed using the following dose reduction techniques: Automated exposure control, adjustment of mA and/or kv according to the patient's size, and use of iterative reconstruction technique. FINDINGS: The current examination now demonstrates acute right-sided obstructive uropathy as the large 12 mm calculus has migrated to obstruct the ureteropelvic junction. Smaller nonobstructing right renal calculi measure up to approximately 3 mm. The left kidney again demonstrates multiple calculi measuring up to 20 mm along with cyst versus chronic dilated upper pole calyx, but without acute obstructive changes. Liver, spleen, pancreas, gallbladder, and bilateral adrenal glands are normal. The enteric system is without obstruction or acute inflammatory process. Normal terminal ileum and appendix identified in the right lower quadrant. Scattered sigmoid diverticula noted without acute diverticulitis. Pelvis demonstrates normal bladder and age-appropriate uterus/adnexa. No pelvic fluid or ascites. No free air. No adenopathy. Abdominal aorta without aneurysm. Musculoskeletal structures are intact and stable. IMPRESSION: Right-sided obstructive uropathy along with bilateral renal findings as described above. <Electronically signed by Сергей Gilbert > 05/28/21 2437
[2021-05-28] MEDS ORDERED: NS 1,000 ML IV SCH ×2 (12:45→17:05)
[2021-05-28] MEDS ORDERED: fentaNYL 100 MCG/2 ML INJECTION (J3010) IV ONE (12:45)
--- NOTE | 2021-05-28 12:56 | SMCUROLCON ---
Urology Consultation General Date of Consultation 05/28/21 Reason For Consultation asked to see re obstructing right upj stone History of Present Illness Pt known to [facility]. Was seen in the office recently for bl renal stones. Plan was eswl one kidney and then the other kidney at a later date. Unfortunately pt presented to er with right flank pain. Imaging shows large obstructing right upj stone and large stones in left renal pelvis. Pt has h/o stones since 13 years old. Past Medical History Medical History no belly surgeries other than csection stone surgeries in past stones since 13yo miscarriage denies htn, dm, heart disease Surgical Hstory see above Family History Family History questionable fh stones Social History Social History denies tob admits to marijuana Medications Current Medications Current Medications Medications (Trade) Dose Ordered Sig/Charu Route PRN Reason Start Time Stop Time Status Last Admin Dose Admin Home Med (Med Rec Complete!) ASDIRECTED XX 05/28/21 12:55 UNV Allergies Allergies: Coded Allergies: Penicillins (Verified Allergy, Intermediate, HIVES, 08/18/20) cefaclor (Verified Allergy, Intermediate, HIVES, 08/18/20) Review of Systems General: Reports: Malaise Constitutional: Denies: Fever Eyes: Denies: Vision change ENT: Denies: Ear Pain Skin: Denies: Lesions Pulmonary: Denies: Cough Cardiovascular: Denies Palpitations Gastrointestinal: Reports: Abdominal Pain Genitourinary: Denies: Dysuria Hematologic: Denies: Bruising Endocrine: Denies: Polydipsia Musculoskeletal: Denies: Neck Pain Neurological: Denies: Weakness Psych: Denies: Mood Normal Physical Examination General Exam: Cooperative EYE EXAM: Conjunctiva & lids normal ENT EXAM: Atraumatic Neck Exam: Supple Chest Exam: Clear to auscultation Heart Exam: Regular Rhythm Abdomen Exam: Soft Female Exam: Nl Ext Genitalia Extremity Exam: No: Cyanosis Skin Exam: Nl turgor and temperature Neuro Exam: Normal Speech Psych Exam: Mental status NL Vital Signs/I&O Vital Signs Date Time Temp Pulse Resp B/P (MAP) Pulse Ox O2 Delivery O2 Flow Rate FiO2 05/28/21 12:00 20 Room Air 05/28/21 11:01 05/28/21 10:19 97.4 85 99 Laboratory Data 24H Labs Laboratory Tests 2 05/28/21 11:07: Immature Granulocyte % (Auto) 0.4, Neutrophils (%) (Auto) 62.9, Lymphocytes (%) (Auto) 26.7, Monocytes (%) (Auto) 7.5, Eosinophils (%) (Auto) 1.5, Basophils (%) (Auto) 1.0, Neutrophils # (Auto) 6.0, Lymphocytes # (Auto) 2.5, Monocytes # (Auto) 0.7, Eosinophils # (Auto) 0.1, Basophils # (Auto) 0.1, Nucleated Red Blood Cells % (auto) 0.0, Lactic Acid Level 1.7, Total Bilirubin 0.5, Direct Bilirubin 0.1, Aspartate Amino Transf (AST/SGOT) 17, Alanine Aminotransferase (ALT/SGPT) 23, Alkaline Phosphatase 66, Total Protein 7.6, Albumin 4.2, Albumin/Globulin Ratio 1.2, Lipase 189 05/28/21 11:24: POC Glucose (Misc Panel) 101, POC Sodium (Misc Panel) 142, POC Potassium (Misc Panel) 3.5, POC Chloride (Misc Panel) 101, POC Total CO2 (Misc Panel) 26.0, POC Blood Urea Nitrogen (Misc Panel 14, POC Ionized Calcium (Misc Panel) 5.1, POC Creatinine (Misc Panel) 1.0, POC Hematocrit (Misc Panel) 45.0 05/28/21 11:29: POC Beta HCG, Quantitative < 5.0 05/28/21 12:08: Urine Color YELLOW, Urine Appearance CLOUDYH, Urine pH 8.0, Urine Specific [place] 1.009, Urine Protein 1+H, Urine Glucose (UA) NEGATIVE, Urine Ketones NEGATIVE, Urine Blood 3+H, Urine Nitrite NEGATIVE, Urine Bilirubin NEGATIVE, Urine Urobilinogen 0.2, Urine Leukocyte Esterase 2+H, Urine WBC (Auto) 23H, Urine RBC (Auto) TNTCH, Urine Hyaline Casts (Auto) 0, Urine Bacteria (Auto) 1+H, Urine Squamous Epithelial Cells 25, Urine Amorphous Sediment SMALLH, Urine Sperm (Auto) 05/28/21 12:43: CBC/BMP Laboratory Tests 05/28/21 11:07 Microbiology Microbiology 05/28/21 Urine Culture, Received Pending Assessment I reviewed ct. Large obstructing right upj stone. Stones in left kidney as well. Pt being admitted for pain control. As per ER provider, pt still in pain despite morphine and Dilaudid. No leukocytosis. Creatinine normal. Afebrile. I put pt on OR schedule for cysto with right stent placement for tomorrow morning. Npo post midnight. Covid testing. Thank you. [phone] KYLIE WATERS MD May 28, 2021 12:56
[2021-05-28] MEDS ORDERED: NALOXONE INJ 0.4MG/1ML VIAL (J2310 PER 1MG) IV PRN (13:00)
[2021-05-28] MEDS ORDERED: HYDROMORPHONE HCL 0.5 MG/ 0.5 ML SYRINGE (J1170 PER 1) IV PRN (13:00)
[2021-05-28] MEDS ORDERED: LevoFLOXacin IV 750 MG in IV 1 EA IV SCH (13:00)
[2021-05-28 13:31] LABS: RSV AMPLIFICATION NEGATIVE (NEGATIVE)
[2021-05-28 16:00] VITALS: BP 161/99
[2021-05-28] MEDS: PERCOCET 5MG/325MG TAB PO SCH ×3 (16:43→21:00)
[2021-05-28] MEDS ORDERED: atenoloL 25 MG TAB PO ONE (16:45)
[2021-05-28] MEDS ORDERED: cloNIDine 0.2 MG TAB PO ONE (16:45)
[2021-05-28] MEDS: KETOROLAC 30 MG/ML 1ML VIAL IV SCH ×2 (16:45→20:53)
[2021-05-28 18:14] VITALS: BP 113/80
[2021-05-28] MEDS: PROMETHAZINE INJ 25 MG/ML VIAL (J2550) IV SCH ×2 (18:15→22:33)
[2021-05-28 18:49] VITALS: O2SAT 95
[2021-05-28 22:00] VITALS: BP_SYST 108; BP_SYST 134; BP_DIAS 63; BP_DIAS 71
[2021-05-28] MEDS: D5W/0.45% SODIUM CHLORIDE 1,000 ML IV SCH (22:33)
[2021-05-29] VITALS (9 sets, daily range): BP systolic 113–133; BP diastolic 78–93; O2SAT 95
[2021-05-29] MEDS: PERCOCET 5MG/325MG TAB PO SCH ×5 (01:00→16:44)
[2021-05-29] MEDS: KETOROLAC 30 MG/ML 1ML VIAL IV SCH ×3 (02:00→14:13)
[2021-05-29] MEDS: PROMETHAZINE INJ 25 MG/ML VIAL (J2550) IV SCH ×2 (05:00→11:00)
[2021-05-29] MEDS: D5W/0.45% SODIUM CHLORIDE 1,000 ML IV SCH (06:13)
[2021-05-29] MEDS ORDERED: SEVOFLURANE INHAL SOLN 250 ML BTL As Ordered ONE (07:52)
[2021-05-29] MEDS ORDERED: PYRI1TAB5 PO (08:37)
[2021-05-29] MEDS ORDERED: BACI1CAP PO (08:37)
[2021-05-29] MEDS ORDERED: CIPR-249 PO (08:37)
[2021-05-29] MEDS ORDERED: PERCOCET PO (08:37)
[2021-05-29] MEDS ORDERED: dexameTHASONE 4 MG/ML 1ML VIAL (J1100 PER 1MG) As Ordered ONE (08:44)
[2021-05-29] MEDS ORDERED: LIDOCAINE 2% 100MG/5ML SDV (FOR ANES.) As Ordered ONE (08:44)
[2021-05-29] MEDS ORDERED: propofoL 200 MG/20 ML VIAL As Ordered ONE ×2 (08:44→09:07)
[2021-05-29] MEDS ORDERED: fentaNYL 100 MCG/2 ML INJECTION (J3010) As Ordered ONE (08:44)
[2021-05-29] MEDS ORDERED: MIDAZOLAM INJ 2MG/2ML VIAL (J2250 PER 1MG) As Ordered ONE (08:44)
[2021-05-29] MEDS ORDERED: ONDANSETRON 4MG/2ML VIAL As Ordered ONE (08:45)
[2021-05-29] MEDS ORDERED: oxyBUTYnin 5 MG TAB PO SCH (09:00)
[2021-05-29] MEDS ORDERED: PHENAZOPYRIDINE 100 MG TAB PO SCH (09:00)
[2021-05-29] MEDS ORDERED: CONRAY-60 60% 50ML VIAL (Q9961) As Ordered ONE (09:03)
[2021-05-29] MEDS ORDERED: LevoFLOXacin 500MG/100ML IV BAG (J1956 PER 250MG) As Ordered ONE (09:15)
[2021-05-29] MEDS ORDERED: ACETAMINOPHEN 1000MG 100ML IV BTL (OFIRMEV) (J0131 PER 10MG) As Ordered ONE (09:19)
[2021-05-29] MEDS ORDERED: KETOROLAC 60MG 2ML VIAL As Ordered ONE (09:19)
--- NOTE | 2021-05-29 09:41 | IPNPDOC ---
Date Seen The patient was seen on 05/29/21. Progress Note s/p cysto with right stent placement pt can be discharged from my standpoint home on oral antibiotic, Pyridium, oxybutynin and pain medication follow up is eswl in near future thank you [phone] VS, I&O, 24H, [place] Vital Signs/I&O Vital Signs Date Time Temp Pulse Resp B/P (MAP) Pulse Ox O2 Delivery O2 Flow Rate FiO2 05/29/21 06:00 97.3 92 20 133/79 (97) 96 Room Air I&O- Last 24 Hours up to 6 AM 05/29/21 06:00 Intake Total 2861 ml Output Total 1370 ml Balance 1491 ml Laboratory Data 24H LABS Laboratory Tests 2 05/28/21 11:07: Immature Granulocyte % (Auto) 0.4, Neutrophils (%) (Auto) 62.9, Lymphocytes (%) (Auto) 26.7, Monocytes (%) (Auto) 7.5, Eosinophils (%) (Auto) 1.5, Basophils (%) (Auto) 1.0, Neutrophils # (Auto) 6.0, Lymphocytes # (Auto) 2.5, Monocytes # (Auto) 0.7, Eosinophils # (Auto) 0.1, Basophils # (Auto) 0.1, Nucleated Red Blood Cells % (auto) 0.0, Lactic Acid Level 1.7, Total Bilirubin 0.5, Direct Bilirubin 0.1, Aspartate Amino Transf (AST/SGOT) 17, Alanine Aminotransferase (ALT/SGPT) 23, Alkaline Phosphatase 66, Total Protein 7.6, Albumin 4.2, Albumin/Globulin Ratio 1.2, Lipase 189 05/28/21 11:24: POC Glucose (Misc Panel) 101, POC Sodium (Misc Panel) 142, POC Potassium (Misc P fely) 3.5, POC Chloride (Misc Panel) 101, POC Total CO2 (Misc Panel) 26.0, POC Blood Urea Nitrogen (Misc Panel 14, POC Ionized Calcium (Misc Panel) 5.1, POC Creatinine (Misc Panel) 1.0, POC Hematocrit (Misc Panel) 45.0 05/28/21 11:29: POC Beta HCG, Quantitative < 5.0 05/28/21 12:08: Urine Color YELLOW, Urine Appearance CLOUDYH, Urine pH 8.0, Urine Specific [place] 1.009, Urine Protein 1+H, Urine Glucose (UA) NEGATIVE, Urine Ketones NEGATIVE, Urine Blood 3+H, Urine Nitrite NEGATIVE, Urine Bilirubin NEGATIVE, Urine Urobilinogen 0.2, Urine Leukocyte Esterase 2+H, Urine WBC (Auto) 23H, Urine RBC (Auto) TNTCH, Urine Hyaline Casts (Auto) 0, Urine Bacteria (Auto) 1+H, Urine Squamous Epithelial Cells 25, Urine Amorphous Sediment SMALLH, Urine Sperm (Auto) 05/28/21 12:43: Coronavirus (COVID-19)(PCR) NEGATIVE, Influenza Type A (RT-PCR) NEGATIVE, Influenza Type B (RT-PCR) NEGATIVE, Respiratory Syncytial Virus (PCR) NEGATIVE CBC/BMP Laboratory Tests 05/28/21 11:07 Microbiology Microbiology 05/28/21 Urine Culture - Final, Complete KYLIE WATERS MD May 29, 2021 09:41
[2021-05-29] MEDS ORDERED: OXYB5TAB10 PO (09:54)
[2021-05-29] MEDS ORDERED: ONDANSETRON 4MG/2ML VIAL IV PRN (09:55)
[2021-05-29] MEDS ORDERED: oxyCODONE 5MG TAB PO PRN (09:55)
[2021-05-29] MEDS ORDERED: LR 1,000 ML IV SCH (09:55)
[2021-05-29] MEDS ORDERED: fentaNYL 100 MCG/2 ML INJECTION (J3010) IV PRN (09:55)
[2021-05-29] MEDS ORDERED: HYDROMORPHONE HCL 0.5 MG/ 0.5 ML SYRINGE (J1170 PER 1) IV PRN (09:55)
--- NOTE | 2021-05-29 10:36 | REP ---
INDICATION: RIGHT STENT, RETROGRADE. COMPARISON: None. TECHNIQUE: Intraoperative fluoroscopic imaging. FINDINGS: Initial image demonstrates 10 mm lower pole right renal calculus and 12 mm left renal calculus. Smaller bilateral intrarenal calculi cannot be excluded. Final image demonstrates satisfactory right ureteral stent placement. Total fluoroscopic time 7 seconds. IMPRESSION: Bilateral nephrolithiasis. Satisfactory right stent placement. <Electronically signed by Сергей Gilbert > 05/29/21 103
--- NOTE | 2021-05-29 11:24 | HPE ---
HISTORY AND PHYSICAL DATE OF ADMISSION: 05/28/2021 CHIEF COMPLAINT: Back pain, left greater than right. HISTORY OF PRESENT ILLNESS: This is a 35-year-old female with past medical history significant for recurrent nephrolithiasis with prior history of right stent placement removal with chronic renal colic, history of hepatitis C, which is undetectable, intravenous (IV) drug use with heroin, prior lithotripsy, cystoscopy and urinary stent placement, was in her usual state of health about 1-1/2 months ago when she started to have renal cholic, worsened yesterday, unable to bear it and when seen at the urologist's office, plans were to put a stent and do a cystoscopy on the left side. 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 Patient was taking Toradol given by her urologist with no significant improvement, prompting her to come to the emergency room (ER) today. She otherwise denies any nausea, vomiting, diarrhea, abdominal pain, chest pain, pressure, tightness, shortness of breath, fever, chills, changes in weight, depression, anxiety, dysuria, polyuria or polydipsia. In the ER, she was found to be in distress with 10/10 pain with no improvement after intravenous morphine, Fentanyl and Dilaudid. CT abdomen and pelvis shows a large obstructive stone at the right ureteropelvic junction (UPJ). Urologist, Dr. Kelly was consulted and recommended inpatient admission with intravenous (IV) antibiotics and nothing by mouth (NPO) status, cystoscopy and right ureteral stent placement in the morning. PAST MEDICAL HISTORY: 1. Renal colic. 2. Bilateral nephrolithiasis. 3. History of hepatitis C, currently undetectable. 4. History of intravenous (IV) drug use with heroin. PAST SURGICAL HISTORY: 1. Multiple cystoscopies. 2. Right renal stent placement. 3. Lithotripsy treatment of her nephrolithiasis. ALLERGIES: PENICILLIN AND CEFACLOR, causing rash. SOCIAL HISTORY: No alcohol or recreational drug use currently, but has prior history of heroin use. Lives in [place]. No cigarette use. FULL CODE. No healthcare proxy. FAMILY HISTORY: Noncontributory. REVIEW OF SYSTEMS: Per history of present illness (HPI). A 12 point system otherwise negative. PHYSICAL EXAMINATION: Temperature 98.2, pulse 89, respiratory rate 20, blood pressure 138/91, 100% on room air. GENERAL: Awake, alert, oriented to person, place and time. HEENT: No icterus, pallor or jaundice. LUNGS: Clear to auscultation. No wheezing, rales or rhonchi. HEART: S1, S2. Sinus rhythm. ABDOMEN: Soft, nontender in the bilateral upper quadrants. Patient has costovertebral angle (CVA) tenderness laterally. No rebound or guarding. No hepatosplenomegaly. EXTREMITIES: No cyanosis or clubbing. LABORATORY DATA: White count 9.5, hemoglobin 14, hematocrit 48.3, platelet count 312. Sodium 142, potassium 3.5, chloride 101, bicarbonate 26, BUN 14, creatinine 1, ionized calcium 5. Total bilirubin 0.5, direct bilirubin 0.1, AST 17, ALT 23, alkaline phosphatase 66, total protein 7.6, albumin 4.2. Urine beta-HCG less than 5. Urine culture is pending. CT abdomen and pelvis: 12 mm calculus in the uteropelvic junction, right sided-obstructive uropathy with a nonobstructing right renal calculi measuring 3 mm, left kidney calculi up to 20 mm along with cyst versus chronic dilated upper pole of the calyx. ASSESSMENT: A 35-year-old with recurrent kidney stones, bilateral obstructive uropathy with prior stent placement to the right, presents with renal cholic, obstructive uropathy. IMPRESSION: Bilateral nephrolithiasis with large right renal obstructive stone in the ureteropelvic junction (UPJ). Patient is nothing by mouth (NPO) after midnight. Currently with IV fluids, hypoglycemic protocol, IV Levaquin due to history of penicillin and cefaclor allergies, IV Toradol, IV Dilaudid and Percocet, antiemetics. Urologist for cystoscopy and stent placement. BRYON
--- NOTE | 2021-05-29 12:21 | DSES ---
DISCHARGE SUMMARY DATE OF ADMISSION: 05/28/2021 DATE OF DISCHARGE: 05/29/2021 CONSULTANTS DURING ADMISSION: Urologist, Dr. Kelly. PROCEDURES DURING ADMISSION: Cystoscopic with right stent placement. DISCHARGE DIAGNOSES: 1. Obstructive uropathy. 2. Bilateral nephrolithiasis. DISCHARGE MEDICATIONS: 1. Oxybutynin 50 mg b.i.d. 2. Pyridium 100 mg b.i.d. 3. Ciprofloxacin 500 mg b.i.d. 4. Percocet one tablet q. 4 as needed for pain 5/325. 5. Bacid one cap with meals for 10 days. 6. Toradol 10 q.i.d. as needed. 7. SloMag 0.4 daily. HOSPITAL COURSE: This is a 35-year-old female admitted with history of bilateral nephrolithiasis with multiple admissions for obstructive uropathy status post stent placement who presents with complaints of abdominal pain without documented fever or chills. The patient was seen at her urologist office and was sent to the emergency room due to persistent pain. No fever or chills. Given intravenous Levaquin preoperatively, IV fluids, being controlled with Percocet and IV Dilaudid and for breakthrough pain with Toradol with hypoglycemic protocol while n.p.o. The patient underwent cystoscopy with right stent placement and started on Pyridium, Oxybutynin, continued on Flomax, and discharged home. DISCHARGE PHYSICAL EXAMINATION: VITAL SIGNS: Temperature 97.3, pulse 92, respiratory rate 20, blood pressure 133/79, 96% on room air. GENERAL: Awake, alert, and oriented to person, place, and time. Answering questions appropriately. LUNGS: Clear to auscultation. No wheezing, rales, or rhonchi. HEART: S1, S2. Sinus rhythm. ABDOMEN: Soft, nontender, and nondistended with positive CVA tenderness bilaterally, right greater than left. EXTREMITIES: No cyanosis or clubbing. DIAGNOSTIC STUDIES: Laboratory data, microbiology, and imaging studies please see the chart. Time spent on discharge 30 minutes.
[2021-05-30] MEDS ORDERED: LevoFLOXacin IV 750 MG in IV 1 EA IV SCH (08:00)
--- NOTE | 2021-05-31 14:56 | ROOPDOC ---
[facility] Report Of Operation Report of Operation DATE OF PROCEDURE: 05/29/21 PREPROCEDURE DIAGNOSES: [Right UPJ stone, left renal stones as well]. POSTPROCEDURE DIAGNOSES: [Same]. PROCEDURE PERFORMED: [Cystoscopy, fluoroscopy, retrograde pyelography, placement of ureteral stent - right side]. SURGEON: [MD Kristi COMMUNITY DEVELOPMENT SPECIALIST: [None], ANESTHESIA: [MAC]. ESTIMATED BLOOD LOSS: Approximately [minimal] mL. COMPLICATIONS: [None]. REMARKS: [35-year-old white female. Stones since 13 years old. Presented with right flank pain. Imaging showed a large obstructing right UPJ stone as well as large stones in the left renal pelvis. Right stent placement was arranged. Left stent placement was considered. After a discussion we decided not to place a left stent. Patient does not tolerate stents very well. Informed consent was obtained. Risks were discussed such as infection, bleeding, pain, scarring, injury to the urinary tract, failure of surgery, need for more surgery, risks of anesthesia and others. SPECIMENS REMOVED: [None] PROCEDURE NOTE: . DESCRIPTION OF PROCEDURE: [I talked with the patient before surgery. We decided to place a right stent. Informed consent was obtained. Patient was brought to the operating room. Surgery was done under antimicrobial coverage. MAC anesthesia was used. It worked well. Dorsolithotomy position. Well-padded. Prepped and draped in the usual sterile fashion. Time out performed. Cystoscopy was performed with a rigid cystoscope. A right retrograde pyelogram was obtained by injecting contrast through a 5 Slovak open-ended ureteral catheter. Fluoroscopy was used. The UPJ stone was obvious. A wire was passed up the ureter into the kidney. Using the Seldinger technique, a 6 Slovak multilength stent was placed. Proper positioning was confirmed. The bladder was emptied and the cystoscope was removed. This ended surgery. Patient tolerated everything well. The plan is ESWL on the right side. KYLIE WATERS MD May 31, 2021 14:56
== END 2021-05-29 17:09 | disposition home or self-care (01) | DRG 465 ==
LOC: M ED 10:19 → M ED INP 12:44 → M MSPAV 16:04
PROVIDERS: ADMIT General Practice; ATTEND General Practice
PROC: 0T764DZ Dilation of Right Ureter with Intraluminal Device, Percutaneous Endoscopic Approach (ICD-10-PCS; principal; 2021-05-29 09:30)
DX: N20.0 Calculus of kidney (principal); Z88.0 Allergy status to penicillin; Z79.899 Other long term (current) drug therapy; Z88.8 Allergy status to other drugs, medicaments and biological substances

== ENCOUNTER → 2021-06-02 | Outpatient (CLI) | payer OTHER ==
[~2021-06-02] MED LIST changes: +BACI1CAP PO; +CIPR-249 PO; +HYDR-3490 PO; +PERCOCET PO; +POTA10808 PO; +PYRI1TAB5 PO
[2021-06-02 09:13] LABS: HEMATOCRIT 39.9 % (36.0-47.0); HEMOGLOBIN 13.4 g/dl (12.0-15.5); MEAN CORPUSCULAR HEMOGLOBIN 30.7 pg (27.0-33.0); MEAN CORPUSCULAR HGB CONC 33.6 g/dl (32.0-36.5); MEAN CORPUSCULAR VOLUME 91.3 fl (80.0-96.0); PLATELET COUNT, AUTOMATED 233 10^3/uL (150-450); RED BLOOD COUNT 4.37 10^6/uL (4.00-5.40); WHITE BLOOD COUNT 6.9 10^3/uL (4.0-10.0)
[2021-06-02 09:23] LABS: INR 0.87
[2021-06-02 09:24] LABS: PARTIAL THROMBOPLASTIN TIME 27.1 SECONDS (24.2-38.5)
[2021-06-02 09:40] LABS: BLOOD UREA NITROGEN 15 MG/DL (7-18); CALCIUM LEVEL 9.1 MG/DL (8.5-10.1); CARBON DIOXIDE LEVEL 28 MEQ/L (21-32); CHLORIDE LEVEL 107 MEQ/L (98-107); CREATININE FOR GFR 0.95 MG/DL (0.55-1.30); GLOMERULAR FILTRATION RATE > 60.0 (>60); GLUCOSE, FASTING 98 MG/DL (70-100); POTASSIUM SERUM 4.3 MEQ/L (3.5-5.1); SODIUM LEVEL 142 MEQ/L (136-145)
== END ==
LOC: M LAB 08:36
PROVIDERS: ATTEND Nurse Practitioner Family
DX: N20.0 Calculus of kidney (principal)

== ENCOUNTER 2021-06-03 06:50 | Day surgery (SDC) | payer OTHER ==
[~2021-06-03] VITALS: Ht 162.6 cm; Wt 74.3 kg
[~2021-06-03 06:50] MED LIST changes: +CIPROFLOXACIN 400 MG in IV 1 EA IV ONE; +EMLA CREAM 5GM TUBE (LIDOCAINE/PRILOCAINE) TOP PRN; -HYDR-3490 PO; +LIDOCAINE 1% MDV 20ML VIAL SQ PRN; +LR 1,000 ML IV ONE; -POTA10808 PO
[2021-06-03] MEDS ORDERED: propofoL 500 MG/50 ML VIAL As Ordered ONE (07:16)
[2021-06-03] MEDS ORDERED: MIDAZOLAM INJ 2MG/2ML VIAL (J2250 PER 1MG) As Ordered ONE (07:17)
[2021-06-03] MEDS ORDERED: fentaNYL 100 MCG/2 ML INJECTION (J3010) As Ordered ONE (07:18)
[2021-06-03] MEDS ORDERED: ONDANSETRON 4MG/2ML VIAL As Ordered ONE (07:19)
[2021-06-03] MEDS ORDERED: GLYCOPYRROLATE INJ 0.2 MG/ML 2 ML VIAL As Ordered ONE (07:44)
--- NOTE | 2021-06-03 08:21 | REP ---
INDICATION: KIDNEY STONE KUB BEFORE SDC. COMPARISON: None. FINDINGS: KUB shows the intestinal gas pattern to be nonspecific. The organ silhouettes insofar as delineated are unremarkable. There is no evidence of free intraperitoneal air. There is a double pigtail stent seen on the right the proximal portion of which is in the region of the renal pelvis and the distal portion of which is in the region of the urinary bladder on the right. There is a calcification within the coiled portion of the proximal stent which measures approximately 1 cm. No calcifications are seen along the course of the stent. Multiple calcifications are seen superimposed over the region of the left nephric silhouette. These have increased from the prior exam. The calcifications seen previously in the left hemipelvis are no longer present. There is no change in the osseous structures. IMPRESSION: As above <Electronically signed by Leonel Leal > 06/03/21 [id number]
[2021-06-03] MEDS ORDERED: LIDOCAINE 2% 100MG/5ML SDV (FOR ANES.) As Ordered ONE (08:46)
--- NOTE | 2021-06-03 08:47 | ROOPDOC ---
[facility] Report Of Operation Report of Operation DATE OF PROCEDURE: 06/03/21 PREPROCEDURE DIAGNOSES: [right renal stone, s/p stent]. POSTPROCEDURE DIAGNOSES: [same]. PROCEDURE PERFORMED: [eswl]. SURGEON: [Josiah Waters], BLACKSMITH HELPER: [none], ANESTHESIA: [mac]. ESTIMATED BLOOD LOSS: Approximately [0] mL. COMPLICATIONS: [none]. REMARKS: [35yo wf with right renal stone. Stent placed. Eswl arranged. No guarantees given. Has had eswl before. Stones since 13yo. Also has large left renal stones. Will do left eswl in future. Informed consent obtained. Risks discussed including infection, pain, bleeding, scarring, failure of surgery, need for more surgery, injury to gu tract and others]. FINDINGS: SPECIMENS REMOVED: [none] PROCEDURE NOTE: . DESCRIPTION OF PROCEDURE: [Met with pt in preop area. Surgery discussed. Informed consent obtained. Questions answered. Pt brought to procedure room. Supine position on lithotripter. Well padded. Time out performed. Mac anesthesia secured. Surgery done under coverage of IV Cipro. Fluoroscopy demonstrated right renal stone. Fluoroscopy used intermittently. Stent in good position. Eswl performed. 2500 shocks given. Stone seemed to fragment well. Pt tolerated all well and left room in satisfactory condition. Home today. Pain medication, Pyridium and oxybutynin - has some of each already. Kub in near future. If stone fragmented well, cysto with stent removal. Will start hctz and potassium citrate. Stones since 13yo. Discussed stone medications before surgery]. KYLIE WATERS MD Jun 03, 2021 08:47
[2021-06-03] MEDS ORDERED: POTA10808 PO (08:50)
[2021-06-03] MEDS ORDERED: HYDR-3490 PO (08:50)
[2021-06-03] MEDS ORDERED: ePHEDrine SULFATE 25 MG/5 ML(5MG/ML) SYRINGE As Ordered ONE (08:54)
[2021-06-03] MEDS ORDERED: propofoL 200 MG/20 ML VIAL As Ordered ONE (09:05)
[2021-06-03] MEDS ORDERED: KETOROLAC 30 MG/ML 1ML VIAL As Ordered ONE (09:24)
[2021-06-03] MEDS ORDERED: LR 1,000 ML IV SCH (09:30)
[2021-06-03] MEDS ORDERED: ONDANSETRON 4MG/2ML VIAL IV PRN (09:30)
[2021-06-03] MEDS ORDERED: METOCLOPRAMIDE INJ 10MG/2ML VIAL (J2765 PER 1) IV PRN (09:30)
[2021-06-03] MEDS ORDERED: PERCOCET 5MG/325MG TAB PO PRN (09:30)
[2021-06-03] MEDS ORDERED: KETOROLAC 30 MG/ML 1ML VIAL IV PRN (10:00)
[2021-06-03 10:10] VITALS: BP 136/90
[2021-06-04] MEDS ORDERED: TAMS1CAP17 PO (07:04)
[2021-06-04] MEDS ORDERED: KETO10TAB PO (07:04)
[2021-06-04] MEDS ORDERED: OXYB5TAB10 PO (09:43)
[2021-06-04] MEDS ORDERED: PYRI1TAB5 PO (09:43)
[2021-06-04] MEDS ORDERED: BACITAB PO (09:43)
[2021-06-04] MEDS ORDERED: CIPR-249 PO (09:43)
[2021-06-04] MEDS ORDERED: OXYC1TAB23 PO (09:43)
[2021-06-04] MEDS ORDERED: UROCTAB2 PO (09:44)
[2021-06-04] MEDS ORDERED: HYDR-3490 PO (09:44)
== END 2021-06-03 10:10 | disposition home or self-care (01) ==
LOC: M RAD 06:50 → M SDC 06:50
PROVIDERS: ATTEND Urology
DX: N20.0 Calculus of kidney (principal); Z86.14 Personal history of Methicillin resistant Staphylococcus aureus infection; Z88.0 Allergy status to penicillin; Z88.1 Allergy status to other antibiotic agents
CPT/HCPCS: 50590; 74018; 81025; J0744; J1885; J2250; J2405; J3010; U0002

== ENCOUNTER 2021-06-04 06:49 | Observation (INO) | payer OTHER ==
[~2021-06-04] VITALS: Ht 162.6 cm; Wt 74.1 kg
[~2021-06-04 06:49] MED LIST changes: -CIPROFLOXACIN 400 MG in IV 1 EA IV ONE; -EMLA CREAM 5GM TUBE (LIDOCAINE/PRILOCAINE) TOP PRN; +HYDR-3490 PO; -LIDOCAINE 1% MDV 20ML VIAL SQ PRN; -LR 1,000 ML IV ONE; +POTA10808 PO
[2021-06-04] MEDS ORDERED: TAMS1CAP17 PO (07:04)
[2021-06-04] MEDS ORDERED: KETO10TAB PO (07:04)
[2021-06-04] MEDS ORDERED: MORPHINE 4 MG/ML 1ML VIAL/SYRINGE (J2270) IV ONE (07:10)
[2021-06-04] MEDS ORDERED: NS 1,000 ML IV ONE (07:10)
[2021-06-04] MEDS ORDERED: ONDANSETRON 4MG/2ML VIAL IV ONE (07:10)
[2021-06-04 07:48] LABS: BASO % 0.3 % (0.0-1.0); EOS # 0.1 10^3/uL (0.0-0.5); EOS % 0.4 % (0.0-3.0); HEMATOCRIT 40.9 % (36.0-47.0); HEMOGLOBIN 14.2 g/dl (12.0-15.5); LYMPH # 1.6 10^3/uL (1.5-5.0); LYMPH % 13.9 % (24.0-44.0); MEAN CORPUSCULAR HEMOGLOBIN 30.7 pg (27.0-33.0); MEAN CORPUSCULAR HGB CONC 34.7 g/dl (32.0-36.5); MEAN CORPUSCULAR VOLUME 88.5 fl (80.0-96.0); MONO % 8.5 % (2.0-8.0); NEUTROPHILS # 8.6 10^3/uL (1.5-8.5); NEUTROPHILS % 76.6 % (36.0-66.0); PLATELET COUNT, AUTOMATED 251 10^3/uL (150-450); RED BLOOD COUNT 4.62 10^6/uL (4.00-5.40); WHITE BLOOD COUNT 11.2 10^3/uL (4.0-10.0)
[2021-06-04 07:54] LABS: APPEARANCE, URINE HAZY (CLEAR); BACTERIA, URINE AUTO 1+ (NEGATIVE); BILIRUBIN, URINE AUTO NEGATIVE (NEGATIVE); BLOOD, URINE BLOOD 3+ (NEGATIVE); COLOR, URINE AMBER (YELLOW); GLUCOSE, URINE (UA) AUTO NEGATIVE (NEGATIVE); KETONE, URINE AUTO NEGATIVE (NEGATIVE); LEUKOCYTE ESTERASE, URINE AUTO 3+ (NEGATIVE); MUCUS, URINE SMALL (NEGATIVE); NITRITE, URINE AUTO POSITIVE (NEGATIVE); PROTEIN, URINE AUTO 2+ mg/dL (NEGATIVE); RBC, URINE AUTO 147 /HPF (0-3); SPECIFIC GRAVITY URINE AUTO 1.003 (1.002-1.035); SQUAMOUS EPITHELIAL CELL UR AU 5 /HPF (0-6); UROBILINOGEN, URINE AUTO 0.2 mg/dL (0.0-2.0); WBC, URINE AUTO 91 /HPF (0-3)
[2021-06-04 08:14] LABS: HCG, SERUM QUALITATIVE NEGATIVE (NEGATIVE)
[2021-06-04 08:22] LABS: ALBUMIN 3.9 GM/DL (3.2-5.2); ALT/SGPT 30 U/L (12-78); BILIRUBIN,DIRECT < 0.1 MG/DL (0.0-0.2); BILIRUBIN,TOTAL 0.5 MG/DL (0.2-1.0); BLOOD UREA NITROGEN 16 MG/DL (7-18); CALCIUM LEVEL 9.5 MG/DL (8.5-10.1); CARBON DIOXIDE LEVEL 24 MEQ/L (21-32); CHLORIDE LEVEL 106 MEQ/L (98-107); GLOMERULAR FILTRATION RATE > 60.0 (>60); GLUCOSE, FASTING 91 MG/DL (70-100); LIPASE 62 U/L (73-393); POTASSIUM SERUM 4.4 MEQ/L (3.5-5.1); SODIUM LEVEL 139 MEQ/L (136-145); TOTAL PROTEIN 7.4 GM/DL (6.4-8.2)
--- NOTE | 2021-06-04 08:39 | REP ---
INDICATION: R flank RLQ pain s/p stent lithotripsy COMPARISON: 05/28/2021 TECHNIQUE: Axial noncontrast images from the lung bases to the pubic symphysis with coronal and sagittal reformations. This CT examination was performed using the following dose reduction techniques: Automated exposure control, adjustment of mA and/or kv according to the patient's size, and use of iterative reconstruction technique. FINDINGS: Right ureteral stent is identified in satisfactory position. The previously identified large calculus obstructing the ureteropelvic junction is no longer present and multiple nonobstructing right intrarenal calculi are identified within the renal pelvis as well as a 2-3 mm calculus in the proximal right ureter adjacent to the stent. Left kidney demonstrates multiple large calculi measuring up to approximately 16 mm with apparent chronic obstruction and dilatation to upper pole calyx which is unchanged as compared to prior examination. No obvious acute hydronephrosis or acute perinephric stranding noted. Liver, spleen, pancreas, gallbladder, and bilateral adrenal glands are normal. The enteric system is without obstruction or acute inflammatory process. Pelvis demonstrates normal bladder and age-appropriate uterus/adnexa. No significant ascites. No free air. No significant adenopathy. Abdominal aorta without aneurysm. Skeletal structures are intact. Lung bases demonstrate very minimal new linear atelectasis. IMPRESSION: 1. Urinary tract findings as described above including newly placed right ureteral stent in satisfactory position and a small 3 mm calculus within the proximal right ureter adjacent to the stent. No acute hydronephrosis or acute perinephric stranding noted. 2. No further acute abdominopelvic pathology appreciated. <Electronically signed by Сергей Gilbert > 06/04/21 0801
[2021-06-04] MEDS ORDERED: HYDROMORPHONE HCL 0.5 MG/ 0.5 ML SYRINGE (J1170 PER 1) IV ONE (09:05)
[2021-06-04] MEDS ORDERED: LevoFLOXacin IV 750 MG in IV 1 EA IV ONE (09:15)
[2021-06-04] MEDS ORDERED: PROMETHAZINE INJ 25 MG/ML VIAL (J2550) IV ONE (09:15)
[2021-06-04] MEDS ORDERED: BELLADONNA 16.2mg/OPIUM 60mg 1 EA SUPP PR ONE (09:25)
[2021-06-04] MEDS ORDERED: BACITAB PO (09:43)
[2021-06-04] MEDS ORDERED: OXYC1TAB23 PO (09:43)
[2021-06-04] MEDS ORDERED: OXYB5TAB10 PO (09:43)
[2021-06-04] MEDS ORDERED: CIPR-249 PO (09:43)
[2021-06-04] MEDS ORDERED: PYRI1TAB5 PO (09:43)
[2021-06-04] MEDS ORDERED: HYDR-3490 PO (09:44)
[2021-06-04] MEDS ORDERED: UROCTAB2 PO (09:44)
[2021-06-04] MEDS ORDERED: PERCOCET 5MG/325MG TAB PO ONE (10:50)
[2021-06-04 11:25] LABS: RSV AMPLIFICATION NEGATIVE (NEGATIVE)
[2021-06-04] MEDS ORDERED: MAALOX 30 ML SUSP *UDC PO PRN (12:10)
[2021-06-04] MEDS ORDERED: MOM 30ML SUSPENSION UDC PO PRN (12:10)
[2021-06-04] MEDS ORDERED: ACETAMINOPHEN TAB 650MG DOSE (2X325MG) PO PRN (12:10)
--- NOTE | 2021-06-04 14:47 | CR.PDOC ---
General Date of Consultation: Jun 04, 2021 Referring Provider: ADITI HOLT MD Consultation REASON FOR CONSULTATION/CHIEF COMPLAINT: Right flank pain status post right ESWL and right ureteral stent placement by Dr. Kelly 06/03/20 HISTORY OF PRESENT ILLNESS: The patient came into the ER today with severe right flank pain after right ESWL and right ureteral stent placement by Dr. Kelly yesterday. A CT scan of the abdomen and pelvis was done in the emergency room and this showed that the right ureteral stent was in good position. The large calculus which had measured 12 mm in the right renal pelvis was no longer identified and there was a 2-3 mm calculus in the proximal right ureter next to the stent. There were nonobstructing stones on the right side that were seen on the original CT scan. Also the left kidney still has the multiple large calculi measuring up to 16 mm. She was afebrile and her white blood count was normal at 11. Only a dipstick was done. Her serum creatinine was normal. After reviewing all the data I felt that her pain was secondary to the stent itself so I wanted to have this removed. I attempted to have the patient brought to the office so we could do a cystoscopy and stent removal here but she was in too much pain so was decided to admit her. I will do the cystoscopy and stent removal at the bedside and we will see what happens with her pain. She complains of all normal stent pain which is worse with movement.she has a stabbing pain in the right lower quadrant and also up in the kidney and its worse when she urinates cShe has a stabbing pain in the right lower quadrant and also up in the kidney and its worse when she urinates. Complains of all normal stent pain which is worse with movement. ALLERGIES: Please see below. HOME MEDICATIONS: Please see below. PAST MEDICAL HISTORY: Anxiety Hepatitis C Kidney stones Herpes PAST SURGICAL HISTORY: Lithotripsy FAMILY HISTORY: Noncontributory SOCIAL HISTORY: She quit smoking cigarettes between 5-10 years ago. She drinks alcohol usually on the weekends at least 3-4 to time. She uses marijuana. She is and has a child. She was a heroine addict. REVIEW OF SYSTEMS: 12 system review is negative except for what is above12 system review is negative except for what is above PHYSICAL EXAMINATION: VITAL SIGNS: Please see below. GENERAL APPEARANCE: Well-developed well-nourished femaleWell-developed well-n ourished female HEENT: PERRLA EOMI RESPIRATORY: Lungs are clear CARDIOVASCULAR: Heart is regular ABDOMEN: Right lower quadrant tenderness, no rebound or guarding EXTREMITIES: No cyanosis, clubbing, edema NEUROLOGICAL: Non focal PSYCHIATRIC: A+O x 3 LABORATORY DATA: Please see below. ASSESSMENT/PLAN: -Right flank pain status post right ESWL and right stent placement 06/03/21 for a 12 mm proximal stone no longer seen except for 2-3 mm stone in the proximal ureter next to the stent without any evidence of hematomas or other significant abnormalities with the pain most likely secondary to the stent -Plan stent removal at the bedside and hopefully the pain will be removed leave. We discussed with the patient that if it is not that she may need a nephrostomy tube in the future depending if they're still any obstruction found -Give Pyridium for bladder discomfort Vital Signs/I&O Vital Signs Date Time Temp Pulse Resp B/P (MAP) Pulse Ox O2 Delivery O2 Flow Rate FiO2 06/04/21 12:34 103 99 06/04/21 12:18 22 06/04/21 09:59 136/81 (99) 06/04/21 06:50 98.4 Room Air Laboratory Data Labs 24H Laboratory Tests 2 06/04/21 07:25: Immature Granulocyte % (Auto) 0.3, Neutrophils (%) (Auto) 76.6H, Lymphocytes (%) (Auto) 13.9L, Monocytes (%) (Auto) 8.5H, Eosinophils (%) (Auto) 0.4, Basophils (%) (Auto) 0.3, Neutrophils # (Auto) 8.6H, Lymphocytes # (Auto) 1.6, Monocytes # (Auto) 1.0H, Eosinophils # (Auto) 0.1, Basophils # (Auto) 0.0, Nucleated Red Blood Cells % (auto) 0.0, Urine Color RICHARD, Urine Appearance HAZY, Urine pH 7.0, Urine Specific [place] 1.003, Urine Protein 2+H, Urine Glucose (Auto)(UA) NEGATIVE, Urine Ketones (Auto) NEGATIVE, Urine Blood 3+H, Urine Nitrite POSITIVE, Urine Bilirubin NEGATIVE, Urine Urobilinogen 0.2, Urine Leukocyte Esterase (Auto) 3+H, Urine WBC (Auto) 91H, Urine RBC (Auto) 147H, Urine Hyaline Casts (Auto) 0, Urine Bacteria (Auto) 1+H, Urine Squamous Epithelial Cells 5, Urine Mucus (Auto) SMALL, Urine Sperm (Auto) , Anion Gap 9, Glomerular Filtration Rate > 60.0, Calcium Level 9.5, Total Bilirubin 0.5, Direct Bilirubin < 0.1, Aspartate Amino Transf (AST/SGOT) 27, Alanine Aminotransferase (ALT/SGPT) 30, Alkaline Phosphatase 57, Total Protein 7.4, Albumin 3.9, Albumin/Globulin Ratio 1.1L, Lipase 62L, Human Chorionic Gonadotropin, Qual NEGATIVE 06/04/21 10:04: Coronavirus (COVID-19)(PCR) NEGATIVE, Influenza Type A (RT-PCR) NEGATIVE, Influenza Type B (RT-PCR) NEGATIVE, Respiratory Syncytial Virus (PCR) NEGATIVE CBC/BMP Laboratory Tests 06/04/21 07:25 Microbiology Microbiology 06/04/21 Urine Culture, Received Pending Allergies Coded Allergies: Penicillins (Verified Allergy, Intermediate, HIVES, 06/02/21) cefaclor (Verified Allergy, Intermediate, HIVES, 06/02/21) Home Medications Scheduled Hydrochlorothiazide (Hydrochlorothiazide) 25 Mg Tablet, 25 MG PO DAILY, (Reported) NEW MED, NOT STARTED YET L.acidoph/L.bulg/B.bif/S.therm (Bacid Caplet) 1 Each Tablet, 1 TAB PO WM, (Reported) Levofloxacin (Levofloxacin) 500 Mg Tablet, 1 TAB PO DAILY for 7 Days, #7 Oxybutynin Chloride (Oxybutynin Chloride) 5 Mg Tablet, 5 MG PO BID, (Reported) Phenazopyridine HCl (Pyridium) 200 Mg Tablet, 200 MG PO TID for 2 Days, #6 every 8 hours for 3 days Potassium Citrate (Urocit-K) 10 Meq Tablet.er, 1,080 MG PO BID, (Reported) NEW MED, NOT STARTED YET Tamsulosin Hcl (Tamsulosin HCl) 0.4 Mg Capsule, 0.4 MG PO DAILY, (Reported) Scheduled PRN Ketorolac Tromethamine (Ketorolac Tromethamine) 10 Mg Tablet, 10 MG PO QID PRN for PAIN LEVEL 1-6 for 7 Days, #20 Ondansetron (Ondansetron Odt) 4 Mg Tab.rapdis, 1 TAB PO Q6-8HP PRN for nausea/vomiting for 4 Days, #16 Oxycodone HCl/Acetaminophen (Oxycodone-Acetaminophen 5-325) 1 Each Tablet, 1 TAB PO Q4H PRN for PAIN LEVEL 6-10 for 5 Days, #30 KEIKO SEBASTIAN MD Jun 04, 2021 14:47
[2021-06-04] MEDS ORDERED: HYDROMORPHONE HCL 0.5 MG/ 0.5 ML SYRINGE (J1170 PER 1) IV PRN (15:25)
[2021-06-04] MEDS ORDERED: NS 0.45% 1,000 ML IV SCH (15:55)
[2021-06-04 16:00] VITALS: BP 148/98
[2021-06-04] MEDS: PERCOCET 5MG/325MG TAB PO PRN ×2 (17:28→23:27)
--- NOTE | 2021-06-04 18:08 | HPEPDOC ---
General Date of Admission Jun 04, 2021 at 12:07 Date of Service: Jun 04, [address] Meade Attending Physician: DIMAS RUSHING MD Chief Complaint The patient is a 35-year-old female admitted with a reason for visit of Bilateral Nephrolithiasis, Ureteropelvic Junction. Source: Patient Exam Limitations: No limitations History of Present Illness HPI: Mrs. Zuniga is a pleasant 35 year old female who presented to the ED today for 9/10 right upper/lower abdominal pain that radiates into her groin and right kidney. This pain started yesterday after she underwent extracorporeal shockwave lithotripsy with Dr. Kelly and continually got worse into the night. She has a right ureteral stent placed with Dr. Kelly on 05/29/21 for an acute right sided obstructive uropathy (12mm calculus). She states she feels this pain with any movement, while walking, and when she urinates. The pain is cramping and stabbing in character. She states that she took oxycodone and ketorolac this morning but noticed to improvement in her pain. The pain is slightly lessened when she lies still and uses a heating pad. She has been drinking fluids to stay hydrated and states she urinates about once an hour. She denies fevers, chills, syncope, dizziness, constipation, diarrhea, lower extremity swelling. She admits to vomiting (x3 in 12 hours), nausea, and hematuria. Her rates her pain as a 4/10 after receiving pain medications in the ED. She was admitted to the hospital for pain management and eventual stent removal. PMHX: Nephrolithiasis (bilateral) Renal colic History of hepatitis C History of IV drug use with heroin Surgical History: Lithotripsy Right ureteral stent placement Multiple cystoscopies Social history: Denies tobacco use, quit smoking 9 years ago Drinks alcohol socially with friends on weekend (4-5 drinks) Smokes marijuana daily and has a history of IV heroin use. 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 HEENT: denies blurry vision, headaches, difficulty swallowing, swollen lymph nodes. Cardiovascular: Denies any chest pain or palpitations Respiratory: Denies shortness of breath, cough, and wheezing Gastrointestinal: Denies constipation or diarrhea. Admits to abdominal pain, nausea, right flank pain, and vomiting x3 in last 12 hours Genitourinary: Admits painful urination, blood in urine. Denies blood in stool. Extremities: Denies lower extremity swelling and loss of sensation in extremities. Hematology/Oncology: Denies any easy bleeding or bruising. Physical examination: General: Patient is alert and oriented x3. She is in mild distress, lying very still. Eyes: Conjunctiva clear. PERRLA HEENT: Mucous membranes pink and moist. Normocephalic, atraumatic. Trachea midline, no lymphadenopathy Cardiovascular: Regular rate and rhythm. No murmurs appreciated Respiratory: Clear to auscultation, no wheezes, rhonchi, or rales noted Abdomen: Soft, non distended, bowel sounds positive, pain to light palpation of right upper and lower quadrant. Patient not able to tolerate deep palpation without guarding. No rebound tenderness. No organomegaly appreciated Back: CVA tenderness on the right. Extremities: No lower extremity edema, clubbing, or cyanosis noted Skin: Tattoos visualized, no ulcerations or rashes. Imaging: CT abdomen and pelvis 06/04/21: Urinary tract findings as described above including newly placed right ureteral stent in satisfactory position and a small 3 mm calculus within the proximal right ureter adjacent to the stent. No acute hydronephrosis or acute perinephric stranding noted. No further acute abdominopelvic pathology appreciated. Assessment: Mrs. Zuniga is a pleasant 35 year old female with past medical history of Nephrolithiasis (bilateral), Renal colic, History of hepatitis C, and History of IV drug use with heroin who presented to the ED with severe right flank pain s/p right ureteral stent placement and was admitted for pain management and stent removal. Plan: #Severe right flank pain -Patient is presenting with 9/10 right upper/lower abdominal and right flank pain that has increasingly gotten worse after the ECSL procedure on 06/03/21 -s/p Right ureteral stent placement with Dr. Kelly 05/29/21 -s/p Right extra corporeal shockwave lithotripsy 06/03/21 -Dr. Meade was consulted on this patient today and plans on removing stent at patient bedside -continue with pain management -continue levofloxacin -continue 0.45NS 110ml/hr as maintenance fluids -Patient NPO until after procedure -CT abdomen/pelvis impression: No acute hydronephrosis or acute perinephric stranding noted. No further acute abdominopelvic pathology appreciated. #Urinary tract infection -WBC elevated 11.2 -Urine culture pending -Urinalysis positive for 3+ leukocyte esterase, 91 RBC, 1+bacteria -continue levofloxacin, patient has an allergy to penicillins and cephalosporins DVT prophylaxis: yes continue heparin GME ATTESTATION My faculty preceptor for this patient encounter was physically present during the encounter and was fully available. All aspects of the patient interview, examination, medical decision making process, and medical care plan development were reviewed and approved by the faculty preceptor. The faculty preceptor is aware and concurs with the plan as stated in the body of this note and will attest to such by his/her cosignature. Home Medications Scheduled Hydrochlorothiazide (Hydrochlorothiazide) 25 Mg Tablet, 25 MG PO DAILY, (Reported) NEW MED, NOT STARTED YET L.acidoph/L.bulg/B.bif/S.therm (Bacid Caplet) 1 Each Tablet, 1 TAB PO WM, (Reported) Levofloxacin (Levofloxacin) 500 Mg Tablet, 1 TAB PO DAILY Oxybutynin Chloride (Oxybutynin Chloride) 5 Mg Tablet, 5 MG PO BID, (Reported) Phenazopyridine HCl (Pyridium) 200 Mg Tablet, 200 MG PO TID every 8 hours for 3 days Potassium Citrate (Urocit-K) 10 Meq Tablet.er, 1,080 MG PO BID, (Reported) NEW MED, NOT STARTED YET Tamsulosin Hcl (Tamsulosin HCl) 0.4 Mg Capsule, 0.4 MG PO DAILY, (Reported) Scheduled PRN Ketorolac Tromethamine (Ketorolac Tromethamine) 10 Mg Tablet, 10 MG PO QID PRN for PAIN LEVEL 1-6 Ondansetron (Ondansetron Odt) 4 Mg Tab.rapdis, 1 TAB PO Q6-8HP PRN for nausea/vomiting Oxycodone HCl/Acetaminophen (Oxycodone-Acetaminophen 5-325) 1 Each Tablet, 1 TAB PO Q4H PRN for PAIN LEVEL 6-10 Allergies Coded Allergies: Penicillins (Verified Allergy, Intermediate, HIVES, 06/02/21) cefaclor (Verified Allergy, Intermediate, HIVES, 06/02/21) A-FIB/CHADSVASC A-FIB History Current/History of A-Fib/PAF?: No Current PO Anticoag Therapy: No Vital Signs Vital Signs Date Time Temp Pulse Resp B/P (MAP) Pulse Ox O2 Delivery O2 Flow Rate FiO2 06/04/21 15:20 98.9 85 18 96/52 (67) 96 06/04/21 06:50 Room Air Laboratory Data Labs 24H Laboratory Tests 2 06/04/21 07:25: Immature Granulocyte % (Auto) 0.3, Neutrophils (%) (Auto) 76.6H, Lymphocytes (%) (Auto) 13.9L, Monocytes (%) (Auto) 8.5H, Eosinophils (%) (Auto) 0.4, Basophils (%) (Auto) 0.3, Neutrophils # (Auto) 8.6H, Lymphocytes # (Auto) 1.6, Monocytes # (Auto) 1.0H, Eosinophils # (Auto) 0.1, Basophils # (Auto) 0.0, Nucleated Red Blood Cells % (auto) 0.0, Urine Color RICHARD, Urine Appearance HAZY, Urine pH 7.0, Urine Specific [place] 1.003, Urine Protein 2+H, Urine Glucose (Auto)(UA) NEGATIVE, Urine Ketones (Auto) NEGATIVE, Urine Blood 3+H, Urine Nitrite POSITIVE, Urine Bilirubin NEGATIVE, Urine Urobilinogen 0.2, Urine Leukocyte Esterase (Auto) 3+H, Urine WBC (Auto) 91H, Urine RBC (Auto) 147H, Urine Hyaline Casts (Auto) 0, Urine Bacteria (Auto) 1+H, Urine Squamous Epithelial Cells 5, Urine Mucus (Auto) SMALL, Urine Sperm (Auto) , Anion Gap 9, Glomerular Filtration Rate > 60.0, Calcium Level 9.5, Total Bilirubin 0.5, Direct Bilirubin < 0.1, Aspartate Amino Transf (AST/SGOT) 27, Alanine Aminotransferase (ALT/SGPT) 30, Alkaline Phosphatase 57, Total Protein 7.4, Albumin 3.9, Albumin/Globulin Ratio 1.1L, Lipase 62L, Human Chorionic Gonadotropin, Qual NEGATIVE 06/04/21 10:04: Coronavirus (COVID-19)(PCR) NEGATIVE, Influenza Type A (RT-PCR) NEGATIVE, Influenza Type B (RT-PCR) NEGATIVE, Respiratory Syncytial Virus (PCR) NEGATIVE CBC/BMP Laboratory Tests 06/04/21 07:25 Microbiology Microbiology 06/04/21 Urine Culture, Received Pending Plan / VTE VTE Prophylaxis Ordered?: Yes GME ATTESTATION GME ATTESTATION My faculty preceptor for this patient encounter was physically present during the encounter and was fully available. All aspects of the patient interview, examination, medical decision making process, and medical care plan development were reviewed and approved by the faculty preceptor. The faculty preceptor is aware and concurs with the plan as stated in the body of this note and will attest to such by his/her cosignature. ATTENDING NOTE I, Dimas Rushing MD, have independently examined this patient and performed my own physical exam, as well as reviewed the documentation and edited where necessary. I have discussed in detail with the resident / student the findings and plan of treatment as documented by the resident / student and edited their note. I agree with their findings and treatment plan and have edited their documentation. [address]PA [address] DO Jun 04, 2021 18:08 DIMAS RUSHING MD Jun 08, 2021 14:48
[2021-06-04] MEDS ORDERED: cefTRIAXone SOD 1 GM in D5W MINI-BAG PLUS 50 ML IV SCH (20:00)
[2021-06-04] MEDS ORDERED: LIDOCAINE 2% 5ML JELLY UROJET As Ordered ONE (20:23)
[2021-06-04] MEDS ORDERED: ONDANSETRON 4MG/2ML VIAL As Ordered ONE (20:43)
[2021-06-04] MEDS ORDERED: propofoL 200 MG/20 ML VIAL As Ordered ONE (20:43)
[2021-06-04] MEDS ORDERED: fentaNYL 100 MCG/2 ML INJECTION (J3010) As Ordered ONE (20:43)
[2021-06-04] MEDS ORDERED: MIDAZOLAM INJ 2MG/2ML VIAL (J2250 PER 1MG) As Ordered ONE (20:43)
--- NOTE | 2021-06-04 20:43 | ROOPDOC ---
[facility] Report Of Operation Report of Operation DATE OF PROCEDURE: 06/04/21 PREPROCEDURE DIAGNOSES: Retained right ureteral stent with quite a lot of discomfort secondary to the stentRetained right ureteral stent with quite a lot of discomfort secondary to the stent POSTPROCEDURE DIAGNOSES: Same PROCEDURE PERFORMED: Cystoscopy and stent removal SURGEON: Nicole Sebastian MD WINDOWS SERVER ADMINISTRATOR: None ANESTHESIA: Local with 5cc of 1% Lidocaine Jelly ESTIMATED BLOOD LOSS: Approximately O mL. COMPLICATIONS: None SPECIMENS REMOVED: Rt Ureteral Stent DESCRIPTION OF PROCEDURE: The patient was prepped and draped in usual fashion and a rigid cystoscope was inserted. The stent was seen, grasped, and removed. NICOLE SEBASTIAN MD Jun 04, 2021 20:43
[2021-06-04] MEDS: HYDROMORPHONE HCL 0.5 MG/ 0.5 ML SYRINGE (J1170 PER 1) IV PRN ×4 (20:56→21:13)
[2021-06-04] MEDS ORDERED: oxyCODONE 5MG TAB PO PRN (21:05)
[2021-06-04] MEDS ORDERED: ONDANSETRON 4MG/2ML VIAL IV PRN (21:05)
[2021-06-04] MEDS ORDERED: LR 1,000 ML IV SCH (21:05)
[2021-06-04] MEDS ORDERED: fentaNYL 100 MCG/2 ML INJECTION (J3010) IV PRN (21:05)
[2021-06-04 21:30] VITALS: BP 146/96
[2021-06-04] MEDS: PHENAZOPYRIDINE 100 MG TAB PO SCH (21:57)
[2021-06-04] MEDS: DOCUSATE SODIUM 100MG CAPSULE PO SCH (21:57)
[2021-06-04] MEDS: HEPARIN SOD (PORCINE) 5000UNITS/ML 1ML VIAL/SYRINGE SC SCH (21:58)
[2021-06-04 22:00] VITALS: BP 137/92
[2021-06-04 23:00] VITALS: BP 111/67
[2021-06-05] VITALS: BP 148/98
[2021-06-05] MEDS ORDERED: oxyBUTYnin 5 MG TAB PO ONE (00:15)
[2021-06-05] MEDS: ONDANSETRON 4MG/2ML VIAL IV PRN ×2 (00:48→09:01)
[2021-06-05] MEDS: KETOROLAC 30 MG/ML 1ML VIAL IV PRN ×2 (00:49→09:01)
[2021-06-05 01:00] VITALS: BP 138/88
[2021-06-05] MEDS: PERCOCET 5MG/325MG TAB PO PRN (05:37)
[2021-06-05 06:00] VITALS: BP 109/68
[2021-06-05 08:44] LABS: BASO % 0.7 % (0.0-1.0); EOS # 0.1 10^3/uL (0.0-0.5); EOS % 1.9 % (0.0-3.0); HEMATOCRIT 36.6 % (36.0-47.0); LYMPH # 2.1 10^3/uL (1.5-5.0); LYMPH % 35.9 % (24.0-44.0); MEAN CORPUSCULAR HEMOGLOBIN 30.4 pg (27.0-33.0); MEAN CORPUSCULAR HGB CONC 33.1 g/dl (32.0-36.5); MONO # 0.7 10^3/uL (0.0-0.8); NEUTROPHILS # 2.9 10^3/uL (1.5-8.5); PLATELET COUNT, AUTOMATED 200 10^3/uL (150-450); RED BLOOD COUNT 3.98 10^6/uL (4.00-5.40); WHITE BLOOD COUNT 5.9 10^3/uL (4.0-10.0)
[2021-06-05 08:46] LABS: HEMOGLOBIN 12.1 g/dl (12.0-15.5)
[2021-06-05] MEDS ORDERED: LevoFLOXacin IV 750 MG in IV 1 EA IV SCH (09:00)
[2021-06-05] MEDS: DOCUSATE SODIUM 100MG CAPSULE PO SCH (09:02)
[2021-06-05] MEDS: HEPARIN SOD (PORCINE) 5000UNITS/ML 1ML VIAL/SYRINGE SC SCH (09:02)
[2021-06-05] MEDS: PHENAZOPYRIDINE 100 MG TAB PO SCH (09:02)
[2021-06-05 09:12] LABS: ALBUMIN 3.2 GM/DL (3.2-5.2); ALT/SGPT 26 U/L (12-78); BILIRUBIN,TOTAL 0.3 MG/DL (0.2-1.0); BLOOD UREA NITROGEN 17 MG/DL (7-18); CALCIUM LEVEL 8.8 MG/DL (8.5-10.1); CARBON DIOXIDE LEVEL 27 MEQ/L (21-32); CHLORIDE LEVEL 110 MEQ/L (98-107); CREATININE FOR GFR 1.02 MG/DL (0.55-1.30); GLOMERULAR FILTRATION RATE > 60.0 (>60); GLUCOSE, FASTING 86 MG/DL (70-100); POTASSIUM SERUM 4.3 MEQ/L (3.5-5.1); SODIUM LEVEL 143 MEQ/L (136-145); TOTAL PROTEIN 6.1 GM/DL (6.4-8.2)
[2021-06-05 10:00] VITALS: BP 129/83
[2021-06-05] MEDS ORDERED: ONDA4TAB6 PO (10:04)
[2021-06-05] MEDS ORDERED: PYRI1TAB5 PO (10:04)
[2021-06-05] MEDS ORDERED: KETO10TAB PO (10:04)
[2021-06-05] MEDS ORDERED: OXYC1TAB23 PO (10:04)
[2021-06-05] MEDS ORDERED: LEVO500T3 PO (10:04)
--- NOTE | 2021-06-05 13:40 | DS.PDOC ---
Discharge Summary General Date of Admission Jun 04, 2021 at 12:07 Date of Discharge 06/05/21 Discharge Summary PROCEDURES PERFORMED DURING STAY: Stent removal ADMITTING DIAGNOSES: UTI Nephrolithiasis DISCHARGE DIAGNOSES: UTI Nephrolithiasis COMPLICATIONS/CHIEF COMPLAINT: Bilateral Nephrolithiasis, Ureteropelvic Junction. HISTORY OF PRESENT ILLNESS:The patient came into the ER today with severe right flank pain after right ESWL and right ureteral stent placement by Dr. Kelly yesterday. A CT scan of the abdomen and pelvis was done in the emergency room and this showed that the right ureteral stent was in good position. The large calculus which had measured 12 mm in the right renal pelvis was no longer identified and there was a 2-3 mm calculus in the proximal right ureter next to the stent. There were nonobstructing stones on the right side that were seen on the original CT scan. Also the left kidney still has the multiple large calculi measuring up to 16 mm. She was afebrile and her white blood count was normal at 11. Only a dipstick was done. Her serum creatinine was normal. After reviewing all the data I felt that her pain was secondary to the stent itself so I wanted to have this removed. I attempted to have the patient brought to the office so we could do a cystoscopy and stent removal here but she was in too much pain so was decided to admit her. I will do the cystoscopy and stent removal at the bedside and we will see what happens with her pain. She complains of all normal stent pain which is worse with movement.she has a stabbing pain in the right lower quadrant and also up in the kidney and its worse when she urinates cShe has a stabbing pain in the right lower quadrant and also up in the kidney and its worse when she urinates. Complains of all normal stent pain which is worse with movement. HOSPITAL COURSE: During the hospital stay, stent was removed. Patient received IV fluid with antibiotic therapy DISCHARGE MEDICATIONS: Please see below. ALLERGIES: Please see below. PHYSICAL EXAMINATION ON DISCHARGE: VITAL SIGNS: Please see below. VITAL SIGNS: Please see below. GENERAL APPEARANCE: Well-developed well-nourished femaleWell-developed well-nourished female HEENT: PERRLA EOMI RESPIRATORY: Lungs are clear CARDIOVASCULAR: Heart is regular ABDOMEN: Right lower quadrant tenderness, no rebound or guarding EXTREMITIES: No cyanosis, clubbing, edema NEUROLOGICAL: Non focal PSYCHIATRIC: A+O x 3 LABORATORY DATA: Please see below. IMAGING: [facility] NAME: TALON HITCHCOCK DATE OF : 1985 AGE: 35 SEX: F REPORT #: [id number] ROOM: ED TECHNOLOGIST: [place] [id number] DOCTOR: ADITI HOLT MD Ordered for Date&Time: 06/04/21709 cc: [~ rep ct ivnm] Service Date&Time: 06/04/21818 This report is in Signed status. If this report is in a DRAFT status it has not yet been reviewed by the radiologist for accuracy. Thank you for having your radiology procedures performed at [facility] RADIOLOGY REPORT Date&Time printed: [~ rep prt dt last] [~ rep prt tm last] Page 2 of 2 [place] [address] RADIOLOGY REPORT This report is in Signed status. If this report is in a DRAFT status it has not yet been reviewed by the radiologist for accuracy. Thank you for having your radiology procedures performed at [facility] RADIOLOGY REPORT Date&Time printed: [~ rep prt dt last] [~ rep prt tm last] Page 1 of 2 R flank RLQ pain s/p stent lithotripsy COMPARISON: 05/28/2021 TECHNIQUE: Axial noncontrast images from the lung bases to the pubic symphysis with coronal and sagittal reformations. This CT examination was performed using the following dose reduction techniques: Automated exposure control, adjustment of mA and/or kv according to the patient's size, and use of iterative reconstruction technique. FINDINGS: Right ureteral stent is identified in satisfactory position. The previously identified large calculus obstructing the ureteropelvic junction is no longer present and multiple nonobstructing right intrarenal calculi are identified within the renal pelvis as well as a 2-3 mm calculus in the proximal right ureter adjacent to the stent. Left kidney demonstrates multiple large calculi measuring up to approximately 16 mm with apparent chronic obstruction and dilatation to upper pole calyx which is unchanged as compared to prior examination. No obvious acute hydronephrosis or acute perinephric stranding noted. Liver, spleen, pancreas, gallbladder, and bilateral adrenal glands are normal. The enteric system is without obstruction or acute inflammatory process. Pelvis demonstrates normal bladder and age-appropriate uterus/adnexa. No significant ascites. No free air. No significant adenopathy. Abdominal aorta without aneurysm. Skeletal structures are intact. Lung bases demonstrate very minimal new linear atelectasis. IMPRESSION: 1. Urinary tract findings as described above including newly placed right ureteral stent in satisfactory position and a small 3 mm calculus within the proximal right ureter adjacent to the stent. No acute hydronephrosis or acute perinephric stranding noted. 2. No further acute abdominopelvic pathology appreciated. <Electronically signed by Сергей Gilbert > 06/04/21834 DD: Сергей Gilbert MD 06/04/21828 DT: LEIGH 06/04/21834 DS: MARU 06/04/2182806/04/21828 [~ rep ct labl] PROGNOSIS: Fair ACTIVITY: [As tolerated]. DIET: Regular DISPOSITION: 01 Home, Self-Care. ITEMS TO FOLLOWUP ON ON OUTPATIENT: Follow-up with urologist DISCHARGE CONDITION: [Stable]. TIME SPENT ON DISCHARGE: 40 minutes. Vital Signs/I&Os Vital Signs Date Time Temp Pulse Resp B/P (MAP) Pulse Ox O2 Delivery O2 Flow Rate FiO2 06/05/21 10:00 98.1 80 16 129/83 (98) 95 Room Air I&O- Last 24 Hours up to 6 AM 06/05/21 06:00 Intake Total 2005 ml Output Total 1500 ml Balance 505 ml Laboratory Data Labs 24H Laboratory Tests 2 06/05/21 08:28: Immature Granulocyte % (Auto) 0.5, Neutrophils (%) (Auto) 49.0, Lymphocytes (%) (Auto) 35.9, Monocytes (%) (Auto) 12.0H, Eosinophils (%) (Auto) 1.9, Basophils (%) (Auto) 0.7, Neutrophils # (Auto) 2.9, Lymphocytes # (Auto) 2.1, Monocytes # (Auto) 0.7, Eosinophils # (Auto) 0.1, Basophils # (Auto) 0.0, Nucleated Red Blood Cells % (auto) 0.0, Anion Gap 6L, Glomerular Filtration Rate > 60.0, Calcium Level 8.8, Total Bilirubin 0.3, Aspartate Amino Transf (AST/SGOT) 9, Alanine Aminotransferase (ALT/SGPT) 26, Alkaline Phosphatase 45, Total Protein 6.1L, Albumin 3.2, Albumin/Globulin Ratio 1.1L CBC/BMP Laboratory Tests 06/05/21 08:28 Microbiology Microbiology 06/04/21 Urine Culture - Final, Complete Discharge Medications Scheduled Hydrochlorothiazide (Hydrochlorothiazide) 25 Mg Tablet, 25 MG PO DAILY, (Reported) NEW MED, NOT STARTED YET L.acidoph/L.bulg/B.bif/S.therm (Bacid Caplet) 1 Each Tablet, 1 TAB PO WM, (Repor shawn) Levofloxacin (Levofloxacin) 500 Mg Tablet, 1 TAB PO DAILY Oxybutynin Chloride (Oxybutynin Chloride) 5 Mg Tablet, 5 MG PO BID, (Reported) Phenazopyridine HCl (Pyridium) 200 Mg Tablet, 200 MG PO TID every 8 hours for 3 days Potassium Citrate (Urocit-K) 10 Meq Tablet.er, 1,080 MG PO BID, (Reported) NEW MED, NOT STARTED YET Tamsulosin Hcl (Tamsulosin HCl) 0.4 Mg Capsule, 0.4 MG PO DAILY, (Reported) Scheduled PRN Ketorolac Tromethamine (Ketorolac Tromethamine) 10 Mg Tablet, 10 MG PO QID PRN for PAIN LEVEL 1-6 Ondansetron (Ondansetron Odt) 4 Mg Tab.rapdis, 1 TAB PO Q6-8HP PRN for risa sea/vomiting Oxycodone HCl/Acetaminophen (Oxycodone-Acetaminophen 5-325) 1 Each Tablet, 1 TAB PO Q4H PRN for PAIN LEVEL 6-10 Allergies Coded Allergies: Penicillins (Verified Allergy, Intermediate, HIVES, 06/02/21) cefaclor (Verified Allergy, Intermediate, HIVES, 06/02/21) MADDIE MADRID DO Jun 05, 2021 13:40
== END 2021-06-05 11:00 | disposition home or self-care (01) ==
LOC: M ED 06:49 → M ED INP 12:07 → ENRESERV 13:55 → M MS5PR 15:30
PROVIDERS: ADMIT Internal Medicine; ATTEND Internal Medicine
DX: N39.0 Urinary tract infection, site not specified (principal); N20.0 Calculus of kidney; R10.31 Right lower quadrant pain; Z86.19 Personal history of other infectious and parasitic diseases; Z87.891 Personal history of nicotine dependence; Z79.899 Other long term (current) drug therapy; Z88.0 Allergy status to penicillin; Z88.1 Allergy status to other antibiotic agents; F12.10 Cannabis abuse, uncomplicated; F11.11 Opioid abuse, in remission
CPT/HCPCS: 36415; 52310; 74176; 80048; 80053; 80076; 81001; 83690; 84703; 85025; 87086; 87631; 93041; 96361; 96365; 96366; 96372; 96375; 96376; 99285; J1170; J1644; J1885; J1956; J2250; J2270; J2405; J3010

== ENCOUNTER → 2021-07-07 | Outpatient (CLI) | payer OTHER ==
[~2021-07-07] MED LIST changes: +BACITAB PO; +LEVO500T3 PO; +ONDA4TAB6 PO; +UROCTAB2 PO
== END ==
LOC: M LABSMTC 14:16
PROVIDERS: ATTEND Anesthesiology
DX: Z20.828 Contact with and (suspected) exposure to other viral communicable diseases (principal); Z11.59 Encounter for screening for other viral diseases

== ENCOUNTER → 2021-07-07 | Outpatient (CLI) | payer OTHER ==
[2021-07-07 13:21] LABS: HEMATOCRIT 41.1 % (36.0-47.0); HEMOGLOBIN 13.9 g/dl (12.0-15.5); MEAN CORPUSCULAR HEMOGLOBIN 30.4 pg (27.0-33.0); MEAN CORPUSCULAR HGB CONC 33.8 g/dl (32.0-36.5); MEAN CORPUSCULAR VOLUME 89.9 fl (80.0-96.0); PLATELET COUNT, AUTOMATED 241 10^3/uL (150-450); RED BLOOD COUNT 4.57 10^6/uL (4.00-5.40); WHITE BLOOD COUNT 8.6 10^3/uL (4.0-10.0)
[2021-07-07 13:52] LABS: ALBUMIN 4.2 GM/DL (3.2-5.2); ALT/SGPT 22 U/L (12-78); BILIRUBIN,TOTAL 0.4 MG/DL (0.2-1.0); BLOOD UREA NITROGEN 20 MG/DL (7-18); CARBON DIOXIDE LEVEL 30 MEQ/L (21-32); CHLORIDE LEVEL 105 MEQ/L (98-107); GLOMERULAR FILTRATION RATE > 60.0 (>60); GLUCOSE, FASTING 91 MG/DL (70-100); POTASSIUM SERUM 4.4 MEQ/L (3.5-5.1); SODIUM LEVEL 139 MEQ/L (136-145); TOTAL PROTEIN 7.5 GM/DL (6.4-8.2)
== END ==
LOC: M LAB 12:00
PROVIDERS: ATTEND Urology
DX: N20.0 Calculus of kidney (principal)

== ENCOUNTER → 2021-07-27 | Outpatient (POV) | payer OTHER ==
[~2021-07-27] VITALS: Ht 162.6 cm; Wt 72.7 kg
[2021-07-27 08:25] VITALS: BP 127/92
--- NOTE | 2021-07-30 10:06 | IRCOV ---
[facility] IR Consult Office Visit IR Consult Office Visit DATE: Jul 27, 2021 REASON FOR CONSULTATION/CHIEF COMPLAINT: Kidney stones. Needs PCNL access. HISTORY OF PRESENT ILLNESS: 36-year-old female, has suffered with kidney stones since age of 13. She's had at least 10 procedures bilaterally for stone removal. She also describes that has passed stones up to 8 mm by herself. She gets symptoms of renal colic and/or UTI or pyelonephritis every few months. Her last stone removal procedure was performed in May 2021 for a stone on the right side. She was then stented. Patient is unable to tolerate ureteral stents due to severe bladder spasms. Her ureteral stent was subsequently removed. She is referred today for left-sided nephrostomy placement for PCNL access. Patient describes her last left-sided procedure was 3 years ago. Patient denies fevers or chills. Patient denies hematuria. Patient complain of mild left flank pain. Patient is on potassium citrate and hydrochlorothiazide for stone prevention. ALLERGIES: Please see below. HOME MEDICATIONS: Please see below. PAST MEDICAL HISTORY: Kidney stones PAST SURGICAL HISTORY: Numerous bilateral stone removal procedures FAMILY HISTORY: Noncontributory. SOCIAL HISTORY: Patient does smoke marijuana. Denies alcohol or other drugs. REVIEW OF SYSTEMS: Otherwise negative. PHYSICAL EXAMINATION: VITAL SIGNS: Please see below. GENERAL APPEARANCE: Appears well. Comfortable at rest. HEENT: No scleral icterus. RESPIRATORY: Normal breathing at rest. CARDIOVASCULAR: Normal rate. ABDOMEN: Soft nontender. Flanks nontender. EXTREMITIES: Moving all 4 extremities. NEUROLOGICAL: Alert and oriented. PSYCHIATRIC: Appropriate to circumstance. LABORATORY DATA: 07/07/2021 hemoglobin 13.9 hematocrit 41.1 WBC 8.6 platelets 241 sodium 139 potassium 4.4 BUN 20 creatinine 1.0 GFR greater than 60. Imaging: I personally reviewed the CT abdomen and pelvis without contrast from 06/04/2021. There are stones within the left renal pelvis and ureteropelvic junction with hydronephrosis. No hydroureter. ASSESSMENT/PLAN: 36-year-old female with recurrent kidney stones, presents for left nephrostomy access for PCNL. We discussed the risks and benefits of the procedure. Patient has severe bladder spasms with nephroureteral stents. If patient's stone removal procedures is performed the same day as the PCNL access, I may be able to place a 6 Greek S[place]mon nephroureteral catheter for easier/ secure complete nephroureteral access for lithotripsy. Otherwise, I will have to put a nephrostomy catheter which does risk the possible loss of access in the OR during lithotripsy. I discussed these with the patient. If patient's stone removal is scheduled for the same day as PCNL access, I will put a Siedmon nephroureteral catheter down for easier access. This may be converted to nephrostomy in the OR after stone removal. I spent 30 minutes in consultation with the patient. Thank you for this referral. Cc Dr. Kelly Allergies Coded Allergies: Penicillins (Verified Allergy, Intermediate, HIVES, 06/02/21) cefaclor (Verified Allergy, Intermediate, HIVES, 06/02/21) Home Medications Scheduled Hydrochlorothiazide (Hydrochlorothiazide), 25 MG PO DAILY, (Reported) L.acidoph/L.bulg/B.bif/S.therm (Bacid Caplet), 1 TAB PO WM, (Reported) Levofloxacin (Levofloxacin), 1 TAB PO DAILY Oxybutynin Chloride (Oxybutynin Chloride), 5 MG PO BID, (Reported) Phenazopyridine HCl (Pyridium), 200 MG PO TID Potassium Citrate (Urocit-K), 1,080 MG PO BID, (Reported) Tamsulosin Hcl (Tamsulosin HCl), 0.4 MG PO DAILY, (Reported) Scheduled PRN Ketorolac Tromethamine (Ketorolac Tromethamine), 10 MG PO QID PRN for PAIN LEVEL 1-6 Ondansetron (Ondansetron Odt), 1 TAB PO Q6-8HP PRN for nausea/vomiting Oxycodone HCl/Acetaminophen (Oxycodone-Acetaminophen 5-325), 1 TAB PO Q4H PRN for PAIN LEVEL 6-10 VS, I&O, 24H, Fishbone Vital Signs/I&O Vital Signs Date Time Temp Pulse Resp B/P (MAP) Pulse Ox O2 Delivery O2 Flow Rate FiO2 07/27/21 08:25 97.0 58 20 127/92 (104) 98 Room Air TAMELA BALLARD MD Jul 30, 2021 10:06
== END ==
LOC: M IRPOV 08:20
PROVIDERS: ATTEND Radiology Diagnostic Radiology
DX: N20.0 Calculus of kidney (principal); Z79.890 Hormone replacement therapy; Z88.0 Allergy status to penicillin; Z88.1 Allergy status to other antibiotic agents; Z79.899 Other long term (current) drug therapy

== ENCOUNTER → 2021-08-11 | Outpatient (CLI) | payer OTHER ==
[~2021-08-11] MED LIST changes: +BACT800T5 PO
== END ==
LOC: M LABSMTC 10:36
PROVIDERS: ATTEND Anesthesiology
DX: Z01.812 Encounter for preprocedural laboratory examination (principal); Z20.822 Contact with and (suspected) exposure to COVID-19

== ENCOUNTER → 2021-08-11 | Outpatient (REF) | payer OTHER | LOC: M LAB REF 09:14 | PROVIDERS: ATTEND Urology | DX: N20.0 Calculus of kidney (principal) ==

== ENCOUNTER 2021-08-16 07:34 | Inpatient (IN) | payer OTHER ==
[2021-08-16] VITALS (7 sets, daily range): BP systolic 106–157; BP diastolic 66–100
[~2021-08-16] VITALS: Ht 162.6 cm; Wt 72.6 kg
[~2021-08-16 07:34] MED LIST changes: -CIPROFLOXACIN 400 MG in IV 1 EA IV ONE; -CIPROFLOXACIN 400 MG in IV 1 EA IV SCH; -CIPROFLOXACIN/D5W 400 MG/200 ML BAG (J0744) As Ordered ONE; -D5W/0.45% SODIUM CHLORIDE 1,000 ML IV SCH; -HYDR-3713 PO; -HYDROMORPHONE HCL 0.5 MG/ 0.5 ML SYRINGE (J1170 PER 1) IV ONE; -HYDROMORPHONE HCL 0.5 MG/ 0.5 ML SYRINGE (J1170 PER 1) IV PRN; -HYDROmorphone HCL 2 MG/ML 1ML VIAL As Ordered ONE; -ISOVUE-300 61% 50ML VIAL As Ordered ONE; -LIDOCAINE 1% MDV 20ML VIAL As Ordered ONE; -MIDAZOLAM INJ 2MG/2ML VIAL (J2250 PER 1MG) As Ordered ONE; -NORCO, ANEXSIA 5/325MG TABLET (HYDROcodone/ACETAMINOPHEN) PO PRN; -NS 1,000 ML IV SCH; -ONDANSETRON 4MG/2ML VIAL As Ordered ONE; -ONDANSETRON 4MG/2ML VIAL IV ONE; -PHENAZOPYRIDINE 100 MG TAB PO SCH; -POTASSIUM CITRATE 1080 MG (10MEQ) TAB PO SCH; -PROMETHAZINE INJ 25 MG/ML VIAL (J2550) As Ordered ONE; -UNRESOLVED CLARIFICATION ENTRY XX SCH; -diphenhydrAMINE 50MG/ML VIAL (J1200) As Ordered ONE; -fentaNYL 100 MCG/2 ML INJECTION (J3010) As Ordered ONE; -oxyBUTYnin 5 MG TAB PO SCH
[2021-08-16] MEDS ORDERED: CIPROFLOXACIN/D5W 400 MG/200 ML BAG (J0744) ONE (07:46)
[2021-08-16] MEDS ORDERED: diphenhydrAMINE 50MG/ML VIAL (J1200) ONE (07:52)
[2021-08-16] MEDS ORDERED: LIDOCAINE 1% MDV 20ML VIAL ONE (07:53)
[2021-08-16] MEDS ORDERED: MIDAZOLAM INJ 2MG/2ML VIAL (J2250 PER 1MG) ONE (07:53)
[2021-08-16] MEDS ORDERED: ISOVUE-300 61% 50ML VIAL ONE (07:53)
[2021-08-16] MEDS ORDERED: fentaNYL 100 MCG/2 ML INJECTION (J3010) ONE (07:53)
--- NOTE | 2021-08-16 08:28 | IRHP ---
[facility] IR Pre-Procedure H & P General Date of Service: Aug 16, 2021 Procedure: Same Day Surgery Interval History and Physical I have seen the patient and reviewed last H & P performed within 30 days. There is no significant interval change. History of Present Illness Chief Complaint The patient is a 36-year-old female admitted with a reason for visit of Lt Kidney Stone. PRE-PROCEDURE DIAGNOSIS: Left kidney stone HEART: Normal rate. LUNGS: Normal breathing at rest. ASA Classification ASA Classification: I-Healthy, II-Mild systemic disease, III-Severe systemic dis. Mallampati Score: II NPO: Yes Problems with prior sedation: No Obstructive Sleep Apnea: No Plan moderate sedation Allergies Coded Allergies: Penicillins (Verified Allergy, Intermediate, HIVES, 08/13/21) cefaclor (Verified Allergy, Intermediate, HIVES, 08/13/21) Home Medications Scheduled Hydrochlorothiazide (Hydrochlorothiazide), 25 MG PO DAILY, (Reported) Potassium Citrate (Urocit-K), 1,080 MG PO BID, (Reported) Sulfamethoxazole/Trimethoprim (Bactrim Ds Tablet), 1 TAB PO BID, (Reported) Discontinued Medications Ketorolac Tromethamine (Ketorolac Tromethamine), 10 MG PO QID PRN for PAIN LEVEL 1-6 Discontinued Reason: Pt states not taking L.acidoph/L.bulg/B.bif/S.therm (Bacid Caplet), 1 TAB PO WM, (Reported) Discontinued Reason: Pt states not taking Levofloxacin (Levofloxacin), 1 TAB PO DAILY Discontinued Reason: PCP discontinued med Ondansetron (Ondansetron Odt), 1 TAB PO Q6-8HP PRN for nausea/vomiting Discontinued Reason: Pt states not taking Oxybutynin Chloride (Oxybutynin Chloride), 5 MG PO BID, (Reported) Discontinued Reason: PCP discontinued med Oxycodone HCl/Acetaminophen (Oxycodone-Acetaminophen 5-325), 1 TAB PO Q4H PRN for PAIN LEVEL 6-10 Discontinued Reason: Pt states not taking Phenazopyridine HCl (Pyridium), 200 MG PO TID Discontinued Reason: PCP discontinued med Tamsulosin Hcl (Tamsulosin HCl), 0.4 MG PO DAILY, (Reported) Discontinued Reason: PCP discontinued med VS, I&O, 24H, Fishbone Vital Signs/I&O Vital Signs Date Time Temp Pulse Resp B/P (MAP) Pulse Ox O2 Delivery O2 Flow Rate FiO2 08/16/21 07:37 98.4 76 18 100 Room Air TAMELA BALLARD MD Aug 16, 2021 08:28
[2021-08-16] MEDS ORDERED: PROMETHAZINE INJ 25 MG/ML VIAL (J2550) ONE (08:46)
[2021-08-16] MEDS ORDERED: HYDROmorphone HCL 2 MG/ML 1ML VIAL ONE (09:02)
[2021-08-16] MEDS ORDERED: LIDOCAINE 1% MDV 20ML VIAL As Ordered ONE (09:17)
[2021-08-16] MEDS ORDERED: fentaNYL 100 MCG/2 ML INJECTION (J3010) As Ordered ONE ×3 (09:20→13:21)
[2021-08-16] MEDS ORDERED: MIDAZOLAM INJ 2MG/2ML VIAL (J2250 PER 1MG) As Ordered ONE (09:20)
[2021-08-16] MEDS ORDERED: LIDOCAINE 2% 100MG/5ML SDV (FOR ANES.) As Ordered ONE (09:22)
[2021-08-16] MEDS ORDERED: ONDANSETRON 4MG/2ML VIAL As Ordered ONE (09:22)
[2021-08-16] MEDS ORDERED: dexameTHASONE 4 MG/ML 1ML VIAL (J1100 PER 1MG) As Ordered ONE (09:22)
[2021-08-16] MEDS ORDERED: SUGAMMADEX SODIUM 500 MG/5 ML VIAL (BRIDION) As Ordered ONE (09:22)
[2021-08-16] MEDS ORDERED: propofoL 200 MG/20 ML VIAL As Ordered ONE (09:23)
[2021-08-16] MEDS ORDERED: ROCURONIUM BROMIDE 50 MG/5 ML VIAL As Ordered ONE ×2 (09:23→12:04)
[2021-08-16] MEDS ORDERED: CONRAY-60 60% 50ML VIAL (Q9961) As Ordered ONE (10:37)
[2021-08-16] MEDS ORDERED: CIPROFLOXACIN/D5W 400 MG/200 ML BAG (J0744) As Ordered ONE (11:43)
[2021-08-16] MEDS ORDERED: ACETAMINOPHEN 1000MG 100ML IV BTL (OFIRMEV) (J0131 PER 10MG) As Ordered ONE (11:46)
--- NOTE | 2021-08-16 13:04 | ROOPDOC ---
[facility] Report Of Operation Report of Operation DATE OF PROCEDURE: 08/16/21 PREPROCEDURE DIAGNOSES: [left renal stones]. POSTPROCEDURE DIAGNOSES: [same]. PROCEDURE PERFORMED: [left pcnl with u/s, fluoroscopy, nephrostogram, urethral catheter placement, nephrostomy tube change, rigid and flex nephroscopy, basket stone extraction]. SURGEON: [Junie Waters, RADIOLOGY DIRECTOR: [facility technician], ANESTHESIA: [General]. ESTIMATED BLOOD LOSS: Approximately [less than 10] mL. COMPLICATIONS: [None]. REMARKS: [36-year-old white female. Left renal stones. Significant stone burden. Options discussed. Percutaneous nephrolithotomy arranged. No guarantees given. Risks were discussed such as infection, bleeding, pain, scar ring, failure of surgery, need for more surgery, injury to the urinary tract, injury to other normal tissues such as lung and bowel, recurrence of stones and many others.]. FINDINGS: SPECIMENS REMOVED: [Stone fragments] PROCEDURE NOTE: . DESCRIPTION OF PROCEDURE: [A nephroureteral catheter was placed by interventional radiology earlier in the day. Left side. I met with the patient before surgery. Surgery again discussed. Questions answered. Informed consent obtained. Patient wished to proceed. Patient was brought to the operating room. General endotracheal anesthesia was secured while patient was on the gurney. A urethral catheter was placed using sterile technique. Patient was then positioned on the OR table in the prone position. Much care was taken. Well-padded. Chest rolls were used. Airway was carefully attended to. Prepping and draping were performed in the usual sterile fashion. As mentioned, a left nephroureteral catheter was in place. Surgery was done under antimicrobial coverage. A timeout was performed. Through the nephroureteral catheter a wire was passed into the bladder as seen using fluoroscopy. Fluoroscopy was used intermittently during the procedure. After the wire was advanced into the bladder the nephroureteral catheter was removed. Using a dual-lumen catheter a second wire was advanced into the bladder as well. A small incision was made where the wires entered to the flank. Stones in the left kidney were obvious using fluoroscopy. Using a balloon dilator a 30 Bel[place]ian sheath was advanced into the kidney as seen using fluoroscopy. At this point there were [address], 1 outside the sheath and 1 within the sheath. Rigid nephroscopy was performed. At first it was difficult to find stone. Flexible nephroscopy was performed using a flexible cystoscope. I was able to locate stone. Once better oriented, rigid nephroscopy was performed again. Stone was fragmented using ultrasound with suction. The ultrasound lithotripter worked well. Every now and then I would swap the rigid nephroscope with the flexible scope. I was able to follow the wires down to the UPJ. Some stones were basketed with a traditional stone basket passed through the flexible scope. As mentioned earlier, fluoroscopy was intermittently used. Ultimately I could find no more stone with the rigid nephroscope and the flexible scope. A few times I injected contrast through the flexible scope and through the sheath to obtain nephrograms. Ultimately I could see no more stone on fluoroscopy. Once satisfied a 20 [place] catheter was advanced into the kidney using the wire within the sheath. This was done under fluoroscopic guidance. Once satisfied the sheath was removed and the new nephrostomy tube was secured to the skin with suture. The wire through the nephrostomy tube was removed whereas I left the other wire in place. I injected contrast through the nephrostomy tube to confirm positioning. I did not place a stent as discussed with the patient preoperatively. She absolutely did not want a stent. Patient tolerated all well and left the room in satisfactory condition. KYLIE WATERS MD Aug 16, 2021 13:04
[2021-08-16] MEDS ORDERED: METOCLOPRAMIDE INJ 10MG/2ML VIAL (J2765 PER 1) IV PRN (13:25)
[2021-08-16] MEDS ORDERED: ONDANSETRON 4MG/2ML VIAL IV PRN (13:25)
[2021-08-16] MEDS ORDERED: LR 1,000 ML IV SCH (13:25)
[2021-08-16] MEDS ORDERED: oxyCODONE 5MG TAB PO PRN (13:25)
[2021-08-16] MEDS: fentaNYL 100 MCG/2 ML INJECTION (J3010) IV PRN ×4 (13:26→13:44)
[2021-08-16] MEDS ORDERED: HYDROMORPHONE HCL 0.5 MG/ 0.5 ML SYRINGE (J1170 PER 1) IV PRN (13:30)
[2021-08-16] MEDS ORDERED: NS 1,000 ML IV SCH (13:30)
[2021-08-16] MEDS: HYDROMORPHONE HCL 0.5 MG/ 0.5 ML SYRINGE (J1170 PER 1) IV PRN ×7 (13:50→23:08)
--- NOTE | 2021-08-16 14:33 | REP ---
INDICATION: LEFT NEPHROLITHOTOMY. COMPARISON: None. TECHNIQUE: Five views. 1 minute 9 seconds of fluoroscopy time is reported. FINDINGS: A sequence of 5 fluoroscopically obtained spot views of the abdomen document left nephrolithotomy procedure. IMPRESSION: Procedural imaging. <Electronically signed by Janes Mcneil > 08/16/21 [id number]
[2021-08-16] MEDS ORDERED: NORCO, ANEXSIA 5/325MG TABLET (HYDROcodone/ACETAMINOPHEN) PO PRN (14:45)
[2021-08-16] MEDS: D5W/0.45% SODIUM CHLORIDE 1,000 ML IV SCH ×2 (17:12→23:15)
[2021-08-16] MEDS: POTASSIUM CITRATE 1080 MG (10MEQ) TAB PO SCH (17:24)
[2021-08-16] MEDS: PERCOCET 5MG/325MG TAB PO PRN ×2 (17:25→21:50)
[2021-08-16] MEDS: ONDANSETRON 4MG/2ML VIAL IV PRN (18:12)
[2021-08-16] MEDS: PHENAZOPYRIDINE 100 MG TAB PO SCH (20:35)
[2021-08-16] MEDS: oxyBUTYnin 5 MG TAB PO SCH (20:35)
[2021-08-16] MEDS: CIPROFLOXACIN 400 MG in IV 1 EA IV SCH (23:15)
[2021-08-17] MEDS: METOCLOPRAMIDE INJ 10MG/2ML VIAL (J2765 PER 1) IV PRN ×2 (01:19→10:57)
[2021-08-17 02:00] VITALS: BP 109/69
[2021-08-17] MEDS: D5W/0.45% SODIUM CHLORIDE 1,000 ML IV SCH ×3 (04:10→20:50)
[2021-08-17 06:00] VITALS: BP 118/80
[2021-08-17] MEDS: HYDROMORPHONE HCL 0.5 MG/ 0.5 ML SYRINGE (J1170 PER 1) IV PRN ×2 (06:22→09:23)
[2021-08-17] MEDS: ONDANSETRON 4MG/2ML VIAL IV PRN (06:29)
--- NOTE | 2021-08-17 07:34 | IPNPDOC ---
Date Seen The patient was seen on 08/17/21. Progress Note pt seen and examined looks comfortable lying in bed urine via nephrostomy and catheter clear avss heart reg chest clear bl catheter removed nephrostomy removed wire removed home today if does ok without nephrostomy tube pt does not have a stent, she does poorly with a stent in place urine without blood this am should do ok VS, I&O, 24H, Fishbone Vital Signs/I&O Vital Signs Date Time Temp Pulse Resp B/P (MAP) Pulse Ox O2 Delivery O2 Flow Rate FiO2 08/17/21 06:32 64 96 Room Air 08/17/21 06:22 95 08/17/21 06:00 97.3 118/80 (93) 08/16/21 13:45 10.0 I&O- Last 24 Hours up to 6 AM 08/17/21 06:00 Intake Total 3560 ml Output Total 4040 ml Balance -480 ml Laboratory Data 24H LABS Laboratory Tests 2 08/16/21 13:14: KYLIE WATERS MD Aug 17, 2021 07:34
[2021-08-17] MEDS: oxyBUTYnin 5 MG TAB PO SCH ×2 (08:28→20:50)
[2021-08-17] MEDS: POTASSIUM CITRATE 1080 MG (10MEQ) TAB PO SCH ×2 (08:28→17:16)
[2021-08-17] MEDS: PHENAZOPYRIDINE 100 MG TAB PO SCH ×2 (08:28→20:50)
[2021-08-17] MEDS: PERCOCET 5MG/325MG TAB PO PRN ×3 (08:29→17:55)
[2021-08-17 08:36] LABS: HEMATOCRIT 37.2 % (36.0-47.0); HEMOGLOBIN 12.5 g/dl (12.0-15.5); MEAN CORPUSCULAR HEMOGLOBIN 30.5 pg (27.0-33.0); MEAN CORPUSCULAR HGB CONC 33.6 g/dl (32.0-36.5); MEAN CORPUSCULAR VOLUME 90.7 fl (80.0-96.0); PLATELET COUNT, AUTOMATED 272 10^3/uL (150-450)
[2021-08-17 09:01] LABS: ALBUMIN 3.4 GM/DL (3.2-5.2); ALT/SGPT 18 U/L (12-78); BILIRUBIN,TOTAL 0.5 MG/DL (0.2-1.0); BLOOD UREA NITROGEN 5 MG/DL (7-18); CALCIUM LEVEL 9.2 MG/DL (8.5-10.1); CARBON DIOXIDE LEVEL 27 MEQ/L (21-32); CHLORIDE LEVEL 106 MEQ/L (98-107); GLOMERULAR FILTRATION RATE > 60.0 (>60); GLUCOSE, FASTING 94 MG/DL (70-100); POTASSIUM SERUM 3.7 MEQ/L (3.5-5.1); SODIUM LEVEL 140 MEQ/L (136-145); TOTAL PROTEIN 6.6 GM/DL (6.4-8.2)
[2021-08-17 10:00] VITALS: BP 124/78
[2021-08-17] MEDS: CIPROFLOXACIN 400 MG in IV 1 EA IV SCH ×2 (11:47→23:55)
[2021-08-17] MEDS: TAMSULOSIN 0.4 MG CAP PO SCH (11:47)
[2021-08-17 14:00] VITALS: BP_SYST 112; BP_SYST 98; BP_DIAS 55; BP_DIAS 64
[2021-08-17 18:00] VITALS: BP 154/123
[2021-08-17 23:47] VITALS: BP 107/76
[2021-08-18] MEDS: HYDROMORPHONE HCL 0.5 MG/ 0.5 ML SYRINGE (J1170 PER 1) IV PRN ×2 (00:54→07:38)
[2021-08-18] MEDS: ONDANSETRON 4MG/2ML VIAL IV PRN (01:03)
[2021-08-18] MEDS: PERCOCET 5MG/325MG TAB PO PRN (04:03)
[2021-08-18 06:00] VITALS: BP 111/77
[2021-08-18] MEDS: PHENAZOPYRIDINE 100 MG TAB PO SCH (07:37)
[2021-08-18] MEDS: POTASSIUM CITRATE 1080 MG (10MEQ) TAB PO SCH (07:37)
[2021-08-18] MEDS: oxyBUTYnin 5 MG TAB PO SCH (07:37)
[2021-08-18] MEDS: TAMSULOSIN 0.4 MG CAP PO SCH (07:37)
[2021-08-18] MEDS: D5W/0.45% SODIUM CHLORIDE 1,000 ML IV SCH (07:38)
[2021-08-18] MEDS: METOCLOPRAMIDE INJ 10MG/2ML VIAL (J2765 PER 1) IV PRN (07:43)
[2021-08-18] MEDS ORDERED: HYDR-3713 PO (07:59)
--- NOTE | 2021-08-18 08:05 | DS.PDOC ---
Discharge Summary General Date of Admission Aug 16, 2021 at 07:34 Date of Discharge 08/18/21 Attending Physician: KYLIE WATERS MD Discharge Summary PROCEDURES PERFORMED DURING STAY: [LEFT PCNL]. ADMITTING DIAGNOSES: 1. [LEFT RENAL STONES]. DISCHARGE DIAGNOSES: 1. [SAME]. COMPLICATIONS/CHIEF COMPLAINT: Nephrolithiasis. LEFT RENAL STONES CAUSING PAIN. HISTORY OF PRESENT ILLNESS: . HOSPITAL COURSE: [PCNL WITHOUT EVENT. POSTOP COURSE WITHOUT EVENT. PT HAS LOW THRESHOLD FOR PAIN.]. DISCHARGE MEDICATIONS: Please see below. ALLERGIES: Please see below. AVSS ALERT APPROPRIATE CHEST CLEAR ABDO SOFT HEART REG LABORATORY DATA: Please see below. IMAGING: PROGNOSIS: ACTIVITY: [NOTHING STRENUOUS FOR 2WK]. DIET: [ BEFORE] DISCHARGE PLAN: DISPOSITION: HOME DISCHARGE INSTRUCTIONS: 1. [NOTHING STRENUOUS 2WK FLUIDS! MIGHT SEE BLOOD IN URINE PAIN MEDICATION NEEDED OFFICE APPT 08/30/21 AT 11:30AM RESUME HOME MEDS NO BLOOD THINNERS SUCH ASPIRIN OR IBUPROFEN FOR 1WK]. ITEMS TO FOLLOWUP ON ON OUTPATIENT: 1. . DISCHARGE CONDITION: [Stable]. TIME SPENT ON DISCHARGE: [30] minutes. Vital Signs/I&Os Vital Signs Date Time Temp Pulse Resp B/P (MAP) Pulse Ox O2 Delivery O2 Flow Rate FiO2 08/18/21 07:52 20 Room Air 08/18/21 06:00 97.8 75 111/77 (88) 94 08/16/21 13:45 10.0 I&O- Last 24 Hours up to 6 AM 08/18/21 06:00 Intake Total 3548 ml Output Total 2175 ml Balance 1373 ml Laboratory Data Labs 24H Laboratory Tests 2 08/17/21 08:05: Nucleated Red Blood Cells % (auto) 0.0, Anion Gap 7L, Glomerular Filtration Rate > 60.0, Calcium Level 9.2, Total Bilirubin 0.5, Aspartate Amino Transf (AST/S GOT) 13, Alanine Aminotransferase (ALT/SGPT) 18, Alkaline Phosphatase 54, Total Protein 6.6, Albumin 3.4, Albumin/Globulin Ratio 1.1L CBC/BMP Laboratory Tests 08/17/21 08:05 Discharge Medications Scheduled Hydrochlorothiazide (Hydrochlorothiazide) 25 Mg Tablet, 25 MG PO DAILY, (Reported) Potassium Citrate (Urocit-K) 10 Meq Tablet.er, 1,080 MG PO BID, (Reported) Scheduled PRN Hydrocodone/Acetaminophen (Hydrocodone-Acetamin 5-325 mg) 1 Each Tablet, 1 TAB PO Q6H PRN for pain Allergies Coded Allergies: Penicillins (Verified Allergy, Intermediate, HIVES, 08/13/21) cefaclor (Verified Allergy, Intermediate, HIVES, 08/13/21) KYLIE WATERS MD Aug 18, 2021 08:05
== END 2021-08-18 11:12 | disposition home or self-care (01) | DRG 443 ==
LOC: M OR 07:34 → M MSPAV 16:03
PROVIDERS: ADMIT Urology; ATTEND Urology
PROC: 0TC03ZZ Extirpation of Matter from Right Kidney, Percutaneous Approach (ICD-10-PCS; principal; 2021-08-16 08:30)
DX: N20.0 Calculus of kidney (principal); Z88.0 Allergy status to penicillin; Z88.8 Allergy status to other drugs, medicaments and biological substances; Z79.899 Other long term (current) drug therapy

== ENCOUNTER → 2021-08-16 | Outpatient (CLI) | payer OTHER ==
[~2021-08-16] MED LIST changes: +CIPROFLOXACIN 400 MG in IV 1 EA IV ONE; +CIPROFLOXACIN 400 MG in IV 1 EA IV SCH; +CIPROFLOXACIN/D5W 400 MG/200 ML BAG (J0744) As Ordered ONE; +D5W/0.45% SODIUM CHLORIDE 1,000 ML IV SCH; +HYDR-3713 PO; +HYDROMORPHONE HCL 0.5 MG/ 0.5 ML SYRINGE (J1170 PER 1) IV ONE; +HYDROMORPHONE HCL 0.5 MG/ 0.5 ML SYRINGE (J1170 PER 1) IV PRN; +HYDROmorphone HCL 2 MG/ML 1ML VIAL As Ordered ONE; -IBUP200T45 PO; +IBUP200T46 PO; +ISOVUE-300 61% 50ML VIAL As Ordered ONE; +LIDOCAINE 1% MDV 20ML VIAL As Ordered ONE; +MIDAZOLAM INJ 2MG/2ML VIAL (J2250 PER 1MG) As Ordered ONE; +NORCO, ANEXSIA 5/325MG TABLET (HYDROcodone/ACETAMINOPHEN) PO PRN; +NS 1,000 ML IV SCH; +ONDANSETRON 4MG/2ML VIAL As Ordered ONE; +ONDANSETRON 4MG/2ML VIAL IV ONE; +PHENAZOPYRIDINE 100 MG TAB PO SCH; +POTASSIUM CITRATE 1080 MG (10MEQ) TAB PO SCH; +PROMETHAZINE INJ 25 MG/ML VIAL (J2550) As Ordered ONE; +UNRESOLVED CLARIFICATION ENTRY XX SCH; +diphenhydrAMINE 50MG/ML VIAL (J1200) As Ordered ONE; +fentaNYL 100 MCG/2 ML INJECTION (J3010) As Ordered ONE; +oxyBUTYnin 5 MG TAB PO SCH
--- NOTE | 2021-08-18 11:39 | IRPON ---
IR Postoperative Note Date Of Procedure: Aug 16, 2021 Time Of Procedure: 16:00 IR Postoperative Note Percutaneous nephroureteral catheter placement using fluoroscopic and ultrasound guidance. Nephrostogram and Ureterogram Ultrasound of the left kidney. Clinical Information:Left kidney stone. Pain and recurrent infections. Needs antegrade PCNL access for lithotripsy. Physician: Dr. Julian. Procedure: The patient was advised of the benefits, risks, and alternatives of the procedure and informed consent was obtained. A time out was performed with verification of the patient's name, MRN, site of procedure, and type of procedure to be performed. The patient was positioned in the prone position on the angiographic table. The site was prepped and draped in the usual sterile fashion. Moderate sedation was performed by the physician including the presence of an independent trained RN who assisted in monitoring the patient's level of consciousness and physiological status. Following the administration of fentanyl and Versed, the physician spent 60 minutes of continuous [id number] time with the patient. A vice president lending radiograph reveals left renal calculus. Ultrasound left kidney demonstrates mild hydronephrosis. The anticipated puncture site on the flank was anesthetized with lidocaine. Using ultrasound and fluoroscopy guidance, the stone was accessed with a 21- gauge Chiba needle, in a shallow craniocaudal direction, through the mid/lower kidney, directed towards the upper pole. A nephrostogram was performed which demonstrates mild hydronephrosis and obstruction of the calyx by the stone. A Nitrex wire was then advanced into the collecting system, under fluoroscopy guidance. The needle was then exchanged for a nonvascular introducer set. A 4 Gambian glide cath was used in conjunction with a Glidewire, under fluoroscopy guidance, to manipulate around the stone, down the ureteropelvic junction, down the ureter and into the bladder. Intermittent injection of contrast confirmed intraureteral location and final position in the bladder. Th e catheter was advanced over the wire down to the bladder. The wire was exchanged under fluoroscopy guidance, for an Amplatz wire and the catheter and sheath were removed over the wire. A 6 [place] Seidmon Catheter was then advanced over the wire, under fluoroscopy guidance, through the renal collecting system, beside the stone, down the ureter and into the bladder. The distal pigtail was formed. A final nephrostogram and ureterogram were performed confirming positioning of the catheter in the renal collecting system, ureter and bladder. No ureteral extravasation. The catheter was sutured in position with 2-0 Prolene and a sterile dressing applied. The patient tolerated the procedure well and was returned to the PRU in stable condition. EBL: < 5 mL. Complications:None. Conclusion: 1. Nephrostogram and Ureterogram demonstratelarge calculus in the left kidney, extending from the upper pole calyx towards the ureteropelvic junction with dilation of the calyx. 2. Successful left-sided antegrade nephroureteral access for PCNL. Patient to follow-up with urology today for PCNL. Thank you for this referral. CC TAMELA Hernandez MD Aug 18, 2021 11:39
== END ==
LOC: M IRPRO 07:30 → M MS5PR 07:31 → UNDOADMOB 07:31
PROVIDERS: ATTEND Radiology Diagnostic Radiology
DX: N20.0 Calculus of kidney (principal)

== ENCOUNTER 2021-08-18 12:41 | Emergency (ER) | payer OTHER ==
[~2021-08-18] VITALS: Ht 162.6 cm; Wt 72.7 kg
[~2021-08-18 12:41] MED LIST changes: +HYDR-3713 PO; +IBUP200T45 PO; -IBUP200T46 PO
[2021-08-18] MEDS ORDERED: NS 1,000 ML IV ONE (14:25)
[2021-08-18] MEDS ORDERED: ONDANSETRON 4MG/2ML VIAL IV ONE (14:30)
[2021-08-18] MEDS ORDERED: KETOROLAC 30 MG/ML 1ML VIAL IV ONE (14:45)
[2021-08-18 15:13] LABS: BASO # 0.1 10^3/uL (0.0-0.2); BASO % 0.6 % (0.0-1.0); EOS # 0.1 10^3/uL (0.0-0.5); EOS % 0.6 % (0.0-3.0); HEMATOCRIT 39.7 % (36.0-47.0); HEMOGLOBIN 13.1 g/dl (12.0-15.5); LYMPH # 1.5 10^3/uL (1.5-5.0); LYMPH % 12.3 % (24.0-44.0); MEAN CORPUSCULAR HEMOGLOBIN 30.3 pg (27.0-33.0); MEAN CORPUSCULAR VOLUME 91.7 fl (80.0-96.0); MONO % 7.8 % (2.0-8.0); NEUTROPHILS # 9.8 10^3/uL (1.5-8.5); NEUTROPHILS % 78.1 % (36.0-66.0); PLATELET COUNT, AUTOMATED 307 10^3/uL (150-450); RED BLOOD COUNT 4.33 10^6/uL (4.00-5.40); WHITE BLOOD COUNT 12.5 10^3/uL (4.0-10.0)
--- NOTE | 2021-08-18 15:28 | REP ---
INDICATION: left flank pain, recent pcnl, h/o kidney stones. COMPARISON: Comparison CT study June 04, 2021. TECHNIQUE: Urinary tract sonography. FINDINGS: Scanning at the level of the urinary bladder shows no abnormality. Renal cortical echogenicity pattern is normal bilaterally and contours are smooth. There is no evidence of hydronephrosis, cyst, mass, or calculus in either kidney. The right kidney measures 10.9 x 3.7 x 3.6 cm. Left renal dimensions are 11.0 x 4.6 x 5.5 cm. IMPRESSION: Normal urinary tract sonography. No hydronephrosis seen. <Electronically signed by Janes Mcneil > 08/18/21 [id number]
[2021-08-18 16:10] LABS: ALBUMIN 4.3 GM/DL (3.2-5.2); BILIRUBIN,DIRECT 0.1 MG/DL (0.0-0.2); BILIRUBIN,TOTAL 0.4 MG/DL (0.2-1.0); TOTAL PROTEIN 7.8 GM/DL (6.4-8.2)
[2021-08-18 17:21] VITALS: BP 129/78
== END 2021-08-18 17:33 | disposition home or self-care (01) ==
LOC: M ED 12:41
DX: G89.18 Other acute postprocedural pain (principal); R10.9 Unspecified abdominal pain; R11.2 Nausea with vomiting, unspecified; Z87.442 Personal history of urinary calculi; F41.9 Anxiety disorder, unspecified; Z88.0 Allergy status to penicillin; Z79.899 Other long term (current) drug therapy
CPT/HCPCS: 36415; 76775; 80047; 80076; 81001; 83690; 84702; 85025; 87086; 96361; 96374; 96375; 99284; J1885; J2405

== ENCOUNTER 2021-08-20 07:26 | Emergency (ER) | payer OTHER ==
[~2021-08-20] VITALS: Ht 162.6 cm; Wt 72.2 kg
[2021-08-20] MEDS ORDERED: ONDANSETRON 4MG/2ML VIAL IV ONE (08:00)
[2021-08-20] MEDS ORDERED: NS 1,000 ML IV ONE (08:00)
[2021-08-20] MEDS ORDERED: MORPHINE 4 MG/ML 1ML VIAL/SYRINGE (J2270) IV ONE (08:00)
[2021-08-20] MEDS ORDERED: KETOROLAC 30 MG/ML 1ML VIAL IV ONE (08:00)
[2021-08-20 08:19] LABS: BASO # 0.1 10^3/uL (0.0-0.2); BASO % 0.6 % (0.0-1.0); EOS # 0.2 10^3/uL (0.0-0.5); HEMATOCRIT 39.4 % (36.0-47.0); HEMOGLOBIN 13.5 g/dl (12.0-15.5); LYMPH # 1.4 10^3/uL (1.5-5.0); LYMPH % 16.4 % (24.0-44.0); MEAN CORPUSCULAR HEMOGLOBIN 31.1 pg (27.0-33.0); MEAN CORPUSCULAR HGB CONC 34.3 g/dl (32.0-36.5); MEAN CORPUSCULAR VOLUME 90.8 fl (80.0-96.0); MONO # 0.6 10^3/uL (0.0-0.8); MONO % 7.7 % (2.0-8.0); NEUTROPHILS # 6.1 10^3/uL (1.5-8.5); NEUTROPHILS % 72.9 % (36.0-66.0); PLATELET COUNT, AUTOMATED 298 10^3/uL (150-450); RED BLOOD COUNT 4.34 10^6/uL (4.00-5.40); WHITE BLOOD COUNT 8.4 10^3/uL (4.0-10.0)
[2021-08-20 08:51] LABS: BILIRUBIN,DIRECT 0.2 MG/DL (0.0-0.2); BILIRUBIN,TOTAL 0.7 MG/DL (0.2-1.0); TOTAL PROTEIN 7.8 GM/DL (6.4-8.2)
--- NOTE | 2021-08-20 09:03 | REP ---
INDICATION: left flank pain, stones, recent nephrostomy removal COMPARISON: 06/04/2021 TECHNIQUE: Axial noncontrast images from the lung bases to the pubic symphysis with coronal and sagittal reformations. This CT examination was performed using the following dose reduction techniques: Automated exposure control, adjustment of mA and/or kv according to the patient's size, and use of iterative reconstruction technique. FINDINGS: New acute left basilar atelectasis and minimal amount of pleural reaction noted. Current examination now demonstrates edematous enlargement to the left kidney with significant perinephric and periureteral stranding as well as a small/moderate amount of perinephric fluid including high density fluid suggesting elements of hemorrhage. Few nonobstructing left renal calculi are identified along with mild to moderate hydronephrosis without significant hydroureter or obstructing ureteral calculus. The previously identified larger left renal stones are no longer evident and the above findings may represent sequelae of recent procedure. The right kidney demonstrates very small nonobstructing calculi and the previously noted right ureteral stent and larger right ureteral stones have been removed. There is no right sided inflammatory stranding or hydroureteronephrosis. Liver, spleen, pancreas, gallbladder, bilateral adrenal glands are normal. The enteric system is unremarkable and without obstruction or acute inflammatory process. Normal terminal ileum and appendix identified in the right lower quadrant. Pelvis demonstrates normal bladder and age-appropriate uterus/adnexa. No free air. No significant ascites. No adenopathy. No focal inflammatory stranding. Abdominal aorta without aneurysm. Musculoskeletal structures are intact and without acute osseous abnormality. IMPRESSION: 1. Significant acute findings related to the left kidney including perinephric stranding and small amounts of perinephric hemorrhage require correlation with possible prior recent procedure. No drainable collection or significant focal abscess/hematoma yet identified. Few nonobstructing residual left renal calculi noted. 2. Left basilar atelectasis. <Electronically signed by Сергей Gilbert > 08/20/21 [id number]
[2021-08-20] MEDS ORDERED: DERMABOND TOPICAL SKIN ADHESIVE TOP ONE (10:10)
[2021-08-20] MEDS ORDERED: PERC5TAB12 PO (10:11)
[2021-08-20 10:31] VITALS: BP 132/80
[2021-08-20] MEDS ORDERED: ONDA4TAB6 PO (10:31)
== END 2021-08-20 10:43 | disposition home or self-care (01) ==
LOC: M ED 07:26
DX: R10.9 Unspecified abdominal pain (principal); G89.18 Other acute postprocedural pain; R11.2 Nausea with vomiting, unspecified; B18.2 Chronic viral hepatitis C; Z79.899 Other long term (current) drug therapy; Z88.0 Allergy status to penicillin; Z88.1 Allergy status to other antibiotic agents; Z87.442 Personal history of urinary calculi
CPT/HCPCS: 74176; 80047; 80076; 81001; 83690; 84702; 85025; 96361; 96374; 96375; 99284; J1885; J2270; J2405

== ENCOUNTER 2022-01-07 21:16 | Day surgery (SDC) | payer OTHER ==
[~2022-01-07] VITALS: Ht 162.6 cm; Wt 72.1 kg
[~2022-01-07 21:16] MED LIST changes: -IBUP200T45 PO; +IBUP200T46 PO; -LEVO500T3 PO; +LEVO500T4 PO
[2022-01-07] MEDS ORDERED: MORPHINE 4 MG/ML 1ML VIAL/SYRINGE (J2270) IV ONE (21:40)
[2022-01-07] MEDS ORDERED: NS 1,000 ML IV ONE (21:40)
[2022-01-07 22:13] LABS: BASO # 0.1 10^3/uL (0.0-0.2); BASO % 0.6 % (0.0-1.0); EOS # 0.2 10^3/uL (0.0-0.5); EOS % 1.3 % (0.0-3.0); HEMATOCRIT 38.4 % (36.0-47.0); LYMPH # 1.9 10^3/uL (1.5-5.0); LYMPH % 14.7 % (24.0-44.0); MEAN CORPUSCULAR HGB CONC 33.9 g/dl (32.0-36.5); MEAN CORPUSCULAR VOLUME 88.5 fl (80.0-96.0); MONO # 0.9 10^3/uL (0.0-0.8); MONO % 7.5 % (2.0-8.0); NEUTROPHILS # 9.5 10^3/uL (1.5-8.5); NEUTROPHILS % 75.5 % (36.0-66.0); PLATELET COUNT, AUTOMATED 213 10^3/uL (150-450); RED BLOOD COUNT 4.34 10^6/uL (4.00-5.40); WHITE BLOOD COUNT 12.6 10^3/uL (4.0-10.0)
[2022-01-07 23:04] LABS: ALBUMIN 3.7 GM/DL (3.2-5.2); ALT/SGPT 15 U/L (12-78); BILIRUBIN,DIRECT 0.1 MG/DL (0.0-0.2); BILIRUBIN,TOTAL 0.2 MG/DL (0.2-1.0); LIPASE 333 U/L (73-393); TOTAL PROTEIN 6.6 GM/DL (6.4-8.2)
[2022-01-07 23:27] LABS: HCG, SERUM QUALITATIVE NEGATIVE (NEGATIVE)
[2022-01-07] MEDS ORDERED: KETOROLAC 30 MG/ML 1ML VIAL IV ONE (23:35)
[2022-01-08] MEDS ORDERED: CIPROFLOXACIN 400 MG in IV 1 EA IV ONE (00:45)
[2022-01-08] MEDS ORDERED: HOME MED LIST COMPLETE! XX SCH (00:50)
[2022-01-08] MEDS: D5W/0.45% SODIUM CHLORIDE 1,000 ML IV SCH ×2 (02:00→04:28)
[2022-01-08 02:07] LABS: RSV AMPLIFICATION NEGATIVE (NEGATIVE)
[2022-01-08] MEDS ORDERED: MORPHINE 4 MG/ML 1ML VIAL/SYRINGE (J2270) IV PRN (02:20)
[2022-01-08 04:18] VITALS: BP 123/85
[2022-01-08] MEDS ORDERED: CONRAY-60 60% 50ML VIAL (Q9961) As Ordered ONE (08:25)
[2022-01-08] MEDS ORDERED: CIPROFLOXACIN/D5W 400 MG/200 ML BAG (J0744) As Ordered ONE (09:09)
[2022-01-08] MEDS ORDERED: ONDANSETRON 4MG/2ML VIAL As Ordered ONE (09:28)
[2022-01-08] MEDS ORDERED: propofoL 200 MG/20 ML VIAL As Ordered ONE (09:28)
[2022-01-08] MEDS ORDERED: fentaNYL 100 MCG/2 ML INJECTION As Ordered ONE ×2 (09:28→10:33)
[2022-01-08] MEDS ORDERED: LIDOCAINE 2% 100MG/5ML SDV (FOR ANES.) As Ordered ONE (09:28)
[2022-01-08] MEDS ORDERED: dexameTHASONE 4 MG/ML 1ML VIAL (J1100 PER 1MG) As Ordered ONE (09:28)
[2022-01-08] MEDS ORDERED: MIDAZOLAM INJ 2MG/2ML VIAL (J2250 PER 1MG) As Ordered ONE (09:28)
[2022-01-08] MEDS ORDERED: ACETAMINOPHEN 1000MG 100ML IV BTL (OFIRMEV) (J0131 PER 10MG) As Ordered ONE (09:31)
[2022-01-08] MEDS ORDERED: ePHEDrine SULFATE 25 MG/5 ML(5MG/ML) SYRINGE As Ordered ONE (09:40)
[2022-01-08] MEDS ORDERED: KETOROLAC 60MG 2ML VIAL As Ordered ONE (10:03)
[2022-01-08] MEDS ORDERED: LR 1,000 ML IV SCH (10:45)
[2022-01-08] MEDS ORDERED: oxyCODONE 5MG TAB PO PRN (10:45)
[2022-01-08] MEDS ORDERED: fentaNYL 100 MCG/2 ML INJECTION IV PRN (10:45)
[2022-01-08] MEDS ORDERED: ONDANSETRON 4MG/2ML VIAL IV PRN (10:45)
[2022-01-08] MEDS ORDERED: METOCLOPRAMIDE INJ 10MG/2ML VIAL (J2765 PER 1) IV PRN (10:45)
[2022-01-08] MEDS ORDERED: PHENAZOPYRIDINE 100 MG TAB PO ONE (11:00)
[2022-01-08] MEDS ORDERED: BELLADONNA 16.2mg/OPIUM 60mg 1 EA SUPP PR ONE (11:00)
[2022-01-08 11:30] VITALS: BP 134/87
[2022-01-08 12:00] VITALS: BP 110/68
[2022-01-08] MEDS ORDERED: CIPROFLOXACIN 400 MG in IV 1 EA IV SCH (12:00)
[2022-01-09] MEDS ORDERED: BACTDSTA (06:18)
[2022-01-09] MEDS ORDERED: KETO10TAB PO (09:21)
[2022-01-12] MEDS ORDERED: ACYC1TAB (05:58)
[2022-01-14 12:08] LABS: CA Hydro Phos 80 % (.); CA Oxalate Dihy 20 % (.); Size 5x5 mm (.)
== END 2022-01-08 13:10 | disposition home or self-care (01) ==
LOC: M ED 21:16 → M SDC 01-08 01:41 → M MS5PR 01-08 04:05 → M SDC 01-08 13:10
PROVIDERS: ATTEND Specialist
DX: N13.2 Hydronephrosis with renal and ureteral calculous obstruction (principal); F41.9 Anxiety disorder, unspecified; Z87.891 Personal history of nicotine dependence; B00.9 Herpesviral infection, unspecified; Z88.0 Allergy status to penicillin; Z88.1 Allergy status to other antibiotic agents
CPT/HCPCS: 52356; 74420; 80047; 80076; 81001; 83690; 84703; 85025; 87086; 87631; 88300; 96361; 96365; 96375; 99284; C1769; C1894; C2617; J0131; J0744; J1100; J1885; J2250; J2270; J2405; J3010; Q9961

== ENCOUNTER 2022-01-09 06:06 | Emergency (ER) | payer OTHER ==
[~2022-01-09] VITALS: Ht 162.6 cm; Wt 72.2 kg
[2022-01-09] MEDS ORDERED: BACTDSTA (06:18)
[2022-01-09] MEDS ORDERED: ONDANSETRON 4MG/2ML VIAL IV ONE (06:40)
[2022-01-09] MEDS ORDERED: MORPHINE 4 MG/ML 1ML VIAL/SYRINGE (J2270) IV ONE (06:40)
[2022-01-09 07:08] LABS: BASO # 0.1 10^3/uL (0.0-0.2); BASO % 0.6 % (0.0-1.0); EOS # 0.1 10^3/uL (0.0-0.5); EOS % 0.7 % (0.0-3.0); HEMATOCRIT 40.1 % (36.0-47.0); HEMOGLOBIN 13.5 g/dl (12.0-15.5); LYMPH # 2.2 10^3/uL (1.5-5.0); LYMPH % 26.2 % (24.0-44.0); MEAN CORPUSCULAR HEMOGLOBIN 30.4 pg (27.0-33.0); MEAN CORPUSCULAR HGB CONC 33.7 g/dl (32.0-36.5); MEAN CORPUSCULAR VOLUME 90.3 fl (80.0-96.0); MONO # 0.9 10^3/uL (0.0-0.8); MONO % 10.4 % (2.0-8.0); NEUTROPHILS # 5.2 10^3/uL (1.5-8.5); NEUTROPHILS % 61.9 % (36.0-66.0); PLATELET COUNT, AUTOMATED 224 10^3/uL (150-450); RED BLOOD COUNT 4.44 10^6/uL (4.00-5.40); WHITE BLOOD COUNT 8.3 10^3/uL (4.0-10.0)
[2022-01-09] MEDS ORDERED: KETOROLAC 30 MG/ML 1ML VIAL IV ONE (07:20)
[2022-01-09] MEDS ORDERED: KETO10TAB PO (09:21)
[2022-01-09 09:46] VITALS: BP 136/82
[2022-01-12] MEDS ORDERED: ACYC1TAB (05:58)
== END 2022-01-09 09:51 | disposition home or self-care (01) ==
LOC: M ED 06:06
DX: T83.122A Displacement of indwelling ureteral stent, initial encounter (principal); N13.2 Hydronephrosis with renal and ureteral calculous obstruction; R10.32 Left lower quadrant pain; B18.2 Chronic viral hepatitis C; Z87.442 Personal history of urinary calculi; Z88.1 Allergy status to other antibiotic agents; Z88.0 Allergy status to penicillin; Z86.59 Personal history of other mental and behavioral disorders; Z79.899 Other long term (current) drug therapy
CPT/HCPCS: 76775; 80047; 85025; 96374; 96375; 99284; J1885; J2270; J2405

== ENCOUNTER → 2022-01-25 | Outpatient (CLI) | payer OTHER ==
[~2022-01-25] MED LIST changes: +ACYC1TAB; +BACTDSTA
[2022-01-25 09:47] LABS: BLOOD UREA NITROGEN 14 MG/DL (7-18); CALCIUM LEVEL 9.6 MG/DL (8.5-10.1); CARBON DIOXIDE LEVEL 31 MEQ/L (21-32); CHLORIDE LEVEL 105 MEQ/L (98-107); CREATININE FOR GFR 0.91 MG/DL (0.55-1.30); GLOMERULAR FILTRATION RATE > 60.0 (>60); GLUCOSE, FASTING 95 MG/DL (70-100); PHOSPHORUS LEVEL 3.1 MG/DL (2.5-4.9); POTASSIUM SERUM 4.1 MEQ/L (3.5-5.1); SODIUM LEVEL 140 MEQ/L (136-145); URIC ACID 3.7 MG/DL (2.6-6.0)
[2022-01-25 12:29] LABS: PTH INTACT 69.4 PG/ML (18.5-88.0)
== END ==
LOC: M LAB 08:44
PROVIDERS: ATTEND Nurse Practitioner Women's Health
DX: N20.0 Calculus of kidney (principal)

== ENCOUNTER → 2022-02-07 | Outpatient (REF) | payer OTHER ==
[2022-02-07 17:37] LABS: APPEARANCE, URINE HAZY (CLEAR); BACTERIA, URINE AUTO NEGATIVE (NEGATIVE); BILIRUBIN, URINE AUTO NEGATIVE (NEGATIVE); BLOOD, URINE BLOOD 1+ (NEGATIVE); CALCIUM OXALATE CRYSTALS MODERATE; COLOR, URINE YELLOW (YELLOW); GLUCOSE, URINE (UA) AUTO NEGATIVE (NEGATIVE); KETONE, URINE AUTO NEGATIVE (NEGATIVE); LEUKOCYTE ESTERASE, URINE AUTO NEGATIVE (NEGATIVE); MUCUS, URINE SMALL (NEGATIVE); NITRITE, URINE AUTO NEGATIVE (NEGATIVE); PROTEIN, URINE AUTO NEGATIVE (NEGATIVE); RBC, URINE AUTO 3 /HPF (0-3); SPECIFIC GRAVITY URINE AUTO 1.015 (1.002-1.035); SQUAMOUS EPITHELIAL CELL UR AU 0 /HPF (0-6); UROBILINOGEN, URINE AUTO 0.2 mg/dL (0.0-2.0); WBC, URINE AUTO 3 /HPF (0-3)
== END ==
LOC: M SMT 16:38
PROVIDERS: ATTEND Nurse Practitioner Women's Health
DX: R30.0 Dysuria (principal)

== ENCOUNTER 2022-05-05 23:15 | Emergency (ER) | payer OTHER ==
[~2022-05-05] VITALS: Ht 162.6 cm; Wt 70.7 kg
[2022-05-06] MEDS ORDERED: ISOVUE-370 76% 100ML VIAL As Ordered ONE (00:22)
[2022-05-06 00:31] LABS: INR 0.84; PROTHROMBIN TIME 11.9 SECONDS (12.7-14.5)
[2022-05-06 00:32] LABS: PARTIAL THROMBOPLASTIN TIME 28.1 SECONDS (25.9-37.0)
[2022-05-06 00:34] LABS: D-DIMER QUANT 328.56 ng/ml (<500)
[2022-05-06 00:55] LABS: ERYTHROCYTE SEDIMENTATION RATE 5 mm/hr (0-20)
[2022-05-06 01:25] LABS: BASO # 0.1 10^3/uL (0.0-0.2); BASO % 0.7 % (0.0-1.0); EOS # 0.1 10^3/uL (0.0-0.5); EOS % 1.4 % (0.0-3.0); HEMOGLOBIN 14.3 g/dl (12.0-15.5); LYMPH % 28.6 % (24.0-44.0); MEAN CORPUSCULAR VOLUME 91.1 fl (80.0-96.0); MONO # 0.7 10^3/uL (0.0-0.8); MONO % 9.3 % (2.0-8.0); NEUTROPHILS # 4.2 10^3/uL (1.5-8.5); NEUTROPHILS % 59.6 % (36.0-66.0); PLATELET COUNT, AUTOMATED 256 10^3/uL (150-450); RED BLOOD COUNT 4.61 10^6/uL (4.00-5.40); WHITE BLOOD COUNT 7.1 10^3/uL (4.0-10.0)
[2022-05-06 01:32] LABS: ALBUMIN 3.9 GM/DL (3.2-5.2); ALT/SGPT 13 U/L (12-78); BILIRUBIN,DIRECT 0.1 MG/DL (0.0-0.2); BILIRUBIN,TOTAL 0.3 MG/DL (0.2-1.0); C REACTIVE PROTEIN QUANTITATIV < 0.30 MG/DL (0.00-0.30); LIPASE 152 U/L (73-393); TOTAL PROTEIN 7.2 GM/DL (6.4-8.2)
[2022-05-06 03:34] VITALS: BP 121/61
== END 2022-05-06 03:39 | disposition home or self-care (01) ==
LOC: M ED 23:15
DX: R04.2 Hemoptysis (principal); F17.200 Nicotine dependence, unspecified, uncomplicated; F10.10 Alcohol abuse, uncomplicated; Z87.442 Personal history of urinary calculi; Z88.0 Allergy status to penicillin; Z88.1 Allergy status to other antibiotic agents
CPT/HCPCS: 71260; 74177; 80047; 80076; 83690; 84702; 85025; 85379; 85610; 85652; 85730; 86140; 99283; Q9967

== ENCOUNTER 2022-05-17 10:25 | Emergency (ER) | payer OTHER ==
[~2022-05-17] VITALS: Ht 162.6 cm; Wt 69.8 kg
[2022-05-17 10:26] VITALS: BP 136/90
== END 2022-05-17 10:57 | disposition left against medical advice (07) ==
LOC: M ED 10:25
DX: Z53.21 Procedure and treatment not carried out due to patient leaving prior to being seen by health care provider (principal)

== ENCOUNTER → 2022-05-19 | Outpatient (CLI) | payer OTHER | LOC: M WUC 09:07 | PROVIDERS: ATTEND Physician Assistant | DX: M25.532 Pain in left wrist (principal); W55.01XA Bitten by cat, initial encounter ==

== ENCOUNTER 2022-11-10 22:57 | Emergency (ER) | payer OTHER ==
[~2022-11-10] VITALS: Ht 162.6 cm; Wt 77.6 kg
[~2022-11-10 22:57] MED LIST changes: +LEVO1TAB39 PO; +LEVO1TAB40 PO; -LEVO500T4 PO; -LEVO750T13 PO
[2022-11-10 23:39] LABS: BASO # 0.1 10^3/uL (0.0-0.2); BASO % 0.9 % (0.0-1.0); EOS # 0.2 10^3/uL (0.0-0.5); EOS % 2.5 % (0.0-3.0); HEMATOCRIT 38.5 % (36.0-47.0); HEMOGLOBIN 12.8 g/dl (12.0-15.5); LYMPH # 2.2 10^3/uL (1.5-5.0); LYMPH % 27.3 % (24.0-44.0); MEAN CORPUSCULAR HEMOGLOBIN 30.8 pg (27.0-33.0); MEAN CORPUSCULAR HGB CONC 33.2 g/dl (32.0-36.5); MEAN CORPUSCULAR VOLUME 92.5 fl (80.0-96.0); MONO # 0.8 10^3/uL (0.0-0.8); MONO % 9.5 % (2.0-8.0); NEUTROPHILS # 4.8 10^3/uL (1.5-8.5); NEUTROPHILS % 59.6 % (36.0-66.0); PLATELET COUNT, AUTOMATED 254 10^3/uL (150-450); RED BLOOD COUNT 4.16 10^6/uL (4.00-5.40); WHITE BLOOD COUNT 8.1 10^3/uL (4.0-10.0)
[2022-11-10 23:59] LABS: BLOOD UREA NITROGEN 18 MG/DL (9-23); CALCIUM LEVEL 8.8 MG/DL (8.5-10.1); CARBON DIOXIDE LEVEL 24 MMOL/L (20-31); CHLORIDE LEVEL 103 MMOL/L (98-107); CREATININE FOR GFR 0.89 MG/DL (0.55-1.30); GLOMERULAR FILTRATION RATE > 60.0 (>60); GLUCOSE, FASTING 91 MG/DL (60-100); SODIUM LEVEL 138 MMOL/L (136-145)
[2022-11-11 01:48] LABS: HCG, SERUM QUALITATIVE NEGATIVE (NEGATIVE)
[2022-11-11] MEDS ORDERED: KETOROLAC 30 MG/ML 1ML VIAL IV ONE (03:40)
[2022-11-11] MEDS ORDERED: NS 1,000 ML IV ONE (03:55)
[2022-11-11] MEDS ORDERED: KETO10TAB PO (05:09)
[2022-11-11] MEDS ORDERED: FLOM0.4C39 PO (05:09)
[2022-11-11] MEDS ORDERED: TAMSULOSIN 0.4 MG CAP PO ONE (05:10)
[2022-11-11 05:43] VITALS: BP 121/76
== END 2022-11-11 05:47 | disposition home or self-care (01) ==
LOC: M ED 22:57
DX: N20.1 Calculus of ureter (principal); F12.10 Cannabis abuse, uncomplicated; F10.10 Alcohol abuse, uncomplicated; Z87.442 Personal history of urinary calculi; Z88.0 Allergy status to penicillin; Z88.1 Allergy status to other antibiotic agents; Z79.899 Other long term (current) drug therapy
CPT/HCPCS: 74176; 80048; 81000; 81015; 84703; 85025; 87086; 96361; 96374; 99284; J1885

== ENCOUNTER → 2022-12-27 | Outpatient (REF) | payer OTHER ==
[~2022-12-27] MED LIST changes: +NYST-38 PO; -NYST50SS PO
== END ==
LOC: M SMT 17:05
PROVIDERS: ATTEND Urology
DX: N20.1 Calculus of ureter (principal)

== ENCOUNTER 2023-01-16 06:20 | Day surgery (SDC) | payer OTHER ==
[~2023-01-16] VITALS: Ht 162.6 cm; Wt 72.6 kg
[2023-01-16] MEDS ORDERED: LevoFLOXacin IV 500 MG in IV 1 EA IV ONE (06:50)
[2023-01-16] MEDS ORDERED: LR 1,000 ML IV SCH ×2 (07:10→08:55)
[2023-01-16] MEDS ORDERED: ACETAMINOPHEN 1000MG 100ML IV BAG As Ordered ONE (07:15)
[2023-01-16] MEDS ORDERED: MIDAZOLAM INJ 2MG/2ML VIAL As Ordered ONE (07:15)
[2023-01-16] MEDS ORDERED: fentaNYL 100 MCG/2 ML INJECTION As Ordered ONE (07:15)
[2023-01-16] MEDS ORDERED: ONDANSETRON 4MG 2ML VIAL As Ordered ONE (07:15)
[2023-01-16] MEDS ORDERED: propofoL 200 MG/20 ML VIAL As Ordered ONE (07:16)
[2023-01-16] MEDS ORDERED: LIDOCAINE 2% 100MG/5ML SDV (FOR ANES.) As Ordered ONE (07:16)
[2023-01-16] MEDS ORDERED: ISOVUE-300 61% 100ML VIAL As Ordered ONE (07:18)
[2023-01-16] MEDS ORDERED: METOCLOPRAMIDE INJ 10MG/2ML VIAL IV PRN (08:55)
[2023-01-16] MEDS ORDERED: ONDANSETRON 4MG 2ML VIAL IV PRN (08:55)
[2023-01-16] MEDS ORDERED: KETOROLAC 30 MG/ML 1ML VIAL IV ONE (09:00)
[2023-01-16] MEDS: oxyCODONE 5MG TAB PO PRN ×2 (09:10→09:41)
[2023-01-16] MEDS ORDERED: OXYC1TAB23 PO (09:15)
[2023-01-16] MEDS ORDERED: OXYB10TA23 PO (09:15)
[2023-01-16] MEDS: fentaNYL 100 MCG/2 ML INJECTION IV PRN ×4 (09:39→09:59)
[2023-01-16] MEDS ORDERED: PERCOCET 5MG/325MG TAB PO PRN (09:45)
[2023-01-16] MEDS ORDERED: MORPHINE 2 MG/ML 1ML VIAL IV PRN (09:50)
[2023-01-16] MEDS ORDERED: LABETALOL 100MG/20ML VIAL IV PRN (09:50)
[2023-01-16] MEDS ORDERED: hydrALAZINE 20MG/ML 1ML VIAL IV PRN (09:50)
[2023-01-16 09:58] VITALS: BP 193/74
[2023-01-16 10:30] VITALS: BP 141/88
[2023-01-19 13:08] LABS: CA Hydro Phos 80 % (.); CA Oxalate Dihy 20 % (.); Size 5x4 mm (.)
== END 2023-01-16 10:35 | disposition home or self-care (01) ==
LOC: M SDC 06:20
PROVIDERS: ATTEND Urology
DX: N20.1 Calculus of ureter (principal); B18.2 Chronic viral hepatitis C; K21.9 Gastro-esophageal reflux disease without esophagitis; F12.10 Cannabis abuse, uncomplicated; Z88.0 Allergy status to penicillin
CPT/HCPCS: 52356; 74420; 81025; 82365; C1769; C2617; J1100; J1956; J2250; J2405; J3010; Q9967

== ENCOUNTER → 2023-03-09 | Outpatient (CLI) | payer OTHER ==
[~2023-03-09] MED LIST changes: +OXYB10TA23 PO
[2023-03-09 06:25] LABS: PLATELET COUNT, AUTOMATED 262 10^3/uL (150-450)
[2023-03-09 06:47] LABS: INR 0.91; PROTHROMBIN TIME 12.5 SECONDS (12.5-14.5)
[2023-03-09 06:48] LABS: PARTIAL THROMBOPLASTIN TIME 30.1 SECONDS (24.8-34.2)
== END ==
LOC: M LAB 06:02
PROVIDERS: ATTEND Internal Medicine Pulmonary Disease
DX: Z01.812 Encounter for preprocedural laboratory examination (principal)

== ENCOUNTER 2023-03-15 09:07 | Day surgery (SDC) | payer OTHER ==
[~2023-03-15] VITALS: Ht 162.6 cm; Wt 74.8 kg
[2023-03-15] MEDS ORDERED: SUGAMMADEX SODIUM 500 MG/5 ML VIAL (BRIDION) As Ordered ONE (10:06)
[2023-03-15] MEDS ORDERED: propofoL 200 MG/20 ML VIAL As Ordered ONE ×2 (10:06→10:07)
[2023-03-15] MEDS ORDERED: LIDOCAINE 2% 100MG/5ML SDV (FOR ANES.) As Ordered ONE (10:06)
[2023-03-15] MEDS ORDERED: ROCURONIUM BROMIDE 50MG/5ML VIAL As Ordered ONE (10:06)
[2023-03-15] MEDS ORDERED: ONDANSETRON 4MG 2ML VIAL As Ordered ONE (10:06)
[2023-03-15] MEDS ORDERED: fentaNYL 100 MCG/2 ML INJECTION As Ordered ONE (10:11)
[2023-03-15] MEDS ORDERED: MIDAZOLAM INJ 2MG/2ML VIAL As Ordered ONE (10:11)
[2023-03-15] MEDS ORDERED: CETACAINE SPRAY 5GM As Ordered ONE (10:14)
[2023-03-15] MEDS ORDERED: LR 1,000 ML IV SCH ×2 (10:20→11:30)
[2023-03-15] MEDS ORDERED: ACETAMINOPHEN 1000MG 100ML IV BAG As Ordered ONE (11:14)
[2023-03-15] MEDS ORDERED: HYDROMORPHONE HCL 0.5 MG/ 0.5 ML SYRINGE IV PRN (11:30)
[2023-03-15] MEDS ORDERED: ONDANSETRON 4MG 2ML VIAL IV PRN (11:30)
[2023-03-15] MEDS ORDERED: fentaNYL 100 MCG/2 ML INJECTION IV PRN (11:30)
[2023-03-15] MEDS ORDERED: oxyCODONE 5MG TAB PO PRN (11:30)
[2023-03-15] MEDS ORDERED: LEVALBUTEROL 1.25MG 0.5ML CONCENTRATE NEB NEB ONE (11:40)
[2023-03-15 12:41] VITALS: BP 123/78
== END 2023-03-15 12:50 | disposition home or self-care (01) ==
LOC: M SDC 09:07
PROVIDERS: ATTEND Internal Medicine Pulmonary Disease
DX: R04.2 Hemoptysis (principal); B18.2 Chronic viral hepatitis C; K21.9 Gastro-esophageal reflux disease without esophagitis; F12.10 Cannabis abuse, uncomplicated; R51.9 Headache, unspecified; Z88.0 Allergy status to penicillin
CPT/HCPCS: 31622; 81025; J0131; J1100; J2250; J2405; J3010

== ENCOUNTER 2023-08-04 15:08 | Inpatient (IN) | payer OTHER ==
[~2023-08-04] VITALS: Ht 162.6 cm; Wt 70.4 kg
[2023-08-04] MEDS ORDERED: ONDANSETRON 4MG 2ML VIAL IV ONE (16:55)
[2023-08-04] MEDS ORDERED: KETOROLAC 30 MG/ML 1ML VIAL IV ONE (16:55)
[2023-08-04] MEDS ORDERED: NS 1,000 ML IV ONE (16:55)
[2023-08-04 18:14] LABS: BASO # 0.1 10^3/uL (0.0-0.2); BASO % 0.7 % (0.0-1.0); EOS # 0.1 10^3/uL (0.0-0.5); HEMOGLOBIN 14.1 g/dl (12.0-15.5); LYMPH # 1.7 10^3/uL (1.5-5.0); LYMPH % 14.7 % (24.0-44.0); MEAN CORPUSCULAR HEMOGLOBIN 31.5 pg (27.0-33.0); MEAN CORPUSCULAR HGB CONC 34.4 g/dl (32.0-36.5); MEAN CORPUSCULAR VOLUME 91.5 fl (80.0-96.0); MONO # 1.1 10^3/uL (0.0-0.8); NEUTROPHILS # 8.2 10^3/uL (1.5-8.5); NEUTROPHILS % 72.7 % (36.0-66.0); PLATELET COUNT, AUTOMATED 290 10^3/uL (150-450); RED BLOOD COUNT 4.48 10^6/uL (4.00-5.40); WHITE BLOOD COUNT 11.3 10^3/uL (4.0-10.0)
[2023-08-04 18:38] LABS: ALKALINE PHOSPHATASE 62 U/L (46-116); ALT/SGPT 21 U/L (7.0-40); AST/SGOT 36 U/L (<34); BILIRUBIN,DIRECT < 0.1 MG/DL (<0.4); BILIRUBIN,TOTAL 0.3 MG/DL (0.3-1.2); LIPASE 50 U/L (12-53); TOTAL PROTEIN 7.1 G/DL (5.7-8.2)
[2023-08-04] MEDS ORDERED: MORPHINE 4 MG/ML 1ML VIAL As Ordered ONE (19:03)
[2023-08-04] MEDS ORDERED: MORPHINE 4 MG/ML 1ML VIAL IV ONE (19:05)
[2023-08-04] MEDS ORDERED: ACETAMINOPHEN TAB 650MG DOSE (2X325MG) PO PRN (19:50)
[2023-08-04] MEDS ORDERED: KETO10TAB PO (19:56)
[2023-08-04] MEDS ORDERED: HOME MED LIST COMPLETE! XX SCH (20:00)
[2023-08-04] MEDS: NS 1,000 ML IV SCH (21:20)
[2023-08-04] MEDS: MORPHINE 4 MG/ML 1ML VIAL IV PRN (22:26)
[2023-08-04 22:50] VITALS: BP 132/76; TEMP 97.7; O2SAT 99
[2023-08-04] MEDS: KETOROLAC 30 MG/ML 1ML VIAL IV PRN (23:47)
[2023-08-04] MEDS: ONDANSETRON 4MG 2ML VIAL IV PRN (23:50)
[2023-08-05] VITALS (10 sets, daily range): BP systolic 124–151; BP diastolic 87–101; TEMP 97–97.9; O2SAT 95–99
[2023-08-05] MEDS: NS 1,000 ML IV SCH ×2 (05:54→14:25)
[2023-08-05] MEDS: KETOROLAC 30 MG/ML 1ML VIAL IV PRN ×3 (05:55→18:44)
[2023-08-05 08:18] LABS: BLOOD UREA NITROGEN 10 MG/DL (9-23); CALCIUM LEVEL 8.4 MG/DL (8.5-10.1); CARBON DIOXIDE LEVEL 25 MMOL/L (20-31); CHLORIDE LEVEL 111 MMOL/L (98-107); CREATININE FOR GFR 0.83 MG/DL (0.55-1.30); GLOMERULAR FILTRATION RATE > 60.0 (>60); GLUCOSE, FASTING 95 MG/DL (60-100); MAGNESIUM LEVEL 1.7 MG/DL (1.8-2.4); POTASSIUM SERUM 4.2 MMOL/L (3.5-5.1); SODIUM LEVEL 143 MMOL/L (136-145)
[2023-08-05] MEDS: MORPHINE 4 MG/ML 1ML VIAL IV PRN (09:30)
[2023-08-05] MEDS: ONDANSETRON 4MG 2ML VIAL IV PRN (11:12)
[2023-08-05] MEDS ORDERED: HYDROMORPHONE HCL 0.5 MG/ 0.5 ML SYRINGE IV ONE (11:35)
[2023-08-05] MEDS ORDERED: LR 1,000 ML IV SCH (13:00)
[2023-08-05] MEDS ORDERED: ONDANSETRON 4MG 2ML VIAL IV PRN (13:00)
[2023-08-05] MEDS ORDERED: fentaNYL 100 MCG/2 ML INJECTION IV PRN (13:00)
[2023-08-05] MEDS ORDERED: PERCOCET 5MG/325MG TAB PO PRN (13:00)
[2023-08-05] MEDS ORDERED: MORPHINE 2 MG/ML 1ML VIAL IV PRN (13:00)
[2023-08-05] MEDS ORDERED: ceFAZolin 1GM VIAL IV ONE (13:09)
[2023-08-05] MEDS ORDERED: ISOVUE-300 61% 50ML VIAL XX ONE (13:11)
[2023-08-05] MEDS ORDERED: MAGNESIUM OXIDE 400MG TAB (MAG-OX) PO SCH (20:00)
[2023-08-05] MEDS: oxyBUTYnin 5 MG TAB PO SCH (20:27)
[2023-08-05] MEDS: PHENAZOPYRIDINE 100 MG TAB PO SCH (20:27)
[2023-08-05] MEDS: ceFAZolin SOD 1 GM in D5W MINI-BAG PLUS 50 ML IV SCH (20:28)
[2023-08-05] MEDS: MAGNESIUM OXIDE 400MG TAB (MAG-OX) PO SCH (20:28)
[2023-08-06] MEDS: NS 1,000 ML IV SCH (00:38)
[2023-08-06 02:30] VITALS: BP 132/94; TEMP 97.7; O2SAT 95
[2023-08-06] MEDS: KETOROLAC 30 MG/ML 1ML VIAL IV PRN (03:06)
[2023-08-06] MEDS: ceFAZolin SOD 1 GM in D5W MINI-BAG PLUS 50 ML IV SCH (05:12)
[2023-08-06 06:30] VITALS: BP 137/92; TEMP 98.1; O2SAT 96
[2023-08-06 06:36] LABS: BASO % 0.2 % (0.0-1.0); HEMATOCRIT 38.7 % (36.0-47.0); HEMOGLOBIN 13.1 g/dl (12.0-15.5); LYMPH # 0.8 10^3/uL (1.5-5.0); LYMPH % 9.3 % (24.0-44.0); MEAN CORPUSCULAR HGB CONC 33.9 g/dl (32.0-36.5); MEAN CORPUSCULAR VOLUME 91.5 fl (80.0-96.0); MONO # 0.7 10^3/uL (0.0-0.8); MONO % 8.1 % (2.0-8.0); NEUTROPHILS # 6.7 10^3/uL (1.5-8.5); PLATELET COUNT, AUTOMATED 248 10^3/uL (150-450); RED BLOOD COUNT 4.23 10^6/uL (4.00-5.40); WHITE BLOOD COUNT 8.2 10^3/uL (4.0-10.0)
[2023-08-06 07:04] LABS: BLOOD UREA NITROGEN 11 MG/DL (9-23); CALCIUM LEVEL 8.7 MG/DL (8.5-10.1); CARBON DIOXIDE LEVEL 23 MMOL/L (20-31); CHLORIDE LEVEL 107 MMOL/L (98-107); GLOMERULAR FILTRATION RATE > 60.0 (>60); GLUCOSE, FASTING 120 MG/DL (60-100); MAGNESIUM LEVEL 1.5 MG/DL (1.8-2.4); POTASSIUM SERUM 4.1 MMOL/L (3.5-5.1); SODIUM LEVEL 140 MMOL/L (136-145)
[2023-08-06] MEDS: PHENAZOPYRIDINE 100 MG TAB PO SCH (08:57)
[2023-08-06] MEDS: oxyBUTYnin 5 MG TAB PO SCH (08:57)
[2023-08-06] MEDS: MAGNESIUM OXIDE 400MG TAB (MAG-OX) PO SCH (08:57)
[2023-08-06] MEDS: MAG SULF 1GM/100ML (MAG RUN) 1 GM in IV 1 EA IV SCH ×2 (08:57→10:06)
[2023-08-06 10:00] VITALS: BP 135/90; TEMP 98.2; O2SAT 98
[2023-08-06] MEDS ORDERED: OXYB5TAB10 PO (10:22)
[2023-08-06] MEDS ORDERED: MAGN400T2 PO (10:22)
[2023-08-06] MEDS ORDERED: PHEN1TAB73 PO (10:22)
== END 2023-08-06 13:16 | disposition home or self-care (01) | DRG 465 ==
LOC: M ED 15:08 → M ED INP 19:40 → ENRESERV 19:49 → M MSPAV 22:44
PROVIDERS: ADMIT Internal Medicine; ATTEND Student in an Organized Health Care Education/Training Program
PROC: 0T767DZ Dilation of Right Ureter with Intraluminal Device, Via Natural or Artificial Opening (ICD-10-PCS; principal; 2023-08-05 12:30)
DX: N13.2 Hydronephrosis with renal and ureteral calculous obstruction (principal); E83.42 Hypomagnesemia; Z88.0 Allergy status to penicillin; Z88.8 Allergy status to other drugs, medicaments and biological substances; Z87.891 Personal history of nicotine dependence; F12.90 Cannabis use, unspecified, uncomplicated

== ENCOUNTER 2023-09-04 09:33 | Day surgery (SDC) | payer OTHER, SELFPAY ==
[~2023-09-04] VITALS: Ht 162.6 cm; Wt 72.1 kg
[~2023-09-04 09:33] MED LIST changes: +LIDOCAINE 2% 100MG/5ML SDV (FOR ANES.) As Ordered ONE; +MAGN400T2 PO; +MIDAZOLAM INJ 2MG/2ML VIAL As Ordered ONE; -OXYB5TAB10 PO; +OXYB5TAB11 PO; +PHEN1TAB73 PO; +UNRESOLVED CLARIFICATION ENTRY XX SCH; +ceFAZolin SOD 2 GM in IV 1 EA IV ONE; +fentaNYL 100 MCG/2 ML INJECTION As Ordered ONE; +propofoL 200 MG/20 ML VIAL As Ordered ONE
[2023-09-04] MEDS ORDERED: LR 1,000 ML IV SCH ×2 (10:05→11:50)
[2023-09-04] MEDS ORDERED: ceFAZolin SOD 2 GM in IV 1 EA IV ONE (10:20)
[2023-09-04] MEDS ORDERED: fentaNYL 100 MCG/2 ML INJECTION As Ordered ONE (11:22)
[2023-09-04] MEDS ORDERED: ISOVUE-300 61% 100ML VIAL As Ordered ONE (11:23)
[2023-09-04] MEDS ORDERED: KETOROLAC 60MG 2ML VIAL As Ordered ONE (11:28)
[2023-09-04] MEDS ORDERED: ONDANSETRON 4MG 2ML VIAL As Ordered ONE (11:28)
[2023-09-04] MEDS ORDERED: fentaNYL 100 MCG/2 ML INJECTION IV PRN (11:50)
[2023-09-04] MEDS ORDERED: ONDANSETRON 4MG 2ML VIAL IV PRN (11:50)
[2023-09-04] MEDS ORDERED: OXYB5TAB11 PO (11:55)
[2023-09-04] MEDS ORDERED: PYRI1TAB5 PO (11:55)
[2023-09-04] MEDS ORDERED: MACR100C43 PO (11:55)
[2023-09-04] MEDS: oxyCODONE 5MG TAB PO PRN ×2 (12:04→12:34)
[2023-09-04] MEDS: HYDROMORPHONE HCL 0.5 MG/ 0.5 ML SYRINGE IV PRN ×3 (12:05→12:21)
[2023-09-04] MEDS ORDERED: oxyBUTYnin 5 MG TAB PO STA (12:15)
[2023-09-04 13:10] VITALS: BP 132/84; TEMP 97.6; O2SAT 98
== END 2023-09-04 13:12 | disposition home or self-care (01) ==
LOC: M SDC 09:33
PROVIDERS: ATTEND Urology
DX: N20.1 Calculus of ureter (principal); F17.210 Nicotine dependence, cigarettes, uncomplicated; Z88.0 Allergy status to penicillin; Z88.1 Allergy status to other antibiotic agents
CPT/HCPCS: 52356; 76000; 81025; C1769; C2617; J0690; J1100; J1170; J1885; J2250; J2405; J3010; Q9967

== ENCOUNTER 2023-09-21 08:39 | Day surgery (SDC) | payer OTHER ==
[~2023-09-21] VITALS: Ht 162.6 cm; Wt 72.8 kg
[~2023-09-21 08:39] MED LIST changes: -LIDOCAINE 2% 100MG/5ML SDV (FOR ANES.) As Ordered ONE; +MACR100C43 PO; -MIDAZOLAM INJ 2MG/2ML VIAL As Ordered ONE; -UNRESOLVED CLARIFICATION ENTRY XX SCH; -fentaNYL 100 MCG/2 ML INJECTION As Ordered ONE; -propofoL 200 MG/20 ML VIAL As Ordered ONE
[2023-09-21] MEDS ORDERED: ONDANSETRON 4MG 2ML VIAL As Ordered ONE (10:35)
[2023-09-21] MEDS ORDERED: propofoL 200 MG/20 ML VIAL As Ordered ONE ×2 (10:35→11:41)
[2023-09-21] MEDS ORDERED: LIDOCAINE 2% 100MG/5ML SDV (FOR ANES.) As Ordered ONE (10:35)
[2023-09-21] MEDS ORDERED: MIDAZOLAM INJ 2MG/2ML VIAL As Ordered ONE (10:38)
[2023-09-21] MEDS ORDERED: fentaNYL 100 MCG/2 ML INJECTION As Ordered ONE (10:38)
[2023-09-21] MEDS ORDERED: ACETAMINOPHEN 1000MG 100ML IV BAG As Ordered ONE (11:24)
[2023-09-21 12:20] VITALS: BP 128/83; TEMP 97.5; O2SAT 98
== END 2023-09-21 12:31 | disposition home or self-care (01) ==
LOC: M SDC 08:39
PROVIDERS: ATTEND Urology
DX: N20.0 Calculus of kidney (principal); F12.10 Cannabis abuse, uncomplicated; Z87.891 Personal history of nicotine dependence; B18.2 Chronic viral hepatitis C; Z88.0 Allergy status to penicillin; Z88.1 Allergy status to other antibiotic agents; K21.9 Gastro-esophageal reflux disease without esophagitis
CPT/HCPCS: 50590; 74018; 81025; J0131; J0690; J1100; J2250; J2405; J3010

== ENCOUNTER 2025-02-03 06:18 | Emergency (ER) | payer OTHER ==
[~2025-02-03] VITALS: Ht 162.6 cm; Wt 69.4 kg
[~2025-02-03 06:18] MED LIST changes: +ONDA-282 PO; +ONDA-284 PO; -ONDA4TAB6 PO; -ONDA8TAB8 PO; -OXYB5TAB11 PO; +OXYB5TAB14 PO; -POTA10808 PO; +POTA10809 PO; -ceFAZolin SOD 2 GM in IV 1 EA IV ONE
[2025-02-03] MEDS: MORPHINE 4 MG/ML 1ML VIAL IV ONE (07:04)
[2025-02-03] MEDS: NS (Normal Saline) 0.9% 1,000 ML IV ONE (07:04)
[2025-02-03] MEDS: ONDANSETRON 4MG 2ML VIAL IV ONE (07:04)
[2025-02-03 07:25] LABS: KETONE, URINE AUTO RFX NEGATIVE (NEGATIVE); MUCUS, URINE RFX SMALL (NEGATIVE); NITRITE, URINE AUTO RFX NEGATIVE (NEGATIVE); RBC, URINE AUTO RFX 4 /HPF (0-3); SQUAM EPITHELIAL CELL UR AURFX 0 /HPF (0-6); WBC, URINE AUTO RFX 4 /HPF (0-3)
[2025-02-03 07:28] LABS: LEUKOCYTE ESTERASE UR AUTO RFX TRACE (NEGATIVE)
[2025-02-03 07:30] LABS: BASO # 0.1 10^3/uL (0.0-0.2); BASO % 1.2 % (0.0-1.0); EOS # 0.2 10^3/uL (0.0-0.5); EOS % 2.4 % (0.0-3.0); HEMATOCRIT 43.5 % (36.0-47.0); HEMOGLOBIN 14.3 g/dl (12.0-15.5); LYMPH # 1.7 10^3/uL (1.5-5.0); LYMPH % 24.2 % (24.0-44.0); MEAN CORPUSCULAR HEMOGLOBIN 30.1 pg (27.0-33.0); MEAN CORPUSCULAR HGB CONC 32.9 g/dl (32.0-36.5); MEAN CORPUSCULAR VOLUME 91.6 fl (80.0-96.0); MONO # 0.6 10^3/uL (0.0-0.8); MONO % 9.1 % (2.0-8.0); NEUTROPHILS # 4.4 10^3/uL (1.5-8.5); NEUTROPHILS % 62.7 % (36.0-66.0); PLATELET COUNT, AUTOMATED 271 10^3/uL (150-450); RED BLOOD COUNT 4.75 10^6/uL (4.00-5.40); WHITE BLOOD COUNT 6.9 10^3/uL (4.0-10.0)
[2025-02-03] MEDS ORDERED: PERC5TAB12 PO (09:01)
[2025-02-03] MEDS ORDERED: SULF1TAB23 PO (09:01)
[2025-02-03] MEDS: KETOROLAC 30 MG/ML 1ML VIAL IV ONE (09:17)
[2025-02-03 09:25] VITALS: BP 130/86; TEMP 98; O2SAT 100
== END 2025-02-03 09:30 | disposition home or self-care (01) ==
LOC: M ED 06:18
DX: N20.0 Calculus of kidney (principal); Z87.442 Personal history of urinary calculi; Z88.0 Allergy status to penicillin; Z88.1 Allergy status to other antibiotic agents; Z79.2 Long term (current) use of antibiotics; Z79.899 Other long term (current) drug therapy
CPT/HCPCS: 74176; 80047; 81001; 84702; 85025; 87086; 96361; 96374; 96375; 99284; J1885; J2405

== ENCOUNTER 2025-02-12 08:05 | Emergency (ER) | payer OTHER ==
[~2025-02-12] VITALS: Ht 162.6 cm; Wt 66.3 kg
[~2025-02-12 08:05] MED LIST changes: +SULF1TAB23 PO
[2025-02-12 08:10] VITALS: BP 139/95; TEMP 96.4; O2SAT 98
[2025-02-12] MEDS ORDERED: TAMS1CAP17 (08:14)
[2025-02-12] MEDS ORDERED: ZOLO100T (08:14)
[2025-02-12] MEDS ORDERED: PRAZ2CAP (08:14)
[2025-02-12] MEDS ORDERED: KETO10TAB (08:14)
[2025-02-12] MEDS ORDERED: HYDR50CA2 (08:14)
[2025-02-12 08:55] LABS: KETONE, URINE AUTO RFX NEGATIVE (NEGATIVE); LEUKOCYTE ESTERASE UR AUTO RFX NEGATIVE (NEGATIVE); MUCUS, URINE RFX SMALL (NEGATIVE); NITRITE, URINE AUTO RFX NEGATIVE (NEGATIVE); RBC, URINE AUTO RFX 3 /HPF (0-3); SQUAM EPITHELIAL CELL UR AURFX 1 /HPF (0-6); WBC, URINE AUTO RFX 3 /HPF (0-3)
[2025-02-12 09:08] LABS: BASO % 0.7 % (0.0-1.0); EOS # 0.1 10^3/uL (0.0-0.5); EOS % 1.4 % (0.0-3.0); HEMATOCRIT 41.9 % (36.0-47.0); HEMOGLOBIN 14.2 g/dl (12.0-15.5); LYMPH # 1.9 10^3/uL (1.5-5.0); LYMPH % 32.7 % (24.0-44.0); MEAN CORPUSCULAR HGB CONC 33.9 g/dl (32.0-36.5); MEAN CORPUSCULAR VOLUME 88.6 fl (80.0-96.0); MONO # 0.6 10^3/uL (0.0-0.8); MONO % 10.9 % (2.0-8.0); NEUTROPHILS # 3.2 10^3/uL (1.5-8.5); PLATELET COUNT, AUTOMATED 227 10^3/uL (150-450); RED BLOOD COUNT 4.73 10^6/uL (4.00-5.40); WHITE BLOOD COUNT 5.9 10^3/uL (4.0-10.0)
[2025-02-12 09:22] LABS: LIPASE 52 U/L (12-53)
[2025-02-12 09:25] LABS: ALBUMIN 3.7 G/DL (3.2-5.2); ALKALINE PHOSPHATASE 61 U/L (35-104); ALT/SGPT 16 U/L (7.0-40); AST/SGOT 14 U/L (<34); BILIRUBIN,DIRECT 0.1 MG/DL (<0.4); BILIRUBIN,TOTAL 0.4 MG/DL (0.3-1.2); BLOOD UREA NITROGEN 14 MG/DL (9-23); CALCIUM LEVEL 9.4 MG/DL (8.5-10.1); CARBON DIOXIDE LEVEL 29 MMOL/L (20-31); CHLORIDE LEVEL 105 MMOL/L (98-107); CREATININE FOR GFR 0.82 MG/DL (0.55-1.30); GLOMERULAR FILTRATION RATE > 60.0 (>58); GLUCOSE, FASTING 99 MG/DL (60-100); POTASSIUM SERUM 4.5 MMOL/L (3.5-5.1); SODIUM LEVEL 142 MMOL/L (136-145); TOTAL PROTEIN 7.1 G/DL (5.7-8.2)
[2025-02-12] MEDS: ACETAMINOPHEN *IV* 1,000 MG in IV 1 EA IV ONE (09:38)
[2025-02-12] MEDS: fentaNYL 100 MCG/2 ML INJECTION IV ONE (10:39)
== END 2025-02-12 15:32 | disposition left against medical advice (07) ==
LOC: M ED 08:05
DX: N20.1 Calculus of ureter (principal); F43.10 Post-traumatic stress disorder, unspecified; B19.20 Unspecified viral hepatitis C without hepatic coma; Z87.442 Personal history of urinary calculi; F12.10 Cannabis abuse, uncomplicated; Z88.0 Allergy status to penicillin; Z88.1 Allergy status to other antibiotic agents; Z79.2 Long term (current) use of antibiotics; Z79.899 Other long term (current) drug therapy; Z53.9 Procedure and treatment not carried out, unspecified reason
CPT/HCPCS: 74176; 80048; 80076; 81001; 83690; 85025; 87486; 87581; 87633; 87798; 96365; 96366; 96375; 99281; J0131; J3010

== ENCOUNTER 2025-11-17 07:31 | Emergency (ER) | payer OTHER ==
[~2025-11-17] VITALS: Ht 162.6 cm; Wt 74.8 kg
[~2025-11-17 07:31] MED LIST changes: +ACYC-438; -ACYC1TAB; -BACTDSTA; -FLOM0.4C39 PO; +HYDR50CA2; +KETO10TAB; +PRAZ2CAP; +SULF-7 PO; +SULF-8; -SULF1TAB23 PO; +TAMS-18 PO; +TAMS1CAP17; +ZOLO100T
[2025-11-17 07:36] VITALS: TEMP 97.3
[2025-11-17] MEDS ORDERED: PRAZ1CAP (07:52)
[2025-11-17 08:19] LABS: BASO # 0.0 10^3/uL (0.0-0.2); BASO % 0.6 % (0.0-1.0); EOS # 0.2 10^3/uL (0.0-0.5); EOS % 2.4 % (0.0-3.0); LYMPH # 1.5 10^3/uL (1.5-5.0); LYMPH % 22.7 % (24.0-44.0); MONO # 0.6 10^3/uL (0.0-0.8); MONO % 8.6 % (2.0-8.0); NEUTROPHILS # 4.4 10^3/uL (1.5-8.5); NEUTROPHILS % 65.4 % (36.0-66.0); PLATELET COUNT, AUTOMATED 287 10^3/uL (150-450)
[2025-11-17] MEDS: ONDANSETRON 4MG/2ML VIAL IV ONE (08:21)
[2025-11-17] MEDS: NS (Normal Saline) 0.9% 1,000 ML IV ONE (08:21)
[2025-11-17] MEDS: KETOROLAC 30 MG/ML 1 ML VIAL IV ONE (08:23)
[2025-11-17] MEDS: ACETAMINOPHEN *IV* 1,000 MG in IV 1 EA IV ONE (08:25)
[2025-11-17 08:46] LABS: KETONE, URINE AUTO RFX NEGATIVE (NEGATIVE); LEUKOCYTE ESTERASE UR AUTO RFX NEGATIVE (NEGATIVE); MUCUS, URINE RFX SMALL (NEGATIVE); NITRITE, URINE AUTO RFX NEGATIVE (NEGATIVE); RBC, URINE AUTO RFX 2 /HPF (0-3); SQUAM EPITHELIAL CELL UR AURFX 2 /HPF (0-6); WBC, URINE AUTO RFX 1 /HPF (0-3)
[2025-11-17 08:52] LABS: CK-MB VALUE MASS < 1.0 NG/ML (<3.6)
[2025-11-17 08:54] LABS: ALT/SGPT 33 U/L (7.0-40); AST/SGOT 31 U/L (<34); CALCIUM LEVEL 9.3 MG/DL (8.5-10.1); CARBON DIOXIDE LEVEL 26 MMOL/L (20-31); CHLORIDE LEVEL 107 MMOL/L (98-107); CREATININE FOR GFR 0.95 MG/DL (0.55-1.30); GLOMERULAR FILTRATION RATE 77.2 (>58); POTASSIUM SERUM 4.5 MMOL/L (3.5-5.1); SODIUM LEVEL 142 MMOL/L (136-145)
[2025-11-17 08:56] LABS: CPK CREATINE PHOSPHOKINASE 83 U/L (34-145)
[2025-11-17 08:58] LABS: HCG, SERUM QUALITATIVE NEGATIVE (NEGATIVE)
[2025-11-17] MEDS: MORPHINE 4 MG/ML 1 ML VIAL IV PRN (09:46)
[2025-11-17 10:30] VITALS: BP 128/84
[2025-11-17] MEDS ORDERED: OXYC-1 PO (10:44)
[2025-11-17] MEDS ORDERED: KETO-204 PO (10:44)
[2025-11-17] MEDS ORDERED: ONDA-282 PO (10:44)
[2025-11-17 10:45] VITALS: O2SAT 97
== END 2025-11-17 11:34 | disposition home or self-care (01) ==
LOC: M ED 07:31
DX: N20.2 Calculus of kidney with calculus of ureter (principal); F41.9 Anxiety disorder, unspecified; F19.11 Other psychoactive substance abuse, in remission; Z88.0 Allergy status to penicillin; Z88.1 Allergy status to other antibiotic agents; Z79.899 Other long term (current) drug therapy
CPT/HCPCS: 71046; 74176; 80048; 80076; 81001; 82550; 82553; 83605; 84484; 84703; 85025; 93005; 96365; 96375; 99284; J0134; J1885; J2405